=== PATIENT | male | born 1945 | race Caucasian/White ===

== ENCOUNTER 2022-04-17 05:58 | Inpatient (IN) ==
--- NOTE | 2022-03-28 10:07 | PAT Medication Instructions ---
Medication Instructions Date of Service March 28, 2022 Home Medications aspirin 81 mg tablet,delayed release 81 mg PO QAM baclofen 10 mg tablet 10 mg PO TID PRN carbidopa 50 mg-levodopa 200 mg-entacapone 200 mg tablet 1 tab PO TID carbidopa ER 50 mg-levodopa 200 mg tablet,extended release 1 tab PO HS hydrocodone 7.5 mg-acetaminophen 325 mg tablet 1 tab PO BID PRN insulin human U-100 NPH-regulr 70-30 mix 100 unit/mL subcutaneous susp (Humulin 70/30 U-100 Insulin) 10 - 15 unit subcut QPM insulin human U-100 NPH-regulr 70-30 mix 100 unit/mL subcutaneous susp (Humulin 70/30 U-100 Insulin) 56 unit subcut QAM lovastatin 40 mg tablet 40 mg PO HS melatonin 10 mg tablet 10 mg PO HS pantoprazole 40 mg tablet,delayed release 40 mg PO BID ASK your prescriber and surgeon aspirin 81 mg tablet,delayed release 81 mg PO QAM DO NOT take the morning of surgery baclofen 10 mg tablet 10 mg PO TID PRN Take morning of surgery With a small sip of water, OTHERWISE NOTHING TO EAT OR DRINK AFTER MIDNIGHT: carbidopa 50 mg-levodopa 200 mg-entacapone 200 mg tablet 1 tab PO TID hydrocodone 7.5 mg-acetaminophen 325 mg tablet 1 tab PO BID PRN(if needed) pantoprazole 40 mg tablet,delayed release 40 mg PO BID Take evening before surgery baclofen 10 mg tablet 10 mg PO TID PRN(if needed) carbidopa 50 mg-levodopa 200 mg-entacapone 200 mg tablet 1 tab PO TID carbidopa ER 50 mg-levodopa 200 mg tablet,extended release 1 tab PO HS hydrocodone 7.5 mg-acetaminophen 325 mg tablet 1 tab PO BID PRN(if needed) insulin human U-100 NPH-regulr 70-30 mix 100 unit/mL subcutaneous susp (Humulin 70/30 U-100 Insulin) 10 - 15 unit subcut QPM lovastatin 40 mg tablet 40 mg PO HS melatonin 10 mg tablet 10 mg PO HS pantoprazole 40 mg tablet,delayed release 40 mg PO BID Insulin Dependent Diabetic Patients * Test your blood sugar the morning of surgery * If Blood Sugar is GREATER THAN 150, take HALF of your regular dose of: insulin human U-100 NPH-regulr 70-30 mix 100 unit/mL subcutaneous susp (Humulin 70/30 U-100 Insulin)-28 unit subcut QAM. * If Blood Sugar is LESS THAN 150, DO NOT TAKE ANY: insulin human U-100 NPH- regulr 70-30 mix 100 unit/mL subcutaneous susp (Humulin 70/30 U-100 Insulin). Other Notes If you have any questions please call us at [phone] or [phone] or [phone] or [phone]
--- NOTE | 2022-03-30 13:35 | Anesthesiology Consultation ---
Date of Service March 30, 2022 Assessment & Plan (1) Encounter for pre-operative examination: - Lightheadedness/dizziness persistent per pt/ report and overall history discussed with Dr Lawson who advised specific pre-op cardiology clearance prior to surgery. Awaiting cardiac pre-op evaluation. - will request carotid imaging. - check BSG am DOS. - cardiology 02/14/22: "...coronary artery disease and syncope...follow-up of a syncopal episode requiring hospitalization at [facility]...Prior workup had included echocardiogram and carotid duplex. Both studies were unremarkable...Holter monitor did not indicate significant dysrhythmias...noted to near syncopal episodes while wearing monitor...did not have dysrhythmias. Longer monitoring was recommended but patient did not wish to consider this. I twas felt his episodes were most likely related to orthostatic blood pressure events. Adequate hydration was recommended...denies any further episodes of near-syncope/syncope...noted improvement in lightheadedness with use of compression hose and adequate hydration...orthostatic blood pressures were checked today. Hypotension was not noted...denies any further episodes of near- syncope/syncope...further testing will not be ordered at this time...previously noted to have PVCs on Holter monitor...not at a rate that would put him at risk for PVC mediated cardiomyopathy...will continue to monitor for now..." Chart Review Chart Review: Pending: Refer to Additional Notes / Consult section and Patient seen in Pre Admission Testing Teaching & Discussion Pre-Anesthesia Teaching/Discussion Notes: Instructed NPO after midnight before surgery, except medications with 15 cc of water. Medication instructions provided according to the PAT guidelines. History Surgery Operation Date: 04/17/22 12:25 Proposed Procedures p L2-L5 Decompression and Fusion, Spinal Cord Monitoring - Festus Su DO Height/Weight Height: 5 ft 10 in Weight: 81.5 kg Allergies Allergy/AdvReac Type Severity Reaction Status Date / Time No Known Allergies Allergy Verified 03/27/22 09:32 Medications Home Medications Medication Instructions Recorded Confirmed Last Taken aspirin 81 mg tablet,delayed 81 mg PO QAM 03/27/22 03/27/22 Unknown release baclofen 10 mg tablet 10 mg PO TID PRN Pain 03/27/22 03/27/22 Unknown carbidopa 50 mg-levodopa 200 1 tab PO TID 03/27/22 03/27/22 Unknown mg-entacapone 200 mg tablet carbidopa ER 50 mg-levodopa 200 mg 1 tab PO HS 03/27/22 03/27/22 Unknown tablet,extended release hydrocodone 7.5 mg-acetaminophen 1 tab PO BID PRN Pain 03/27/22 03/27/22 Unknown 325 mg tablet insulin human U-100 NPH-regulr 10 - 15 unit subcut QPM 03/27/22 03/27/22 Unknown 70-30 mix 100 unit/mL subcutaneous susp (Humulin 70/30 U-100 Insulin) insulin human U-100 NPH-regulr 56 unit subcut QAM 03/27/22 03/27/22 Unknown 70-30 mix 100 unit/mL subcutaneous susp (Humulin 70/30 U-100 Insulin) lovastatin 40 mg tablet 40 mg PO HS 03/27/22 03/27/22 Unknown melatonin 10 mg tablet 10 mg PO HS 03/27/22 03/27/22 Unknown pantoprazole 40 mg tablet,delayed 40 mg PO BID 03/27/22 03/27/22 Unknown release Past Medical History Medical History (Updated 03/30/22 @ 14:06 by Bailey Sherman PA-C) CAD (coronary artery disease) 1 stent, follows with [facility] DDD (degenerative disc disease) DM type 1 (diabetes mellitus, type 1) IDDM Gastroparesis GERD (gastroesophageal reflux disease) History of hypertension h/o orthostatic hypotension, follows [facility] reports infrequent episodes of lightheadedness without near syncope History of myocardial infarction 1999 HLD (hyperlipidemia) Parkinsons disease Patient denies h/o stroke, seizures, heart failure, blood clots or blood transfusions. Exercise / Class Metabolic Activity III < 4 Walking/Shop/Light housework (occ SOB with usual activities, ambulates with cane) Past Family History Family History Other No family history of adverse response to anesthesia Past Surgical History Surgical History History of ankle surgery Lt History of cardiac catheterization mult. 1 stent placed in 1999 with [place]. says most recent "few years ago" [facility] History of carpal tunnel release of both wrists History of cholecystectomy History of colonoscopy History of esophagogastroduodenoscopy (EGD) History of heart artery stent x 1 (1999) History of tonsillectomy Past Anesthesia History No Hx of Anesthesia Complications and No Family Hx of Anesthesia Complications History of PONV No Hx of PONV and No Hx of Motion Sickness Social History Smoking Status: Former smoker Do You Dip or Chew Tobacco: No Smoking End Date: 1974 Hx Alcohol Use: Yes Alcohol type: beer and wine alcohol intake frequency: a few times a month Hx Substance Use: No substance use type: does not use Review of Systems Snoring, denies witnessed apneas. Patient denies chest pain, shortness of breath, dyspnea on exertion, fever, chills, cough, wheezing, or palpitations. Physical Exam Vital Signs Vitals BP 107/68 P 75 TEMP 98 SP02 95% on RA RESP 17 Physical Full cervical extension range of motion without pain TMD 3.5 finger breadths Mallampati Score 2 Dentition: full upper and lower dentures Lungs: normal respiratory effort. Clear throughout to auscultation, no adventitious breath sounds Cardiac: regular rate and rhythm, no murmurs noted Carotid arteries: negative bruit bilat Lab Results Anesthesia Preop Results Results Anesthesia Widget: WBC 6.40 K/ul (4.8-10.8) 03/30/22 Hgb 14.6 g/dl (14.0-18.0) 03/30/22 Hct 43.0 % (40.1-51.0) 03/30/22 Plt 200 K/uL (130-400) 03/30/22 Na 143 mmol/L (136-145) 03/30/22 K 4.2 mmol/L (3.5-5.1) 03/30/22 Cl 108 mmol/L (98-107) H 03/30/22 CO2 33 mmol/L (21-32) H 03/30/22 BUN 15 mg/dl (6-23) 03/30/22 Creat 0.81 mg/dl (0.6-1.4) 03/30/22 Glucose Level 97 mg/dl (70-99(Fasting)) 03/30/22 PT 11.4 Seconds (9.0-12.0) 03/30/22 PTT 30.3 Seconds (21.0-31.0) 03/30/22 INR 1.1 (0.9-1.1) 03/30/22 HA1c 7.3 % (4.5-5.6) H 03/30/22 Urine Color Dark Yellow 03/30/22 Urine Appearance Clear (Clear) 03/30/22 Urine pH 5.5 (4.5-7.5) 03/30/22 Urine Specific [place] 1.026 (1.000-1.030) 03/30/22 Urine Protein Trace (Negative) H 03/30/22 Urine Glucose (UA) 3+ (Negative) H 03/30/22 Urine Ketones Trace (Negative) H 03/30/22 Urine Blood Negative (Negative) 03/30/22 Urine Nitrite Negative (Negative) 03/30/22 Urine Bilirubin Negative (Negative) 03/30/22 Urine Urobilinogen Negative (Negative) 03/30/22 Urine Leukocyte Esterase Negative (Negative) 03/30/22 Urine WBC (Auto) 1-5 /hpf (0-5) 03/30/22 Urine RBC (Auto) 0-4 /hpf (0-4) 03/30/22 Urine Hyaline Casts (Auto) 0 /lpf (0-5) 03/30/22 Urine Epithelial Cells (Auto) 0-5 /lpf (0-5) 03/30/22 Urine Bacteria (Auto) Negative (Negative) 03/30/22 Blood Type O Positive 03/30/22 Antibody Screen NEGATIVE 03/30/22 Testing Electrocardiogram Date: 01/03/22 NSR, rate 73 bpm Chest X-Ray Date: 03/30/22 No lines and tubes are seen. Calcified aortic knob is seen. The lungs are clear. No evidence of pleural effusion or pneumothorax. IMPRESSION: No acute chest disease. Echocardiogram Date: 08/17/20 EF 50% No obvious regional wall motion abnormalities Mildly dilated LA No significant valvular pathology Stress Test Date: 08/10/20 Pharmacologic MPHR 62% Normal, no evidence of ischemia or prior infarction EF 69% Normal LV global systolic function, no abnormality noted Other Testing Event monitor 11/25/21 Sinus rhythm, average HR 72 bpm, min 58 bpm, max 96 bpm. PVC burden 7% COVID-19 Risk Screen Screening Information COVID-19 Screen Date: 03/30/22 Exposure 21 Days Family/Household +COVID Last 21 Days: No Exposure 10 Days Any COVID Exposure Last 10 Days: No Symptoms Last 10 Days Experienced COVID Sx Last 10 Days: No + COVID 0-90 Days COVID + in Last 0-90 Days: No
[2022-04-17] MEDS ORDERED: LR 15ML/HR IV SCH (06:00)
[2022-04-17] MEDS ORDERED: ceFAZolin 2000MG 2,000 MG/15 ML SYR IV SCH (06:00)
[2022-04-17] MEDS ORDERED: CeleBREX 200 MG CAP PO SCH (06:00)
[2022-04-17] MEDS ORDERED: GABAPENTIN 300 MG CAP PO SCH (06:00)
[2022-04-17] MEDS ORDERED: ACETAMINOPHEN 500 MG TAB PO SCH (06:00)
[2022-04-17] MEDS ORDERED: ePHEDrine sulfate 50 MG/ML AMP IV PRN (06:52)
[2022-04-17] MEDS ORDERED: ATROPINE SULFATE 0.1 MG/ML 10ML SYR IV PRN (06:52)
[2022-04-17] MEDS ORDERED: fentaNYL citrate 100 MCG/2 ML VIAL IV PRN (06:52)
[2022-04-17] MEDS ORDERED: ONDANSETRON INJ 2 MG/ML 2 ML VIAL IV PRN ×2 (06:52→11:28)
[2022-04-17] MEDS ORDERED: fentaNYL citrate 100 MCG/2 ML VIAL ONE (07:16)
[2022-04-17] MEDS ORDERED: BUPIVACAINE/EPINEPHRINE 0.25% 1:200,000 30 ML VIAL ONE (07:18)
[2022-04-17] MEDS ORDERED: ceFAZolin 330 MG/ML 1 GM VIAL ONE (07:19)
--- NOTE | 2022-04-17 07:38 | History & Physical Bridge Note ---
Date of Service April 17, 2022 History & Physical Bridge Note I have examined the patient, reviewed the History & Physical and in the interval since the performance of the History & Physical I have noted the following changes of clinical significance: no changes noted
--- NOTE | 2022-04-17 07:39 | History & Physical Report ---
Date of Service April 17, 2022 Assessment & Plan (1) Neurogenic claudication due to lumbar spinal stenosis: Plan: L2-L5 decompression fusion History of Present Illness Chief Complaint: Back and bilateral leg pain Primary Care Provider: RICHA Massey This is a 76-year-old male who presents with chronic persistent back and bilateral leg pain after failing since course of nonoperative care is here for surgical invention. Allergies Allergy/AdvReac Type Severity Reaction Status Date / Time No Known Allergies Allergy Verified 04/17/22 06:23 Home Medications Medication Instructions Recorded Confirmed Type aspirin 81 mg tablet,delayed 81 mg PO QAM 03/27/22 04/17/22 History release baclofen 10 mg tablet 10 mg PO TID PRN Pain 03/27/22 04/17/22 History carbidopa 50 mg-levodopa 200 1 tab PO TID 03/27/22 04/17/22 History mg-entacapone 200 mg tablet carbidopa ER 50 mg-levodopa 200 mg 1 tab PO HS 03/27/22 04/17/22 History tablet,extended release hydrocodone 7.5 mg-acetaminophen 1 tab PO BID PRN Pain 03/27/22 04/17/22 History 325 mg tablet insulin human U-100 NPH-regulr 10 - 15 unit subcut QPM 03/27/22 04/17/22 History 70-30 mix 100 unit/mL subcutaneous susp (Humulin 70/30 U-100 Insulin) insulin human U-100 NPH-regulr 56 unit subcut QAM 03/27/22 04/17/22 History 70-30 mix 100 unit/mL subcutaneous susp (Humulin 70/30 U-100 Insulin) lovastatin 40 mg tablet 40 mg PO HS 03/27/22 04/17/22 History melatonin 10 mg tablet 10 mg PO HS 03/27/22 04/17/22 History pantoprazole 40 mg tablet,delayed 40 mg PO BID 03/27/22 04/17/22 History release (Protonix) Past Med/Surg History Medical History (Updated 04/17/22 @ 07:39 by Festus Su DO) CAD (coronary artery disease) 1 stent, follows [facility] DDD (degenerative disc disease) DM type 1 (diabetes mellitus, type 1) IDDM Gastroparesis GERD (gastroesophageal reflux disease) History of hypertension h/o orthostatic hypotension, follows [facility] reports infrequent episodes of lightheadedness without near syncope History of myocardial infarction 1999 HLD (hyperlipidemia) Parkinsons disease Surgical History History of ankle surgery Lt History of cardiac catheterization mult. 1 stent placed in 1999 with ID. says most recent "few years ago" [facility] History of carpal tunnel release of both wrists History of cholecystectomy History of colonoscopy History of esophagogastroduodenoscopy (EGD) History of heart artery stent x 1 (1999) History of tonsillectomy Family History Other No family history of adverse response to anesthesia Social History Smoking Status: Former smoker Smoking End Date: 1974; Second Hand Exposure: No; Do You Dip or Chew Tobacco: No; Tobacco Cessation Education Requested by Patient: No Hx Alcohol Use: Yes Alcohol type: beer and wine Hx Substance Use: No Preferred Language: Tristanian Communication Ability: Effective Secondary Special Education Teacher Required: No Beliefs That Will Affect Care: None Current Living Situation: Spouse Feels Safe at Home: Yes Safety Concerns: Feels Safe At This Time Assistive Devices: Cane, Denture - Upper, Denture - Lower and Glasses Physical Exam Physical Exam: Patient is alert and oriented Heart regular rhythm Lungs clear Results & Data Results & Data ([facility]) Vital Signs (Past 12 Hours) Vital Signs Temp Pulse Resp BP Pulse Ox O2 Del Method 04/17/22 06:28 36.9 C 67 20 163/73 H 99 Room Air
[2022-04-17] MEDS ORDERED: HYDROmorphone INJ 2 MG/ML SYR/VIAL ONE (08:12)
[2022-04-17] MEDS ORDERED: DEXAMETHASONE SOD INJ 4 MG/ML VIAL ONE (08:21)
[2022-04-17] MEDS ORDERED: LIDOCAINE 2% MPF LOCAL 5 ML VIAL INFIL ONE (08:21)
[2022-04-17] MEDS ORDERED: PROPOFOL IV EMULSION 10 MG/ML 20 ML VIAL IV ONE (08:21)
[2022-04-17] MEDS ORDERED: ROCURONIUM BROMIDE 10 MG/ML 5 ML VIAL IV ONE (08:21)
[2022-04-17] MEDS ORDERED: ONDANSETRON INJ 2 MG/ML 2 ML VIAL ONE (08:21)
[2022-04-17] MEDS ORDERED: ePHEDrine sulfate 50 MG/ML SYR ONE (08:29)
[2022-04-17] MEDS ORDERED: FLOSEAL HEMOSTATIC MATRIX 10ML TOP ONE (08:37)
[2022-04-17] MEDS ORDERED: GLYCOPYRROLATE 0.2 MG/ML VIAL ONE (10:18)
[2022-04-17] MEDS ORDERED: NEOSTIGMINE METHYLSULFATE 1 MG/ML 10ML VIAL ONE (10:18)
--- NOTE | 2022-04-17 10:21 | Operative Report ---
Post Operative Report Pre & Post Diagnosis Operation Date: 04/17/22 07:45 Pre-Op Diagnosis: Neurogenic Claudication due to Lumbar Spinal Stenosis Post-Op Diagnosis: Neurogenic Claudication due to Lumbar Spinal Stenosis I identified the patient and participated in the time-out.: Yes Procedure Operation Date: 04/17/22 07:45 Actual Procedures #1 lumbar decompression bilateral medial facetectomies and foraminotomies L2-L3, L3-L4 and L4-5 per #2 posterior spinal fusion L2-L5 per #3 placement of posterior segmental instrumentation L2-L5. #4 interbody fusion L3-L4 L4-5 per #5 placement of Spira 12 x 26 mm cage at L3-L4 and 15 x 26 mm cage at L4-5. #6 placement locally harvested morselized autograft in the posterior gutters. #7 placement I factor model V toss in interbody space and posterior gutters. Surgeon Festus Su, Seeing Eye Dog Trainer June Fall Estimated Blood Loss 500 Findings Consistent with Post-Op Diagnosis Specimens None Indications 76-year-old male who presents with chronic persistent back and bilateral leg pain. Failing course of care is here for surgical invention. Description of Procedure Patient was met with identified informed consent obtained. Patient was then taken to the operative suite underwent ablation placed in the prone position on the Ildefonso table on top of the Jose A frame. All bony prominences well-padded eyes inspected to ensure no external pressure baseline. This point lumbar spine was prepped and draped no sterile fashion. Sharp dissection with the assistance of Bovie cautery was then performed down to and exposing the lamina and transverse processes of L2-L3 L4-5 bilaterally. From caudal to cephalad fashion complete laminectomy of L4 L3 and L2 was performed including bilateral medial facetectomies and foraminotomies addressing severe spinal stenosis. Pedicle screws then placed L2-L3 L4-5 bilaterally with assistance of fluoroscopy and appropriately sized eder placed. By way of a transforaminal approach on the right complete discectomy L4-L5 was performed endplates curetted to subcortical bleeding bone and a 15 x 26 mm spiral cage filled with I factor tapped in position. Then proceeded to L3-L4 and again by way of a transfemoral approach and right complete discectomy performed endplates curetted to subcortical bleeding bone and a 12 x 26 mm spiral cage with I factor tapped in position. The rods and locked in final position bilaterally. Transverse processes of L2- L3 L4-5 burred to subcortical bleeding bone. I factor model detox and locally harvested morselized autograft was placed in the posterior gutters. 15 round HELDER drain inserted. The incision was then closed with 1 Vicryl the fascia 2-0 Vicryl subcutaneously and 4 Monocryl for final skin closure. Steri-Strip sterile dressings placed. Patient waken taken to PACU in stable condition. Please note spinal cord monitoring was utilized at the procedure no changes noted. Lastly June Fall was present at the entire surgeon while the patient positioning complex portions of the surgery and final skin closure. I attest to the content of the Intraoperative Record and any orders documented therein. Any exceptions are noted below.
--- NOTE | 2022-04-17 11:16 | Fluoroscopy Report ---
FL lumbar spine 2-3V CLINICAL HISTORY: L2-L5 DECOMPRESSION AND FUSION, SPINAL CORD MONITORING TECHNIQUE: 2 views were obtained with the C-arm in the OR with the above procedure. Total fluoroscopy time was 29 seconds. Comparison: None available at the time of this dictation. FINDINGS/IMPRESSION: Intraoperative images were obtained of L2-L5 discectomy and fusion. Please correlate with intraoperative fluoroscopy and operative report. ACT 112: Negative or not required by law. Electronically signed by: Yossi Palacios M.D. 04/17/2022 11:15 AM
[2022-04-17] MEDS ORDERED: LORazepam 0.5 MG in SYRINGE 0 ML IV PRN (11:28)
[2022-04-17] MEDS ORDERED: bisacodyL 10 MG SUPP PR PRN (11:28)
[2022-04-17] MEDS ORDERED: traMADol HCL 50 MG TABLET PO PRN (11:28)
[2022-04-17] MEDS ORDERED: ONDANSETRON 4 MG OD TAB PO PRN (11:28)
[2022-04-17] MEDS ORDERED: NALOXONE HCL 0.4 MG/1 ML VIAL/CARP IV PRN (11:28)
[2022-04-17] MEDS ORDERED: ALUMINUM/MAGNESIUM SUSP 30 ML UDC PO PRN (11:28)
[2022-04-17] MEDS ORDERED: HYDROmorphone INJ 1 MG/ML SYRINGE IV PRN (11:28)
[2022-04-17] MEDS ORDERED: LORazepam 0.5 MG TAB PO PRN (11:28)
[2022-04-17] MEDS ORDERED: METOCLOPRAMIDE HCL INJ 5 MG/ML 2 ML VIAL IV PRN (11:28)
[2022-04-17] MEDS ORDERED: MAGNESIUM HYDROXIDE SUSP 30 ML UDC PO PRN (11:28)
[2022-04-17] MEDS ORDERED: diphenhydrAMINE Capsule 25 MG CAP PO PRN (11:28)
[2022-04-17] MEDS ORDERED: SOD PHOSPHATE/SOD BIPHOSPHATE ENEMA 132 ML BTL PR PRN (11:28)
[2022-04-17] MEDS ORDERED: PROMETHAZINE HCL 12.5 MG in SODIUM CHLORIDE 0.9% 50 ML IV PRN (11:28)
[2022-04-17] MEDS ORDERED: hydrOXYzine HCl 25 MG TAB PO PRN (11:28)
[2022-04-17] MEDS ORDERED: ACETAMINOPHEN 1,000 MG/100 ML VIAL IV PRN (11:28)
[2022-04-17] MEDS ORDERED: PHARMACY GLYCEMIC MGMT CONSULT PRN (11:28)
[2022-04-17] MEDS ORDERED: FAMOTIDINE 20 MG TAB PO PRN (11:28)
[2022-04-17] MEDS ORDERED: ACETAMINOPHEN 500 MG TAB PO PRN (11:28)
[2022-04-17] MEDS: LEVODOPA PO SCH ×2 (11:30→16:45)
[2022-04-17] MEDS: CARBIDOPA PO SCH ×2 (11:30→16:45)
[2022-04-17] MEDS: ENTACAPONE PO SCH ×2 (11:30→16:45)
[2022-04-17] MEDS: SODIUM CHLORIDE 0.9% 1000ML 1,000 ML IV SCH ×2 (11:38→21:53)
--- NOTE | 2022-04-17 12:13 | Anesthesiology Progress Note ---
Date of Service April 17, 2022 Anesthesia Post Procedure Vital Signs Vital Signs: Temp Pulse Pulse Resp BP Pulse Ox O2 Del Method 04/17/22 11:50 97.5 F L 73 16 128/67 96 Room Air 04/17/22 11:10 97.0 F L 70 16 122/43 L 95 Room Air 04/17/22 11:00 74 16 124/45 L 96 Room Air 04/17/22 10:50 67 18 128/47 L 100 Oxymask 04/17/22 10:40 96.8 F L 88 17 130/45 L 100 Oxymask 04/17/22 06:28 98.4 F 67 20 163/73 H 99 Room Air O2 Flow Rate 04/17/22 11:50 04/17/22 11:10 04/17/22 11:00 04/17/22 10:50 6 04/17/22 10:40 6 04/17/22 06:28 Transfer of Care Handoff Completed per policy Notes Mental Status: alert / awake / arousable and participated in evaluation Patient Amnestic to Procedure: Yes Nausea / Vomiting: adequately controlled Pain: adequately controlled Airway Patency, RR, SpO2: stable & adequate BP & HR: stable & adequate Hydration State: stable & adequate Anesthetic Complications: no major complications apparent and Pt Satisfied with anesthetic care
--- NOTE | 2022-04-17 12:25 | Consultation ---
Date of Consultation April 17, 2022 Assessment & Plan (1) Neurogenic claudication due to lumbar spinal stenosis: (2) CAD (coronary artery disease): (3) Parkinsons disease: (4) DM type 1 (diabetes mellitus, type 1): (5) HLD (hyperlipidemia): (6) GERD (gastroesophageal reflux disease): Plan Mr. Cortez Daley is a 76 year old underwent L2-L5 discectomy and fusion under the care of Dr. Su today after failed conservative management as an outpatient for neurogenic claudication from lumbar spinal stenosis. Pt has a PMH of IDDM, Parkinsons Disease, and CAD/HTN. Neurogenic claudication due to lumbar spinal stenosis: POD# 0 s/p L2-L5 discectomy and fusion with Dr. Su. Per ortho for pain control, wound care, anticoagulation and activities. Monitor H&H. Hgb 03/30/22 14.6; trend in AM. Continue incentive spirometry; patient was able to demonstrate correct use PT/OT when appropriate Patient was using a walker prior to surgery due to pain Patient was taking Vicodin and Baclofen p.o. prior to surgery for pain Has stool softener ordered Has medical marijuana card and has topical oils for neuropathic pain; not using while IPT CAD: HTN: AMI 2000 s/p 1 stent to the LAD Takes baby ASA. Per patient he was on HTN medications up until 12/30 when they were discontinued due to syncope (he did recall lisinopril but was unable to state other medication names that he was on) HLD: Takes Lovastatin; continue OPT lipid panel per PCP Diabetes mellitus type 1: Follows with endocrine in [place] at [facility]; diagnosed when he was 8 years old Takes Esoprso79/30: 56 units QAM and 10-15 units QPM Last A1C 06/30/21: 7.3 Pt not on steroids post-op Glycemic pharmacy on board: FSBS AC/HS Goal BSG Range: Low 110_mg/dL, High 140_mg/dL --Correction Factor: 20_mg/dL/unit --Carbohydrate ratio = _7_ g/unit --BSGs ACHS if eating, q6h if npo Parkinson's disease: Diagnosed in 2013 Follows with [facility] neurology [place] in [place] Takes Sinemet 1 tab PQ HS Takes Stalevo 1 tab PO TID Gastroparesis: Takes Protonix; continue Follows with GI in [place]; fairly new for him. Disposition: PCP: Eros CHAUDHRY in [facility] VTE Prophylaxis: Teds and SCDs per Ortho Code Status: Full Code Point of contact: Aileen [phone] I personally was able to review all current laboratory work and diagnostic images obtained in the ED. Additionally, I was able to review the patients past medication reconciliation and history with direct visualization in the patients chart. This patient was discussed and collaborated with Dr. Lovett. [facility] Please contact us 01/01 via [place] text for any further assistance we can provide. Supervising Physician Co-Signing Physician Notes I have seen and examined the patient and have discussed the case with the provi sang above. I agree with the assessment and plan as stated. 76 yo M with medical conditions listed above. He is doing well overall with some expected incisional pain. Denies chest pain, SOB, nausea or other issues. Reports that his chronic pain is now gone and he is excited about that. Hyperglycemic on lab work but glycemic pharmacist is following and has a plan. Physical exam as above. Agree with recs as listed above. Cont his special Sinemet from home that was sent to pharmacy. at bedside and updated. All questions were answered. Thank you for this consultation. Bony HUI History of Present Illness Requesting Physician: Dr. Su Reason for Consultation: Post-operative medical management Attending Physician: Festus Su DO History of Present Illness Mr. Cortez Daley is a 76 year odl Caucsian male that presented to the [facility] for an elective L2-L5 discectomy and fusion under the care of Dr. Su today after failed conservative management as an outpatient for neurogenic claudication from lumbar spinal stenosis. Additional PMH includes: DDD, CAD (AMI 1999 s/p one stent), IDDM type 1, HLD, HTN, Parkinson's disease, and GERD. Patient receives most of his care in [place] through [facility] system. Patient had an AMI in 1999 status post 1 stent to the LAD and was on medications; patient unaware of which medications, until December when he started to have syncope and at that time they were discontinued. He reports that his Parkinson's disease is well controlled with some intermittent tremors. Up until the surgery he had been using a walker intermittently as an ambulation assistive device but indicated this was related to the lumbar spinal stenosis rather than the Parkinson's. Postoperatively patient denies headache, dizziness, numbness and tingling in lower extremities, visual changes, dyspepsia, nausea, vomiting, diarrhea. Patient does express having lower back pain 4 out of 10; he was just medicated with IV Dilaudid per orders. On examination, the patient was sitting upright in his hospital bed awake alert oriented x4 in no apparent distress and able to answer all questions appropriately and in a meaningful way. The patien keyonna's Aileen was at his bedside during our encounter. The patient has 1 HELDER drain intact with bright red blood draining. The patient was able to demonstrate correct use of ISB and was tolerating a clear liquid diet. Patient has not gotten out of bed yet with physical therapy; orders pending. [facility] service was consulted for post-operative medical management. Please see A/P for further details. Allergies Allergy/AdvReac Type Severity Reaction Status Date / Time No Known Allergies Allergy Verified 04/17/22 06:23 Home Medications Medication Instructions Recorded Confirmed Type aspirin 81 mg tablet,delayed 81 mg PO QAM 03/27/22 04/17/22 History release baclofen 10 mg tablet 10 mg PO TID PRN Pain 03/27/22 04/17/22 History carbidopa 50 mg-levodopa 200 1 tab PO TID 03/27/22 04/17/22 History mg-entacapone 200 mg tablet carbidopa ER 50 mg-levodopa 200 mg 1 tab PO HS 03/27/22 04/17/22 History tablet,extended release hydrocodone 7.5 mg-acetaminophen 1 tab PO BID PRN Pain 03/27/22 04/17/22 History 325 mg tablet insulin human U-100 NPH-regulr 10 - 15 unit subcut QPM 03/27/22 04/17/22 History 70-30 mix 100 unit/mL subcutaneous susp (Humulin 70/30 U-100 Insulin) insulin human U-100 NPH-regulr 56 unit subcut QAM 03/27/22 04/17/22 History 70-30 mix 100 unit/mL subcutaneous susp (Humulin 70/30 U-100 Insulin) lovastatin 40 mg tablet 40 mg PO HS 03/27/22 04/17/22 History melatonin 10 mg tablet 10 mg PO HS 03/27/22 04/17/22 History pantoprazole 40 mg tablet,delayed 40 mg PO BID 03/27/22 04/17/22 History release (Protonix) Patient History Medical History (Updated 04/17/22 @ 12:15 by RICHA Covington) CAD (coronary artery disease) 1 stent, follows with [facility] DDD (degenerative disc disease) DM type 1 (diabetes mellitus, type 1) IDDM Gastroparesis GERD (gastroesophageal reflux disease) History of hypertension h/o orthostatic hypotension, follows with [facility] reports infrequent episodes of lightheadedness without near syncope History of myocardial infarction 1999 HLD (hyperlipidemia) Parkinsons disease Surgical History History of ankle surgery Lt History of cardiac catheterization mult. 1 stent placed in 1999 with [place]. says most recent "few years ago" [facility]. History of carpal tunnel release of both wrists History of cholecystectomy History of colonoscopy History of esophagogastroduodenoscopy (EGD) History of heart artery stent x 1 (1999) History of tonsillectomy Family History (Updated 04/17/22 @ 17:46 by RICHA Covington) Other No significant family history Social History Smoking Status: Former smoker Smoking End Date: 1974; Second Hand Exposure: No; Do You Dip or Chew Tobacco: No; Tobacco Cessation Education Requested by Patient: No Hx Alcohol Use: Yes Alcohol type: beer and wine Hx Substance Use: No Preferred Language: Argentine Communication Ability: Effective Fruit Sorter Required: No Beliefs That Will Affect Care: None Current Living Situation: Spouse Feels Safe at Home: Yes Safety Concerns: Feels Safe At This Time Assistive Devices: Cane, Denture - Upper, Denture - Lower and Glasses Review of Systems Review of Systems: Neuro: (-) Falls, trauma, slurred speech HEENT: (-) CHEN, dizziness, dysphagia, visual or auditory changes CV: (-) CP, palpitations, swelling Resp: (-) SOB GI: (-) appetite changes, N/V/D, bowel changes : (-) urinary changes Skin: (-) rashes Psych: (-) anxiety, depression Physical Exam Physical Exam: Neuro: AAOx4, PERRLA, no aphagia, memory changes, CNII-XII grossly intact HEENT: head normocephalic, moist mucus membranes CV: S1/S2, (-) M/G/R, (-) edema, cap refill < 3 seconds. Euvolemic. HELDER drain x1 intact with bright red blood Resp: Lungs CTA in all schroeder. On RA GI: Abdomen S/NT/ND, Ax4 bowel sounds, (-) CVA tenderness Musculoskeletal: 5/5 B/L UE strength, 5/5 B/L LE strength. USes a walker for ambulation assist device Skin: (-) rashes , (-) erythema. Lower back surgical dressing C/D/I (Ortho to evaluate) Psych: euthymic mood Results & Data ([facility]) Vital Signs (Past 12 Hours) Vital Signs Temp Pulse Pulse Resp BP Pulse Ox O2 Del Method 04/17/22 11:50 36.4 C L 73 16 128/67 96 Room Air 04/17/22 11:10 36.1 C L 70 16 122/43 L 95 Room Air 04/17/22 11:00 74 16 124/45 L 96 Room Air 04/17/22 10:50 67 18 128/47 L 100 Oxymask 04/17/22 10:40 36.0 C L 88 17 130/45 L 100 Oxymask 04/17/22 06:28 36.9 C 67 20 163/73 H 99 Room Air O2 Flow Rate 04/17/22 11:50 04/17/22 11:10 04/17/22 11:00 04/17/22 10:50 6 04/17/22 10:40 6 04/17/22 06:28 Diagnostic Findings Lumbar Spine X-Ray 04/17/22 07:00 FL lumbar spine 2-3V CLINICAL HISTORY: L2-L5 DECOMPRESSION AND FUSION, SPINAL CORD MONITORING TECHNIQUE: 2 views were obtained with the C-arm in the OR with the above procedure. Total fluoroscopy time was 29 seconds. Comparison: None available at the time of this dictation. FINDINGS/IMPRESSION: Intraoperative images were obtained of L2-L5 discectomy and fusion. Please correlate with intraoperative fluoroscopy and operative report. ACT 112: Negative or not required by law. Electronically signed by: Yossi Palacios M.D. 04/17/2022 11:15 AM
[2022-04-17] MEDS: HYDROmorphone INJ 0.5 MG/0.5 ML SYR IV PRN ×2 (12:36→17:46)
[2022-04-17] MEDS ORDERED: GLUCAGON FOR INJ 1 MG VIAL IM PRN (13:00)
[2022-04-17] MEDS ORDERED: GLUCOSE 10 TAB/TUBE PO PRN (13:00)
[2022-04-17] MEDS ORDERED: GLUCOSE 40% GEL 15 GM TUBE PO PRN (13:00)
[2022-04-17] MEDS ORDERED: INSULIN HUMAN NPH SC ONE (13:00)
[2022-04-17] MEDS ORDERED: DEXTROSE 50% 50 ML SYRINGE IV PRN (13:00)
--- NOTE | 2022-04-17 13:36 | Pharmacy Report ---
Pharmacy Glycemic Short Note 2 - Date of Service April 17, 2022 - Glycemic Short BSG Results (Last 24 hours): 04/17/22 04/17/22 04/17/22 06:18 10:40 12:06 POC Glucose 153 H 164 H 188 H OUTPATIENT ANTIDIABETIC REGIMEN: * Humulin 70/30 --> 60 units in the morning and 10-15 units in the afternoon * HbA1C = 7.3% ASSESSMENT: * Mr Daley is a 76 y/o T1DM who presents for spinal surgery. * Per interview with the patient's , he has hypoglycemia in the middle of the night that wakes him up. BSGs around 40 mg/dL. No changes to insulin regimen recently to deal with this. * Patient underwent surgery today and received 4 mg of IV dexamethasone. * Will start with weight-based stress 2/3 full dose of NPH 35 units x 1. Only one dose today since patient receiving this dose at 1200 and has hypoglycemia overnight. Overnight checks to ensure 24 hour coverage. * Due to steroids, will utilize weight-based stress of 3 Novolog. PLAN FOR INPATIENT GLYCEMIC CONTROL: * Basal insulin * NPH 35 units SQ x 1 then re-evaluate 04/17/22 * Bolus insulin * NovoLog per scale ACHS or Q6hrs while NPO * Goal Range: Low 110 mg/dL - High 140 mg/dL * Correction Factor: 20 mg/dL/unit * Nutritional / Prandial insulin per carb ratio of 1 unit per 7 grams CHO consumed
[2022-04-17] MEDS: INSULIN ASPART PER UNIT SC SCH ×3 (13:49→21:55)
[2022-04-17] MEDS: ceFAZolin 2000MG 2,000 MG/15 ML SYR IV SCH (16:45)
[2022-04-17] MEDS ORDERED: Nursing to Pharmacy Communication SCH (17:00)
[2022-04-17] MEDS ORDERED: PANTOprazole 40 MG TAB PO SCH (21:00)
[2022-04-17] MEDS: LOVASTATIN 20 MG TAB PO SCH (21:56)
[2022-04-17] MEDS: CARBIDOPA/LEVODOPA 50/200MG EXT REL TAB PO SCH (21:57)
[2022-04-17] MEDS: MELATONIN 3 MG TAB PO SCH (21:57)
[2022-04-17] MEDS: DOCUSATE SODIUM/SENNA 50/8.6MG TAB PO SCH (21:57)
[2022-04-18] MEDS: INSULIN ASPART PER UNIT SC SCH ×6 (00:47→20:52)
[2022-04-18] MEDS: ceFAZolin 2000MG 2,000 MG/15 ML SYR IV SCH (01:27)
[2022-04-18] MEDS: CARBOHYDRATES FOR HYPOGLYCEMIA PO PRN ×2 (03:58→04:46)
[2022-04-18] MEDS: HYDROmorphone INJ 0.5 MG/0.5 ML SYR IV PRN ×2 (05:12→09:53)
[2022-04-18] MEDS: POLYETHYLENE (MIRALAX) 17 GM PACK PO SCH ×3 (05:14→16:23)
[2022-04-18 05:52] LABS: Basophils # (auto) 0.02 K/uL (0-0.2); Basophils % (auto) 0.2 %; Eosinophils # (auto) 0.03 K/uL (0-0.50); Eosinophils % (auto) 0.3 %; Hematocrit (blood only) 31.7 % (40.1-51.0); Hemoglobin 10.7 g/dl (14.0-18.0); Immature Granulocytes # (auto) 0.05 K/uL (0.00-0.02); Immature Granulocytes % (auto) 0.4 %; Lymphocytes # (auto) 1.27 K/uL (1.2-3.4); Lymphocytes % (auto) 11.2 %; Mean Corpuscular Hgb Conc 33.8 g/dL (32.0-36.0); Mean Corpuscular Volume 91.9 fL (80.0-100.0); Mean Platelet Volume 9.7 fL (9.4-12.4); Monocytes # (auto) 1.03 K/uL (0.24-0.82); Monocytes % (auto) 9.1 %; Neutrophils # (auto) 8.91 K/uL (1.4-6.5); Neutrophils % (auto) 78.8 %; Platelet Count 158 K/uL (130-400); RDW Coefficient of Variation 12.5 % (11.5-14.5); RDW Standard Deviation 42.4 fL (36.4-46.3); Red Blood Count 3.45 M/uL (4.63-6.08); White Blood Count 11.31 K/ul (4.8-10.8)
[2022-04-18] MEDS ORDERED: SODIUM CHLORIDE 0.9% 1000ML 1,000 ML IV ONE (06:00)
[2022-04-18 06:14] LABS: BUN Creatinine Ratio 22.9 (10-20); Calcium 7.8 mg/dl (8.5-10.1); Creatinine Clr Calc Pharmacy 65.5 ml/min; Est GFR (African American) 87.4 ml/min; Est GFR (Non-African American) 75.4 ml/min; Potassium 3.9 mmol/L (3.5-5.1)
[2022-04-18] MEDS: LEVODOPA PO SCH ×3 (06:31→16:22)
[2022-04-18] MEDS: ENTACAPONE PO SCH ×3 (06:31→16:22)
[2022-04-18] MEDS: CARBIDOPA PO SCH ×3 (06:31→16:22)
[2022-04-18] MEDS: PANTOprazole 40 MG TAB PO SCH ×2 (06:32→16:23)
[2022-04-18] MEDS: ASPIRIN 81 MG ECTAB PO SCH (08:01)
--- NOTE | 2022-04-18 08:18 | Orthopedic Progress Note ---
Date of Service April 18, 2022 Assessment & Plan (1) Neurogenic claudication due to lumbar spinal stenosis: Plan: Today we will initiate physical therapy monitor his HELDER operatively discharge home next few days. Admission and Anticipated Discharge Date Admission Date: April 17, 2022 Subjective Back pain controlled leg pain markedly improved Physical Exam Physical Exam: Patient is sitting up in bed. Is comfortable. Is good strength testing. Results & Data ([facility]) Vital Signs (Past 12 Hours) Vital Signs Temp Pulse Resp BP Pulse Ox O2 Del Method 04/18/22 07:35 36.5 C 74 16 125/74 99 Room Air 04/18/22 04:04 36.6 C 73 18 130/68 98 Room Air 04/17/22 21:43 36.9 C 78 16 115/58 L 95 Room Air
[2022-04-18] MEDS ORDERED: INSULIN HUMAN NPH SC ONE ×2 (08:45→16:30)
--- NOTE | 2022-04-18 11:34 | Student Report ---
[facility] Med Student Progress Note Date of Service Date of service: April 18, 2022 Subjective Subjective: Pt OOB in chair this morning, denies fever, chills. He says he has some aching pain in his lower back around the incision, but is otherwise comfortable. He denies numbness, tingling, weakness in BLE. Denies dizziness with standing, CP, SOB. States that he ate breakfast without difficulty, is passing gas but has not gone to the bathroom yet. Is anxious to have the rahman removed. Pt did not have any questions for me. ROS ROS: See above for pertinent positives & negatives. A total of 10 systems reviewed and were otherwise negative. Physical Exam Physical Exam: Vital signs reviewed. Vital Signs Temp 36.5 C 04/18/22 07:35 Pulse 74 04/18/22 07:35 Resp 16 04/18/22 07:35 BP 125/74 04/18/22 07:35 Pulse Ox 99 04/18/22 07:35 O2 Del Method 04/18/22 08:10 O2 Flow Rate 6 04/17/22 10:50 Intake & Output 04/17/22 04/18/22 04/18/22 18:59 06:59 18:59 Intake Total 2740 / 3740 1000 / 3740 1000 / 1000 Output Total 1425 / 2080 655 / 2080 325 / 325 Balance 1315 / 1660 345 / 1660 675 / 675 Weight 79.7 kg 79.7 kg Intake: IV 0 / 1000 1000 / 1000 1000 / 1000 Lactated Ringer's 1,000 ml @ 15 0 / 0 mls/hr IV .Q24H EVETTE Rx#: [id number] Sodium Chloride 0.9% 1000ML 1, 1000 / 1000 1000 / 1000 000 ml @ 100 mls/hr IV .Q10H EVETTE Rx#:[id number] IV Perioperative 1000 / 1000 Oral 1740 / 1740 Output: Estimated Blood Loss 500 / 500 Urine Amount (Catheter) 540 / 990 450 / 990 275 / 275 Rahman/Indwelling 540 / 990 450 / 990 275 / 275 Drain Output 385 / 590 205 / 590 50 / 50 Back HELDER 385 / 590 205 / 590 50 / 50 General: Well-appearing, converses easily and appropriately, in no significant distress. HEENT: No scleral icterus, PERRLA, normocephalic. Wearing his glasses. Cardiovascular: S1, S2, RRR. No murmur, gallop, S3, S4. Pedal pulses +2 bilaterally. PIV left FA intact. Pulmonary: Clear to auscultation bilaterally, normal work of breathing. Abdomen: Soft, nontender, nondistended, positive bowel sounds, passing gas. : Good urine output noted in rahman urimeter. D/C'd at approx 1000, DTV by 1800. Musculoskeletal: Atraumatic, no peripheral edema. Neurologic: A&O x4, +4 strength in all extremities. Pt with intermittent tremors in right hand/arm, per pt, this is baseline . Skin: Warm, dry, pink. Dressing over surgical incision CDI. Results Results: Short CBC 04/18/22 Range/Units 05:31 WBC 11.31 H (4.8-10.8) K/ul Hgb 10.7 L (14.0-18.0) g/dl Hct 31.7 L (40.1-51.0) % Plt Count 158 (130-400) K/uL BMP 04/18/22 05:31 Sodium 140 Potassium 3.9 Chloride 107 Carbon Dioxide 29 BUN 22 Creatinine 0.96 Glucose 75 Calcium 7.8 L Medication List Aspirin (Aspirin 81 Mg Ectab) 81 mg PO QAM EVETTE Carbidopa/Levodopa (Carbidopa/Levodopa 50/200mg Ext Rel Tab) 1 tab PO HS EVETTE Carbidopa/Levodopa/Entacapone (Pt's Own Med: Carbidopa/Levodopa/Entacapone) 1 each PO TID@0700,1130,1630 EVETTE Glucose (Glucose 10 Tab/Tube) 4 - 8 tab PO UD PRN; Protocol Hydromorphone HCl (Hydromorphone Inj 0.5 Mg/0.5 Ml Syr) 0.5 mg IV Q3H PRN Sodium Chloride (Nss 1000ml) 1,000 mls @ 100 mls/hr IV .Q10H ONE Insulin Aspart (Insulin Aspart Per Unit) 0 units SC ACHS EVETTE Lovastatin (Lovastatin 20 Mg Tab) 40 mg PO HS EVETTE Melatonin (Melatonin 3 Mg Tab) 9 mg PO HS EVETTE Miscellaneous (Carbohydrates For Hypoglycemia ) 15 - 30 gm PO UD PRN Pantoprazole Sodium (Pantoprazole 40 Mg Tab) 40 mg PO 0700,1630 EVETTE Polyethylene Glycol (Polyethylene (Miralax) 17 Gm Pack) 17 gm PO Q6 EVETTE Senna/Docusate Sodium (Docusate Sodium/Senna 50/8.6mg Tab) 2 tab PO HS EVETTE A&P A&P: Assessment and Plan: 1. Neurogenic claudication d/t lumbar spinal stenosis s/p lumbar decompression L2-L3, L3-L4 and L4-5 and posterior spinal fusion L2-L5. Orthospine managing antibiotics, pain medications, surgical site and drains. Has pain and bowel regimens in place. PT/OT consulted, will be working with patient today. Rahman removed at approx 1000, DTV around 1600. 2. CAD s/p stent to LAD 1999: Pt taking ASA 81mg. 3. Parkinson's: Continue on home medication regimen. Follow's with [facility] neurology [place] in [place] 4. DM 1: Last A1C 7.2 (03/2022) Novolog SSI AC and HS continues. Follows with software reverse engineer in [place]. 5. HLD: Continues on home statin. Last lipid panel not available, follow up outpatient with PCP. 6. GERD: Continues on pantoprazole. Symptoms managed well at home. Famotidine PRN. 7. VTE: Per ortho-spine. Disposition: Pt remains stable, on pathway. D/C per ortho-spine requirements.
--- NOTE | 2022-04-18 14:05 | Hospitalist Progress Note ---
Date of Service April 18, 2022 Assessment & Plan (1) Neurogenic claudication due to lumbar spinal stenosis: (2) CAD (coronary artery disease): (3) Parkinsons disease: (4) DM type 1 (diabetes mellitus, type 1): (5) HLD (hyperlipidemia): (6) GERD (gastroesophageal reflux disease): Plan Neurogenic claudication due to lumbar spinal stenosis: POD# 1 s/p L2-L5 decompression and fusion with Dr. Su. Activity and wound care orders as per ortho Pain control with bowel regimen PT/OT Continue incentive spirometry Monitor H/H for acute blood loss anemia and transfuse blood products PRN EBL 500cc Hgb 03/30/22 14.6 --> 10.7 Diabetes mellitus type 1: Follows with endocrine in [place] at [facility]; diagnosed when he was 8 years old Home regimen - takes Annqfoc55/30: 56 units QAM and 10-15 units QPM Last A1C 06/30/21: 7.3 Noted hypoglycemia overnight, patient reports this is not uncommon for him. Glycemic pharmacy following CAD: HTN: [place] 1999 s/p 1 stent to the LAD Continue ASA and statin Per patient he was on HTN medications up until 12/30 when they were discontinued due to syncope (he did recall lisinopril but was unable to state other medication names that he was on) Parkinson's disease: Diagnosed in 2013 Follows with [facility] neurology [place] in [place] Takes Sinemet 1 tab PQ HS Takes Stalevo 1 tab PO TID Gastroparesis: Takes Protonix; continue Follows with GI in [place]; fairly new for him. Disposition: PCP: Eros CHAUDHRY in [facility] VTE Prophylaxis: TEDs and SCDs per Ortho Code Status: Full Code Point of contact: Aileen [phone] Admission and Anticipated Discharge Date Admission Date: April 17, 2022 Supervising Physician Co-Signing Physician Notes Pt was seen and examined for postop follow up. Agreed with Sarai CHAUDHRY exam, assessment and plan. Denies any complaint. Pain control. No postop complication. Continue PT/OT. Fall precaution. MD Lico Subjective Follow-up for medical management, s/p L2-L5 decompression fusion. Patient seen and examined. Reports pain well controlled. No numbness, tingling, weakness to lower extremities. Denies chest pain or shortness of breath. No lightheadedness or dizziness. Denies abdominal pain or nausea, +flatus, no BM. Noe remains in place. Review of Systems Review of Systems: ROS per HPI, all other systems reviewed and negative Physical Exam Constitutional: WD/WN, vitals as above Respiratory: normal respiratory effort, lungs clear to auscultation Cardiovascular: Rate/Rhythm: regular rate and regular rhythm Vessels: normal peripheral pulses Extremities: no edema Gastrointestinal (Abdomen): Percussion/Palpation: abdomen soft; abdomen nontender Musculoskeletal: S/p back surgery, pedal pushes and pulls strong bilaterally, strength strong and equal BLE, drain in place draining bloody drainage Skin: no rashes, warm and dry Neurologic: no focal motor deficits Psychiatric: A+Ox3, euthymic affect Results & Data Results & Data ([facility]) Vital Signs (Past 12 Hours) Vital Signs Temp Pulse Resp BP Pulse Ox O2 Del Method 04/18/22 07:58 36.5 C 82 16 102/54 L 99 Room Air 04/18/22 08:10 Room Air 04/18/22 07:35 36.5 C 74 16 125/74 99 Room Air 04/18/22 04:04 36.6 C 73 18 130/68 98 Room Air Laboratory Results Short CBC 04/18/22 Range/Units 05:31 WBC 11.31 H (4.8-10.8) K/ul Hgb 10.7 L (14.0-18.0) g/dl Hct 31.7 L (40.1-51.0) % Plt Count 158 (130-400) K/uL BMP 04/18/22 05:31 Sodium 140 Potassium 3.9 Chloride 107 Carbon Dioxide 29 BUN 22 Creatinine 0.96 Glucose 75 Calcium 7.8 L
--- NOTE | 2022-04-18 14:26 | Pharmacy Report ---
Pharmacy Glycemic Short Note 2 - Date of Service April 18, 2022 - Glycemic Short BSG Results (Last 24 hours): 04/17/22 04/17/22 04/18/22 17:12 21:01 00:09 Glucose POC Glucose 262 H 232 H 141 H 04/18/22 04/18/22 04/18/22 03:54 04:19 04:40 Glucose POC Glucose 57 L* 68 L* 56 L* 04/18/22 04/18/22 04/18/22 04:42 05:00 05:31 Glucose 75 POC Glucose 55 L* 87 04/18/22 04/18/22 04/18/22 07:57 09:08 11:54 Glucose POC Glucose 103 H 144 H 156 H OUTPATIENT ANTIDIABETIC REGIMEN: * Humulin 70/30 --> 60 units in the morning and 10-15 units in the afternoon * HbA1C = 7.3% ASSESSMENT: 04/18/22 * Patient's BSGs yesterday were [phone] and overnight were 141-57/68. Fasting today was 87 mg/dL. * Patient received 57 units of insulin yesterday (35 units of basal and 22 units of bolus). * Since patient had a low blood sugar at 0400, will reduce basal to 25 units daily. (20 units at breakfast and 5 units with lunch). Overnight checks to ensure this basal insulin is not too low. * Continue Novolog but loosen CF to prevent overcorrection. BACKGROUND * Mr Daley is a 76 y/o T1DM who presents for spinal surgery. * Per interview with the patient's , he has hypoglycemia in the middle of the night that wakes him up. BSGs around 40 mg/dL. No changes to insulin regimen recently to deal with this. * Patient underwent surgery today and received 4 mg of IV dexamethasone. * Will start with weight-based stress 2/3 full dose of NPH 35 units x 1. Only one dose today since patient receiving this dose at 1200 and has hypoglycemia overnight. Overnight checks to ensure 24 hour coverage. * Due to steroids, will utilize weight-based stress of 3 Novolog. PLAN FOR INPATIENT GLYCEMIC CONTROL: * Basal insulin * NPH 20 units SQ x 1 with breakfast and 5 units with dinner * Bolus insulin * NovoLog per scale ACHS or Q6hrs while NPO * Goal Range: Low 110 mg/dL - High 140 mg/dL * Correction Factor: 25 mg/dL/unit * Nutritional / Prandial insulin per carb ratio of 1 unit per 7 grams CHO consumed
[2022-04-18] MEDS: MELATONIN 3 MG TAB PO SCH (20:47)
[2022-04-18] MEDS: oxyCODONE HCL IR 5 MG TAB (IMMEDIATE RELEASE) PO PRN (20:47)
[2022-04-18] MEDS: DOCUSATE SODIUM/SENNA 50/8.6MG TAB PO SCH (20:48)
[2022-04-18] MEDS: CARBIDOPA/LEVODOPA 50/200MG EXT REL TAB PO SCH (20:48)
[2022-04-18] MEDS: LOVASTATIN 20 MG TAB PO SCH (20:48)
[2022-04-19] MEDS: POLYETHYLENE (MIRALAX) 17 GM PACK PO SCH ×2 (00:45→06:22)
[2022-04-19] MEDS: INSULIN ASPART PER UNIT SC SCH ×4 (00:45→12:42)
[2022-04-19] MEDS: LEVODOPA PO SCH ×2 (06:13→11:55)
[2022-04-19] MEDS: CARBIDOPA PO SCH ×2 (06:13→11:55)
[2022-04-19] MEDS: PANTOprazole 40 MG TAB PO SCH (06:13)
[2022-04-19] MEDS: ENTACAPONE PO SCH ×2 (06:13→11:55)
[2022-04-19] MEDS: oxyCODONE HCL IR 5 MG TAB (IMMEDIATE RELEASE) PO PRN (06:16)
[2022-04-19 06:54] LABS: Hemoglobin 10.7 g/dl (14.0-18.0)
--- NOTE | 2022-04-19 07:34 | Hospitalist Progress Note ---
Date of Service April 19, 2022 Assessment & Plan (1) Neurogenic claudication due to lumbar spinal stenosis: (2) CAD (coronary artery disease): (3) Parkinsons disease: (4) DM type 1 (diabetes mellitus, type 1): (5) HLD (hyperlipidemia): (6) GERD (gastroesophageal reflux disease): Plan Neurogenic claudication due to lumbar spinal stenosis: POD# 2 s/p L2-L5 decompression and fusion with Dr. Su. Activity and wound care orders as per ortho Pain control with bowel regimen PT/OT Continue incentive spirometry Acute blood loss anemia post op, expected, no need for blood transfusion Hgb (03/30/22) 14.6 --> 10.7 - stable from yesterday Diabetes mellitus type 1: Follows with endocrine in [place] at [facility]; diagnosed when he was 8 years old Home regimen - takes Spbtecv87/30: 56 units QAM and 10-15 units QPM Last A1C 06/30/21: 7.3 Glycemic pharmacy following CAD: HTN: MD 1999 s/p 1 stent to the LAD Continue ASA and statin Per patient he was on HTN medications up until 12/30 when they were discontinued due to syncope (he did recall lisinopril but was unable to state other medication names that he was on) Parkinson's disease: Diagnosed in [address] [facility] neurology [place] in [place] Takes Sinemet 1 tab PQ HS Takes Stalevo 1 tab PO TID Gastroparesis: Takes Protonix; continue Follows with GI in [place]; fairly new for him. Disposition: PCP: Eros CHAUDHRY in [facility] Prophylaxis: TEDs and SCDs per Ortho Code Status: Full Code Point of contact: Aileen [phone] Admission and Anticipated Discharge Date Admission Date: April 17, 2022 Subjective Follow-up for medical management, s/p L2-L5 decompression fusion. Currently pt is sitting up in bed, in NAD. Reports using walker and ambulating to the bathroom. OT at the bedside. Feeling LR numbness resolved after surgery, feeling well, inquiring about going home. Denies fever, chills, chest pain or shortness of breath. No lightheadedness or dizziness. Denies abdominal pain or nausea, +flatus, no BM. Review of Systems Review of Systems: All systems reviewed & are unremarkable except as noted in Subjective Physical Exam Physical Exam: Constitutional:L WD/WN, vitals as a marilynn Respiratory: normal respiratory effort, lungs rashard ar to auscultation Cardiovascular:L Rate/Rhythm: regul ar rate and regula r rhythm Vessels: normal peripheral pulses Extremiti es: no edema Gastrointestinal ( Abdomen): Percussion/Palpati on: abdomen soft; abdomen nontender Musculoskeletal: S/p back surgery, pedal pushes and p ulls strong bilate rally, strength st oneil and equal BLE , drain in place d raining bloody rakesh inage Skin: no rashes, warm an d dry Neurologic: no focal motor def icits Psychiatric: A+Ox3, euthymic af fect Results & Data Results & Data ([facility]) Vital Signs (Past 12 Hours) Vital Signs Temp Pulse Resp BP BP Pulse Ox O2 Del Method 04/19/22 07:05 36.9 C 78 18 166/69 H 93 Room Air 04/18/22 20:37 36.9 C 80 18 171/71 H 95 Room Air Laboratory Results 04/19/22 04/19/22 04/19/22 Range/Units 06:15 03:59 00:28 Hgb 10.7 L (14.0-18.0) g/dl Hct 31.0 L (40.1-51.0) % POC Glucose 169 H 190 H (70-99) mg/dl 04/18/22 04/18/22 04/18/22 Range/Units 20:35 17:02 11:54 Hgb (14.0-18.0) g/dl Hct (40.1-51.0) % POC Glucose 135 H 108 H 156 H (70-99) mg/dl 04/18/22 04/18/22 Range/Units 09:08 07:57 Hgb (14.0-18.0) g/dl Hct (40.1-51.0) % POC Glucose 144 H 103 H (70-99) mg/dl Medications Administered Current Inpatient Medications Acetaminophen (Acetaminophen 500 Mg Tab) 1,000 mg PO Q8H PRN PRN Reason: MILD Pain Scale 1,2,3 & Pre PT Stop: 05/17/22 11:27 Al Hydrox/Mg Hydrox/Simethicone (Aluminum/Magnesium Susp 30 Ml Udc) 30 ml PO Q6H PRN PRN Reason: Dyspepsia Stop: 05/17/22 11:27 Aspirin (Aspirin 81 Mg Ectab) 81 mg PO QAM EVETTE Stop: 05/18/22 08:59 Last Admin: 04/18/22 08:01 Dose: 81 mg Bisacodyl (Bisacodyl 10 Mg Supp) 10 mg IA DAILY PRN PRN Reason: Constipation Stop: 05/17/22 11:27 Carbidopa/Levodopa (Carbidopa/Levodopa 50/200mg Ext Rel Tab) 1 tab PO HS EVETTE Stop: 05/17/22 20:59 Last Admin: 04/18/22 20:48 Dose: 1 tab Carbidopa/Levodopa/Entacapone (Pt's Own Med: Carbidopa/Levodopa/Entacapone) 1 each PO TID@0700,1130,1630 [facility] Stop: 05/17/22 12:14 Last Admin: 04/19/22 06:13 Dose: 1 each Dextrose (Dextrose 50% 50 Ml Syringe) 25 - 50 ml IV UD PRN; Protocol PRN Reason: Hypoglycemia Protocol Stop: 05/17/22 12:59 Diphenhydramine HCl (Diphenhydramine Capsule 25 Mg Cap) 25 mg PO Q6H PRN PRN Reason: Allergic Rhinitis/Insomnia Stop: 05/17/22 11:27 Famotidine (Famotidine 20 Mg Tab) 20 mg PO Q12H PRN PRN Reason: Dyspepsia Stop: 05/17/22 11:27 Glucagon (Glucagon For Inj 1 Mg Vial) 1 mg IM UD PRN; Protocol PRN Reason: Hypoglycemia Protocol Stop: 05/17/22 12:59 Glucose (Glucose 40% Gel 15 Gm Tube) 15 - 30 gm PO UD PRN; Protocol PRN Reason: Hypoglycemia Protocol Stop: 05/17/22 12:59 Glucose (Glucose 10 Tab/Tube) 4 - 8 tab PO UD PRN; Protocol PRN Reason: Hypoglycemia Protocol Stop: 05/17/22 12:59 Last Admin: 04/18/22 04:24 Dose: 4 tab Hydromorphone HCl (Hydromorphone Inj 0.5 Mg/0.5 Ml Syr) 0.5 mg IV Q3H PRN PRN Reason: MODERATE Pain (Scale 4,5,6) & Pre PT Stop: 05/01/22 11:27 Last Admin: 04/18/22 09:53 Dose: 0.5 mg Hydromorphone HCl (Hydromorphone Inj 1 Mg/Ml Syringe) 1 mg IV Q3H PRN PRN Reason: SEVERE Pain (Scale 7,8,9,10) Stop: 05/01/22 11:27 Hydroxyzine HCl (Hydroxyzine Hcl 25 Mg Tab) 25 mg PO Q8H PRN PRN Reason: Anxiety Stop: 05/17/22 11:27 Promethazine HCl 12.5 mg/ (Sodium Chloride) 50.5 mls @ 202 mls/hr IV Q6H PRN PRN Reason: Nausea &/or Vomiting Stop: 05/17/22 11:27 Lorazepam 0.5 mg/ Syringe 0.5 mls @ 2 mls/min IV Q8H PRN PRN Reason: Sedation/Anxiety Stop: 05/17/22 11:27 Insulin Aspart (Insulin Aspart Per Unit) [address] [facility] Stop: 05/17/22 12:59 Last Admin: 04/18/22 20:52 Dose: Not Given Lorazepam (Lorazepam 0.5 Mg Tab) 0.5 mg PO Q8H PRN PRN Reason: Sedation/Anxiety Stop: 05/17/22 11:27 Lovastatin (Lovastatin 20 Mg Tab) 40 mg PO HS EVETTE Stop: 05/17/22 20:59 Last Admin: 04/18/22 20:48 Dose: 40 mg Magnesium Hydroxide (Magnesium Hydroxide Susp 30 Ml Udc) 30 ml PO Q24H PRN PRN Reason: Constipation Stop: 05/17/22 11:27 Melatonin (Melatonin 3 Mg Tab) 9 mg PO HS [facility] Stop: 05/17/22 20:59 Last Admin: 04/18/22 20:47 Dose: 9 mg Metoclopramide HCl (Metoclopramide Hcl Inj 5 Mg/Ml 2 Ml Vial) 10 mg IV Q6H PRN PRN Reason: Nausea &/or Vomiting Stop: 05/17/22 11:27 Miscellaneous (Carbohydrates For Hypoglycemia ) 15 - 30 gm PO UD PRN PRN Reason: Hypoglycemia Treatment Stop: 05/17/22 12:59 Last Admin: 04/18/22 04:46 Dose: 15 gm Miscellaneous Information (Pharmacy Glycemic Mgmt Consult) 1 each N/A UD PRN PRN Reason: Consult Stop: 05/17/22 11:27 Naloxone HCl (Naloxone Hcl 0.4 Mg/1 Ml Vial/Carp) 0.1 mg IV Q5M PRN PRN Reason: Oversedation/Resp depression Stop: 05/17/22 11:27 Ondansetron HCl (Ondansetron Inj 2 Mg/Ml 2 Ml Vial) 4 mg IV Q6H PRN PRN Reason: Nausea &/or Vomiting Stop: 05/17/22 11:27 Ondansetron HCl (Ondansetron 4 Mg Od Tab) 4 mg PO Q6H PRN PRN Reason: Nausea Stop: 05/17/22 11:27 Oxycodone HCl (Oxycodone Hcl Ir 5 Mg Tab (Immediate Release)) 5 - 10 mg PO Q4H PRN PRN Reason: Pain & Pre PT Stop: 05/01/22 11:27 Last Admin: 04/19/22 06:16 Dose: 5 mg Pantoprazole Sodium (Pantoprazole 40 Mg Tab) 40 mg PO 0700,1630 EVETTE Stop: 05/17/22 20:59 Last Admin: 04/19/22 06:13 Dose: 40 mg Polyethylene Glycol (Polyethylene (Miralax) 17 Gm Pack) 17 gm PO Q6 EVETTE Stop: 05/18/22 05:59 Last Admin: 04/19/22 06:22 Dose: Not Given Senna/Docusate Sodium (Docusate Sodium/Senna 50/8.6mg Tab) 2 tab PO HS EVETTE Stop: 05/17/22 20:59 Last Admin: 04/18/22 20:48 Dose: 2 tab Sodium Biphosphate/Sodium Phosphate (Sod Phosphate/Sod Biphosphate Enema 132 Ml Btl) 132 ml IA ONE PRN PRN Reason: Constipation Stop: 05/17/22 11:27 Tramadol HCl (Tramadol Hcl 50 Mg Tablet) 50 - 100 mg PO Q4H PRN PRN Reason: Moderate-Severe pain & Pre PT Stop: 05/17/22 11:27 Last Admin: 04/18/22 13:10 Dose: 50 mg
[2022-04-19] MEDS: ASPIRIN 81 MG ECTAB PO SCH (08:21)
[2022-04-19] MEDS ORDERED: INSULIN HUMAN NPH SC SCH (09:00)
--- NOTE | 2022-04-19 10:18 | Discharge Summary ---
Date of Service April 19, 2022 Admission HPI Per Admitting Provider This is a 76-year-old male who presents with chronic persistent back and bilateral leg pain after failing since course of nonoperative care is here for surgical invention. Admission Exam (Per Admitting) Constitutional WD/WN, vitals as above Eyes normal visual schroeder by confrontation ENMT external ear and nose normal, oropharynx normal Neck normal visual inspection Respiratory normal respiratory effort Cardiovascular Extremities: normal capillary refill Gastrointestinal (Abdomen) Inspection/Auscultation: abdomen normal to inspection Musculoskeletal Spine: + pain with thoraco-lumbar ROM Extremities: extremities normal to inspection and strength 5/5 throughout Skin no rashes, warm and dry Neurologic normal touch/pain/proprioception and moves all extremities Psychiatric A+Ox3, euthymic affect Eye Contact: good eye contact Speech: normal rate/rhythm/volume of speech Discharge Data Consultations 04/17/22 11:28 Consult Hospitalist Routine Procedures Performed Operation Date: 04/17/22 07:45 Actual Procedures p L2-L5 Decompression and Fusion with spinal Cord Monitoring(Not Applicable) - Festus Su DO Hospital Course (1) Neurogenic claudication due to lumbar spinal stenosis: Discharge Instructions Cortez is being discharged home on postoperative day 2 status post L2-5 decompression fusion. He had an uneventful hospital course. Pain is greatly improved. He is making great progress daily and physical therapy. Passing flatus. Lab values have been stable.
== END 2022-04-19 13:25 | disposition home or self-care (01) | DRG 454 ==
LOC: ASU 05:58 → 3E 10:26

== ENCOUNTER 2022-05-19 18:33 | Inpatient (IN) ==
[2022-05-19] MEDS ORDERED: ALUMINUM/MAGNESIUM SUSP 30 ML UDC PO PRN (18:52)
[2022-05-19] MEDS ORDERED: MAGNESIUM HYDROXIDE SUSP 30 ML UDC PO PRN (18:52)
[2022-05-19] MEDS ORDERED: ACETAMINOPHEN 500 MG TAB PO PRN (18:52)
[2022-05-19] MEDS ORDERED: PHARMACY GLYCEMIC MGMT CONSULT PRN (18:52)
[2022-05-19] MEDS ORDERED: SOD PHOSPHATE/SOD BIPHOSPHATE ENEMA 132 ML BTL PR PRN (18:52)
[2022-05-19] MEDS ORDERED: ONDANSETRON INJ 2 MG/ML 2 ML VIAL IV PRN (18:52)
[2022-05-19] MEDS ORDERED: NALOXONE HCL 0.4 MG/1 ML VIAL/CARP IV PRN (18:52)
[2022-05-19] MEDS ORDERED: diphenhydrAMINE Capsule 25 MG CAP PO PRN (18:52)
[2022-05-19] MEDS ORDERED: ONDANSETRON 4 MG OD TAB PO PRN (18:52)
[2022-05-19] MEDS ORDERED: PROMETHAZINE HCL 12.5 MG in SODIUM CHLORIDE 0.9% 50 ML IV PRN (18:52)
[2022-05-19] MEDS ORDERED: ACETAMINOPHEN 1,000 MG/100 ML VIAL IV PRN (18:52)
[2022-05-19] MEDS ORDERED: METOCLOPRAMIDE HCL INJ 5 MG/ML 2 ML VIAL IV PRN (18:52)
[2022-05-19] MEDS ORDERED: HYDROmorphone INJ 0.5 MG/0.5 ML SYR IV PRN (18:52)
[2022-05-19] MEDS ORDERED: Patient's ALLERGY Info needs ENTERED SCH (19:30)
[2022-05-19] MEDS ORDERED: Patient's HEIGHT &/or WEIGHT Needed SCH (19:30)
[2022-05-19] MEDS: SODIUM CHLORIDE 0.9% 1000ML 1,000 ML IV SCH (19:56)
[2022-05-19] MEDS: Patient's HEIGHT &/or WEIGHT Needed SCH (20:21)
[2022-05-19] MEDS ORDERED: GLUCOSE 10 TAB/TUBE PO PRN (20:45)
[2022-05-19] MEDS ORDERED: GLUCAGON FOR INJ 1 MG VIAL IM PRN (20:45)
[2022-05-19] MEDS ORDERED: CARBOHYDRATES FOR HYPOGLYCEMIA PO PRN (20:45)
[2022-05-19] MEDS ORDERED: GLUCOSE 40% GEL 15 GM TUBE PO PRN (20:45)
[2022-05-19] MEDS ORDERED: DEXTROSE 50% 50 ML SYRINGE IV PRN (20:45)
[2022-05-19] MEDS: INSULIN ASPART PER UNIT SC SCH ×2 (20:51→21:03)
[2022-05-19] MEDS: PANTOprazole 40 MG TAB PO SCH (20:54)
[2022-05-19] MEDS: CARBIDOPA/LEVODOPA 50/200MG EXT REL TAB PO SCH (20:54)
[2022-05-19] MEDS: CARBIDOPA/LEVODOPA/ENTACAPONE PO SCH (20:56)
[2022-05-19] MEDS: LOVASTATIN 20 MG TAB PO SCH (20:56)
[2022-05-19] MEDS ORDERED: LANTUS PER UNIT CHARGE SQ ONE (21:00)
[2022-05-19] MEDS: HYDROmorphone INJ 1 MG/ML SYRINGE IV PRN (21:07)
[2022-05-19] MEDS: BACLOFEN 10 MG TAB PO PRN (21:25)
[2022-05-20] MEDS: INSULIN ASPART PER UNIT SC SCH ×6 (00:02→21:28)
[2022-05-20] MEDS: MELATONIN 3 MG TAB PO SCH ×2 (00:04→21:03)
[2022-05-20] MEDS: HYDROmorphone INJ 1 MG/ML SYRINGE IV PRN ×5 (01:36→19:49)
--- NOTE | 2022-05-20 03:03 | Consultation Report ---
DATE OF CONSULTATION: 05/19/2022 CHIEF COMPLAINT: Severe back pain. HISTORY OF PRESENT ILLNESS: This is a 76-year-old male with past medical history significant for CAD, status post stent in 1999, history of type 1 diabetes, hyperlipidemia, hypertension, Parkinson disease, GERD, history of gastroparesis, comes with severe back pain and the patient is status post lumbar discectomy and fusion in first week of April. The patient says since last 1 week, he is having difficulty ambulation because of pain in the lower extremities, mostly in the left leg than the right leg, admitted via ortho. Currently, resting comfortably. Having painful lower extremity movements. Denies any headache, no dizziness, no blurred visions. No cough, no difficulty swallowing. No chest pain or shortness of breath. No nausea, no abdominal pain. Normal bowel and bladder movements. Afebrile. ALLERGIES: No known drug allergies. PAST MEDICAL HISTORY: As mentioned above. PAST SURGICAL HISTORY: Cardiac catheterization, back surgery, left ankle surgery, bilateral carpal tunnel surgery, cholecystectomy, colonoscopy, EGDs, tonsillectomy. MEDICATIONS: The patient is on aspirin 81 mg p.o. daily, baclofen 10 mg p.o. t.i.d. p.r.n., carbidopa/levodopa/ entacapone 1 capsule p.o. t.i.d., carbidopa/levodopa ER 1 tablet at bedtime, hydrocodone/acetaminophen 7.5/325 mg 1 tablet p.o. b.i.d. p.r.n., insulin 70/30 mix 10-15 units subcutaneously p.m., insulin Humulin 70/30 mix 56 units q.a.m., lovastatin 40 mg p.o. at bedtime, melatonin 10 mg p.o. at bedtime, Protonix 40 mg p.o. b.i.d. FAMILY HISTORY: No significant family history. SOCIAL HISTORY: Former smoker, quit in 1974. No substance abuse. Lives with his son and . REVIEW OF SYSTEMS: As per HPI. Rest of review of systems is negative. PHYSICAL EXAMINATION: GENERAL: The patient is of moderate build, not in acute distress. VITAL SIGNS: Temperature 36.9, pulse 74, respiratory rate 16, blood pressure 143/76, and oxygen 96% on room air. HEENT: Head is atraumatic. No facial droop. Speech is clear. NECK: No JVD. No neck masses. CARDIOVASCULAR: S1 and S2 heard. Regular rate and rhythm. No murmur, no gallop. RESPIRATORY SYSTEM: Normal AP diameter. No accessory muscle use. No wheezing or crackles. ABDOMEN: Soft, bowel sounds present, nontender, no distention. CENTRAL NERVOUS SYSTEM: Alert and oriented. Speech is clear. No facial droop. Obeys simple commands. Moves extremities. EXTREMITIES: Painful lower extremity movements. No edema, no erythema seen. LABORATORY DATA: Unavailable at this time. ASSESSMENT AND PLAN: This is a 76-year-old male who recently had back surgery for severe back pain. 1. Severe back pain with ambulatory dysfunction. Recent back surgery. Management as per orthopedics. 2. History of diabetes. Currently on insulin sliding scale, pharmacy consulted. We will monitor the blood sugars. 3. Parkinson disease. Continue his home medications of carbidopa/levodopa. 4. Coronary artery disease. History of hypertension, status post stent in LAD in 1999: On aspirin and statin, which we will continue. 5. Gastroesophageal reflux disease. On Protonix. DEEP VENOUS THROMBOSIS AND DISPOSITION: As per orthopedics. Job ID: [id number] [facility]
[2022-05-20] MEDS ORDERED: INSULIN ASPART PER UNIT SC SCH ×2 (06:00→18:00)
[2022-05-20] MEDS: CARBIDOPA/LEVODOPA/ENTACAPONE PO SCH ×3 (07:32→21:02)
[2022-05-20] MEDS: PANTOprazole 40 MG TAB PO SCH ×2 (07:33→21:03)
[2022-05-20] MEDS: SODIUM CHLORIDE 0.9% 1000ML 1,000 ML IV SCH ×2 (07:34→21:10)
[2022-05-20] MEDS: LORazepam 0.5 MG TAB PO PRN (07:50)
[2022-05-20] MEDS ORDERED: LANTUS PER UNIT CHARGE SQ ONE ×2 (09:00→21:00)
--- NOTE | 2022-05-20 10:04 | History & Physical Report ---
Date of Service May 20, 2022 Assessment & Plan (1) Neurogenic claudication due to lumbar spinal stenosis: Plan: At this time I have not had the ability to review his imaging yet. I the report is available to me. He may have a component of epidural hematoma contributing to his radiculopathy. He also apparently has an acute L5 compression fracture. This point his is to bring this the most recent MRI to the hospital. We will have it loaded in our system so I may personally review. I will also obtain a CAT scan lumbar spine to thoroughly assess the instrumentation and alignment. At this point bedrest is reasonable. Make further recommendations u sandra review of imaging. Admission and Anticipated Discharge Date Admission Date: May 19, 2022 History of Present Illness Chief Complaint: Back and by leg pain Primary Care Provider: RICHA Massey This is a 68-year-old male known to me that status post multilevel lumbar decompression fusion. He has had some decline in status with the past few days with significant worsening back and bilateral leg pain. He was seen in the emergency room [facility] and transferred to our institution. This morning he is comfortable lying in bed. He denies any pain in his legs however when he is moving he has radicular symptoms possibly down the right leg. He has back pain as well. Allergies Allergy/AdvReac Type Severity Reaction Status Date / Time No Known Allergies Allergy Verified 04/17/22 06:23 Home Medications Medication Instructions Recorded Confirmed Type aspirin 81 mg tablet,delayed 81 mg PO QAM 03/27/22 04/17/22 History release baclofen 10 mg tablet 10 mg PO TID PRN Pain 03/27/22 04/17/22 History carbidopa 50 mg-levodopa 200 1 tab PO TID 03/27/22 04/17/22 History mg-entacapone 200 mg tablet carbidopa ER 50 mg-levodopa 200 mg 1 tab PO HS 03/27/22 04/17/22 History tablet,extended release hydrocodone 7.5 mg-acetaminophen 1 tab PO BID PRN Pain 03/27/22 04/17/22 History 325 mg tablet insulin human U-100 NPH-regulr 10 - 15 unit subcut QPM 03/27/22 04/17/22 History 70-30 mix 100 unit/mL subcutaneous susp (Humulin 70/30 U-100 Insulin) insulin human U-100 NPH-regulr 56 unit subcut QAM 03/27/22 04/17/22 History 70-30 mix 100 unit/mL subcutaneous susp (Humulin 70/30 U-100 Insulin) lovastatin 40 mg tablet 40 mg PO HS 03/27/22 04/17/22 History melatonin 10 mg tablet 10 mg PO HS 03/27/22 04/17/22 History pantoprazole 40 mg tablet,delayed 40 mg PO BID 03/27/22 04/17/22 History release (Protonix) oxycodone 5 mg tablet 5 mg PO Q6H PRN pain, severe #30 04/18/22 Rx tabs tramadol 50 mg tablet 50 mg PO Q6H PRN pain, moderate 04/18/22 Rx #30 tabs Past Med/Surg History Medical History (Updated 04/17/22 @ 12:15 by RICHA Covington) CAD (coronary artery disease) 1 stent, follows with [facility] DDD (degenerative disc disease) DM type 1 (diabetes mellitus, type 1) IDDM Gastroparesis GERD (gastroesophageal reflux disease) History of hypertension h/o orthostatic hypotension, follows with [facility] reports infrequent episodes of lightheadedness without near syncope History of myocardial infarction 1999 HLD (hyperlipidemia) Parkinsons disease Surgical History History of ankle surgery Lt History of cardiac catheterization mult. 1 stent placed in 1999 with [place]. says most recent "few years ago" [facility]. History of carpal tunnel release of both wrists History of cholecystectomy History of colonoscopy History of esophagogastroduodenoscopy (EGD) History of heart artery stent x 1 (1999) History of tonsillectomy Family History (Updated 04/17/22 @ 17:46 by RICHA Covington) Other No significant family history Social History Smoking Status: Former smoker Smoking End Date: 1974; Second Hand Exposure: No; Tobacco Cessation Education Requested by Patient: No Hx Alcohol Use: Yes Alcohol type: beer and wine Hx Substance Use: No Preferred Language: Polish Communication Ability: Effective Supervisor Net Making Required: No Beliefs That Will Affect Care: None Current Living Situation: Spouse Other Information That Helps Us Care for You: No Feels Safe at Home: Yes Safety Concerns: Feels Safe At This Time Assistive Devices: Denture - Upper, Denture - Lower and Glasses Physical Exam Physical Exam: On exam incision is healing appropriately. There is no e rythema no drainage. There is no gross swelling. He does have reasonable strength detailed testing lower extremities. He does have reproduction of pain as I have him roll about the bed in the back and lower extremities. Results & Data Results & Data ([facility]) Vital Signs (Past 12 Hours) Vital Signs Temp Pulse Resp BP BP Pulse Ox O2 Del Method 05/20/22 07:43 36.5 C 76 18 189/77 H 168/79 H 97 Room Air 05/19/22 23:16 36.9 C 74 16 143/76 H 96 Room Air
[2022-05-20] MEDS: oxyCODONE HCL IR 5 MG TAB (IMMEDIATE RELEASE) PO PRN ×2 (10:12→18:07)
--- NOTE | 2022-05-20 11:19 | CT Scan Report ---
LUMBAR SPINE CT WITHOUT CONTRAST CLINICAL HISTORY: Postoperative evaluation. Back pain. COMPARISON STUDY: Lumbar spine fluoroscopic images April 17, 2022. TECHNIQUE: Axial images of the lumbar spine were obtained without IV contrast. Sagittal and coronal r econstructions were viewed. Automated exposure control was utilized for the study. A dose lowering t echnique was utilized adhering to the principles of ALARA. FINDINGS: For purposes of numbering on this exam, the L5-S1 disc space is assigned to axial image 288 of 332. L3-L4 and L4-L5 discectomies are noted. There is a posterior decompression with bilateral pe dicle screw fusion from L2 through L5. Central canal and neural foramen are suboptimally assessed giv en CT technique. Note is made of a laminectomy bed fluid collection that extends from the L2 through upper L5 levels that measures approximately 6.7 x 5.7 x 2.8 cm. This has peripheral calcification. So ft tissue gas within this collection is likely postsurgical. Sterility cannot be assessed by CT. Note is made of a 7 mm of anterolisthesis of L4 and L5 which has developed since intraoperative fluorosco pic images. Hardware is intact. However, there is lucency adjacent to the bilateral L5 pedicle screws with suspected posterior slippage of L5. The screws extend through the anterior aspects of the verte bral body. There is a fracture of the superior endplate of L5 with 25% loss of vertebral body height. A nondisplaced fracture of the right transverse process of L5 is noted. There is a nondisplaced frac ture of the left transverse process of L2. Otherwise, vertebral body heights are maintained. There ar e no unexpected radiopaque foreign bodies. Disc space narrowing and osteophytosis at L2-L3 is present . The bladder is distended, partially imaged on this exam. There is no hydronephrosis. Visualized por tions of the sacroiliac joints are intact. IMPRESSION: 1. Status post L3-L4 and L4-L5 discectomies with posterior decompression and bilateral pedicle screw fusion from L2 through L5. 2. Lucency adjacent to the bilateral L5 pedicle screws with grade one anterolisthesis of L4 and L5. L 5 pedicle screws extend through the anterior vertebral body with a fracture of the superior endplate of L5. The findings suggest loosening of the L5 pedicle screws with posterior slippage. An infectious process could appear similar although is considered less likely. 3. Laminectomy bed fluid collection, measuring approximately 6.7 x 5.7 x 2.8 cm which has peripheral calcification. This is likely postsurgical. However, sterility cannot be assessed by CT. 4. Suboptimal evaluation of central canal and neural foramen given CT technique. 5. Distended bladder, partially imaged on this study. ACT 112: Negative or not required by law. Electronically signed by: Diaz Swann M.D. 05/20/2022 11:17 AM
--- NOTE | 2022-05-20 12:08 | Communication Note ---
Date of Service: May 20, 2022 Patient seen and examined at bedside. Patient was lying in the bed . He reports severe pain on left left thigh. Patient is hypertensive; likely secondary to severe pain. We will continue to monitor. If continues to be hypertensive despite pain control; can consider lisinopril which patient was previously on. Continue other medication. Rest per orthopedics.
--- NOTE | 2022-05-20 13:10 | Pharmacy Report ---
Pharmacy Glycemic Short Note 2 - Date of Service May 20, 2022 - Glycemic Short BSG Results (Last 24 hours): 05/19/22 05/19/22 05/19/22 20:03 20:05 23:50 POC Glucose 332 H* 335 H* 278 H 05/20/22 05/20/22 05/20/22 04:12 08:24 12:13 POC Glucose 141 H 117 H 128 H OUTPATIENT ANTIDIABETIC REGIMEN: * Humulin 70/30 * 56 units SC qAM + 10-15 units SC qPM HbA1c: 7.3% (03/30/22) ASSESSMENT: * KT is a 76 year old male with neurogenic claudication due to lumbar spinal stenosis * s/p lumbar decompression/fusion (04/17/22) * Pharmacy consulted for glycemic management in this patient with T1DM * NPO for now pending further evaluation of imaging * Received 18 units of Lantus last evening in addition to 15 units of Novolog * Presenting BSG > 300 mg/dL, now well-controlled in 100s * Patient requires approximately 55-71 units of insulin/day as an outpatient * Will aim for 50/50 basal/bolus split with empiric reduction for now in light of NPO status PLAN FOR INPATIENT GLYCEMIC CONTROL: * Basal insulin * Lantus 10 units SC BID today * Reassess in AM * Bolus insulin * NovoLog per scale ACHS or Q6hrs while NPO * Goal Range: Low 110 mg/dL - High 140 mg/dL * Correction Factor: 25 mg/dL/unit * Nutritional / Prandial insulin per carb ratio of 1 unit per 8 grams CHO consumed
[2022-05-20] MEDS: traMADol HCL 50 MG TABLET PO PRN (13:41)
--- NOTE | 2022-05-20 17:28 | Hospitalist Progress Note ---
Date of Service May 20, 2022 Assessment & Plan (1) Severe back pain: Plan: Mr. Cortez Daley is a 76 year old underwent L2-L5 discectomy and fusion on April 17, 2022 after failing conservative management for neurogenic claudication from lumbar spinal stenosis. He presents to the hospital with severe back pain. 1. Severe back pain with ambulatory dysfunction. Recent surgery; imaging as per orthopedic. Pain controlled. 2. History of diabetes. Pharmacy on board; continue on glargine and sliding scale. 3. Parkinson disease. Continue his home medications of carbidopa/levodopa. 4. Coronary artery disease. History of hypertension, status post stent in LAD in 1999:Hypertensive likely secondary to pain. If blood pressure does not improve with improvement of pain; will add lisinopril. Improved 5. Gastroesophageal reflux disease. On Protonix. Admission and Anticipated Discharge Date Admission Date: May 19, 2022 Subjective Patient lying on the bed; complains of severe pain. Afebrile, hypertensive; likely due to pain. Review of Systems Review of Systems: All systems reviewed & are unremarkable except as noted in Subjective Physical Exam Physical Exam: GENERAL: The patient is of moderate build, not in acute distress. HEENT: Head is atraumatic. No facial droop. Speech is clear. NECK: No JVD. No neck masses. CARDIOVASCULAR: S1 and S2 heard. Regular rate and rhythm. No murmur, no gallop. RESPIRATORY SYSTEM: Normal AP diameter. No accessory muscle use. No wheezing or crackles. ABDOMEN: Soft, bowel sounds present, nontender, no distention. CENTRAL NERVOUS SYSTEM: Alert and oriented. Speech is clear. No facial droop. Obeys simple commands. Moves extremities. EXTREMITIES: Painful lower extremity movements. No edema, no erythema seen. Results & Data Results & Data ([facility]) Vital Signs (Past 12 Hours) Vital Signs Temp Pulse Resp BP BP Pulse Ox O2 Del Method 05/20/22 14:56 36.6 C 81 16 167/62 H 96 Room Air 05/20/22 07:43 36.5 C 76 18 189/77 H 168/79 H 97 Room Air Laboratory Results Laboratory Results POC Glucose 101 mg/dl (70-99) H 05/20/22 17:[address] 05/20/22 10:[address] WITHOUT CONTRAST CLINICAL HISTORY: Postoperative evaluation. Back pain. COMPARISON STUDY: Lumbar spine fluoroscopic images April 17, 2022. TECHNIQUE: Axial images of the lumbar spine were obtained without IV contrast. Sagittal and coronal reconstructions were viewed. Automated exposure control was utilized for the study. A dose lowering technique was utilized adhering to the principles of ALARA. FINDINGS: For purposes of numbering on this exam, the L5-S1 disc space is assigned to axial image 288 of 332. L3-L4 and L4-L5 discectomies are noted. There is a posterior decompression with bilateral pedicle screw fusion from L2 through L5. Central canal and neural foramen are suboptimally assessed given CT technique. Note is made of a laminectomy bed fluid collection that extends from the L2 through upper L5 levels that measures approximately 6.7 x 5.7 x 2.8 cm. This has peripheral calcification. Soft tissue gas within this collection is likely postsurgical. Sterility cannot be assessed by CT. Note is made of a 7 mm of anterolisthesis of L4 and L5 which has developed since intraoperative fluoroscopic images. Hardware is intact. However, there is lucency adjacent to the bilateral L5 pedicle screws with suspected posterior slippage of L5. The screws extend through the anterior aspects of the vertebral body. There is a fracture of the superior endplate of L5 with 25% loss of vertebral body height. A nondisplaced fracture of the right transverse process of L5 is noted. There is a nondisplaced fracture of the left transverse process of L2. Otherwise, vertebral body heights are maintained. There are no unexpected radiopaque foreign bodies. Disc space narrowing and osteophytosis at L2-L3 is present. The bladder is distended, partially imaged on this exam. There is no hydronephrosis. Visualized portions of the sacroiliac joints are intact. IMPRESSION: 1. Status post L3-L4 and L4-L5 discectomies with posterior decompression and bilateral pedicle screw fusion from L2 through L5. 2. Lucency adjacent to the bilateral L5 pedicle screws with grade one anterolisthesis of L4 and L5. L5 pedicle screws extend through the anterior vertebral body with a fracture of the superior endplate of L5. The findings suggest loosening of the L5 pedicle screws with posterior slippage. An infectious process could appear similar although is considered less likely. 3. Laminectomy bed fluid collection, measuring approximately 6.7 x 5.7 x 2.8 cm which has peripheral calcification. This is likely postsurgical. However, sterility cannot be assessed by CT. 4. Suboptimal evaluation of central canal and neural foramen given CT technique. 5. Distended bladder, partially imaged on this study. ACT 112: Negative or not required by law. Electronically signed by: Diaz Swann M.D. 05/20/2022 11:17 AM
[2022-05-20] MEDS: CARBIDOPA/LEVODOPA 50/200MG EXT REL TAB PO SCH (21:03)
[2022-05-20] MEDS: LOVASTATIN 20 MG TAB PO SCH (21:03)
[2022-05-21] MEDS: HYDROmorphone INJ 1 MG/ML SYRINGE IV PRN ×3 (03:34→20:06)
[2022-05-21] MEDS: oxyCODONE HCL IR 5 MG TAB (IMMEDIATE RELEASE) PO PRN ×3 (03:53→17:34)
[2022-05-21] MEDS: LORazepam 0.5 MG TAB PO PRN ×2 (07:47→22:08)
[2022-05-21] MEDS: BACLOFEN 10 MG TAB PO PRN ×2 (07:47→19:47)
--- NOTE | 2022-05-21 08:34 | Orthopedic Progress Note ---
Date of Service May 21, 2022 Assessment & Plan (1) Severe back pain: Plan: Continue with pain control today. DVT prophylaxis is in the form of teds and SCDs. We will make him n.p.o. after midnight. Will consider taking him to the OR tomorrow for possible I&D of lumbar spine as well as possible hardware revision. This has been a discussed with the patient. He understands. Admission and Anticipated Discharge Date Admission Date: May 19, 2022 Subjective Patient was transferred to Dr. Su's care from [facility]. He had surgery roughly [address] Su. Unfortunately he has been struggling with severe left groin and anterior thigh pain. He is difficulty ambulating. Home pain medication was not providing significant relief. MRI was performed at [facility]. Lumbar CT was performed at [facility]. Review of Systems Review of Systems: All systems reviewed & are unremarkable except as noted in HPI & below Physical Exam Physical Exam: He is in bed lying supine Alert and oriented times Moderately uncomfortable Strength intact bilateral lower extremities Results & Data ([facility]) Vital Signs (Past 12 Hours) Vital Signs Temp Pulse Resp BP Pulse Ox O2 Del Method 05/21/22 07:29 36.5 C 74 18 118/49 L 94 Room Air 05/20/22 22:12 36.6 C 80 16 129/67 95 Room Air Diagnostic Findings [place], [place] [phone] CT Scan Report Patient:DEE FUENTES Admit Date:05/19/22 MR#:[id number] Address1:[address] [place] [address] Acct ID:[id number] Address2: Date:[address] [facility] Zip:[place] [address] Age:76 Location:3E Sex:M Room/Bed:[facility] Att Phy:Festus Su D.O. Diagnosis:SPINAL STENOSIS, COLLAPSED VERTEBRAE, DORSALGIA [place] Phy:Eros Shannon CRNP Service Date:05/20/22 Fam Phy: Interpreting Phy:Diaz Swann [facility] Phy:Festus Su D.O. Ordering Phy:Festus Su D.O. cc: ~ LUMBAR SPINE CT WITHOUT CONTRAST CLINICAL HISTORY: Postoperative evaluation. Back pain. COMPARISON STUDY: Lumbar spine fluoroscopic images April 17, 2022. TECHNIQUE: Axial images of the lumbar spine were obtained without IV contrast. Sagittal and coronal reconstructions were viewed. Automated exposure control was utilized for the study. A dose lowering technique was utilized adhering to the principles of ALARA. FINDINGS: For purposes of numbering on this exam, the L5-S1 disc space is assigned to axial image 288 of 332. L3-L4 and L4-L5 discectomies are noted. There is a posterior decompression with bilateral pedicle screw fusion from L2 through L5. Central canal and neural foramen are suboptimally assessed given CT technique. Note is made of a laminectomy bed fluid collection that extends from the L2 through upper L5 levels that measures approximately 6.7 x 5.7 x 2.8 cm. This has peripheral calcification. Soft tissue gas within this collection is likely postsurgical. Sterility cannot be assessed by CT. Note is made of a 7 mm of anterolisthesis of L4 and L5 which has developed since intraoperative fluor oscopic images. Hardware is intact. However, there is lucency adjacent to the bilateral L5 pedicle screws with suspected posterior slippage of L5. The screws extend through the anterior aspects of the vertebral body. There is a fracture of the superior endplate of L5 with 25% loss of vertebral body height. A nondisplaced fracture of the right transverse process of L5 is noted. There is a nondisplaced fracture of the left transverse process of L2. Otherwise, vertebral body heights are maintained. There are no unexpected radiopaque foreign bodies. Disc space narrowing and osteophytosis at L2-L3 is present. The bladder is distended, partially imaged on this exam. There is no hydronephrosis. Visualized portions of the sacroiliac joints are intact. IMPRESSION: 1. Status post L3-L4 and L4-L5 discectomies with posterior decompression and bilateral pedicle screw fusion from L2 through L5. 2. Lucency adjacent to the bilateral L5 pedicle screws with grade one anterolisthesis of L4 and L5. L5 pedicle screws extend through the anterior vertebral body with a fracture of the superior endplate of L5. The findings suggest loosening of the L5 pedicle screws with posterior slippage. An infectiou s process could appear similar although is considered less likely. 3. Laminectomy bed fluid collection, measuring approximately 6.7 x 5.7 x 2.8 cm which has peripheral calcification. This is likely postsurgical. However, sterility cannot be assessed by CT. 4. Suboptimal evaluation of central canal and neural foramen given CT technique. 5. Distended bladder, partially imaged on this study. ACT 112: Negative or not required by law. Electronically signed by: Diaz Swann M.D. 05/20/2022 11:17 AM Dictated:05/20/22 110 Transcribed: 05/20/22 110
[2022-05-21] MEDS: PANTOprazole 40 MG TAB PO SCH ×2 (08:35→20:57)
[2022-05-21] MEDS: CARBIDOPA/LEVODOPA/ENTACAPONE PO SCH ×3 (08:35→20:57)
[2022-05-21] MEDS: INSULIN ASPART PER UNIT SC SCH ×4 (08:41→21:04)
[2022-05-21] MEDS ORDERED: LANTUS PER UNIT CHARGE SQ ONE ×2 (09:00→21:00)
[2022-05-21] MEDS: SODIUM CHLORIDE 0.9% 1000ML 1,000 ML IV SCH ×2 (09:54→22:08)
--- NOTE | 2022-05-21 11:13 | Hospitalist Progress Note ---
Date of Service May 21, 2022 Assessment & Plan (1) Severe back pain: Plan: Mr. Cortez Daley is a 76 year old underwent L2-L5 discectomy and fusion on April 17, 2022 after failing conservative management for neurogenic claudication from lumbar spinal stenosis. He presents to the hospital with severe back pain. 1. Severe back pain with ambulatory dysfunction. Recent surgery; CT lumbar spine done during the hospitalization. Possible OR tomorrow for evaluation for hematoma/hardware revision. 2. Type 1 diabetes mellitus . Pharmacy on board; continue on glargine and sliding scale. 3. Parkinson disease. Continue his home medications of carbidopa/levodopa. 4. Coronary artery disease. History of hypertension, status post stent in LAD in 1999:Hypertensive likely secondary to pain. Aspirin is presently on hold for possible surgical intervention. Resume when okay with orthopedic. 5. Gastroesophageal reflux disease. On Protonix. Admission and Anticipated Discharge Date Admission Date: May 19, 2022 Subjective Patient seen and examined at bedside. Reports significant pain on his left hip radiating down the his thigh. Blood pressure improved. Review of Systems Review of Systems: All systems reviewed & are unremarkable except as noted in Subjective Physical Exam Physical Exam: GENERAL: The patient is of moderate build, not in acute dis tress. HEENT: Head is atraumatic. No facial droop. Speech is clear. NECK: No JVD. No neck masses. CARDIOVASCULAR: S1 and S2 heard. Regular rate and rhythm. No murmur, no gallop. RESPIRATORY SYSTEM: Normal AP diameter. No accessory muscle use. No wheezing or crackles. ABDOMEN: Soft, bowel sounds present, nontender, no distention. CENTRAL NERVOUS SYSTEM: Alert and oriented. Speech is clear. No facial droop. Obeys simple commands. Moves extremities. EXTREMITIES: Painful lower extremity movements. No edema, no erythema seen. Results & Data Results & Data ([facility]) Vital Signs (Past 12 Hours) Vital Signs Temp Pulse Resp BP Pulse Ox O2 Del Method 05/21/22 07:29 36.5 C 74 18 118/49 L 94 Room Air Laboratory Results Laboratory Results POC Glucose 159 mg/dl (70-99) H 05/21/22 08:10 SARS-CoV-2, RNA, NAAT NEGATIVE (NEGATIVE) 05/21/22 09:[address] 05/20/22 10:[address] WITHOUT CONTRAST CLINICAL HISTORY: Postoperative evaluation. Back pain. COMPARISON STUDY: Lumbar spine fluoroscopic images April 17, 2022. TECHNIQUE: Axial images of the lumbar spine were obtained without IV contrast. Sagittal and coronal reconstructions were viewed. Automated exposure control was utilized for the study. A dose lowering technique was utilized adhering to the principles of ALARA. FINDINGS: For purposes of numbering on this exam, the L5-S1 disc space is assigned to axial image 288 of 332. L3-L4 and L4-L5 discectomies are noted. There is a posterior decompression with bilateral pedicle screw fusion from L2 through L5. Central canal and neural foramen are suboptimally assessed given CT technique. Note is made of a laminectomy bed fluid collection that extends from the L2 through upper L5 levels that measures approximately 6.7 x 5.7 x 2.8 cm. This has peripheral calcification. Soft tissue gas within this collection is likely postsurgical. Sterility cannot be assessed by CT. Note is made of a 7 mm of anterolisthesis of L4 and L5 which has developed since intraoperative fluoroscopic images. Hardware is intact. However, there is lucency adjacent to the bilateral L5 pedicle screws with suspected posterior slippage of L5. The screws extend through the anterior aspects of the vertebral body. There is a fracture of the superior endplate of L5 with 25% loss of vertebral body height. A nondisplaced fracture of the right transverse process of L5 is noted. There is a nondisplaced fracture of the left transverse process of L2. Otherwise, vertebral body heights are maintained. There are no unexpected radiopaque fo reign bodies. Disc space narrowing and osteophytosis at L2-L3 is present. The bladder is distended, partially imaged on this exam. There is no hydronephrosis. Visualized portions of the sacroiliac joints are intact. IMPRESSION: 1. Status post L3-L4 and L4-L5 discectomies with posterior decompression and bilateral pedicle screw fusion from L2 through L5. 2. Lucency adjacent to the bilateral L5 pedicle screws with grade one anterolisthesis of L4 and L5. L5 pedicle screws extend through the anterior vertebral body with a fracture of the superior endplate of L5. The findings suggest loosening of the L5 pedicle screws with posterior slippage. An infectious process could appear similar although is considered less likely. 3. Laminectomy bed fluid collection, measuring approximately 6.7 x 5.7 x 2.8 cm which has peripheral calcification. This is likely postsurgical. However, sterility cannot be assessed by CT. 4. Suboptimal evaluation of central canal and neural foramen given CT technique. 5. Distended bladder, partially imaged on this study. ACT 112: Negative or not required by law. Electronically signed by: Diaz Swann M.D. 05/20/2022 11:17 AM
--- NOTE | 2022-05-21 14:03 | Pharmacy Report ---
Pharmacy Glycemic Short Note 2 - Date of Service May 21, 2022 - Glycemic Short BSG Results (Last 24 hours): 05/20/22 05/20/22 05/20/22 17:10 20:55 21:25 POC Glucose 101 H 61 L* 76 05/21/22 05/21/22 08:10 12:21 POC Glucose 159 H 132 H OUTPATIENT ANTIDIABETIC REGIMEN: * Humulin 70/30 * 56 units SC qAM + 10-15 units SC qPM HbA1c: 7.3% (03/30/22) ASSESSMENT: 05/21/22 * BSGs tightly controlled yesterday with an episode of hypoglycemia at HS (61 mg/dL) * Diet restarted, but will be NPO again at midnight for possible OR tomorrow for I&D of lumbar spine * Will continue loosened parameters today in light of low BSG yesterday 05/20/22 * KT is a 76 year old male with neurogenic claudication due to lumbar spinal stenosis * s/p lumbar decompression/fusion (04/17/22) * Pharmacy consulted for glycemic management in this patient with T1DM * NPO for now pending further evaluation of imaging * Received 18 units of Lantus last evening in addition to 15 units of Novolog * Presenting BSG > 300 mg/dL, now well-controlled in 100s * Patient requires approximately 55-71 units of insulin/day as an outpatient * Will aim for 50/50 basal/bolus split with empiric reduction for now in light of NPO status PLAN FOR INPATIENT GLYCEMIC CONTROL: * Basal insulin * Lantus 10 units SC x 1 this morning * Lantus 0-10 units SC HS * Reassess in AM * Bolus insulin * NovoLog per scale ACHS or Q6hrs while NPO * Goal Range: Low 110 mg/dL - High 140 mg/dL * Correction Factor: 35 mg/dL/unit * Nutritional / Prandial insulin per carb ratio of 1 unit per 12 grams CHO consumed
[2022-05-21] MEDS ORDERED: bisacodyL 10 MG SUPP PR PRN (18:52)
[2022-05-21] MEDS: traMADol HCL 50 MG TABLET PO PRN (19:33)
[2022-05-21] MEDS: CARBIDOPA/LEVODOPA 50/200MG EXT REL TAB PO SCH (20:57)
[2022-05-21] MEDS: MELATONIN 3 MG TAB PO SCH (20:57)
[2022-05-21] MEDS: LOVASTATIN 20 MG TAB PO SCH (20:57)
[2022-05-21] MEDS ORDERED: Nursing to Pharmacy Communication SCH (22:15)
[2022-05-22] MEDS: INSULIN ASPART PER UNIT SC SCH ×4 (00:06→20:45)
[2022-05-22] MEDS: oxyCODONE HCL IR 5 MG TAB (IMMEDIATE RELEASE) PO PRN ×2 (01:31→08:38)
[2022-05-22] MEDS: PANTOprazole 40 MG TAB PO SCH ×2 (08:38→20:41)
[2022-05-22] MEDS: CARBIDOPA/LEVODOPA/ENTACAPONE PO SCH ×3 (08:40→21:05)
[2022-05-22] MEDS ORDERED: LANTUS PER UNIT CHARGE SQ SCH (09:00)
--- NOTE | 2022-05-22 10:31 | Hospitalist Progress Note ---
Date of Service May 22, 2022 Assessment & Plan (1) Severe back pain: Plan: Mr. Cortez Daley is a 76 year old underwent L2-L5 discectomy and fusion on April 17, 2022 after failing conservative management for neurogenic claudication from lumbar spinal stenosis. He presents to the hospital with severe back pain. 1. Severe back pain with ambulatory dysfunction. Recent surgery; CT lumbar spine done during the hospitalization. OR today. 2. Type 1 diabetes mellitus . Pharmacy on board; continue on glargine and sliding scale. 3. Parkinson disease. Continue his home medications of carbidopa/levodopa. 4. Coronary artery disease. History of hypertension, status post stent in LAD in 1999:Hypertensive likely secondary to pain. Aspirin is presently on hold for possible surgical intervention. Resume when okay with orthopedic. Will consider adding lisinopril if he continues to be hypertensive despite pain control. 5. Gastroesophageal reflux disease. On Protonix. Admission and Anticipated Discharge Date Admission Date: May 21, 2022 Subjective Patient seen and examined at bedside. He is lying down on the bed comfortably. Pain is well controlled on current regimen. Review of Systems Review of Systems: All systems reviewed & are unremarkable except as noted in Subjective Physical Exam Physical Exam: GENERAL: The patient is of moderate build, not in acute distress. HEENT: Head is atraumatic. No facial droop. Speech is clear. NECK: No JVD. No neck masses. CARDIOVASCULAR: S1 and S2 heard. Regular rate and rhythm. No murmur, no gallop. RESPIRATORY SYSTEM: Normal AP diameter. No accessory muscle use. No wheezing or crackles. ABDOMEN: Soft, bowel sounds present, nontender, no distention. CENTRAL NERVOUS SYSTEM: Alert and oriented. Speech is clear. No facial droop. Obeys simple commands. Moves extremities. EXTREMITIES: Painful lower extremity movements. No edema, no erythema seen. Results & Data Results & Data ([facility]) Vital Signs (Past 12 Hours) Vital Signs Temp Pulse Resp BP Pulse Ox O2 Del Method 05/22/22 07:16 36.3 C L 85 16 162/72 H 96 Room Air Laboratory Results Laboratory Results POC Glucose 203 mg/dl (70-99) H 05/22/22 06:09 SARS-CoV-2, RNA, NAAT NEGATIVE (NEGATIVE) 05/21/22 09:[address] 05/20/22 10:[address] WITHOUT CONTRAST CLINICAL HISTORY: Postoperative evaluation. Back pain. COMPARISON STUDY: Lumbar spine fluoroscopic images April 17, 2022. TECHNIQUE: Axial images of the lumbar spine were obtained without IV contrast. Sagittal and coronal reconstructions were viewed. Automated exposure control was utilized for the study. A dose lowering technique was utilized adhering to the principles of ALARA. FINDINGS: For purposes of numbering on this exam, the L5-S1 disc space is assigned to axial image 288 of 332. L3-L4 and L4-L5 discectomies are noted. There is a posterior decompression with bilateral pedicle screw fusion from L2 through L5. Central canal and neural foramen are suboptimally assessed given CT technique. Note is made of a laminectomy bed fluid collection that extends from the L2 through upper L5 levels that measures approximately 6.7 x 5.7 x 2.8 cm. This has peripheral calcification. Soft tissue gas within this collection is likely postsurgical. Sterility cannot be assessed by CT. Note is made of a 7 mm of anterolisthesis of L4 and L5 which has developed since intraoperative fluoroscopic images. Hardware is intact. However, there is lucency adjacent to the bilateral L5 pedicle screws with suspected posterior slippage of L5. The screws extend through the anterior aspects of the vertebral body. There is a fracture of the superior endplate of L5 with 25% loss of vertebral body height. A nondisplaced fracture of the right transverse process of L5 is noted. There is a nondisplaced fracture of the left transverse process of L2. Otherwise, vertebral body heights are maintained. There are no unexpected radiopaque foreign bodies. Disc space narrowing and osteophytosis at L2-L3 is present. The bladder is distended, partially imaged on this exam. There is no hydronephrosis. Visualized portions of the sacroiliac joints are intact. IMPRESSION: 1. Status post L3-L4 and L4-L5 discectomies with posterior decompression and bilateral pedicle screw fusion from L2 through L5. 2. Lucency adjacent to the bilateral L5 pedicle screws with grade one anterolisthesis of L4 and L5. L5 pedicle screws extend through the anterior vertebral body with a fracture of the superior endplate of L5. The findings suggest loosening of the L5 pedicle screws with posterior slippage. An infectious process could appear similar although is considered less likely. 3. Laminectomy bed fluid collection, measuring approximately 6.7 x 5.7 x 2.8 cm which has peripheral calcification. This is likely postsurgical. However, sterility cannot be assessed by CT. 4. Suboptimal evaluation of central canal and neural foramen given CT technique. 5. Distended bladder, partially imaged on this study. ACT 112: Negative or not required by law. Electronically signed by: Diaz Swann M.D. 05/20/2022 11:17 AM
[2022-05-22] MEDS: SODIUM CHLORIDE 0.9% 1000ML 1,000 ML IV SCH ×2 (11:12→20:29)
[2022-05-22] MEDS ORDERED: fentaNYL citrate 100 MCG/2 ML VIAL ONE ×2 (14:43→16:29)
--- NOTE | 2022-05-22 15:40 | History & Physical Bridge Note ---
Date of Service May 22, 2022 History & Physical Bridge Note I have examined the patient, reviewed the History & Physical and in the interval since the performance of the History & Physical I have noted the following changes of clinical significance: no changes noted Irrigation debridement lumbar spine with kyphoplasty L5
[2022-05-22] MEDS ORDERED: ceFAZolin 330 MG/ML 1 GM VIAL ONE ×2 (15:55→17:13)
[2022-05-22] MEDS ORDERED: BUPIVACAINE/EPINEPHRINE 0.25% 1:200,000 30 ML VIAL ONE (15:55)
[2022-05-22] MEDS ORDERED: INSULIN ASPART PER UNIT SC SCH (16:00)
--- NOTE | 2022-05-22 16:01 | Anesthesiology Consultation ---
Date of Service May 22, 2022 Assessment & Plan (1) Encounter for pre-operative examination: Chart Review Chart Review: Acceptable Risk for Surgery and Patient NOT seen in Pre Admission Testing Consults Requested none History Surgery Operation Date: 05/22/22 07:00 Proposed Procedures p Incision and Drainage Lumbar Spine, L5 Hardware Revision - Festus Su DO s L4 Kyphoplasty - Festus Su DO Height/Weight Height: 5 ft 10 in Weight: 75.8 kg Allergies Allergy/AdvReac Type Severity Reaction Status Date / Time No Known Allergies Allergy Verified 04/17/22 06:23 Medications Home Medications Medication Instructions Recorded Confirmed Last Taken aspirin 81 mg tablet,delayed 81 mg PO QAM 03/27/22 04/17/22 04/10/22 release baclofen 10 mg tablet 10 mg PO TID PRN Pain 03/27/22 04/17/22 04/14/22 carbidopa 50 mg-levodopa 200 1 tab PO TID 03/27/22 04/17/22 04/17/22 05:00 mg-entacapone 200 mg tablet carbidopa ER 50 mg-levodopa 200 mg 1 tab PO HS 03/27/22 04/17/22 04/16/22 22:00 tablet,extended release hydrocodone 7.5 mg-acetaminophen 1 tab PO BID PRN Pain 03/27/22 04/17/22 04/16/22 22:00 325 mg tablet insulin human U-100 NPH-regulr 10 - 15 unit subcut QPM 03/27/22 04/17/22 04/16/22 21:30 70-30 mix 100 unit/mL subcutaneous 6 units susp (Humulin 70/30 U-100 Insulin) insulin human U-100 NPH-regulr 56 unit subcut QAM 03/27/22 04/17/22 04/16/22 06:30 70-30 mix 100 unit/mL subcutaneous 56 units susp (Humulin 70/30 U-100 Insulin) lovastatin 40 mg tablet 40 mg PO HS 03/27/22 04/17/22 04/16/22 22:00 melatonin 10 mg tablet 10 mg PO HS 03/27/22 04/17/22 04/16/22 22:00 pantoprazole 40 mg tablet,delayed 40 mg PO BID 03/27/22 04/17/22 04/16/22 05:00 release (Protonix) oxycodone 5 mg tablet 5 mg PO Q6H PRN pain, severe #30 04/18/22 Unknown tabs tramadol 50 mg tablet 50 mg PO Q6H PRN pain, moderate 04/18/22 Unknown #30 tabs Active Medications Generic Name Dose Route Start Last Admin Trade Name Freq PRN Reason Stop Dose Admin Acetaminophen 1,000 mg 05/19/22 18:52 05/21/22 03:52 Acetaminophen 500 Mg Tab PO 06/18/22 18:51 1,000 mg Q8H PRN Administration MILD Pain Scale 1,2,3 & Pre PT Baclofen 10 mg 05/19/22 19:07 05/21/22 19:47 Baclofen 10 Mg Tab PO 06/18/22 19:06 10 mg TID PRN Administration Pain Carbidopa/Levodopa 1 tab 05/19/22 21:00 05/21/22 20:57 Carbidopa/Levodopa 50/200mg Ext Rel Tab PO 06/18/22 20:59 1 tab HS EVETTE Administration Carbidopa/Levodopa/Entacapone 1 each 05/19/22 21:00 05/22/22 13:58 Carbidopa/Levodopa/Entacapone PO 06/18/22 20:59 Not Given TID EVETTE Hydromorphone HCl 1 mg 05/19/22 18:52 05/21/22 20:06 Hydromorphone Inj 1 Mg/Ml Syringe IV 06/02/22 18:51 1 mg Q3H PRN Administration severe pain (scale 7-10) Sodium Chloride 1,000 mls @ 75 mls/hr 05/19/22 19:00 05/22/22 13:51 Nss 1000ml IV 06/18/22 18:59 0 mls/hr .[id number] EVETTE Infusion Insulin Glargine 10 units 05/22/22 09:00 05/22/22 08:45 Lantus Per Unit Charge SQ 06/21/22 08:59 10 units DAILY EVETTE Administration Lorazepam 0.5 mg 05/19/22 18:52 05/21/22 22:08 Lorazepam 0.5 Mg Tab PO 06/18/22 18:51 0.5 mg Q8H PRN Administration sedation/anxiety Lovastatin 40 mg 05/19/22 21:00 05/21/22 20:57 Lovastatin 20 Mg Tab PO 06/18/22 20:59 40 mg HS EVETTE Administration Melatonin 9 mg 05/19/22 21:00 05/21/22 20:57 Melatonin 3 Mg Tab PO 06/18/22 20:59 9 mg HS EVETTE Administration Oxycodone HCl 5 - 10 mg 05/19/22 18:52 05/22/22 08:38 Oxycodone Hcl Ir 5 Mg Tab (Immediate Release) PO 06/02/22 18:51 10 mg Q4H PRN Administration mod to severe pain Pantoprazole Sodium 40 mg 05/19/22 21:00 05/22/22 08:38 Pantoprazole 40 Mg Tab PO 06/18/22 20:59 40 mg BID EVETTE Administration Tramadol HCl 50 - 100 mg 05/19/22 18:52 05/21/22 19:33 Tramadol Hcl 50 Mg Tablet PO 06/18/22 18:51 100 mg Q4H PRN Administration Moderate-Severe pain & Pre PT NPO Date Last Intake of Fluids: 05/21/22 Time Last Intake of Fluids: 20:00 Date Last Intake of Solids: 05/21/22 Time Last Intake of Solids: 20:00 Past Medical History Medical History Anemia CAD (coronary artery disease) 1 stent, follows with [facility] DDD (degenerative disc disease) DM type 1 (diabetes mellitus, type 1) IDDM Gastroparesis GERD (gastroesophageal reflux disease) History of hypertension h/o orthostatic hypotension, follows with [facility] reports infrequent episodes of lightheadedness without near syncope History of myocardial infarction 1999 HLD (hyperlipidemia) Parkinsons disease Past Family History Family History Other No significant family history Past Surgical History Surgical History History of ankle surgery Lt History of cardiac catheterization mult. 1 stent placed in 1999 with [place]. says most recent "few years ago" [facility]. History of carpal tunnel release of both wrists History of cholecystectomy History of colonoscopy History of esophagogastroduodenoscopy (EGD) History of heart artery stent x 1 (1999) History of tonsillectomy Social History Smoking Status: Former smoker tobacco type: cigarettes Smoking End Date: 1974 Hx Alcohol Use: Yes Alcohol type: beer and wine alcohol intake frequency: a few times a month Hx Substance Use: No substance use type: does not use Physical Exam Vital Signs Last Vital Signs Temp 36.9 C 05/22/22 14:05 Pulse 76 05/22/22 14:05 Resp 22 05/22/22 14:05 BP 163/64 H 05/22/22 14:05 Pulse Ox 97 05/22/22 14:05 O2 Del Method 05/22/22 14:05 Testing Laboratory Results 05/22/22 05/22/22 12:19 06:09 POC Glucose 190 H 203 H Electrocardiogram Date: 01/03/22 Findings: + NSR @ (14)
[2022-05-22] MEDS ORDERED: LABETALOL HCL IV 5 MG/ML 20ML IV PRN (16:05)
[2022-05-22] MEDS ORDERED: PHENYLEPHRINE 100MCG/ML 5ML SYR IV PRN (16:05)
[2022-05-22] MEDS ORDERED: ONDANSETRON INJ 2 MG/ML 2 ML VIAL IV PRN ×2 (16:05→18:44)
[2022-05-22] MEDS ORDERED: fentaNYL citrate 100 MCG/2 ML VIAL IV PRN (16:05)
[2022-05-22] MEDS ORDERED: ePHEDrine sulfate 50 MG/ML AMP IV PRN (16:05)
[2022-05-22] MEDS ORDERED: ATROPINE SULFATE 0.1 MG/ML 10ML SYR IV PRN (16:05)
[2022-05-22] MEDS ORDERED: HYDROmorphone INJ 1 MG/ML SYRINGE IV PRN ×2 (16:05→18:44)
[2022-05-22] MEDS ORDERED: ceFAZolin 2000MG 2,000 MG/15 ML SYR IV ONE (16:23)
[2022-05-22] MEDS ORDERED: PROPOFOL IV EMULSION 10 MG/ML 20 ML VIAL IV ONE (16:50)
[2022-05-22] MEDS ORDERED: LIDOCAINE 2% MPF LOCAL 5 ML VIAL INFIL ONE (16:50)
[2022-05-22] MEDS ORDERED: ONDANSETRON INJ 2 MG/ML 2 ML VIAL ONE (16:50)
[2022-05-22] MEDS ORDERED: ROCURONIUM BROMIDE 10 MG/ML 5 ML VIAL IV ONE (16:50)
[2022-05-22] MEDS ORDERED: GLYCOPYRROLATE 0.2 MG/ML VIAL ONE (16:51)
[2022-05-22] MEDS ORDERED: ePHEDrine sulfate 50 MG/ML AMP ONE (16:51)
[2022-05-22] MEDS ORDERED: PHENYLEPHRINE 100MCG/ML 5ML SYR ONE (16:51)
[2022-05-22] MEDS ORDERED: NEOSTIGMINE METHYLSULFATE 1 MG/ML 10ML VIAL ONE (16:51)
[2022-05-22] MEDS ORDERED: FLOSEAL HEMOSTATIC MATRIX 10ML TOP ONE (16:54)
[2022-05-22] MEDS ORDERED: IOPAMIDOL INJ 61% 15 ML VIAL INSTIL ONE (16:55)
--- NOTE | 2022-05-22 17:41 | Operative Report ---
Post Operative Report Pre & Post Diagnosis Operation Date: 05/22/22 07:00 Pre-Op Diagnosis: L5 compression fracture with loosening of hardware Post-Op Diagnosis: Same I identified the patient and participated in the time-out.: Yes Procedure Operation Date: 05/22/22 07:00 Actual Procedures #1 removal of posterior instrumentation including the pedicle screws at L5. #2 kyphoplasty L5. #3 posterior spinal fusion L5-S1. #4 placement of posterior instrumentation L5 and S1. #5 placement locally harvested morselized autograft in the posterior gutters. #6 placement of I factor in the posterior gutters L5- S1. Surgeon Festus Su, Kennel Manager June Fall Estimated Blood Loss 200 Findings Consistent with Post-Op Diagnosis Specimens None Indications This is a 68-year-old male who presents with worsening back pain and leg pain approximately 4-week status post lumbar decompression fusion. Imaging did demonstrate evidence of a L5 compression fracture with suspicion for loosening of hardware at the L5 pedicles. Subsequently is here for surgical intervention. Description of Procedure Patient was met with identified informed consent obtained. Patient was then taken to the operative suite underwent a patient placed in a prone position on Ildefonso table top Jose A frame. All bony prominences well-padded eyes inspected to ensure no external pressure placed upon them. This point the lumbar spine was prepped and draped in a sterile fashion. Sharp dissection with assistance of Bovrenata Knutsonzem from down to and exposing the previous instrumentation at L2- L5. A large hematoma was identified and evacuated. Then proceeded move the end caps and eder. I tested the pedicle screws to determine their fixation. Obvious loosening of L5 was noted. All other screws were quite stable. I then placed 2 Kyphon balloons into the L5 vertebral body and sequentially inflated them with fluoroscopic visualization. They were subsequently removed and-6 cc of Kyphon cement was injected into the L5 vertebral body. This was followed by placement of two 8.5 mm pedicle screws into the previously drilled pedicle holes. While the right pedicle screw demonstrated excellent fixation the left with still's subjective motion. Subsequently to adequately stabilize the spine I did elect to proceed distally and placed 2 pedicle screws in the S1 levels bilaterally. Proper sized rods were then contoured and locked in position from L2-L5 bilaterally. This included a cross-link. The facets of L5-S1 in the ala were then burred to subcortical bleeding bone. I factor bone with locally harvested morselized autograft was placed in the posterior gutters. 15 round HELDER drain inserted. The incision was closed with 1 Vicryl the fascia 2-0 Vicryl subcutaneously and 4 Monocryl for final skin closure. Steri-Strips dressings placed. Patient waken taken to recovery in stable condition. Please note June Fall was present at the entire surgery involved the patient positioning complex portion of the surgery and final skin closure. I attest to the content of the Intraoperative Record and any orders documented therein. Any exceptions are noted below.
--- NOTE | 2022-05-22 17:50 | Fluoroscopy Report ---
INTRAOPERATIVE RADIOGRAPHS CLINICAL HISTORY: Lumbar spine surgery. Fluoroscopy time: 40 seconds. FINDINGS: 2 spot fluoroscopic views of the lumbar spine are presented. There has been discectomy at L 3-L4 and L4-L5 with laminectomy and posterior fusion at L2-S1. Interpedicular screws are present at a ll levels. The orthopedic hardware appears intact. IMPRESSION: Intraoperative images from lumbar spinal fusion surgery as above. Electronically signed by: Sage Hernández M.D. 05/22/2022 5:47 PM
--- NOTE | 2022-05-22 18:40 | Anesthesiology Progress Note ---
Date of Service May 22, 2022 Anesthesia Post Procedure Vital Signs Vital Signs: Temp Pulse Pulse Resp BP Pulse Ox O2 Del Method 05/22/22 18:30 36.4 C L 74 12 149/43 H 97 Room Air 05/22/22 18:20 73 16 133/42 L 100 Room Air 05/22/22 18:10 72 12 139/40 L 100 Oxymask 05/22/22 18:00 36.2 C L 77 14 145/41 H 100 Oxymask 05/22/22 14:05 36.9 C 76 22 163/64 H 97 Room Air 05/22/22 07:16 36.3 C L 85 16 162/72 H 96 Room Air 05/21/22 20:56 36.4 C L 81 16 128/66 94 Room Air O2 Flow Rate 05/22/22 18:30 05/22/22 18:20 05/22/22 18:10 4 05/22/22 18:00 6 05/22/22 14:05 05/22/22 07:16 05/21/22 20:56 Pain Intensity Back: Pain Intensity: 2 Left Leg: Pain Intensity: 2 Transfer of Care Handoff Completed per policy Notes Mental Status: alert / awake / arousable Patient Amnestic to Procedure: Yes Nausea / Vomiting: adequately controlled Pain: adequately controlled Airway Patency, RR, SpO2: stable & adequate BP & HR: stable & adequate Hydration State: stable & adequate Anesthetic Complications: no major complications apparent and Pt Satisfied with anesthetic care
[2022-05-22] MEDS ORDERED: SOD PHOSPHATE/SOD BIPHOSPHATE ENEMA 132 ML BTL PR PRN (18:44)
[2022-05-22] MEDS ORDERED: bisacodyL 10 MG SUPP PR PRN (18:44)
[2022-05-22] MEDS ORDERED: hydrOXYzine HCl 25 MG TAB PO PRN (18:44)
[2022-05-22] MEDS ORDERED: PROMETHAZINE HCL 12.5 MG in SODIUM CHLORIDE 0.9% 50 ML IV PRN (18:44)
[2022-05-22] MEDS ORDERED: NALOXONE HCL 0.4 MG/1 ML VIAL/CARP IV PRN (18:44)
[2022-05-22] MEDS ORDERED: LORazepam 0.5 MG in SYRINGE 0 ML IV PRN (18:44)
[2022-05-22] MEDS ORDERED: DO NOT ADMINISTER FLU VACCINE PRN (18:44)
[2022-05-22] MEDS ORDERED: DO NOT ADMINISTER PNEUMOCOCCAL VACCINE PRN (18:44)
[2022-05-22] MEDS ORDERED: LORazepam 0.5 MG TAB PO PRN (18:44)
[2022-05-22] MEDS ORDERED: ACETAMINOPHEN 1,000 MG/100 ML VIAL IV PRN (18:44)
[2022-05-22] MEDS ORDERED: METOCLOPRAMIDE HCL INJ 5 MG/ML 2 ML VIAL IV PRN (18:44)
[2022-05-22] MEDS ORDERED: HYDROmorphone INJ 0.5 MG/0.5 ML SYR IV PRN (18:44)
[2022-05-22] MEDS ORDERED: traMADol HCL 50 MG TABLET PO PRN (18:44)
[2022-05-22] MEDS ORDERED: diphenhydrAMINE Capsule 25 MG CAP PO PRN (18:44)
[2022-05-22] MEDS ORDERED: ONDANSETRON 4 MG OD TAB PO PRN (18:44)
[2022-05-22] MEDS ORDERED: FAMOTIDINE 20 MG TAB PO PRN (18:44)
[2022-05-22] MEDS ORDERED: PHARMACY GLYCEMIC MGMT CONSULT PRN (18:44)
[2022-05-22] MEDS ORDERED: ALUMINUM/MAGNESIUM SUSP 30 ML UDC PO PRN (18:44)
[2022-05-22] MEDS ORDERED: MAGNESIUM HYDROXIDE SUSP 30 ML UDC PO PRN (18:44)
[2022-05-22] MEDS: LOVASTATIN 20 MG TAB PO SCH (20:39)
[2022-05-22] MEDS: CARBIDOPA/LEVODOPA 50/200MG EXT REL TAB PO SCH (20:40)
[2022-05-22] MEDS: MELATONIN 3 MG TAB PO SCH (20:41)
[2022-05-22] MEDS: DOCUSATE SODIUM/SENNA 50/8.6MG TAB PO SCH (20:45)
[2022-05-22] MEDS: ACETAMINOPHEN 500 MG TAB PO PRN (22:32)
[2022-05-23] MEDS: ceFAZolin 2000MG 2,000 MG/15 ML SYR IV SCH ×2 (00:31→07:22)
[2022-05-23] MEDS: SODIUM CHLORIDE 0.9% 1000ML 1,000 ML IV SCH (04:09)
[2022-05-23] MEDS: POLYETHYLENE (MIRALAX) 17 GM PACK PO SCH ×4 (05:19→23:55)
[2022-05-23] MEDS: oxyCODONE HCL IR 5 MG TAB (IMMEDIATE RELEASE) PO PRN ×2 (07:14→21:43)
[2022-05-23] MEDS ORDERED: Nursing to Pharmacy Communication SCH (08:00)
[2022-05-23] MEDS: dexAMETHasone 6 MG in SYRINGE 0 ML IV SCH (08:05)
[2022-05-23] MEDS: CARBIDOPA/LEVODOPA/ENTACAPONE PO SCH ×3 (08:06→16:53)
[2022-05-23] MEDS: PANTOprazole 40 MG TAB PO SCH ×2 (08:06→20:44)
--- NOTE | 2022-05-23 08:14 | Orthopedic Progress Note ---
Date of Service May 23, 2022 Assessment & Plan (1) Fracture of pedicle of lumbar vertebra: Plan: At this time we will initiate transfers bed to chair with ambulation in the room only. He is to lift no more than 2 to 3 pounds. Admission and Anticipated Discharge Date Admission Date: May 21, 2022 Subjective Patient's back pain is markedly improved. He was able to sit up without difficulty this morning. Physical Exam Physical Exam: On exam the patient is comfortable. Is good strength testing. Results & Data ([facility]) Vital Signs (Past 12 Hours) Vital Signs Temp Pulse Resp BP Pulse Ox O2 Del Method 05/23/22 07:31 36.4 C L 94 H 18 160/65 H 97 Room Air 05/23/22 03:30 36.5 C 79 16 128/68 96 Room Air 05/22/22 21:40 36.5 C 81 16 121/67 95 Room Air 05/22/22 20:54 36.7 C 86 16 159/72 H 95 Room Air
[2022-05-23 08:30] LABS: Basophils # (auto) 0.02 K/uL (0-0.2); Basophils % (auto) 0.2 %; Hemoglobin 10.2 g/dl (14.0-18.0); Immature Granulocytes # (auto) 0.06 K/uL (0.00-0.02); Immature Granulocytes % (auto) 0.5 %; Lymphocytes # (auto) 0.51 K/uL (1.2-3.4); Lymphocytes % (auto) 4.4 %; Mean Corpuscular Hemoglobin 29.9 pg (25.0-34.0); Mean Corpuscular Hgb Conc 32.9 g/dL (32.0-36.0); Mean Corpuscular Volume 90.9 fL (80.0-100.0); Monocytes # (auto) 0.78 K/uL (0.24-0.82); Monocytes % (auto) 6.7 %; Neutrophils # (auto) 10.22 K/uL (1.4-6.5); Neutrophils % (auto) 88.2 %; Platelet Count 232 K/uL (130-400); RDW Coefficient of Variation 12.4 % (11.5-14.5); RDW Standard Deviation 40.7 fL (36.4-46.3); Red Blood Count 3.41 M/uL (4.63-6.08); White Blood Count 11.59 K/ul (4.8-10.8)
[2022-05-23] MEDS ORDERED: NovoLIN-N (NPH) PER UNIT CHARGE SQ SCH (08:45)
[2022-05-23] MEDS: INSULIN ASPART PER UNIT SC SCH ×4 (08:55→21:26)
[2022-05-23] MEDS: LANTUS PER UNIT CHARGE SQ SCH (09:06)
[2022-05-23 09:51] LABS: BUN Creatinine Ratio 22.1 (10-20); Creatinine Clr Calc Pharmacy 66.2 ml/min; Est GFR (African American) 88.5 ml/min; Est GFR (Non-African American) 76.4 ml/min; Potassium 4.7 mmol/L (3.5-5.1)
--- NOTE | 2022-05-23 11:07 | Pharmacy Report ---
Pharmacy Glycemic Short Note 2 - Date of Service May 23, 2022 - Glycemic Short BSG Results (Last 24 hours): 05/22/22 05/22/22 05/23/22 12:19 20:18 08:06 Glucose 350 H* POC Glucose 190 H 144 H 05/23/22 05/23/22 08:07 08:09 Glucose POC Glucose 380 H* 395 H* OUTPATIENT ANTIDIABETIC REGIMEN: * Humulin 70/30 * 56 units SC qAM + 10-15 units SC qPM HbA1c: 7.3% (03/30/22) ASSESSMENT: 05/23/22 * TDD of insulin yesterday was 19 (of which basal was 10). FBSG today is 395 mg/dl - I believe this spike was due to stress from surgery (05/22) and transition to diet from NPO. However to prevent DKA, administered NPH 20 units x1 and increased Lantus to 15 units SQ QAM. Will consider Regular insulin IV x1 if lunch time BSG is still greater than 300 mg/dl. NovoLog parameters CF 20, CR 7 and goal 110-140. 05/21/22 * BSGs tightly controlled yesterday with an episode of hypoglycemia at HS (61 mg/dL) * Diet restarted, but will be NPO again at midnight for possible OR tomorrow for I&D of lumbar spine * Will continue loosened parameters today in light of low BSG yesterday 05/20/22 * KT is a 76 year old male with neurogenic claudication due to lumbar spinal stenosis * s/p lumbar decompression/fusion (04/17/22) * Pharmacy consulted for glycemic management in this patient with T1DM * NPO for now pending further evaluation of imaging * Received 18 units of Lantus last evening in addition to 15 units of Novolog * Presenting BSG > 300 mg/dL, now well-controlled in 100s * Patient requires approximately 55-71 units of insulin/day as an outpatient * Will aim for 50/50 basal/bolus split with empiric reduction for now in light of NPO status PLAN FOR INPATIENT GLYCEMIC CONTROL: * Basal insulin * Lantus 10 units SC x 1 this morning * Lantus 0-10 units SC HS * Reassess in AM * Bolus insulin * NovoLog per scale ACHS or Q6hrs while NPO * Goal Range: Low 110 mg/dL - High 140 mg/dL * Correction Factor: 35 mg/dL/unit * Nutritional / Prandial insulin per carb ratio of 1 unit per 12 grams CHO consumed
[2022-05-23] MEDS ORDERED: INSULIN HUMAN REGULAR PER UNIT 7 UNITS in SYRINGE 6.93 ML IV ONE (11:45)
--- NOTE | 2022-05-23 12:52 | Hospitalist Progress Note ---
Date of Service May 23, 2022 Assessment & Plan (1) Severe back pain: Plan: Mr. Cortez Daley is a 76 year old underwent L2-L5 discectomy and fusion on April 17, 2022 after failing conservative management for neurogenic claudication from lumbar spinal stenosis. He presents to the hospital with severe back pain. 1. Severe back pain with ambulatory dysfunction. had undergone L2-L5 discectomy and fusion on April 17, 2022 after failing conservative management for neurogenic claudication from lumbar spinal stenosis. Scented with severe back pain. CT lumbar spine as above. On 05/22/2022; patient underwent surgery for loosening of hardware. He had removal of posterior instrumentation including pedicle screw at L5, kyphoplasty L5, posterior spinal fusion L5-S1, placement of posterior instrumentation L5-S1, placement locally harvested morselized autograft in the posterior gutters. PT OT Pain control DVT prophylaxis per orthopedics 2. Type 1 diabetes mellitus . A1c of 7.3 on March 2022 Pharmacy on board; continue on glargine and sliding scale. 3. Parkinson disease. Continue his home medications of carbidopa/levodopa. 4. Coronary artery disease. History of hypertension, status post stent in LAD in 1999:Hypertensive likely secondary to pain. Resume aspirin when ok with surgery. Will consider adding lisinopril if he continues to be hypertensive despite pain control. 5. Gastroesophageal reflux disease. On Protonix. Admission and Anticipated Discharge Date Admission Date: May 21, 2022 Subjective Patient reports significant improvement in the back pain. He denies any fever, chills, chest pain, shortness of breath, abdominal pain. Review of Systems Review of Systems: All systems reviewed & are unremarkable except as noted in Subjective Physical Exam Physical Exam: GENERAL: The patient is of moderate build, not in acute distress. HEENT: Head is atraumatic. No facial droop. Speech is clear. NECK: No JVD. No neck masses. CARDIOVASCULAR: S1 and S2 heard. Regular rate and rhythm. No murmur, no gallop. RESPIRATORY SYSTEM: Normal AP diameter. No accessory muscle use. No wheezing or crackles. ABDOMEN: Soft, bowel sounds present, nontender, no distention. CENTRAL NERVOUS SYSTEM: Alert and oriented. Speech is clear. No facial droop. Obeys simple commands. Moves extremities. EXTREMITIES:No edema. Results & Data Results & Data ([facility]) Vital Signs (Past 12 Hours) Vital Signs Temp Pulse Resp BP Pulse Ox O2 Del Method 05/23/22 12:09 36.6 C 84 16 130/68 96 Room Air 05/23/22 07:31 36.4 C L 94 H 18 160/65 H 97 Room Air 05/23/22 03:30 36.5 C 79 16 128/68 96 Room Air Laboratory Results Laboratory Results WBC 11.59 K/ul (4.8-10.8) H 05/23/22 08:06 RBC 3.41 M/uL (4.63-6.08) L 05/23/22 08:06 Hgb 10.2 g/dl (14.0-18.0) L 05/23/22 08:06 Hct 31.0 % (40.1-51.0) L 05/23/22 08:06 MCV 90.9 fL (80.0-100.0) 05/23/22 08:06 MCH 29.9 pg (25.0-34.0) 05/23/22 08:06 MCHC 32.9 g/dL (32.0-36.0) 05/23/22 08:06 RDW Std Deviation 40.7 fL (36.4-46.3) 05/23/22 08:06 RDW Coeff of Gio 12.4 % (11.5-14.5) 05/23/22 08:06 Plt Count 232 K/uL (130-400) 05/23/22 08:06 MPV 10.0 fL (9.4-12.4) 05/23/22 08:06 Immature Gran % (Auto) 0.5 % 05/23/22 08:06 Neut % (Auto) 88.2 % 05/23/22 08:06 Lymph % (Auto) 4.4 % 05/23/22 08:06 [place] % (Auto) 6.7 % 05/23/22 08:06 Eos % (Auto) 0.0 % 05/23/22 08:06 Baso % (Auto) 0.2 % 05/23/22 08:06 Neut # (Auto) 10.22 K/uL (1.4-6.5) H 05/23/22 08:06 Lymph # (Auto) 0.51 K/uL (1.2-3.4) L 05/23/22 08:06 [place] # (Auto) 0.78 K/uL (0.24-0.82) 05/23/22 08:06 Eos # (Auto) 0.00 K/uL (0-0.50) 05/23/22 08:06 Baso # (Auto) 0.02 K/uL (0-0.2) 05/23/22 08:06 Immature Gran # (Auto) 0.06 K/uL (0.00-0.02) H 05/23/22 08:06 Sodium 135 mmol/L (136-145) L 05/23/22 08:06 Potassium 4.7 mmol/L (3.5-5.1) 05/23/22 08:06 Chloride 103 mmol/L (98-107) 05/23/22 08:06 Carbon Dioxide 25 mmol/L (21-32) 05/23/22 08:06 Anion Gap 7 (3-11) 05/23/22 08:06 BUN 21 mg/dl (6-23) 05/23/22 08:06 Creatinine 0.95 mg/dl (0.6-1.4) 05/23/22 08:06 Est Cr Clr Drug Dosing 66.2 ml/min 05/23/22 08:06 Est GFR ( Amer) 88.5 ml/min 05/23/22 08:06 Est GFR (Non-Af Amer) 76.4 ml/min 05/23/22 08:06 BUN/Creatinine Ratio 22.1 (10-20) H 05/23/22 08:06 Glucose 350 mg/dl (70-99(Fasting)) H* 05/23/22 08:06 POC Glucose 329 mg/dl (70-99) H* 05/23/22 12:08 Calcium 8.0 mg/dl (8.5-10.1) L 05/23/22 08:06 SARS-CoV-2, RNA, NAAT NEGATIVE (NEGATIVE) 05/21/22 09:[address] 05/20/22 10:[address] WITHOUT CONTRAST CLINICAL HISTORY: Postoperative evaluation. Back pain. COMPARISON STUDY: Lumbar spine fluoroscopic images April 17, 2022. TECHNIQUE: Axial images of the lumbar spine were obtained without IV contrast. Sagittal and coronal reconstructions were viewed. Automated exposure control was utilized for the study. A dose lowering technique was utilized adhering to the principles of ALARA. FINDINGS: For purposes of numbering on this exam, the L5-S1 disc space is assigned to axial image 288 of 332. L3-L4 and L4-L5 discectomies are noted. There is a posterior decompression with bilateral pedicle screw fusion from L2 through L5. Central canal and neural foramen are suboptimally assessed given CT technique. Note is made of a laminectomy bed fluid collection that extends from the L2 through upper L5 levels that measures approximately 6.7 x 5.7 x 2.8 cm. This has peripheral calcification. Soft tissue gas within this collection is likely postsurgical. Sterility cannot be assessed by CT. Note is made of a 7 mm of anterolisthesis of L4 and L5 which has developed since intraoperative fluoroscopic images. Hardware is intact. However, there is lucency adjacent to the bilateral L5 pedicle screws with suspected posterior slippage of L5. The screws extend through the anterior aspects of the vertebral body. There is a fracture of the superior endplate of L5 with 25% loss of vertebral body height. A nondisplaced fracture of the right transverse process of L5 is noted. There is a nondisplaced fracture of the left transverse process of L2. Otherwise, vertebral body heights are maintained. There are no unexpected radiopaque foreign bodies. Disc space narrowing and osteophytosis at L2-L3 is present. The bladder is distended, partially imaged on this exam. There is no hydronephrosis. Visualized portions of the sacroiliac joints are intact. IMPRESSION: 1. Status post L3-L4 and L4-L5 discectomies with posterior decompression and bilateral pedicle screw fusion from L2 through L5. 2. Lucency adjacent to the bilateral L5 pedicle screws with grade one anterolisthesis of L4 and L5. L5 pedicle screws extend through the anterior vertebral body with a fracture of the superior endplate of L5. The findings suggest loosening of the L5 pedicle screws with posterior slippage. An infectious process could appear similar although is considered less likely. 3. Laminectomy bed fluid collection, measuring approximately 6.7 x 5.7 x 2.8 cm which has peripheral calcification. This is likely postsurgical. However, sterility cannot be assessed by CT. 4. Suboptimal evaluation of central canal and neural foramen given CT technique. 5. Distended bladder, partially imaged on this study. ACT 112: Negative or not required by law. Electronically signed by: Diaz Swann M.D. 05/20/2022 11:17 AM Lumbar Spine X-Ray 05/22/22 00:00 INTRAOPERATIVE RADIOGRAPHS CLINICAL HISTORY: Lumbar spine surgery. Fluoroscopy time: 40 seconds. FINDINGS: 2 spot fluoroscopic views of the lumbar spine are presented. There has been discectomy at L3-L4 and L4-L5 with laminectomy and posterior fusion at L2- S1. Interpedicular screws are present at all levels. The orthopedic hardware appears intact. IMPRESSION: Intraoperative images from lumbar spinal fusion surgery as above. Electronically signed by: Sage Hernández M.D. 05/22/2022 5:47 PM
[2022-05-23] MEDS ORDERED: INSULIN ASPART PER UNIT SC SCH (16:30)
[2022-05-23] MEDS: LOVASTATIN 20 MG TAB PO SCH (20:42)
[2022-05-23] MEDS: DOCUSATE SODIUM/SENNA 50/8.6MG TAB PO SCH (20:43)
[2022-05-23] MEDS: CARBIDOPA/LEVODOPA 50/200MG EXT REL TAB PO SCH (20:43)
[2022-05-23] MEDS: MELATONIN 3 MG TAB PO SCH (20:44)
[2022-05-23] MEDS ORDERED: LANTUS PER UNIT CHARGE SQ ONE (21:00)
[2022-05-24] MEDS: INSULIN ASPART PER UNIT SC SCH ×4 (00:06→12:45)
[2022-05-24] MEDS: ACETAMINOPHEN 500 MG TAB PO PRN (02:58)
[2022-05-24] MEDS: POLYETHYLENE (MIRALAX) 17 GM PACK PO SCH ×2 (05:03→11:19)
[2022-05-24] MEDS: dexAMETHasone 6 MG in SYRINGE 0 ML IV SCH ×2 (07:52→07:54)
[2022-05-24] MEDS: PANTOprazole 40 MG TAB PO SCH (07:52)
[2022-05-24] MEDS: CARBIDOPA/LEVODOPA/ENTACAPONE PO SCH ×2 (07:52→11:19)
[2022-05-24] MEDS ORDERED: NovoLIN-N (NPH) PER UNIT CHARGE SQ ONE (08:45)
[2022-05-24] MEDS: LANTUS PER UNIT CHARGE SQ SCH (09:29)
--- NOTE | 2022-05-24 09:58 | Discharge Summary ---
Date of Service May 24, 2022 Admission HPI Per Admitting Provider This is a 68-year-old male known to me that status post multilevel lumbar decompression fusion. He has had some decline in status with the past few days with significant worsening back and bilateral leg pain. He was seen in the emergency room [facility] and transferred to our institution. This morning he is comfortable lying in bed. He denies any pain in his legs however when he is moving he has radicular symptoms possibly down the right leg. He has back pain as well. Principal Diagnosis L5 fracture with radiculopathy Discharge Data Allergies Allergy/AdvReac Type Severity Reaction Status Date / Time No Known Allergies Allergy Verified 04/17/22 06:23 Consultations 05/19/22 19:51 Consult Hospitalist Routine Procedures Performed Operation Date: 05/22/22 07:00 Actual Procedures p kyphoplasty L5, posterior spinal fusion L5-S1, placement of posterior instrumentation L5 and S1, placement locally harvested morselized autograft in the posterior gutters, placement of I factor in the posterior gutters L5-S1 - Festus Su DO s Removal of posterior instrumentation including the pedicle screws at L5(Not Applicable) - Festus Su DO Ordered Studies 05/20/22 10:04 CT lumbar spine wo con Routine 05/22/22 [place] lumbar spine 2-3V Routine Hospital Course (1) Fracture of pedicle of lumbar vertebra: Patient was admitted with worsening back and bilateral leg pain. Imaging demonstrates evidence of L5 fracture and extending the pedicles with loosening and instrumentation of L5. Subsequently he underwent surgery. He Targis well was taken to orthopedic for postoperative. Postop day 1 he was up and moving about the room with his brace during swelling progressed to postop day #2. Pain well controlled. HELDER drain decreased appropriately. Subsequent discharge home. Discharge orders instructions from the chart for further review. Total Time Total Time Spent Total Time Spent (In Minutes): 20 minutes Discharge Plan Discharge Items Patient Disposition: Home - Self-Care Reason For Visit: SPINAL STENOSIS, COLLAPSED VERTEBRAE, DORSALGIA Discharge Diagnosis: L5 fracture with hardware loosening Activity: As commented below Non-emergency contact: Primary Care Provider Call non-emergency contact if: you have any medication questions Follow-up/Referrals: Eros Shannon CRNP [Primary Care Provider] - Diet: Regular Addtl Attending Provider Instructions: ACTIVITY RECOMMENDATIONS: SELF CARE INSTRUCTIONS AFTER THORACIC/LUMBAR FUSIONS 1. You may walk to your tolerance. It is good exercise for your legs and back. Expect some back and intermittent leg aches and pains. 2. You may perform "counter-top" level activities (make a sandwich, vicky with a project, etc.). 3. No bending or lifting of more than 10 pounds or back twisting of any nature (roll like a log when turning in bed). 4. You may ride in a car for 20-30 minutes at a time. No driving until after your first visit with your doctor. 5. Frequent changes of position and restricting sitting to 30 minutes at a time will help limit the amount of back spasms and stiffness you may experience. 6. You may discontinue the use of ambulatory aids (cane, crutches, etc.) once your strength and confidence allow. 7. You may money laundering investigator the shower and let water strike your incision when you arrive home at least once daily. Do not take a tub bath, sit in a hot tub or go into a swimming pool until after your first recheck in the office. SPECIAL CARE INSTRUCTIONS: VERY IMPORTANT TO READ AND REVIEW A. Your surgical incision has been closed with a cosmetic suture under the skin that will dissolve in about 6 weeks. In 14 days, you can use a pair of clean scissors and cut the suture that is left outside of the skin at the ends of your incision. 1. The small skin tapes can be removed 7 days after surgery if they have not fallen off by that point. 2. You may keep the wound open to air as much as possible to promote healing after post-op day number 5 unless told otherwise by your doctor. 3. If you think the wound looks like it is becoming infected (redness or worsening drainage) and/or you are experiencing fever, chill or worsening back pain and muscle spasms, contact the office so that we may evaluate you as soon as possible. B. Complications are uncommon, but please contact us if you have any signs or symptoms of: 1. wound infection (fever higher than 102.5 degrees F, redness, separation of wound, drainage, or increasing pain from the incision) 2. blood clots in legs (pain, swelling, redness and warmth in legs) 3. urinary tract infection (fever higher than 102.5 degrees F, burning upon urination or increased frequency of urination) 4. nerve problems (inability to walk on your toes or heels, numbness, loss of bowel or bladder control) 5. any other symptoms that concern you C. Please call the office at if you have any concerns or questions about your operation or recovery. D. No smoking! Smoking drastically decreases the chance of a solid fusion. E. Do not take any anti-inflammatory medications (Indocin, Advil, Motrin, Aspirin, Naprosyn, etc.) as these may inhibit the chance of a solid fusion. Tylenol is okay to take for pain. MANAGING PAIN AFTER SPINAL SURGERY 1. Narcotic medication is intended for short-term use and will be provided for surgical pain. Surgical pain usually lasts for a period of 4-6 weeks. Narcotic medication includes Percocet, Vicodin, Darvocet, Tylenol #3 or Lortab. 2. Longer-term pain is more appropriately treated with non-narcotic medication such as Tylenol ES. 3. Muscle spasm is not appropriately treated with narcotics. Muscle relaxers such as Soma, Flexeril or Skelaxin can be used along with Tylenol ES. 4. Remember that we all live with some "aches and pains". This is not unusual or uncommon after an injury or as we get older. a. Back pain is expected and may include muscle spasms for 4 to 6 weeks after surgery. The pain should gradually improve. If the pain worsens for no apparent reason, please contact the office. b. Intermittent leg pain may also be experienced and should not be concerned about unless it worsens for no apparent reason. If so, please contact the office. 5. We will provide appropriate medication within the normal guidelines of their prescribed use. We will also be very cautious and aware of potential abuse and extended duration of patients' medication needs. a. Pain medications are for your comfort and to assist with sleep and rest so that the tissue can heal. They are not provided in order to return to normal activity and should not be used through the day. To do so or worsening pain at night can result from ongoing tissue damage and development of tolerance to the prescribed medicine. 6. Please allow 2-3 days to process refills. Prescriptions will not be mailed but must be picked up at the office. FOLLOW UP VISIT: Keep your scheduled follow-up appointment. Any questions, please call the office at . Pending Studies at Discharge: No Stand-Alone Forms: [facility], Smoking Cessation Medications and DC Order Prescriptions: New tramadol 50 mg tablet 50 mg PO Q6H PRN (Reason: pain, moderate) Qty: 30 0RF oxycodone 5 mg tablet 5 mg PO Q6H PRN (Reason: pain, severe) Qty: 30 0RF Continued lovastatin 40 mg Tablet 40 mg PO HS carbidopa-levodopa 50-200 mg Tablet Extended Release 1 tab PO HS Humulin 70/30 U-100 Insulin 100 unit/mL (70-30) Suspension 56 unit SUBCUT QAM Humulin 70/30 U-100 Insulin 100 unit/mL (70-30) Suspension 10 - 15 unit SUBCUT QPM aspirin 81 mg Tablet,Delayed Release (Dr/Ec) 81 mg PO QAM baclofen 10 mg Tablet 10 mg PO TID PRN (Reason: Pain) hydrocodone-acetaminophen 7.5-325 mg Tablet 1 tab PO BID PRN (Reason: Pain) pantoprazole [Protonix] 40 mg Tablet,Delayed Release (Dr/Ec) 40 mg PO BID dxueazzud-jxeowxej-mhetrfkwnd 50-200-200 mg Tablet 1 tab PO TID melatonin 10 mg Tablet 10 mg PO HS tramadol 50 mg tablet 50 mg PO Q6H PRN (Reason: pain, moderate) Qty: 30 0RF oxycodone 5 mg tablet 5 mg PO Q6H PRN (Reason: pain, severe) Qty: 30 0RF Discharge Orders: Discharge Order (Routine); Ordered 05/24/22 Ordered By: Festus Su Admission Data Admit Date/Time: 05/21/22 20:11 Attending Provider: Festus Su Admit Provider: Festus Su Primary Care Provider: Eros Shannon Other Providers: Tabitha Bourne ; Christiane Chairez I. ; Bari Barfield ; Dread Hardy ; Christen Anderson ; Sarai Delatorre ; Lala Ruiz ; Flaquito Blount ; Marshall Germain ; Ok Clarke ; Therese Lovett ; Kush Lopez ; Laura Neely ; Izzy Pichardo ; Doroteo Molina ; Carisa Borrego ; Dipti Yancey ; Delia Gibbons ; Dionne Boone I. ; Aaron Leone ; Niki Seymour ; Tarik Helms ; Lizzette Caal ; Pasquale Pham ; Edmond Banuelos ; Charles Nascimento ; Dax Demarco ; Sarina Clark
--- NOTE | 2022-05-24 12:03 | Hospitalist Progress Note ---
Date of Service May 24, 2022 Assessment & Plan (1) Severe back pain: Plan: Mr. Cortez Daley is a 76 year old underwent L2-L5 discectomy and fusion on April 17, 2022 after failing conservative management for neurogenic claudication from lumbar spinal stenosis. He presents to the hospital with severe back pain. 1. Severe back pain with ambulatory dysfunction. had undergone L2-L5 discectomy and fusion on April 17, 2022 after failing conservative management for neurogenic claudication from lumbar spinal stenosis. Scented with severe back pain. CT lumbar spine as above. On 05/22/2022; patient underwent surgery for loosening of hardware. He had removal of posterior instrumentation including pedicle screw at L5, kyphoplasty L5, posterior spinal fusion L5-S1, placement of posterior instrumentation L5-S1, placement locally harvested morselized autograft in the posterior gutters. PT OT Pain control DVT prophylaxis per orthopedics 2. Type 1 diabetes mellitus . A1c of 7.3 on March 2022 Pharmacy on board; continue on glargine and sliding scale. 3. Parkinson disease. Continue his home medications of carbidopa/levodopa. 4. Coronary artery disease. History of hypertension, status post stent in LAD in 1999:Hypertensive likely secondary to pain. Resume aspirin when ok with surgery. Will consider adding lisinopril if he continues to be hypertensive despite pain control. 5. Gastroesophageal reflux disease. On Protonix. Admission and Anticipated Discharge Date Admission Date: May 21, 2022 Subjective Patient seen and examined at bedside. Patient reports that he feels much better. Pain is well controlled. Review of Systems Review of Systems: All systems reviewed & are unremarkable except as noted in Subjective Physical Exam Physical Exam: GENERAL: The patient is of moderate build, not in acute distress. HEENT: Head is atraumatic. No facial droop. Speech is clear. NECK: No JVD. No neck masses. CARDIOVASCULAR: S1 and S2 heard. Regular rate and rhythm. No murmur, no gallop. RESPIRATORY SYSTEM: Normal AP diameter. No accessory muscle use. No wheezing or crackles. ABDOMEN: Soft, bowel sounds present, nontender, no distention. CENTRAL NERVOUS SYSTEM: Alert and oriented. Speech is clear. No facial droop. Obeys simple commands. Moves extremities. EXTREMITIES:No edema. Results & Data Results & Data ([facility]) Vital Signs (Past 12 Hours) Vital Signs Temp Pulse Resp BP Pulse Ox O2 Del Method 05/24/22 07:50 36.6 C 71 20 162/66 H 96 Room Air Laboratory Results Laboratory Results WBC 11.59 K/ul (4.8-10.8) H 05/23/22 08:06 RBC 3.41 M/uL (4.63-6.08) L 05/23/22 08:06 Hgb 10.2 g/dl (14.0-18.0) L 05/23/22 08:06 Hct 31.0 % (40.1-51.0) L 05/23/22 08:06 MCV 90.9 fL (80.0-100.0) 05/23/22 08:06 MCH 29.9 pg (25.0-34.0) 05/23/22 08:06 MCHC 32.9 g/dL (32.0-36.0) 05/23/22 08:06 RDW Std Deviation 40.7 fL (36.4-46.3) 05/23/22 08:06 RDW Coeff of Gio 12.4 % (11.5-14.5) 05/23/22 08:06 Plt Count 232 K/uL (130-400) 05/23/22 08:06 MPV 10.0 fL (9.4-12.4) 05/23/22 08:06 Immature Gran % (Auto) 0.5 % 05/23/22 08:06 Neut % (Auto) 88.2 % 05/23/22 08:06 Lymph % (Auto) 4.4 % 05/23/22 08:06 Calloway % (Auto) 6.7 % 05/23/22 08:06 Eos % (Auto) 0.0 % 05/23/22 08:06 Baso % (Auto) 0.2 % 05/23/22 08:06 Neut # (Auto) 10.22 K/uL (1.4-6.5) H 05/23/22 08:06 Lymph # (Auto) 0.51 K/uL (1.2-3.4) L 05/23/22 08:06 Calloway # (Auto) 0.78 K/uL (0.24-0.82) 05/23/22 08:06 Eos # (Auto) 0.00 K/uL (0-0.50) 05/23/22 08:06 Baso # (Auto) 0.02 K/uL (0-0.2) 05/23/22 08:06 Immature Gran # (Auto) 0.06 K/uL (0.00-0.02) H 05/23/22 08:06 Sodium 135 mmol/L (136-145) L 05/23/22 08:06 Potassium 4.7 mmol/L (3.5-5.1) 05/23/22 08:06 Chloride 103 mmol/L (98-107) 05/23/22 08:06 Carbon Dioxide 25 mmol/L (21-32) 05/23/22 08:06 Anion Gap 7 (3-11) 05/23/22 08:06 BUN 21 mg/dl (6-23) 05/23/22 08:06 Creatinine 0.95 mg/dl (0.6-1.4) 05/23/22 08:06 Est Cr Clr Drug Dosing 66.2 ml/min 05/23/22 08:06 Est GFR ( Amer) 88.5 ml/min 05/23/22 08:06 Est GFR (Non-Af Amer) 76.4 ml/min 05/23/22 08:06 BUN/Creatinine Ratio 22.1 (10-20) H 05/23/22 08:06 Glucose 350 mg/dl (70-99(Fasting)) H* 05/23/22 08:06 POC Glucose 120 mg/dl (70-99) H 05/24/22 08:09 Calcium 8.0 mg/dl (8.5-10.1) L 05/23/22 08:06 SARS-CoV-2, RNA, NAAT NEGATIVE (NEGATIVE) 05/21/22 09:[address] 05/20/22 10:[address] WITHOUT CONTRAST CLINICAL HISTORY: Postoperative evaluation. Back pain. COMPARISON STUDY: Lumbar spine fluoroscopic images April 17, 2022. TECHNIQUE: Axial images of the lumbar spine were obtained without IV contrast. Sagittal and coronal reconstructions were viewed. Automated exposure control was utilized for the study. A dose lowering technique was utilized adhering to the principles of ALARA. FINDINGS: For purposes of numbering on this exam, the L5-S1 disc space is assigned to axial image 288 of 332. L3-L4 and L4-L5 discectomies are noted. There is a posterior decompression with bilateral pedicle screw fusion from L2 through L5. Central canal and neural foramen are suboptimally assessed given CT technique. Note is made of a laminectomy bed fluid collection that extends from the L2 through upper L5 levels that measures approximately 6.7 x 5.7 x 2.8 cm. This has peripheral calcification. Soft tissue gas within this collection is likely postsurgical. Sterility cannot be assessed by CT. Note is made of a 7 mm of anterolisthesis of L4 and L5 which has developed since intraoperative fluoroscopic images. Hardware is intact. However, there is lucency adjacent to the bilateral L5 pedicle screws with suspected posterior slippage of L5. The screws extend through the anterior aspects of the vertebral body. There is a fracture of the superior endplate of L5 with 25% loss of vertebral body height. A nondisplaced fracture of the right transverse process of L5 is noted. There is a nondisplaced fracture of the left transverse process of L2. Otherwise, vertebral body heights are maintained. There are no unexpected radiopaque foreign bodies. Disc space narrowing and osteophytosis at L2-L3 is present. The bladder is distended, partially imaged on this exam. There is no hydronephrosis. Visualized portions of the sacroiliac joints are intact. IMPRESSION: 1. Status post L3-L4 and L4-L5 discectomies with posterior decompression and bilateral pedicle screw fusion from L2 through L5. 2. Lucency adjacent to the bilateral L5 pedicle screws with grade one anterolisthesis of L4 and L5. L5 pedicle screws extend through the anterior vertebral body with a fracture of the superior endplate of L5. The findings suggest loosening of the L5 pedicle screws with posterior slippage. An infectious process could appear similar although is considered less likely. 3. Laminectomy bed fluid collection, measuring approximately 6.7 x 5.7 x 2.8 cm which has peripheral calcification. This is likely postsurgical. However, sterility cannot be assessed by CT. 4. Suboptimal evaluation of central canal and neural foramen given CT technique. 5. Distended bladder, partially imaged on this study. ACT 112: Negative or not required by law. Electronically signed by: Diaz Swann M.D. 05/20/2022 11:17 AM Lumbar Spine X-Ray 05/22/22 00:00 INTRAOPERATIVE RADIOGRAPHS CLINICAL HISTORY: Lumbar spine surgery. Fluoroscopy time: 40 seconds. FINDINGS: 2 spot fluoroscopic views of the lumbar spine are presented. There has been discectomy at L3-L4 and L4-L5 with laminectomy and posterior fusion at L2- S1. Interpedicular screws are present at all levels. The orthopedic hardware ap pears intact. IMPRESSION: Intraoperative images from lumbar spinal fusion surgery as above. Electronically signed by: Sage Hernández M.D. 05/22/2022 5:47 PM
== END 2022-05-24 13:25 | disposition home or self-care (01) | DRG 460 ==
LOC: 3E

== ENCOUNTER 2022-06-16 12:26 | Inpatient (IN) ==
--- NOTE | 2022-06-16 14:19 | History & Physical Report ---
Date of Service June 16, 2022 Assessment & Plan (1) Severe back pain: Plan: At this time I am concerned he is had further migration of his hardware secondary to a bone fracture in his spine. I am going to obtain a CAT scan review these films and make further recommendations. We will maintain bedrest at this time. History of Present Illness Chief Complaint: Severe left leg pain Primary Care Provider: RICHA Massey This is a 76-year-old male well-known to me status post multilevel lumbar decompression fusion. He been doing well postoperatively until yesterday where upon initiating physical therapy at the significant onset of severe left leg pain. Radiates down from his buttock posterior thigh into his foot. Somewhat unable to weight-bear. He is comfortable lying supine in bed. He cannot sit up. The right lower extremity is painful in the buttock but not down the leg. Allergies Allergy/AdvReac Type Severity Reaction Status Date / Time No Known Allergies Allergy Verified 04/17/22 06:23 Home Medications Medication Instructions Recorded Confirmed Type aspirin 81 mg tablet,delayed 81 mg PO QAM 03/27/22 04/17/22 History release baclofen 10 mg tablet 10 mg PO TID PRN Pain 03/27/22 04/17/22 History carbidopa 50 mg-levodopa 200 1 tab PO TID 03/27/22 04/17/22 History mg-entacapone 200 mg tablet carbidopa ER 50 mg-levodopa 200 mg 1 tab PO HS 03/27/22 04/17/22 History tablet,extended release hydrocodone 7.5 mg-acetaminophen 1 tab PO BID PRN Pain 03/27/22 04/17/22 History 325 mg tablet insulin human U-100 NPH-regulr 10 - 15 unit subcut QPM 03/27/22 04/17/22 History 70-30 mix 100 unit/mL subcutaneous susp (Humulin 70/30 U-100 Insulin) insulin human U-100 NPH-regulr 56 unit subcut QAM 03/27/22 04/17/22 History 70-30 mix 100 unit/mL subcutaneous susp (Humulin 70/30 U-100 Insulin) lovastatin 40 mg tablet 40 mg PO HS 03/27/22 04/17/22 History melatonin 10 mg tablet 10 mg PO HS 03/27/22 04/17/22 History pantoprazole 40 mg tablet,delayed 40 mg PO BID 03/27/22 04/17/22 History release (Protonix) oxycodone 5 mg tablet 5 mg PO Q6H PRN pain, severe #30 04/18/22 Rx tabs tramadol 50 mg tablet 50 mg PO Q6H PRN pain, moderate 04/18/22 Rx #30 tabs oxycodone 5 mg tablet 5 mg PO Q6H PRN pain, severe #30 05/24/22 Rx tabs tramadol 50 mg tablet 50 mg PO Q6H PRN pain, moderate 05/24/22 Rx #30 tabs Past Med/Surg History Medical History Anemia CAD (coronary artery disease) 1 stent, follows with [facility] DDD (degenerative disc disease) DM type 1 (diabetes mellitus, type 1) IDDM Gastroparesis GERD (gastroesophageal reflux disease) History of hypertension h/o orthostatic hypotension, follows with [facility] reports infrequent episodes of lightheadedness without near syncope History of myocardial infarction 1999 HLD (hyperlipidemia) Parkinsons disease Surgical History History of ankle surgery Lt History of cardiac catheterization mult. 1 stent placed in 1999 with DC. says most recent "few years ago" [facility]. History of carpal tunnel release of both wrists History of cholecystectomy History of colonoscopy History of esophagogastroduodenoscopy (EGD) History of heart artery stent x 1 (1999) History of tonsillectomy Family History Other No significant family history Social History Smoking Status: Former smoker Second Hand Exposure: No; Hx Alcohol Use: Yes Alcohol type: beer and wine Hx Substance Use: No Preferred Language: Indonesian Communication Ability: Effective Assistant To The Dean Required: No Beliefs That Will Affect Care: None Current Living Situation: Spouse Feels Safe at Home: Yes Assistive Devices: Cane and Walker Physical Exam Physical Exam: On exam he is lying supine is comfortable in this position. He exhibits +5-5 bilateral plantar flexion dorsiflexion quadriceps. Negative logroll. Sensory symmetric and intact. Results & Data Results & Data ([facility]) Vital Signs (Past 12 Hours) Vital Signs Temp Pulse Resp BP Pulse Ox O2 Del Method 06/16/22 12:31 36.5 C 80 20 164/54 H 99 Room Air Code Status & VTE Plan VTE Prophylaxis Plan VTE Prophylaxis will be ordered: Yes
--- NOTE | 2022-06-16 14:30 | Emergency Department Note ---
History of Present Illness General Chief complaint: Back Injury/Pain Stated complaint: BACK PAIN, DR WHITE OVER Time Seen by Provider: 06/16/22 12:51 History of Present Illness Maximum Pain Intensity: 10 This is a 76-year-old male presenting to the emergency department for evaluation of back pain. The patient has a history of back pain with multiple surgeries. His last procedure was about 3 weeks ago at this facility by Dr. Su. The patient was following with a provider at Dr. Su's office this morning, and outpatient x-rays were performed and seem to show migration of hardware. Because of this the patient was sent to the ER for further evaluation. The patient rates his discomfort a 10/10 that worsens with certain movements. He has had only minimal relief with oxycodone at home. He has been able to use the bathroom as normal and has not had fevers or chills. Home Medications Medication Instructions Recorded Confirmed Type baclofen 10 mg tablet 10 mg PO TID PRN Pain 03/27/22 06/16/22 History carbidopa 50 mg-levodopa 200 1 tab PO TID 03/27/22 06/16/22 History mg-entacapone 200 mg tablet carbidopa ER 50 mg-levodopa 200 mg 1 tab PO HS 03/27/22 06/16/22 History tablet,extended release insulin human U-100 NPH-regulr 10 - 15 unit subcut QPM 03/27/22 06/16/22 History 70-30 mix 100 unit/mL subcutaneous susp (Humulin 70/30 U-100 Insulin) insulin human U-100 NPH-regulr 55 unit subcut QAM 03/27/22 06/16/22 History 70-30 mix 100 unit/mL subcutaneous susp (Humulin 70/30 U-100 Insulin) lovastatin 40 mg tablet 40 mg PO HS 03/27/22 06/16/22 History melatonin 10 mg tablet 10 mg PO HS 03/27/22 06/16/22 History pantoprazole 40 mg tablet,delayed 40 mg PO BID 03/27/22 06/16/22 History release (Protonix) oxycodone 5 mg tablet 5 mg PO Q6H PRN pain, severe #30 05/24/22 06/16/22 Rx tabs tramadol 50 mg tablet 50 mg PO Q6H PRN pain, moderate 05/24/22 06/16/22 Rx #30 tabs Allergies Allergy/AdvReac Type Severity Reaction Status Date / Time No Known Allergies Allergy Verified 06/16/22 15:00 Past Med/Surg History Medical History Anemia CAD (coronary artery disease) 1 stent, follows with [facility] DDD (degenerative disc disease) DM type 1 (diabetes mellitus, type 1) IDDM Gastroparesis GERD (gastroesophageal reflux disease) History of hypertension h/o orthostatic hypotension, follows with [facility] reports infrequent episodes of lightheadedness without near syncope History of myocardial infarction 1999 HLD (hyperlipidemia) Parkinsons disease Surgical History History of ankle surgery Lt History of cardiac catheterization mult. 1 stent placed in 1999 with [place]. says most recent "few years ago" [facility]. History of carpal tunnel release of both wrists History of cholecystectomy History of colonoscopy History of esophagogastroduodenoscopy (EGD) History of heart artery stent x 1 (1999) History of tonsillectomy Family History Other No significant family history Social History Smoking Status: Never smoker Second Hand Exposure: No; Hx Alcohol Use: No Hx Substance Use: No Preferred Language: Lao Communication Ability: Effective Timber Poisoner Required: No Beliefs That Will Affect Care: None Current Living Situation: Spouse and Family Current Living Situation Comment: lives with - Aileen, sons live in basement Other Information That Helps Us Care for You: No Feels Safe at Home: Yes Safety Concerns: Feels Safe At This Time Assistive Devices: Denture - Upper, Denture - Lower, Glasses and Walker Review of Systems A total of 10 systems reviewed and were otherwise negative Physical Exam Vital Signs Vital Signs - 24 hr 06/16/22 12:31 Temperature 36.5 C Temperature Source Temporal Artery Scan Pulse Rate 80 Pulse Rhythm Regular Pulse Strength Normal Respiratory Rate 20 Respiratory Effort / Characteristics Non-Labored Spontaneous Respiratory Depth Normal Respiratory Pattern Regular Blood Pressure 164/54 H Blood Pressure Mean 90 Blood Pressure Position Sitting Pulse Oximetry 99 Oxygen Delivery Method Room Air Sepsis Recent Fever Within 48 Hours No Sepsis New/Unexplained Change in Mental Status N/A Sepsis Action Taken by Nursing No Action Required VITALS: Vitals are noted on the nurse's note and reviewed by myself. Vital signs stable. GENERAL: Pleasant elderly male who is resting comfortably in the ER bed. HEAD: Normocephalic atraumatic. HEART: Regular rate and rhythm LUNGS: Clear to auscultation bilaterally without wheezes, rales or rhonchi. No retractions or accessory muscle use. ABDOMEN: Positive normal bowel sounds x 4. BACK: Moderate tenderness in the lower lumbar spine. No saddle paresthesias. MUSCULOSKELETAL: No muscle atrophy, erythema, or edema noted. NEURO: Patient was alert and oriented to person place and time. CN II through XII grossly intact. Course Administered Medications Sodium Chloride (Nss 1000ml) 1,000 mls @ 75 mls/hr IV .[id number] [facility] Stop: 07/16/22 17:25 Last Admin: 06/16/22 18:07 Dose: 75 mls/hr Documented By: CANDIDO Non-Formulary Medication (Irrdtwpay-Gxzjztoh-Zqbvjyhgyr) 1 tab PO TID [facility] Stop: 07/16/22 17:25 Last Admin: 06/16/22 18:08 Dose: Not Given Documented By: CANDIDO Oxycodone HCl (Oxycodone Hcl Ir 5 Mg Tab (Immediate Release)) 5 - 10 mg PO Q4H PRN PRN Reason: mod to severe pain Stop: 06/30/22 17:25 Last Admin: 06/16/22 18:08 Dose: 10 mg Documented By: CANDIDO Discontinued Medications Hydromorphone HCl (Hydromorphone Inj 0.5 Mg/0.5 Ml Syr) Confirm Administered Dose 0.5 mg .ROUTE .STK-MED ONE Stop: 06/16/22 16:27 Last Admin: 06/16/22 16:33 Dose: 0.5 mg Documented By: LAMONTE Medical Decision Making Differential Diagnosis Differential diagnosis: Etiologies such as muscular strain, fracture, metastatic disease, disc herniation, sciatica, epidural abscess, vertebral osteomyelitis, discitis, spinal epidural hematoma, cord compression, cauda equina/conus medullaris syndrome, aortic disease, infection, shingles, renal colic UTI/pyelonephritis, gastrointestinal, acute exacerbation of chronic back pain, as well as others were entertained. Laboratory Data Lab Results 06/16/22 Range/Units 14:24 SARS-CoV-2, RNA, NAAT NEGATIVE (NEGATIVE) MDM Narrative Physical exam and history were performed. Nursing notes, EMR, and Medication List were personally reviewed. No social concerns were identified as barriers to patients care. Patient appears to have back pain bringing him to the ER. The patient does have outpatient copies of x-rays with him, which on bedside review do seem to show migration of some of his lumbar hardware. This may be contributing to his symptoms. Case was discussed with Dr. Su, who is in the hospital for surgery today. Dr. Su will evaluate the patient here in the ER. Please see Dr. Su's dictation for further patient course, plan, and disposition. The chart was completed utilizing [employer] Speech Voice Recognition Software. Grammatical errors, random word insertions, pronoun errors, and incomplete sentences are an occasional consequence of this system due to software limitations, ambient noise, and hardware issues. Any formal questions or concerns about the content, text, or information contained within the body of this dictation should be directly addressed to the provider for clarification. . Impression & Plan Severe back pain Discharge Plan Visit Data Chief Complaint: Back Injury/Pain Stated Complaint: BACK PAIN, DR REF OVER ED Provider: Blaine Marti ED Midlevel Provider: Eros Guardado Discharge Problem: Severe back pain Patient Disposition: Admitted As Inpatient Discharge Instructions Interventions: ED Discharge Assessment Last Done: 06/16/22 16:21
[2022-06-16] MEDS ORDERED: HYDROmorphone INJ 0.5 MG/0.5 ML SYR ONE (16:26)
[2022-06-16] MEDS ORDERED: PHARMACY GLYCEMIC MGMT CONSULT PRN (17:26)
[2022-06-16] MEDS ORDERED: HYDROmorphone INJ 0.5 MG/0.5 ML SYR IV PRN (17:26)
[2022-06-16] MEDS ORDERED: ACETAMINOPHEN 1,000 MG/100 ML VIAL IV PRN (17:26)
[2022-06-16] MEDS ORDERED: PROMETHAZINE HCL 12.5 MG in SODIUM CHLORIDE 0.9% 50 ML IV PRN (17:26)
[2022-06-16] MEDS ORDERED: NALOXONE HCL 0.4 MG/1 ML VIAL/CARP IV PRN (17:26)
[2022-06-16] MEDS ORDERED: HYDROmorphone INJ 1 MG/ML SYRINGE IV PRN (17:26)
[2022-06-16] MEDS ORDERED: METOCLOPRAMIDE HCL INJ 5 MG/ML 2 ML VIAL IV PRN (17:26)
[2022-06-16] MEDS ORDERED: ONDANSETRON 4 MG OD TAB PO PRN (17:26)
[2022-06-16] MEDS ORDERED: ONDANSETRON INJ 2 MG/ML 2 ML VIAL IV PRN (17:26)
[2022-06-16] MEDS ORDERED: MAGNESIUM HYDROXIDE SUSP 30 ML UDC PO PRN (17:26)
[2022-06-16] MEDS ORDERED: ACETAMINOPHEN 500 MG TAB PO PRN (17:26)
[2022-06-16] MEDS: SODIUM CHLORIDE 0.9% 1000ML 1,000 ML IV SCH (18:07)
[2022-06-16] MEDS: oxyCODONE HCL IR 5 MG TAB (IMMEDIATE RELEASE) PO PRN (18:08)
[2022-06-16] MEDS: CARBIDOPA LEVODOPA ENTACAPONE PO SCH ×2 (18:08→21:39)
[2022-06-16] MEDS ORDERED: GLUCAGON FOR INJ 1 MG VIAL IM PRN (19:00)
[2022-06-16] MEDS ORDERED: GLUCOSE 10 TAB/TUBE PO PRN (19:00)
[2022-06-16] MEDS ORDERED: CARBOHYDRATES FOR HYPOGLYCEMIA PO PRN (19:00)
[2022-06-16] MEDS ORDERED: GLUCOSE 40% GEL 15 GM TUBE PO PRN (19:00)
[2022-06-16] MEDS ORDERED: DEXTROSE 50% 50 ML SYRINGE IV PRN (19:00)
[2022-06-16] MEDS: INSULIN ASPART PER UNIT SC SCH ×2 (19:03→21:53)
--- NOTE | 2022-06-16 19:09 | Consultation ---
Date of Consultation June 16, 2022 Assessment & Plan (1) Severe back pain: Radiculopathy History Neurogenic claudication due to lumbar spinal stenosis History lumbar surgery Pain control per ortho spine CT spine pending PT/OT when appropriate Further treatment per ortho spine (2) DM type 1 (diabetes mellitus, type 1): Follows with endocrine in [place] at [facility] On Humulin 70/30 at home A1c: 7.3 in 03/2022 Hold home Humulin 70/30 Glycemic pharmacist was consulted. Appreciate glycemic management assistance (3) CAD (coronary artery disease): S/P stent LAD in 1999 On aspirin (4) Parkinsons disease: Follows with [facility] neurology in [place] Continue carbidopa-levodopa; botwynrkj-lmekysni-rgyygitdku (5) Gastroparesis: (6) GERD (gastroesophageal reflux disease): Continue Protonix (7) HLD (hyperlipidemia): Continue lovastatin DVT Prophylaxis SCDs per ortho Disposition Follows with [facility] in [place], [place] for routine care Pt was seen and care coordinated with Dr Leone. See addendum Thank you for this consultation. We will follow the patient with you during their hospital stay. You can reach a member of the [facility] Hospitalist Team 01/01 via [facility] Supervising Physician Co-Signing Physician Notes Patient seen and examined by me, care coordinated with Swati Neely PA-C, please refer to her note above for further detail. 76 y/o M with CAD s/p stent LAD in 1999, DM I, HTN, HLD, Parkinson disease, GERD, gastroparesis, back pain seen in medical consultation for back and leg pain. Patient with history of L2-L5 discectomy and fusion on 04/17/22 after failing conservative management for neurogenic claudication from lumbar spinal stenosis. He had recurrent severe back pain and on 05/22/2022 had underwent surgery for loosening of hardware with removal of posterior instrumentation including pedicle screw at L5, kyphoplasty L5, posterior spinal fusion L5-S1. Patient states he was doing well after discharge home for several days. He then started to have pain to hip and then radiated down left leg for past couple of weeks. CT spine ordered but has not been completed yet Currently he is lying in bed, in no acute distress, received pain medications and is fairly comfortable right now. Lungs are clear to auscultation, heart sounds regular, abdomen soft, nontender, nondistended. He is moving extremities. Skin is warm dry well-perfused. We will adjust his insulin regiment, and will continue to closely monitor, as above. MD Sulema History of Present Illness Requesting Physician: Dr Su Reason for Consultation: Medical management Attending Physician: Festus Su, DO History of Present Illness Patient is 76 y/o M with PMH CAD s/p stent LAD in 1999, DM I, HTN, HLD, Parkinson disease, GERD, gastroparesis, back pain seen in medical consultation for back and leg pain. Patient with history of L2-L5 discectomy and fusion on 04/17/22 after failing conservative management for neurogenic claudication from lumbar spinal stenosis. He had recurrent severe back pain and on 05/22/2022 had underwent surgery for loosening of hardware with removal of posterior instrumentation including pedicle screw at L5, kyphoplasty L5, posterior spinal fusion L5-S1. Patient states he was doing well after discharge home for several days. He then started to have pain to hip and then radiated down leg for past couple of weeks. States last week had episode of incontinence, but none since. Was seen by ortho spine today and was referred to [facility] ER today for further evaluation for possible migration of hardware.Dr Su admitted patient and CT spine ordered but has not been completed yet. Patient denies fever/chills, diaphoresis, N/V/D/C, CHEN, dizziness, syncope, vision changes, neck pain, CP, SOB, orthopnea, palpitations, cough, sore throat, choking, otalgia, rhinorrhea, abdominal pain, extremity weakness, extremity edema, rashes, urinary symptoms. Allergies Allergy/AdvReac Type Severity Reaction Status Date / Time No Known Allergies Allergy Verified 06/16/22 15:00 Home Medications Medication Instructions Recorded Confirmed Type baclofen 10 mg tablet 10 mg PO TID PRN Pain 03/27/22 06/16/22 History carbidopa 50 mg-levodopa 200 1 tab PO TID 03/27/22 06/16/22 History mg-entacapone 200 mg tablet carbidopa ER 50 mg-levodopa 200 mg 1 tab PO HS 03/27/22 06/16/22 History tablet,extended release insulin human U-100 NPH-regulr 10 - 30 unit subcut QPM 03/27/22 06/16/22 History 70-30 mix 100 unit/mL subcutaneous susp (Humulin 70/30 U-100 Insulin) insulin human U-100 NPH-regulr 55 unit subcut QAM 03/27/22 06/16/22 History 70-30 mix 100 unit/mL subcutaneous susp (Humulin 70/30 U-100 Insulin) lovastatin 40 mg tablet 40 mg PO HS 03/27/22 06/16/22 History pantoprazole 40 mg tablet,delayed 40 mg PO BID 03/27/22 06/16/22 History release (Protonix) oxycodone 5 mg tablet 5 mg PO Q6H PRN pain, severe #30 05/24/22 06/16/22 Rx tabs tramadol 50 mg tablet 50 mg PO Q6H PRN pain, moderate 05/24/22 06/16/22 Rx #30 tabs Patient History Medical History Anemia CAD (coronary artery disease) 1 stent, follows [facility] DDD (degenerative disc disease) DM type 1 (diabetes mellitus, type 1) IDDM Gastroparesis GERD (gastroesophageal reflux disease) History of hypertension h/o orthostatic hypotension, follows [facility] reports infrequent episodes of lightheadedness without near syncope History of myocardial infarction 1999 HLD (hyperlipidemia) Parkinsons disease Surgical History History of ankle surgery Lt History of cardiac catheterization mult. 1 stent placed in 1999 with [place]. says most recent "few years ago" [facility]. History of carpal tunnel release of both wrists History of cholecystectomy History of colonoscopy History of esophagogastroduodenoscopy (EGD) History of heart artery stent x 1 (1999) History of tonsillectomy Family History Other No significant family history Social History (Updated 06/16/22 @ 20:48 by Laura Neely PA-C) Smoking Status: Former smoker Second Hand Exposure: No; Hx Alcohol Use: No Hx Substance Use: No Preferred Language: Romansh Communication Ability: Effective Bed Placement Coordinator Required: No Beliefs That Will Affect Care: None Current Living Situation: Spouse and Family Current Living Situation Comment: lives with - Aileen, sons live in basement Other Information That Helps Us Care for You: No Feels Safe at Home: Yes Safety Concerns: Feels Safe At This Time Assistive Devices: Denture - Upper, Denture - Lower, Glasses and Walker Review of Systems Review of Systems: All systems reviewed & are unremarkable except as noted in HPI & below Physical Exam Physical Exam: General: no distress, WDWN Head: normocephalic, atraumatic Eyes: conjunctiva non-injected, anicteric ENT: normal inspection external ears, nose, mucous membranes moist Neck: supple, trachea midline Lungs: clear, no respiratory distress, no wheezing/rhonchi/rales CV: RRR, no murmur, no pretibial edema Abd: normal BS, soft, non-tender Ext: no cyanosis, no calf tenderness; bilateral pedal pushes and pulls intact, distal pulses intact, sensation to light touch intact Neuro: A&O x 3, normal affect, + bilateral hand tremor Skin: warm, dry Results & Data ([facility]) Vital Signs (Past 12 Hours) Vital Signs Temp Pulse Pulse Resp BP BP Pulse Ox 06/16/22 17:26 36.5 C 71 18 156/60 H 97 06/16/22 12:31 36.5 C 80 20 164/54 H 99 O2 Del Method 06/16/22 17:26 Room Air 06/16/22 12:31 Room Air Laboratory Results Short CBC 06/16/22 Range/Units 16:26 WBC 6.06 (4.8-10.8) K/ul Hgb 11.5 L (14.0-18.0) g/dl Hct 35.0 L (40.1-51.0) % Plt Count 269 (130-400) K/uL BMP 06/16/22 16:26 Sodium 143 Potassium 4.0 Chloride 109 H Carbon Dioxide 29 BUN 17 Creatinine 0.76 Glucose 78 Calcium 9.0 Liver Function 06/16/22 Range/Units 16:26 Total Bilirubin 0.5 (0.2-1.0) mg/dl AST 12 L (13-39) U/L ALT 3 L (7-52) U/L Alkaline Phosphatase 115 H (34-104) U/L Albumin 3.7 (3.4-5.0) gm/dl
[2022-06-16 19:52] LABS: Basophils # (auto) 0.03 K/uL (0-0.2); Basophils % (auto) 0.5 %; Eosinophils # (auto) 0.12 K/uL (0-0.50); Hemoglobin 11.5 g/dl (14.0-18.0); Immature Granulocytes # (auto) 0.02 K/uL (0.00-0.02); Immature Granulocytes % (auto) 0.3 %; Lymphocytes # (auto) 1.37 K/uL (1.2-3.4); Lymphocytes % (auto) 22.6 %; Mean Corpuscular Hemoglobin 29.3 pg (25.0-34.0); Mean Corpuscular Hgb Conc 32.9 g/dL (32.0-36.0); Mean Corpuscular Volume 89.3 fL (80.0-100.0); Mean Platelet Volume 9.9 fL (9.4-12.4); Monocytes # (auto) 0.45 K/uL (0.24-0.82); Monocytes % (auto) 7.4 %; Neutrophils # (auto) 4.07 K/uL (1.4-6.5); Neutrophils % (auto) 67.2 %; Platelet Count 269 K/uL (130-400); RDW Coefficient of Variation 13.3 % (11.5-14.5); RDW Standard Deviation 43.5 fL (36.4-46.3); Red Blood Count 3.92 M/uL (4.63-6.08); White Blood Count 6.06 K/ul (4.8-10.8)
[2022-06-16 20:12] LABS: Albumin Globulin Ratio 1.4 (0.9-2); Albumin Level 3.7 gm/dl (3.4-5.0); BUN Creatinine Ratio 22.4 (10-20); Bilirubin,Total 0.5 mg/dl (0.2-1.0); Creatinine Clr Calc Pharmacy 82.7 ml/min; Est GFR (African American) 101.3 ml/min; Est GFR (Non-African American) 87.4 ml/min; Globulin 2.7 gm/dl (2.5-4.0); Total Protein 6.4 gm/dl (6.0-8.3)
[2022-06-16] MEDS: PANTOprazole 40 MG TAB PO SCH (21:38)
[2022-06-16] MEDS: CARBIDOPA/LEVODOPA 50/200MG EXT REL TAB PO SCH (21:38)
[2022-06-16] MEDS: LOVASTATIN 20 MG TAB PO SCH (21:38)
[2022-06-17] MEDS ORDERED: hydrALAZINE HCL 20 MG/ML VIAL IV ONE (01:01)
[2022-06-17] MEDS: oxyCODONE HCL IR 5 MG TAB (IMMEDIATE RELEASE) PO PRN ×2 (01:51→07:35)
[2022-06-17] MEDS: SODIUM CHLORIDE 0.9% 1000ML 1,000 ML IV SCH ×2 (07:20→20:54)
[2022-06-17] MEDS: CARBIDOPA/LEVODOPA/ENTACAPONE PO SCH ×3 (07:42→16:11)
--- NOTE | 2022-06-17 08:25 | Orthopedic Progress Note ---
Date of Service June 17, 2022 Assessment & Plan (1) Severe back pain: Plan: At this time the CAT scan is pending. Once we would review these films we can make further recommendations. Admission and Anticipated Discharge Date Admission Date: June 16, 2022 Subjective Patient comfortable lying supine in bed. Physical Exam Physical Exam: On exam he continues to have reasonable strength testing lower extremities. He is comfortable at this time. Results & Data ([facility]) Vital Signs (Past 12 Hours) Vital Signs Temp Pulse Pulse Resp BP BP Pulse Ox 06/17/22 07:38 36.4 C L 75 16 159/54 H 96 06/17/22 01:44 36.6 C 79 18 185/68 H 158/71 H 97 06/17/22 00:56 72 192/64 H 162/67 H 06/16/22 21:15 76 167/70 H 06/16/22 21:13 36.4 C L 71 18 198/79 H 96 O2 Del Method 06/17/22 07:38 Room Air 06/17/22 01:44 Room Air 06/17/22 00:56 06/16/22 21:15 06/16/22 21:13 Room Air
[2022-06-17] MEDS: ASPIRIN 81 MG ECTAB PO SCH ×2 (08:29→08:33)
[2022-06-17] MEDS: PANTOprazole 40 MG TAB PO SCH ×3 (08:29→16:46)
[2022-06-17] MEDS ORDERED: LANTUS PER UNIT CHARGE SQ SCH (09:00)
[2022-06-17 09:31] LABS: Hemoglobin 11.7 g/dl (14.0-18.0); Mean Corpuscular Hemoglobin 29.2 pg (25.0-34.0); Mean Corpuscular Hgb Conc 33.4 g/dL (32.0-36.0); Mean Corpuscular Volume 87.3 fL (80.0-100.0); Mean Platelet Volume 9.1 fL (9.4-12.4); Platelet Count 253 K/uL (130-400); RDW Standard Deviation 41.4 fL (36.4-46.3); Red Blood Count 4.01 M/uL (4.63-6.08); White Blood Count 7.64 K/ul (4.8-10.8)
[2022-06-17] MEDS: INSULIN ASPART PER UNIT SC SCH ×4 (09:56→21:08)
[2022-06-17 10:02] LABS: BUN Creatinine Ratio 19.4 (10-20); Calcium 8.6 mg/dl (8.5-10.1); Creatinine Clr Calc Pharmacy 93.8 ml/min; Est GFR (African American) 106.7 ml/min; Potassium 4.4 mmol/L (3.5-5.1)
--- NOTE | 2022-06-17 10:35 | Hospitalist Progress Note ---
Date of Service June 17, 2022 Assessment & Plan (1) Severe back pain: Plan: Radiculopathy History Neurogenic claudication due to lumbar spinal stenosis History lumbar surgery Pain control per ortho spine CT lumbar spine obtained IMPRESSION: 1. Postoperative changes of L3-L4 and L4-L5 discectomy with posterior interbody eder and screw fusion hardware at L2-S1. 2. Status post placement of cement material surrounding the bilateral L5 screws. 3. Acute superior endplate compression deformity at L5 demonstrates progressively worsened vertebral body height loss compared to the 05/20/2022 exam. No significant retropulsion. 4. Unchanged anterolisthesis L4 on L5. 5. Chronic peripherally calcified laminectomy bed fluid collection. Sterility cannot be determined by imaging alone. 6. Suboptimal evaluation of the central canal and neural foramina secondary to the artifact associated with the hardware. PT/OT when appropriate Further treatment per ortho spine (2) DM type 1 (diabetes mellitus, type 1): Plan: Follows with endocrine in [place] at [facility] On Humulin 70/30 at home A1c: 7.3 in 03/2022 Hold home Humulin 70/30 Glycemic pharmacist was consulted. Appreciate glycemic management assistance (3) CAD (coronary artery disease): Plan: S/P stent LAD in 1999 On aspirin (4) Parkinsons disease: Plan: Follows with [facility] neurology in [place] Continue carbidopa-levodopa; [id number]-[id number] (5) Gastroparesis: (6) GERD (gastroesophageal reflux disease): Plan: Continue Protonix (7) HLD (hyperlipidemia): Plan: Continue lovastatin DVT Prophylaxis SCDs per ortho Disposition Follows with [facility] in [place], [place] for routine care Thank you for this consultation. We will follow the patient with you during their hospital stay. You can reach a member of the [facility] Hospitalist Team 01/01 via GOkey Admission and Anticipated Discharge Date Admission Date: June 16, 2022 Subjective Patient seen in follow-up of leg pain, recent lumbar spine surgery Underwent lumbar spine CT this morning Currently laying in bed, in no acute distress No fevers chills chest pain shortness of breath, no abdominal pain nausea vomiting Leg pain is well controlled Review of Systems Review of Systems: All systems reviewed & are unremarkable except as noted in Subjective Physical Exam Physical Exam: General: no distre ss, WDWN Head: nor mocephalic, atraum atic Eyes: conjunc tiva non-injected, anicteric ENT: no rmal inspection ex ternal ears, nose, mucous membranes moist Neck: supple , trachea midline Lungs: clear, no r espiratory distres s, no wheezing/rho nchi/rales CV: RRR , no murmur, no pr etibial edema Abd: normal BS, soft, non-tender Ext: no cyanosis, no calf tenderness; bilat eral pedal pushes and pulls intact, distal pulses inta ct, sensation to l ight touch intact Neuro: A&O x 3, n ormal affect, + bi lateral hand tremo r Skin: warm, dry Results & Data Results & Data ([facility]) Vital Signs (Past 12 Hours) Vital Signs Temp Pulse Pulse Resp BP BP Pulse Ox 06/17/22 07:38 36.4 C L 75 16 159/54 H 96 06/17/22 01:44 36.6 C 79 18 185/68 H 158/71 H 97 06/17/22 00:56 72 192/64 H 162/67 H O2 Del Method 06/17/22 07:38 Room Air 06/17/22 01:44 Room Air 06/17/22 00:56 Laboratory Results 06/17/22 06/17/22 06/17/22 Range/Units 12:13 09:20 09:20 WBC 7.64 (4.8-10.8) K/ul RBC 4.01 L (4.63-6.08) M/uL Hgb 11.7 L (14.0-18.0) g/dl Hct 35.0 L (40.1-51.0) % MCV 87.3 (80.0-100.0) fL MCH 29.2 (25.0-34.0) pg MCHC 33.4 (32.0-36.0) g/dL RDW Std Deviation 41.4 (36.4-46.3) fL RDW Coeff of Gio 13.0 (11.5-14.5) % Plt Count 253 (130-400) K/uL MPV 9.1 L (9.4-12.4) fL Immature Gran % (Auto) % Neut % (Auto) % Lymph % (Auto) % Bland % (Auto) % Eos % (Auto) % Baso % (Auto) % Neut # (Auto) (1.4-6.5) K/uL Lymph # (Auto) (1.2-3.4) K/uL Bland # (Auto) (0.24-0.82) K/uL Eos # (Auto) (0-0.50) K/uL Baso # (Auto) (0-0.2) K/uL Immature Gran # (Auto) (0.00-0.02) K/uL Sodium 139 (136-145) mmol/L Potassium 4.4 (3.5-5.1) mmol/L Chloride 107 (98-107) mmol/L Carbon Dioxide 28 (21-32) mmol/L Anion Gap 4 (3-11) BUN 13 (6-23) mg/dl Creatinine 0.67 (0.6-1.4) mg/dl Est Cr Clr Drug Dosing 93.8 ml/min Est GFR ( Amer) 106.7 ml/min Est GFR (Non-Af Amer) 92.0 ml/min BUN/Creatinine Ratio 19.4 (10-20) Glucose 149 H (70-99(Fasting)) mg/dl POC Glucose 186 H (70-99) mg/dl Calcium 8.6 (8.5-10.1) mg/dl Total Bilirubin (0.2-1.0) mg/dl AST (13-39) U/L ALT (7-52) U/L Alkaline Phosphatase (34-104) U/L Total Protein (6.0-8.3) gm/dl Albumin (3.4-5.0) gm/dl Globulin (2.5-4.0) gm/dl Albumin/Globulin Ratio (0.9-2) 06/17/22 06/17/22 06/16/22 Range/Units 08:01 00:49 21:03 WBC (4.8-10.8) K/ul RBC (4.63-6.08) M/uL Hgb (14.0-18.0) g/dl Hct (40.1-51.0) % MCV (80.0-100.0) fL MCH (25.0-34.0) pg MCHC (32.0-36.0) g/dL RDW Std Deviation (36.4-46.3) fL RDW Coeff of Gio (11.5-14.5) % Plt Count (130-400) K/uL MPV (9.4-12.4) fL Immature Gran % (Auto) % Neut % (Auto) % Lymph % (Auto) % Bland % (Auto) % Eos % (Auto) % Baso % (Auto) % Neut # (Auto) (1.4-6.5) K/uL Lymph # (Auto) (1.2-3.4) K/uL Bland # (Auto) (0.24-0.82) K/uL Eos # (Auto) (0-0.50) K/uL Baso # (Auto) (0-0.2) K/uL Immature Gran # (Auto) (0.00-0.02) K/uL Sodium (136-145) mmol/L Potassium (3.5-5.1) mmol/L Chloride (98-107) mmol/L Carbon Dioxide (21-32) mmol/L Anion Gap (3-11) BUN (6-23) mg/dl Creatinine (0.6-1.4) mg/dl Est Cr Clr Drug Dosing ml/min Est GFR ( Amer) ml/min Est GFR (Non-Af Amer) ml/min BUN/Creatinine Ratio (10-20) Glucose (70-99(Fasting)) mg/dl POC Glucose 132 H 88 95 (70-99) mg/dl Calcium (8.5-10.1) mg/dl Total Bilirubin (0.2-1.0) mg/dl AST (13-39) U/L ALT (7-52) U/L Alkaline Phosphatase (34-104) U/L Total Protein (6.0-8.3) gm/dl Albumin (3.4-5.0) gm/dl Globulin (2.5-4.0) gm/dl Albumin/Globulin Ratio (0.9-2) 06/16/22 06/16/22 06/16/22 Range/Units 18:22 16:36 16:26 WBC (4.8-10.8) K/ul RBC (4.63-6.08) M/uL Hgb (14.0-18.0) g/dl Hct (40.1-51.0) % MCV (80.0-100.0) fL MCH (25.0-34.0) pg MCHC (32.0-36.0) g/dL RDW Std Deviation (36.4-46.3) fL RDW Coeff of Gio (11.5-14.5) % Plt Count (130-400) K/uL MPV (9.4-12.4) fL Immature Gran % (Auto) % Neut % (Auto) % Lymph % (Auto) % Bland % (Auto) % Eos % (Auto) % Baso % (Auto) % Neut # (Auto) (1.4-6.5) K/uL Lymph # (Auto) (1.2-3.4) K/uL Bland # (Auto) (0.24-0.82) K/uL Eos # (Auto) (0-0.50) K/uL Baso # (Auto) (0-0.2) K/uL Immature Gran # (Auto) (0.00-0.02) K/uL Sodium 143 (136-145) mmol/L Potassium 4.0 (3.5-5.1) mmol/L Chloride 109 H (98-107) mmol/L Carbon Dioxide 29 (21-32) mmol/L Anion Gap 5 (3-11) BUN 17 (6-23) mg/dl Creatinine 0.76 (0.6-1.4) mg/dl Est Cr Clr Drug Dosing 82.7 ml/min Est GFR ( Amer) 101.3 ml/min Est GFR (Non-Af Amer) 87.4 ml/min BUN/Creatinine Ratio 22.4 H (10-20) Glucose 78 (70-99(Fasting)) mg/dl POC Glucose 106 H 79 (70-99) mg/dl Calcium 9.0 (8.5-10.1) mg/dl Total Bilirubin 0.5 (0.2-1.0) mg/dl AST 12 L (13-39) U/L ALT 3 L (7-52) U/L Alkaline Phosphatase 115 H (34-104) U/L Total Protein 6.4 (6.0-8.3) gm/dl Albumin 3.7 (3.4-5.0) gm/dl Globulin 2.7 (2.5-4.0) gm/dl Albumin/Globulin Ratio 1.4 (0.9-2) 06/16/22 Range/Units 16:26 WBC 6.06 (4.8-10.8) K/ul RBC 3.92 L (4.63-6.08) M/uL Hgb 11.5 L (14.0-18.0) g/dl Hct 35.0 L (40.1-51.0) % MCV 89.3 (80.0-100.0) fL MCH 29.3 (25.0-34.0) pg MCHC 32.9 (32.0-36.0) g/dL RDW Std Deviation 43.5 (36.4-46.3) fL RDW Coeff of Gio 13.3 (11.5-14.5) % Plt Count 269 (130-400) K/uL MPV 9.9 (9.4-12.4) fL Immature Gran % (Auto) 0.3 % Neut % (Auto) 67.2 % Lymph % (Auto) 22.6 % Bland % (Auto) 7.4 % Eos % (Auto) 2.0 % Baso % (Auto) 0.5 % Neut # (Auto) 4.07 (1.4-6.5) K/uL Lymph # (Auto) 1.37 (1.2-3.4) K/uL Bland # (Auto) 0.45 (0.24-0.82) K/uL Eos # (Auto) 0.12 (0-0.50) K/uL Baso # (Auto) 0.03 (0-0.2) K/uL Immature Gran # (Auto) 0.02 (0.00-0.02) K/uL Sodium (136-145) mmol/L Potassium (3.5-5.1) mmol/L Chloride (98-107) mmol/L Carbon Dioxide (21-32) mmol/L Anion Gap (3-11) BUN (6-23) mg/dl Creatinine (0.6-1.4) mg/dl Est Cr Clr Drug Dosing ml/min Est GFR ( Amer) ml/min Est GFR (Non-Af Amer) ml/min BUN/Creatinine Ratio (10-20) Glucose (70-99(Fasting)) mg/dl POC Glucose (70-99) mg/dl Calcium (8.5-10.1) mg/dl Total Bilirubin (0.2-1.0) mg/dl AST (13-39) U/L ALT (7-52) U/L Alkaline Phosphatase (34-104) U/L Total Protein (6.0-8.3) gm/dl Albumin (3.4-5.0) gm/dl Globulin (2.5-4.0) gm/dl Albumin/Globulin Ratio (0.9-2) Medications Administered Current Inpatient Medications Acetaminophen (Acetaminophen 500 Mg Tab) 1,000 mg PO Q8H PRN PRN Reason: MILD Pain Scale 1,2,3 & Pre PT Stop: 07/16/22 17:25 Aspirin (Aspirin 81 Mg Ectab) 81 mg PO QAM [facility] Stop: 07/17/22 08:59 Last Admin: 06/17/22 08:33 Dose: Not Given Bisacodyl (Bisacodyl 10 Mg Supp) 10 mg MT DAILY PRN PRN Reason: Constipation Stop: 07/18/22 14:12 Carbidopa/Levodopa (Carbidopa/Levodopa 50/200mg Ext Rel Tab) 1 tab PO HS [facility] Stop: 07/16/22 20:59 Last Admin: 06/16/22 21:38 Dose: 1 tab Carbidopa/Levodopa/Entacapone (Carbidopa/Levodopa/Entacapone) 1 each PO 0730,1130,1630 [facility] Stop: 07/17/22 07:29 Last Admin: 06/17/22 11:54 Dose: 1 each Dextrose (Dextrose 50% 50 Ml Syringe) 25 - 50 ml IV UD PRN; Protocol PRN Reason: Hypoglycemia Protocol Stop: 07/16/22 18:59 Glucagon (Glucagon For Inj 1 Mg Vial) 1 mg IM UD PRN; Protocol PRN Reason: Hypoglycemia Protocol Stop: 07/16/22 18:59 Glucose (Glucose 40% Gel 15 Gm Tube) 15 - 30 gm PO UD PRN; Protocol PRN Reason: Hypoglycemia Protocol Stop: 07/16/22 18:59 Glucose (Glucose 10 Tab/Tube) 4 - 8 tab PO UD PRN; Protocol PRN Reason: Hypoglycemia Protocol Stop: 07/16/22 18:59 Hydromorphone HCl (Hydromorphone Inj 0.5 Mg/0.5 Ml Syr) 0.5 mg IV Q3H PRN PRN Reason: MOD pain (scale 4-6) & Pre PT Stop: 06/30/22 17:25 Last Admin: 06/16/22 18:48 Dose: 0.5 mg Hydromorphone HCl (Hydromorphone Inj 1 Mg/Ml Syringe) 1 mg IV Q3H PRN PRN Reason: severe pain (scale 7-10) Stop: 06/30/22 17:25 Sodium Chloride (Nss 1000ml) 1,000 mls @ 75 mls/hr IV .[id number] [facility] Stop: 07/16/22 17:25 Last Admin: 06/17/22 07:20 Dose: 75 mls/hr Promethazine HCl 12.5 mg/ (Sodium Chloride) 50.5 mls @ 202 mls/hr IV Q6H PRN PRN Reason: Nausea &/or Vomiting Stop: 07/16/22 17:25 Acetaminophen (Ofirmev) 1,000 mg in 100 mls @ 400 mls/hr IV Q8H PRN PRN Reason: Pain Rating 1-3 & Pre PT Stop: 06/17/22 17:26 Insulin Aspart (Insulin Aspart Per Unit) 0 units SC ACHS [facility] Stop: 07/16/22 18:44 Last Admin: 06/17/22 13:53 Dose: 8 units Insulin Glargine (Lantus Per Unit Charge) 15 units SQ DAILY [facility] Stop: 07/17/22 08:59 Last Admin: 06/17/22 09:56 Dose: 15 units Lovastatin (Lovastatin 20 Mg Tab) 40 mg PO HS [facility] Stop: 07/16/22 20:59 Last Admin: 06/16/22 21:38 Dose: 40 mg Magnesium Hydroxide (Magnesium Hydroxide Susp 30 Ml Udc) 30 ml PO Q24H PRN PRN Reason: Constipation Stop: 07/16/22 17:25 Metoclopramide HCl (Metoclopramide Hcl Inj 5 Mg/Ml 2 Ml Vial) 10 mg IV Q6H PRN PRN Reason: Nausea &/or Vomiting Stop: 07/16/22 17:25 Miscellaneous (Carbohydrates For Hypoglycemia ) 15 - 30 gm PO UD PRN PRN Reason: Hypoglycemia Treatment Stop: 07/16/22 18:59 Miscellaneous Information (Pharmacy Glycemic Mgmt Consult) 1 each N/A UD PRN PRN Reason: Consult Stop: 07/16/22 17:25 Naloxone HCl (Naloxone Hcl 0.4 Mg/1 Ml Vial/Carp) 0.1 mg IV Q5M PRN PRN Reason: Oversedation/respiratory dep Stop: 07/16/22 17:25 Ondansetron HCl (Ondansetron Inj 2 Mg/Ml 2 Ml Vial) 4 mg IV Q6H PRN PRN Reason: Nausea &/or Vomiting Stop: 07/16/22 17:25 Ondansetron HCl (Ondansetron 4 Mg Od Tab) 4 mg PO Q6H PRN PRN Reason: Nausea Stop: 07/16/22 17:25 Oxycodone HCl (Oxycodone Hcl Ir 5 Mg Tab (Immediate Release)) 5 - 10 mg PO Q4H PRN PRN Reason: mod to severe pain Stop: 06/30/22 17:25 Last Admin: 06/17/22 07:35 Dose: 10 mg Pantoprazole Sodium (Pantoprazole 40 Mg Tab) 40 mg PO BID [facility] Stop: 07/16/22 20:59 Last Admin: 06/17/22 08:29 Dose: 40 mg
--- NOTE | 2022-06-17 11:23 | CT Scan Report ---
CT lumbar spine wo con HISTORY: 76 years-old Male back pain acute low back pain without reported trauma. Status post L5 bailey dware revision with incision and drainage. COMPARISON: CT lumbar spine 05/20/2022, MRI lumbar spine 05/19/2022, fluoroscopic images of the lumbar spine 05/22/2022. TECHNIQUE: Multiple axial CT images of the lumbar spine were obtained without the use of IV contrast. A dose lowering technique was used consistent with the principals of SUNSHINE. FINDINGS: Peripherally calcified laminectomy bed fluid collection to prior measuring 6.5 x 5.5 x 2.8 cm. L3-L4 and L4-L5 discectomy with posterior decompression and interbody eder and screw fusion redemonstrated a t L2-L5. Status post placement of bilateral S1 pedicle screws. The L5 pedicle screws are again noted extending through the anterior endplate of L5. Acute superimposed compression deformity of L5 redemon strated with approximately 25% superior endplate vertebral body height loss. The degree of vertebral body height loss is mildly progressed from the prior study. Status post placement of cement material surrounding the bilateral L5 pedicle screws. The hardware appears intact. There is unchanged 7 mm ant erolisthesis L4 on L5. Transverse orthopedic staple device has been placed at the L3-L4 level, new fr om prior. Severe L2-L3 intervertebral disc space narrowing. Moderate to advanced multilevel spondylit ic spurring and facet arthrosis. Streak artifact from the hardware limits evaluation of the central canal and neural foramina. Nonspec ific bilateral perinephric stranding. Distended urinary bladder. Cholecystectomy. IMPRESSION: 1. Postoperative changes of L3-L4 and L4-L5 discectomy with posterior interbody eder and screw fusion hardware at L2-S1. 2. Status post placement of cement material surrounding the bilateral L5 screws. 3. Acute superior endplate compression deformity at L5 demonstrates progressively worsened vertebral body height loss compared to the 05/20/2022 exam. No significant retropulsion. 4. Unchanged anterolisthesis L4 on L5. 5. Chronic peripherally calcified laminectomy bed fluid collection. Sterility cannot be determined by imaging alone. 6. Suboptimal evaluation of the central canal and neural foramina secondary to the artifact associate d with the hardware. ACT 112: Negative or not required by law. The above report was generated using voice recognition software. It may contain grammatical, syntax o r spelling errors. Dictated: 06/17/2022 9:51 AM Transcribed: 06/17/2022 11:17 AM Maggie [id number] [email or web address] Electronically signed by: James Reynoso M.D. 06/17/2022 11:21 AM
--- NOTE | 2022-06-17 15:06 | Pharmacy Report ---
Pharmacy Glycemic Short Note 2 - Date of Service June 17, 2022 - Glycemic Short BSG Results (Last 24 hours): 06/16/22 06/16/22 06/16/22 16:26 16:36 18:22 Glucose 78 POC Glucose 79 106 H 06/16/22 06/17/22 06/17/22 21:03 00:49 08:01 Glucose POC Glucose 95 88 132 H 06/17/22 06/17/22 09:20 12:13 Glucose 149 H POC Glucose 186 H OUTPATIENT ANTIDIABETIC REGIMEN: * Humulin 70/30 - 55 units in the morning and 10-15 units in the evening * HbA1C = 7.3% (03/30/22) ASSESSMENT: * Mr Daley is a 76 y/o M with a PMH of T1DM who presents with severe back pain. * BSGs on admission were 79-95-88 mg/dL. * Fasting today is 132 mg/dL - lunch 186 mg/dL. * As with previous consults, will utilize Lantus while inhouse. Start with Lantus 15 units daily. Previous data indicates 10 units is not sufficient but 18 units may be too aggressive. * Novolog weight-based stress of 2 for now. PLAN FOR INPATIENT GLYCEMIC CONTROL: * Basal insulin * Lantus 15 units SQ daily * Bolus insulin * NovoLog per scale ACHS or Q6hrs while NPO * Goal Range: Low 110 mg/dL - High 140 mg/dL * Correction Factor: 30 mg/dL/unit * Nutritional / Prandial insulin per carb ratio of 1 unit per 10 grams CHO consumed
[2022-06-17] MEDS ORDERED: Nursing to Pharmacy Communication SCH (16:15)
[2022-06-17] MEDS: LOVASTATIN 20 MG TAB PO SCH (20:54)
[2022-06-17] MEDS: CARBIDOPA/LEVODOPA 50/200MG EXT REL TAB PO SCH (20:54)
--- NOTE | 2022-06-18 07:26 | Hospitalist Progress Note ---
Date of Service June 18, 2022 Assessment & Plan (1) Severe back pain: Plan: Radiculopathy History Neurogenic claudication due to lumbar spinal stenosis History lumbar surgery Pain control per ortho spine CT lumbar spine obtained IMPRESSION: 1. Postoperative changes of L3-L4 and L4-L5 discectomy with posterior interbody eder and screw fusion hardware at L2-S1. 2. Status post placement of cement material surrounding the bilateral L5 screws. 3. Acute superior endplate compression deformity at L5 demonstrates progressively worsened vertebral body height loss compared to the 05/20/2022 exam. No significant retropulsion. 4. Unchanged anterolisthesis L4 on L5. 5. Chronic peripherally calcified laminectomy bed fluid collection. Sterility cannot be determined by imaging alone. 6. Suboptimal evaluation of the central canal and neural foramina secondary to the artifact associated with the hardware. Imaging reviewed by Dr. Su, orthopedics, likely will need another surgery in the next day or 2 PT/OT when appropriate Further treatment per ortho spine (2) DM type 1 (diabetes mellitus, type 1): Plan: Follows with endocrine in [place] at [facility] On Humulin 70/30 at home A1c: 7.3 in 03/2022 Hold home Humulin 70/30 Glycemic pharmacist was consulted. Appreciate glycemic management assistance (3) CAD (coronary artery disease): Plan: S/P stent LAD in 1999 On aspirin (4) Parkinsons disease: Plan: Follows with [facility] neurology in [place] Continue carbidopa-levodopa; [id number] (5) Gastroparesis: (6) GERD (gastroesophageal reflux disease): Plan: Continue Protonix (7) HLD (hyperlipidemia): Plan: Continue lovastatin DVT Prophylaxis SCDs per ortho Disposition Follows with Eros CHAUDHRY in [place] for routine care Thank you for this consultation. We will follow the patient with you during their hospital stay. You [facility]/01 via [email or web address] Admission and Anticipated Discharge Date Admission Date: June 16, 2022 Subjective Patient seen in follow-up of leg pain, recent lumbar spine surgery Underwent lumbar spine CT yesterday Currently laying in bed, in no acute distress While he is laying down still, not moving, he does not complain of pain No fevers chills chest pain shortness of breath, no abdominal pain nausea vomit ing Review of Systems Review of Systems: All systems reviewed & are unremarkable except as noted in Subjective Physical Exam Physical Exam: General: no distre ss, WDWN Head: nor mocephalic, atraum atic Eyes: conjunc tiva non-injected, anicteric ENT: no rmal inspection ex ternal ears, nose, mucous membranes moist Neck: supple , trachea midline Lungs: clear, no r espiratory distres s, no wheezing/rho nchi/rales CV: RRR , no murmur, no pr etibial edema Abd: normal BS, soft, non-tender Ext: no cyanosis, no calf tenderness; bilat eral pedal pushes and pulls intact, distal pulses inta ct, sensation to l ight touch intact Neuro: A&O x 3, n ormal affect, + bi lateral hand tremo r Skin: warm, dry Results & Data Results & Data ([facility]) Vital Signs (Past 12 Hours) Vital Signs Temp Pulse Resp BP Pulse Ox O2 Del Method 06/17/22 21:35 36.8 C 77 16 154/70 H 95 Room Air Laboratory Results 06/17/22 06/17/22 06/17/22 Range/Units 20:28 17:01 16:06 WBC (4.8-10.8) K/ul RBC (4.63-6.08) M/uL Hgb (14.0-18.0) g/dl Hct (40.1-51.0) % MCV (80.0-100.0) fL MCH (25.0-34.0) pg MCHC (32.0-36.0) g/dL RDW Std Deviation (36.4-46.3) fL RDW Coeff of Gio (11.5-14.5) % Plt Count (130-400) K/uL MPV (9.4-12.4) fL Sodium (136-145) mmol/L Potassium (3.5-5.1) mmol/L Chloride (98-107) mmol/L Carbon Dioxide (21-32) mmol/L Anion Gap (3-11) BUN (6-23) mg/dl Creatinine (0.6-1.4) mg/dl Est Cr Clr Drug Dosing ml/min Est GFR ( Amer) ml/min Est GFR (Non-Af Amer) ml/min BUN/Creatinine Ratio (10-20) Glucose (70-99(Fasting)) mg/dl POC Glucose 92 94 95 (70-99) mg/dl Calcium (8.5-10.1) mg/dl 06/17/22 06/17/22 06/17/22 Range/Units 12:13 09:20 09:20 WBC 7.64 (4.8-10.8) K/ul RBC 4.01 L (4.63-6.08) M/uL Hgb 11.7 L (14.0-18.0) g/dl Hct 35.0 L (40.1-51.0) % MCV 87.3 (80.0-100.0) fL MCH 29.2 (25.0-34.0) pg MCHC 33.4 (32.0-36.0) g/dL RDW Std Deviation 41.4 (36.4-46.3) fL RDW Coeff of Gio 13.0 (11.5-14.5) % Plt Count 253 (130-400) K/uL MPV 9.1 L (9.4-12.4) fL Sodium 139 (136-145) mmol/L Potassium 4.4 (3.5-5.1) mmol/L Chloride 107 (98-107) mmol/L Carbon Dioxide 28 (21-32) mmol/L Anion Gap 4 (3-11) BUN 13 (6-23) mg/dl Creatinine 0.67 (0.6-1.4) mg/dl Est Cr Clr Drug Dosing 93.8 ml/min Est GFR ( Amer) 106.7 ml/min Est GFR (Non-Af Amer) 92.0 ml/min BUN/Creatinine Ratio 19.4 (10-20) Glucose 149 H (70-99(Fasting)) mg/dl POC Glucose 186 H (70-99) mg/dl Calcium 8.6 (8.5-10.1) mg/dl 06/17/22 Range/Units 08:01 WBC (4.8-10.8) K/ul RBC (4.63-6.08) M/uL Hgb (14.0-18.0) g/dl Hct (40.1-51.0) % MCV (80.0-100.0) fL MCH (25.0-34.0) pg MCHC (32.0-36.0) g/dL RDW Std Deviation (36.4-46.3) fL RDW Coeff of Gio (11.5-14.5) % Plt Count (130-400) K/uL MPV (9.4-12.4) fL Sodium (136-145) mmol/L Potassium (3.5-5.1) mmol/L Chloride (98-107) mmol/L Carbon Dioxide (21-32) mmol/L Anion Gap (3-11) BUN (6-23) mg/dl Creatinine (0.6-1.4) mg/dl Est Cr Clr Drug Dosing ml/min Est GFR ( Amer) ml/min Est GFR (Non-Af Amer) ml/min BUN/Creatinine Ratio (10-20) Glucose (70-99(Fasting)) mg/dl POC Glucose 132 H (70-99) mg/dl Calcium (8.5-10.1) mg/dl Medications Administered Current Inpatient Medications Acetaminophen (Acetaminophen 500 Mg Tab) 1,000 mg PO Q8H PRN PRN Reason: MILD Pain Scale 1,2,3 & Pre PT Stop: 07/16/22 17:25 Aspirin (Aspirin 81 Mg Ectab) 81 mg PO QAM [facility] Stop: 07/17/22 08:59 Last Admin: 06/17/22 08:33 Dose: Not Given Bisacodyl (Bisacodyl 10 Mg Supp) 10 mg [place] DAILY PRN PRN Reason: Constipation Stop: 07/18/22 14:12 Carbidopa/Levodopa (Carbidopa/Levodopa 50/200mg Ext Rel Tab) 1 tab PO HS [facility] Stop: 07/16/22 20:59 Last Admin: 06/17/22 20:54 Dose: 1 tab Carbidopa/Levodopa/Entacapone (Carbidopa/Levodopa/Entacapone) 1 each PO 0730,1130,1630 [facility] Stop: 07/17/22 07:29 Last Admin: 06/17/22 16:11 Dose: 1 each Dextrose (Dextrose 50% 50 Ml Syringe) 25 - 50 ml IV UD PRN; Protocol PRN Reason: Hypoglycemia Protocol Stop: 07/16/22 18:59 Glucagon (Glucagon For Inj 1 Mg Vial) 1 mg IM UD PRN; Protocol PRN Reason: Hypoglycemia Protocol Stop: 07/16/22 18:59 Glucose (Glucose 40% Gel 15 Gm Tube) 15 - 30 gm PO UD PRN; Protocol PRN Reason: Hypoglycemia Protocol Stop: 07/16/22 18:59 Glucose (Glucose 10 Tab/Tube) 4 - 8 tab PO UD PRN; Protocol PRN Reason: Hypoglycemia Protocol Stop: 07/16/22 18:59 Hydromorphone HCl (Hydromorphone Inj 0.5 Mg/0.5 Ml Syr) 0.5 mg IV Q3H PRN PRN Reason: MOD pain (scale 4-6) & Pre PT Stop: 06/30/22 17:25 Last Admin: 06/16/22 18:48 Dose: 0.5 mg Hydromorphone HCl (Hydromorphone Inj 1 Mg/Ml Syringe) 1 mg IV Q3H PRN PRN Reason: severe pain (scale 7-10) Stop: 06/30/22 17:25 Sodium Chloride (Nss 1000ml) 1,000 mls @ 75 mls/hr IV .[id number] [facility] Stop: 07/16/22 17:25 Last Admin: 06/17/22 20:54 Dose: 75 mls/hr Promethazine HCl 12.5 mg/ (Sodium Chloride) 50.5 mls @ 202 mls/hr IV Q6H PRN PRN Reason: Nausea &/or Vomiting Stop: 07/16/22 17:25 Insulin Aspart (Insulin Aspart Per Unit) 0 units SC ACHS [facility] Stop: 07/16/22 18:44 Last Admin: 06/17/22 21:08 Dose: Not Given Insulin Glargine (Lantus Per Unit Charge) 15 units SQ DAILY [facility] Stop: 07/17/22 08:59 Last Admin: 06/17/22 09:56 Dose: 15 units Lovastatin (Lovastatin 20 Mg Tab) 40 mg PO HS [facility] Stop: 07/16/22 20:59 Last Admin: 06/17/22 20:54 Dose: 40 mg Magnesium Hydroxide (Magnesium Hydroxide Susp 30 Ml Udc) 30 ml PO Q24H PRN PRN Reason: Constipation Stop: 07/16/22 17:25 Metoclopramide HCl (Metoclopramide Hcl Inj 5 Mg/Ml 2 Ml Vial) 10 mg IV Q6H PRN PRN Reason: Nausea &/or Vomiting Stop: 07/16/22 17:25 Miscellaneous (Carbohydrates For Hypoglycemia ) 15 - 30 gm PO UD PRN PRN Reason: Hypoglycemia Treatment Stop: 07/16/22 18:59 Miscellaneous Information (Pharmacy Glycemic Mgmt Consult) 1 each N/A UD PRN PRN Reason: Consult Stop: 07/16/22 17:25 Naloxone HCl (Naloxone Hcl 0.4 Mg/1 Ml Vial/Carp) 0.1 mg IV Q5M PRN PRN Reason: Oversedation/respiratory dep Stop: 07/16/22 17:25 Ondansetron HCl (Ondansetron Inj 2 Mg/Ml 2 Ml Vial) 4 mg IV Q6H PRN PRN Reason: Nausea &/or Vomiting Stop: 07/16/22 17:25 Ondansetron HCl (Ondansetron 4 Mg Od Tab) 4 mg PO Q6H PRN PRN Reason: Nausea Stop: 07/16/22 17:25 Oxycodone HCl (Oxycodone Hcl Ir 5 Mg Tab (Immediate Release)) 5 - 10 mg PO Q4H PRN PRN Reason: mod to severe pain Stop: 06/30/22 17:25 Last Admin: 06/17/22 07:35 Dose: 10 mg Pantoprazole Sodium (Pantoprazole 40 Mg Tab) 40 mg PO [id number] [facility] Stop: 07/17/22 16:59 Last Admin: 06/17/22 16:46 Dose: Not Given
[2022-06-18] MEDS: CARBIDOPA/LEVODOPA/ENTACAPONE PO SCH ×3 (07:30→16:11)
[2022-06-18] MEDS: PANTOprazole 40 MG TAB PO SCH ×2 (08:12→16:11)
[2022-06-18] MEDS: ASPIRIN 81 MG ECTAB PO SCH (08:13)
[2022-06-18] MEDS ORDERED: LANTUS PER UNIT CHARGE SQ SCH ×2 (09:00→10:00)
[2022-06-18] MEDS: SODIUM CHLORIDE 0.9% 1000ML 1,000 ML IV SCH ×2 (09:46→23:07)
[2022-06-18] MEDS: INSULIN ASPART PER UNIT SC SCH ×4 (09:47→21:21)
--- NOTE | 2022-06-18 12:11 | Orthopedic Progress Note ---
Date of Service June 18, 2022 Assessment & Plan (1) Lumbar compression fracture: Plan: Assessment L5 compression fracture. Plan I had a lengthy discussion today with the patient and his reviewing his CAT scan findings and potential treatment plan. Looks as though he has had further compression of the L5 vertebral fracture undoubtedly creating additional neural compression with weightbearing. This is also combined with evidence of loosening of the S1 pedicle screws bilaterally. Suspect she will require revision of instrumentation and decompression. Will most likely have to extend the construct to involve iliac bolts and possible cement in the S1 screws. This is reviewed in detail with the patient. We will plan for surgery in the next day or so. Admission and Anticipated Discharge Date Admission Date: June 16, 2022 Subjective Patient is comfortable lying supine. He does have significant left leg pain when trying to rotate in bed or stand. Physical Exam Physical Exam: On exam he does have continued reasonable strength testing lower extremities. He is comfortable supine. Results & Data ([facility]) Vital Signs (Past 12 Hours) Vital Signs Temp Pulse Resp BP Pulse Ox O2 Del Method 06/18/22 07:49 37.1 C 74 16 157/62 H 97 Room Air
[2022-06-18] MEDS ORDERED: bisacodyL 10 MG SUPP PR PRN (14:13)
--- NOTE | 2022-06-18 14:54 | Pharmacy Report ---
Pharmacy Glycemic Short Note 2 - Date of Service June 18, 2022 - Glycemic Short BSG Results (Last 24 hours): 06/17/22 06/17/22 06/17/22 16:06 17:01 20:28 POC Glucose 95 94 92 06/18/22 06/18/22 08:06 12:19 POC Glucose 246 H 274 H OUTPATIENT ANTIDIABETIC REGIMEN: * Humulin 70/30 - 55 units in the morning and 10-15 units in the evening * HbA1C = 7.3% (03/30/22) ASSESSMENT: 06/18/22 * Patient's BSGs yesterday were 132-186-95/94-92 mg/dL. * Patient received 28 units of insulin yesterday (15 units of basal and 13 units of bolus). * Per nursing report, patient felt hypoglycemic around 1500 yesterday (CGM read BSG in the 60s). Patient was symptomatic and treated. * BSGs today are 246-274 mg/dL. * Hesitant to increase insulin at this time. Hyperglycemia today may be due to overcorrect of hypoglycemia yesterday? Overnight checks added to see true 24 hour needs. * Per patient report, his BSGs are brittle at home. * Loosen Novolog to prevent overcorrection. BACKGROUND * Mr Daley is a 76 y/o M with a PMH of T1DM who presents with severe back pain. * BSGs on admission were 79-95-88 mg/dL. * Fasting today is 132 mg/dL - lunch 186 mg/dL. * As with previous consults, will utilize Lantus while inhouse. Start with Lantus 15 units daily. Previous data indicates 10 units is not sufficient but 18 units may be too aggressive. * Novolog weight-based stress of 2 for now. PLAN FOR INPATIENT GLYCEMIC CONTROL: * Basal insulin * Lantus 15 units SQ daily * Bolus insulin * NovoLog per scale ACHS or Q6hrs while NPO * Goal Range: Low 110 mg/dL - High 140 mg/dL * Correction Factor: 45 mg/dL/unit * Nutritional / Prandial insulin per carb ratio of 1 unit per 12 grams CHO consumed
[2022-06-18] MEDS: CARBIDOPA/LEVODOPA 50/200MG EXT REL TAB PO SCH (21:13)
[2022-06-18] MEDS: LOVASTATIN 20 MG TAB PO SCH (21:13)
[2022-06-19] MEDS ORDERED: INSULIN ASPART PER UNIT SC SCH
[2022-06-19] MEDS: INSULIN ASPART PER UNIT SC SCH ×6 (00:14→19:55)
[2022-06-19] MEDS: oxyCODONE HCL IR 5 MG TAB (IMMEDIATE RELEASE) PO PRN (07:25)
[2022-06-19] MEDS: CARBIDOPA/LEVODOPA/ENTACAPONE PO SCH ×3 (07:29→16:23)
[2022-06-19] MEDS: PANTOprazole 40 MG TAB PO SCH ×2 (07:45→16:23)
[2022-06-19] MEDS: ASPIRIN 81 MG ECTAB PO SCH (07:46)
--- NOTE | 2022-06-19 08:04 | Hospitalist Progress Note ---
Date of Service June 19, 2022 Assessment & Plan (1) Severe back pain: Plan: Radiculopathy History Neurogenic claudication due to lumbar spinal stenosis History lumbar surgery Pain control per ortho spine CT lumbar spine obtained IMPRESSION: 1. Postoperative changes of L3-L4 and L4-L5 discectomy with posterior interbody eder and screw fusion hardware at L2-S1. 2. Status post placement of cement material surrounding the bilateral L5 screws. 3. Acute superior endplate compression deformity at L5 demonstrates progressively worsened vertebral body height loss compared to the 05/20/2022 exam. No significant retropulsion. 4. Unchanged anterolisthesis L4 on L5. 5. Chronic peripherally calcified laminectomy bed fluid collection. Sterility cannot be determined by imaging alone. 6. Suboptimal evaluation of the central canal and neural foramina secondary to the artifact associated with the hardware. Imaging reviewed by Dr. Su, orthopedics, plan for revision fusion L4-S1 PT/OT when appropriate Further treatment per ortho spine (2) DM type 1 (diabetes mellitus, type 1): Plan: Follows with endocrine in [place] at [facility] On Humulin 70/30 at home A1c: 7.3 in 03/2022 Hold home Humulin 70/30 Glycemic pharmacist was consulted. Appreciate glycemic management assistance (3) CAD (coronary artery disease): Plan: S/P stent LAD in 1999 On aspirin (4) Parkinsons disease: Plan: Follows with [facility] neurology in [place] Continue carbidopa-levodopa; [id number] (5) Gastroparesis: (6) GERD (gastroesophageal reflux disease): Plan: Continue Protonix (7) HLD (hyperlipidemia): Plan: Continue lovastatin DVT Prophylaxis SCDs per ortho Disposition Follows with Eros CHAUDHRY in [place] for routine care Thank you for this consultation. We will follow the patient with you during their hospital stay. You can reach a member of the [facility] Hospitalist Team 01/01 via [email or web address] Admission and Anticipated Discharge Date Admission Date: June 16, 2022 Subjective Patient seen in follow-up of leg pain, recent lumbar spine surgery Currently laying in bed, in no acute distress While he is laying down still, not moving, he does not complain of pain No fevers chills chest pain shortness of breath, no abdominal pain nausea vomiting Plan for revision fusion L4 S1 Review of Systems Review of Systems: All systems reviewed & are unremarkable except as noted in Subjective Physical Exam Physical Exam: General: no distre ss, WDWN Head: nor mocephalic, atraum atic Eyes: conjunc tiva non-injected, anicteric ENT: no rmal inspection ex ternal ears, nose, mucous membranes moist Neck: supple , trachea midline Lungs: clear, no r espiratory distres s, no wheezing/rho nchi/rales CV: RRR , no murmur, no pr etibial edema Abd: normal BS, soft, non-tender Ext: no cyanosis, no calf tenderness; bilat eral pedal pushes and pulls intact, distal pulses inta ct, sensation to l ight touch intact Neuro: A&O x 3, n ormal affect, + bi lateral hand tremo r Skin: warm, dry Results & Data Results & Data ([facility]) Vital Signs (Past 12 Hours) Vital Signs Temp Pulse Resp BP Pulse Ox O2 Del Method 06/18/22 21:08 36.6 C 73 16 167/68 H 97 Room Air Medications Administered Current Inpatient Medications Acetaminophen (Acetaminophen 500 Mg Tab) 1,000 mg PO Q8H PRN PRN Reason: MILD Pain Scale 1,2,3 & Pre PT Stop: 07/16/22 17:25 Aspirin (Aspirin 81 Mg Ectab) 81 mg PO QAM [facility] Stop: 07/17/22 08:59 Last Admin: 06/19/22 07:46 Dose: Not Given Bisacodyl (Bisacodyl 10 Mg Supp) 10 mg [place] DAILY PRN PRN Reason: Constipation Stop: 07/18/22 14:12 Carbidopa/Levodopa (Carbidopa/Levodopa 50/200mg Ext Rel Tab) 1 tab PO HS [facility] Stop: 07/16/22 20:59 Last Admin: 06/18/22 21:13 Dose: 1 tab Carbidopa/Levodopa/Entacapone (Carbidopa/Levodopa/Entacapone) 1 each PO 0730,1130,1630 [facility] Stop: 07/17/22 07:29 Last Admin: 06/19/22 07:29 Dose: 1 each Dextrose (Dextrose 50% 50 Ml Syringe) 25 - 50 ml IV UD PRN; Protocol PRN Reason: Hypoglycemia Protocol Stop: 07/16/22 18:59 Glucagon (Glucagon For Inj 1 Mg Vial) 1 mg IM UD PRN; Protocol PRN Reason: Hypoglycemia Protocol Stop: 07/16/22 18:59 Glucose (Glucose 40% Gel 15 Gm Tube) 15 - 30 gm PO UD PRN; Protocol PRN Reason: Hypoglycemia Protocol Stop: 07/16/22 18:59 Glucose (Glucose 10 Tab/Tube) 4 - 8 tab PO UD PRN; Protocol PRN Reason: Hypoglycemia Protocol Stop: 07/16/22 18:59 Hydromorphone HCl (Hydromorphone Inj 0.5 Mg/0.5 Ml Syr) 0.5 mg IV Q3H PRN PRN Reason: MOD pain (scale 4-6) & Pre PT Stop: 06/30/22 17:25 Last Admin: 06/16/22 18:48 Dose: 0.5 mg Hydromorphone HCl (Hydromorphone Inj 1 Mg/Ml Syringe) 1 mg IV Q3H PRN PRN Reason: severe pain (scale 7-10) Stop: 06/30/22 17:25 Sodium Chloride (Nss 1000ml) 1,000 mls @ 75 mls/hr IV .[id number] [facility] Stop: 07/16/22 17:25 Last Admin: 06/18/22 23:07 Dose: 75 mls/hr Promethazine HCl 12.5 mg/ (Sodium Chloride) 50.5 mls @ 202 mls/hr IV Q6H PRN PRN Reason: Nausea &/or Vomiting Stop: 07/16/22 17:25 Insulin Aspart (Insulin Aspart Per Unit) 0 units SC Q4 [facility] Stop: 07/19/22 00:14 Last Admin: 06/19/22 04:07 Dose: Not Given Insulin Glargine (Lantus Per Unit Charge) 15 units SQ DAILY [facility] Stop: 07/18/22 09:59 Last Admin: 06/18/22 09:48 Dose: 15 units Lovastatin (Lovastatin 20 Mg Tab) 40 mg PO HS [facility] Stop: 07/16/22 20:59 Last Admin: 06/18/22 21:13 Dose: 40 mg Magnesium Hydroxide (Magnesium Hydroxide Susp 30 Ml Udc) 30 ml PO Q24H PRN PRN Reason: Constipation Stop: 07/16/22 17:25 Metoclopramide HCl (Metoclopramide Hcl Inj 5 Mg/Ml 2 Ml Vial) 10 mg IV Q6H PRN PRN Reason: Nausea &/or Vomiting Stop: 07/16/22 17:25 Miscellaneous (Carbohydrates For Hypoglycemia ) 15 - 30 gm PO UD PRN PRN Reason: Hypoglycemia Treatment Stop: 07/16/22 18:59 Miscellaneous Information (Pharmacy Glycemic Mgmt Consult) 1 each N/A UD PRN PRN Reason: Consult Stop: 07/16/22 17:25 Naloxone HCl (Naloxone Hcl 0.4 Mg/1 Ml Vial/Carp) 0.1 mg IV Q5M PRN PRN Reason: Oversedation/respiratory dep Stop: 07/16/22 17:25 Ondansetron HCl (Ondansetron Inj 2 Mg/Ml 2 Ml Vial) 4 mg IV Q6H PRN PRN Reason: Nausea &/or Vomiting Stop: 07/16/22 17:25 Ondansetron HCl (Ondansetron 4 Mg Od Tab) 4 mg PO Q6H PRN PRN Reason: Nausea Stop: 07/16/22 17:25 Oxycodone HCl (Oxycodone Hcl Ir 5 Mg Tab (Immediate Release)) 5 - 10 mg PO Q4H PRN PRN Reason: mod to severe pain Stop: 06/30/22 17:25 Last Admin: 06/19/22 07:25 Dose: 10 mg Pantoprazole Sodium (Pantoprazole 40 Mg Tab) 40 mg PO [id number] [facility] Stop: 07/17/22 16:59 Last Admin: 06/19/22 07:45 Dose: 40 mg
[2022-06-19] MEDS: SODIUM CHLORIDE 0.9% 1000ML 1,000 ML IV SCH (11:56)
[2022-06-19] MEDS ORDERED: LANTUS PER UNIT CHARGE SQ ONE (12:45)
--- NOTE | 2022-06-19 13:32 | Anesthesiology Consultation ---
Date of Service June 19, 2022 Assessment & Plan (1) Encounter for pre-operative examination: Chart Review Chart Review: Acceptable Risk for Surgery and Patient NOT seen in Pre Admission Testing Consults Requested none History Surgery Operation Date: 06/20/22 08:45 Proposed Procedures p Revision Fusion L4-S1 with Iliac Bolts - Festus Su DO Height/Weight Height: 5 ft 10 in Weight: 78.9 kg Allergies Allergy/AdvReac Type Severity Reaction Status Date / Time No Known Allergies Allergy Verified 06/16/22 15:00 Medications Home Medications Medication Instructions Recorded Confirmed Last Taken baclofen 10 mg tablet 10 mg PO TID PRN Pain 03/27/22 06/16/22 04/14/22 carbidopa 50 mg-levodopa 200 1 tab PO TID 03/27/22 06/16/22 06/16/22 11:30 mg-entacapone 200 mg tablet carbidopa ER 50 mg-levodopa 200 mg 1 tab PO HS 03/27/22 06/16/22 06/15/22 tablet,extended release insulin human U-100 NPH-regulr 10 - 30 unit subcut QPM 03/27/22 06/16/22 06/15/22 70-30 mix 100 unit/mL subcutaneous susp (Humulin 70/30 U-100 Insulin) insulin human U-100 NPH-regulr 55 unit subcut QAM 03/27/22 06/16/22 06/16/22 70-30 mix 100 unit/mL subcutaneous susp (Humulin 70/30 U-100 Insulin) lovastatin 40 mg tablet 40 mg PO HS 03/27/22 06/16/22 06/15/22 pantoprazole 40 mg tablet,delayed 40 mg PO BID 03/27/22 06/16/22 06/16/22 08:00 release (Protonix) oxycodone 5 mg tablet 5 mg PO Q6H PRN pain, severe #30 05/24/22 06/16/22 Unknown tabs tramadol 50 mg tablet 50 mg PO Q6H PRN pain, moderate 05/24/22 06/16/22 Unknown #30 tabs Active Medications Generic Name Dose Route Start Last Admin Trade Name Freq PRN Reason Stop Dose Admin Aspirin 81 mg 06/17/22 09:00 06/19/22 07:46 Aspirin 81 Mg Ectab PO 07/17/22 08:59 Not Given QAM [facility] Carbidopa/Levodopa 1 tab 06/16/22 21:00 06/18/22 21:13 Carbidopa/Levodopa 50/200mg Ext Rel Tab PO 07/16/22 20:59 1 tab HS [facility] Administration Carbidopa/Levodopa/Entacapone 1 each 06/17/22 07:30 06/19/22 11:55 Carbidopa/Levodopa/Entacapone PO 07/17/22 07:29 1 each 0730,1130,1630 [facility] Administration Hydromorphone HCl 0.5 mg 06/16/22 17:26 06/16/22 18:48 Hydromorphone Inj 0.5 Mg/0.5 Ml Syr IV 06/30/22 17:25 0.5 mg Q3H PRN Administration MOD pain (scale 4-6) & Pre PT Sodium Chloride 1,000 mls @ 75 mls/hr 06/16/22 17:26 06/19/22 11:56 Nss 1000ml IV 07/16/22 17:25 75 mls/hr .[id number] [facility] Administration Insulin Aspart 0 units 06/19/22 00:15 06/19/22 12:39 Insulin Aspart Per Unit SC 07/19/22 00:14 3 units Q4 [facility] Administration Insulin Glargine 15 units 06/18/22 10:00 06/18/22 09:48 Lantus Per Unit Charge SQ 07/18/22 09:59 15 units DAILY [facility] Administration Lovastatin 40 mg 06/16/22 21:00 06/18/22 21:13 Lovastatin 20 Mg Tab PO 07/16/22 20:59 40 mg HS [facility] Administration Oxycodone HCl 5 - 10 mg 06/16/22 17:26 06/19/22 07:25 Oxycodone Hcl Ir 5 Mg Tab (Immediate Release) PO 06/30/22 17:25 10 mg Q4H PRN Administration mod to severe pain Pantoprazole Sodium 40 mg 06/17/22 17:00 06/19/22 07:45 Pantoprazole 40 Mg Tab PO 07/17/22 16:59 40 mg [id number] [facility] Administration Past Medical History Medical History Anemia CAD (coronary artery disease) 1 stent, follows with [facility] DDD (degenerative disc disease) DM type 1 (diabetes mellitus, type 1) IDDM Gastroparesis GERD (gastroesophageal reflux disease) History of hypertension h/o orthostatic hypotension, follows with [facility]-pt reports infrequent episodes of lightheadedness without near syncope History of myocardial infarction 1999 HLD (hyperlipidemia) Parkinsons disease Past Family History Family History Other No significant family history Past Surgical History Surgical History History of ankle surgery Lt History of cardiac catheterization mult. 1 stent placed in 1999 with [place]. says most recent "few years ago" [facility]. History of carpal tunnel release of both wrists History of cholecystectomy History of colonoscopy History of esophagogastroduodenoscopy (EGD) History of heart artery stent x 1 (1999) History of tonsillectomy 05/22/22: I and D lumbar spine. GETA. MAC 3, grade 1 view. Social History Smoking Status: Former smoker tobacco type: cigarettes Hx Alcohol Use: No Alcohol type: beer and wine alcohol intake frequency: a few times a month Hx Substance Use: No substance use type: does not use Physical Exam Vital Signs Last Vital Signs Temp 36.5 C 06/19/22 08:09 Pulse 80 06/19/22 08:09 Resp 18 06/19/22 08:09 BP 157/68 H 06/19/22 08:09 Pulse Ox 96 06/19/22 08:09 O2 Del Method 06/19/22 08:09 Testing Laboratory Results 06/17/22 09:20 06/17/22 09:20 06/19/22 06/19/22 06/19/22 12:02 08:17 03:59 POC Glucose 240 H 178 H 112 H Electrocardiogram Electrocardiogram Date: 01/03/22 Findings: + NSR @ (73) Other Testing "unremarkable" echo and carotid duplex as described in cardiology note 02/14/22.
--- NOTE | 2022-06-19 14:08 | Pharmacy Report ---
Pharmacy Glycemic Short Note 2 - Date of Service June 19, 2022 - Glycemic Short BSG Results (Last 24 hours): 06/18/22 06/18/22 06/18/22 17:11 20:41 23:06 POC Glucose 208 H 221 H 101 H 06/19/22 06/19/22 06/19/22 00:01 03:59 08:17 POC Glucose 101 H 112 H 178 H 06/19/22 12:02 POC Glucose 240 H OUTPATIENT ANTIDIABETIC REGIMEN: * Humulin 70/30 - 55 units in the morning and 10-15 units in the evening * HbA1C = 7.3% (03/30/22) ASSESSMENT: 06/19/22 * Yesterday, patient BSG's were 212-855-407-221 mg/dL. Overnight checks rendered values of 101 and 112 mg/dL. * Fasting BSG of 178mg/dL recorded today, at which the patient refused novolog for carb coverage and correction to goal. At lunch, BSG was elevated at 240 mg/dL. * The patient's ordered diet was adjusted to NPO for an anticipated surgery tomorrow, 06/20/22. Monitor for addition of steroids post-op. * Lantus dose to be reduced with additional overnight checks (Q4H bolus dosing) as safety precautions. Reevaluate to be reevaluated Lantus tomorrow. 06/18/22 * Patient's BSGs yesterday were 132-186-95/94-92 mg/dL. * Patient received 28 units of insulin yesterday (15 units of basal and 13 units of bolus). * Per nursing report, patient felt hypoglycemic around 1500 yesterday (CGM read BSG in the 60s). Patient was symptomatic and treated. * BSGs today are 246-274 mg/dL. * Hesitant to increase insulin at this time. Hyperglycemia today may be due to overcorrect of hypoglycemia yesterday? Overnight checks added to see true 24 hour needs. * Per patient report, his BSGs are brittle at home. * Loosen Novolog to prevent overcorrection. BACKGROUND * Mr Daley is a 76 y/o M with a PMH of T1DM who presents with severe back pain. * BSGs on admission were 79-95-88 mg/dL. * Fasting today is 132 mg/dL - lunch 186 mg/dL. * As with previous consults, will utilize Lantus while inhouse. Start with Lantus 15 units daily. Previous data indicates 10 units is not sufficient but 18 units may be too aggressive. * Novolog weight-based stress of 2 for now. PLAN FOR INPATIENT GLYCEMIC CONTROL: * Basal insulin * Lantus 10 units SQ daily * Bolus insulin * NovoLog per scale ACHS or Q6hrs while NPO * Goal Range: Low 110 mg/dL - High 140 mg/dL * Correction Factor: 45 mg/dL/unit * Nutritional / Prandial insulin per carb ratio of 1 unit per 12 grams CHO consumed
--- NOTE | 2022-06-19 14:38 | Orthopedic Progress Note ---
Date of Service June 19, 2022 Assessment & Plan (1) Lumbar compression fracture: Plan: At this time we will make him n.p.o. after midnight and plan for surgery tomorrow. Admission and Anticipated Discharge Date Admission Date: June 16, 2022 Subjective Patient continues to have left leg pain with any standing or weightbearing. He is comfortable supine. Physical Exam Physical Exam: Patient is lying supine in bed. Is excellent strength testing. Results & Data ([facility]) Vital Signs (Past 12 Hours) Vital Signs Temp Pulse Resp BP BP Pulse Ox O2 Del Method 06/19/22 14:08 36.3 C L 70 18 149/70 H 97 Room Air 06/19/22 08:09 36.5 C 80 18 157/68 H 96 Room Air
[2022-06-19] MEDS: LOVASTATIN 20 MG TAB PO SCH (20:26)
[2022-06-19] MEDS: CARBIDOPA/LEVODOPA 50/200MG EXT REL TAB PO SCH (20:27)
[2022-06-20] MEDS: INSULIN ASPART PER UNIT SC SCH ×7 (00:10→20:56)
[2022-06-20] MEDS: SODIUM CHLORIDE 0.9% 1000ML 1,000 ML IV SCH ×3 (01:40→22:48)
[2022-06-20] MEDS: CARBIDOPA/LEVODOPA/ENTACAPONE PO SCH ×3 (06:22→16:11)
[2022-06-20] MEDS: ASPIRIN 81 MG ECTAB PO SCH (07:30)
--- NOTE | 2022-06-20 07:54 | History & Physical Bridge Note ---
Date of Service June 20, 2022 History & Physical Bridge Note I have examined the patient, reviewed the History & Physical and in the interval since the performance of the History & Physical I have noted the following changes of clinical significance: no changes noted Revision fusion L4-L5 with iliac bolts
[2022-06-20] MEDS ORDERED: ceFAZolin 2000MG 2,000 MG/15 ML SYR IV ONE (07:57)
[2022-06-20] MEDS ORDERED: ceFAZolin 2,000 MG/15 ML IV PUSH IV ONE (08:01)
[2022-06-20] MEDS ORDERED: NEOSTIGMINE METHYLSULFATE 1 MG/ML 10ML VIAL ONE (08:18)
[2022-06-20] MEDS ORDERED: PROPOFOL IV EMULSION 10 MG/ML 20 ML VIAL IV ONE (08:18)
[2022-06-20] MEDS ORDERED: fentaNYL citrate 100 MCG/2 ML VIAL ONE (08:18)
[2022-06-20] MEDS ORDERED: GLYCOPYRROLATE 0.2 MG/ML VIAL ONE (08:18)
[2022-06-20] MEDS ORDERED: ONDANSETRON INJ 2 MG/ML 2 ML VIAL ONE (08:18)
[2022-06-20] MEDS ORDERED: DEXAMETHASONE SOD INJ 4 MG/ML VIAL ONE (08:18)
[2022-06-20] MEDS ORDERED: BUPIVACAINE/EPINEPHRINE 0.25% 1:200,000 30 ML VIAL ONE (08:44)
[2022-06-20] MEDS ORDERED: ceFAZolin 330 MG/ML 1 GM VIAL ONE (08:45)
[2022-06-20] MEDS ORDERED: ROCURONIUM BROMIDE 10 MG/ML 5 ML VIAL IV ONE (08:48)
[2022-06-20] MEDS ORDERED: LIDOCAINE 2% MPF LOCAL 5 ML VIAL INFIL ONE (08:48)
[2022-06-20] MEDS ORDERED: FLUMAZENIL 0.1 MG/1 ML 10 ML VIAL IV PRN (09:34)
[2022-06-20] MEDS ORDERED: ePHEDrine sulfate 50 MG/ML AMP IV PRN (09:34)
[2022-06-20] MEDS ORDERED: fentaNYL citrate 100 MCG/2 ML VIAL IV PRN (09:34)
[2022-06-20] MEDS ORDERED: NALOXONE HCL 0.4 MG/1 ML VIAL/CARP IV PRN ×2 (09:34→12:33)
[2022-06-20] MEDS ORDERED: LABETALOL HCL IV 5 MG/ML 20ML IV PRN (09:34)
[2022-06-20] MEDS ORDERED: ATROPINE SULFATE 0.1 MG/ML 10ML SYR IV PRN (09:34)
[2022-06-20] MEDS ORDERED: ONDANSETRON INJ 2 MG/ML 2 ML VIAL IV PRN ×2 (09:34→12:33)
[2022-06-20] MEDS ORDERED: HYDROmorphone INJ 1 MG/ML SYRINGE IV PRN ×2 (09:34→12:33)
[2022-06-20] MEDS ORDERED: PROMETHAZINE HCL 12.5 MG in SODIUM CHLORIDE 0.9% 50 ML IV PRN ×2 (09:34→12:33)
[2022-06-20] MEDS ORDERED: VANCOMYCIN HCL 1000MG/20ML VIAL ONE (09:45)
[2022-06-20] MEDS ORDERED: GENTAMICIN SULFATE 40 MG/ML 2 ML VIAL ONE (09:45)
[2022-06-20] MEDS ORDERED: FLOSEAL HEMOSTATIC MATRIX 10ML TOP ONE (10:22)
[2022-06-20] MEDS ORDERED: ePHEDrine sulfate 50 MG/ML SYR ONE (10:23)
[2022-06-20] MEDS ORDERED: PHENYLEPHRINE HCL 10 MG/ML VIAL ONE (10:23)
--- NOTE | 2022-06-20 11:09 | Operative Report ---
Post Operative Report Pre & Post Diagnosis Operation Date: 06/20/22 08:45 Pre-Op Diagnosis: L5 compression fracture with radiculopathy Post-Op Diagnosis: Same I identified the patient and participated in the time-out.: Yes Procedure Operation Date: 06/20/22 08:45 Actual Procedures #1 removal of posterior instrumentation including rods L5 and S1 pedicle screws. #2 revision decompression L4-L5. #3 placement of bilateral iliac bolts. #4 bilateral open SI joint fusions. #5 kyphoplasty of L5 and S1 vertebral bodies. #6 placement infuse collagen sponge, and master graft in the bilateral SI joints and posterior gutters L4-S1. #7 placement of vancomycin gentamicin impregnated stimulant beads throughout the incision. Surgeon Festus Su, Vertical Contour Band Saw Operator June Fall Estimated Blood Loss 250 Findings Consistent with Post-Op Diagnosis Specimens Cultures epidural space Indications This is a 76-year-old male known to me the presents with marked decline in status over the past several days. He is unable to ambulate secondary to severe radiculopathy. Description of Procedure Patient was met with identified informed consent obtained. Patient was then taken to the operative suite underwent a patient placed in a prone position the [place] table top Jose A frame. All bony prominences well-padded eyes inspected to ensure no external pressure placed upon the. This point the lumbar spine was prepped and draped no sterile fashion. Sharp dissection with assistance of bradycardia from down to and exposing the instrumentation from L2-S1. I then proceeded to remove the end caps and rods. The L5 pedicle screw was loose and able to be removed on the left. The bilateral S1 pedicle screws were clearly loose to be able to removed without difficulty. I then placed a Kyphon balloon within the L5 vertebral body by way of the left pedicle inflated with fluoroscopic visualization subsequently removed and injected approximately 4-1/2 cc of cement into the L5 vertebral body. This was followed by placing a eight 5 x 45 mm screw into the left L5 pedicle. And then placed a balloon in the S1 pedicle on the left inflated subsequently removed and injected another 4-1/2 cc into the left side of the S1 vertebral body followed by an eight 5 x 45 pedicle screw. I also placed a balloon in the right S1 pedicle inflated with fluoroscopic visualization also followed this with another 4-1/2 cc of cement and an 01/13/1947 screw. After the screws were placed I performed a revision decompression L4-L5 to ensure all fragments were removed from the canal. Bilateral iliac bolts were then placed with fluoroscopic assistance. I then burred out the bilateral SI joints. The proper size rods were then contoured and locked in position bilaterally. Then placed infuse collagen sponge by master graft in the bilateral SI joints and posterior lateral gutters from from L4-S1 bilaterally. A cross-link was then locked into position. Then placed approximately 10 cc of stimulant beads impregnated with vancomycin gentamicin throughout the incision. 10 round HELDER drain inserted. The incision was then closed with 1 Vicryl the fascia 2-0 Vicryl subcutaneously and 4 Monocryl for fascial closure. Steri-Strips dressings placed. Patient awakened and taken to PACU in stable condition. Please note June Fall was present at the entire procedure and all the patient positioning complex portions of the surgery and fascial closure. Lastly spinal cord monitoring was utilized at the procedure no changes noted. I attest to the content of the Intraoperative Record and any orders documented therein. Any exceptions are noted below.
--- NOTE | 2022-06-20 11:38 | Fluoroscopy Report ---
FL lumbar spine 2-3V CLINICAL HISTORY: REVISION L4-S1 W/ILIAC BOLTS TECHNIQUE: 4 views were obtained with the C-arm in the OR with the above procedure. Total fluoroscopy time was 57.7 seconds. Radiation dose was 31.72 mGy. Comparison: Comparison is made to CT lumbar spine 06/17/2022 FINDINGS/IMPRESSION: Intraoperative images were obtained of L4-S1 hardware removal and L2-S1 discecto my and fusion. Please correlate with intraoperative fluoroscopy and operative report. ACT 112: Negative or not required by law. Electronically signed by: Yossi Palacios M.D. 06/20/2022 11:37 AM
--- NOTE | 2022-06-20 11:53 | Hospitalist Progress Note ---
Date of Service June 20, 2022 Assessment & Plan (1) Severe back pain: Plan: Radiculopathy History Neurogenic claudication due to lumbar spinal stenosis History lumbar surgery Pain control per ortho spine CT lumbar spine obtained IMPRESSION: 1. Postoperative changes of L3-L4 and L4-L5 discectomy with posterior interbody eder and screw fusion hardware at L2-S1. 2. Status post placement of cement material surrounding the bilateral L5 screws. 3. Acute superior endplate compression deformity at L5 demonstrates progressively worsened vertebral body height loss compared to the 05/20/2022 exam. No significant retropulsion. 4. Unchanged anterolisthesis L4 on L5. 5. Chronic peripherally calcified laminectomy bed fluid collection. Sterility cannot be determined by imaging alone. 6. Suboptimal evaluation of the central canal and neural foramina secondary to the artifact associated with the hardware. Now status post revision of L4 S1 (06/20/22) Further treatment per ortho spine Pain management, DVT ppx per orthopedics PT/OT when appropriate (2) DM type 1 (diabetes mellitus, type 1): Plan: Follows with endocrine in [place] at [facility] On Humulin 70/30 at home A1c: 7.3 in 03/2022 Hold home Humulin 70/30 Glycemic pharmacist was consulted. Appreciate glycemic management assistance (3) CAD (coronary artery disease): Plan: S/P stent LAD in 1999 On aspirin (4) Parkinsons disease: Plan: Follows with [facility] neurology in [place] Continue carbidopa-levodopa; [id number] (5) Gastroparesis: (6) GERD (gastroesophageal reflux disease): Plan: Continue Protonix (7) HLD (hyperlipidemia): Plan: Continue lovastatin DVT Prophylaxis SCDs per ortho Disposition Follows with [facility]AUD[facility] in [place] for routine care Thank you for this consultation. We will follow the patient with you during their hospital stay. You can [facility]/01 via [employer] Admission and Anticipated Discharge Date Admission Date: June 16, 2022 Subjective Patient seen in follow-up of leg pain, recent lumbar spine surgery, now status post L4 S1 revision Currently laying in bed, in no acute distress No fevers chills chest pain shortness of breath, no abdominal pain nausea vomiting Reports back pain after surgery Patient's is at the bedside Review of Systems Review of Systems: All systems reviewed & are unremarkable except as noted in Subjective Physical Exam Physical Exam: General: no distre ss, WDWN Head: nor mocephalic, atraum atic Eyes: conjunc tiva non-injected, anicteric ENT: no rmal inspection ex ternal ears, nose, mucous membranes moist Neck: supple , trachea midline Lungs: clear, no r espiratory distres s, no wheezing/rho nchi/rales CV: RRR , no murmur, no pr etibial edema Abd: normal BS, soft, non-tender Ext: no cyanosis, no calf tenderness; bilat eral pedal pushes and pulls intact, distal pulses inta ct, sensation to l ight touch intact Neuro: A&O x 3, n ormal affect, + bi lateral hand tremo r Skin: warm, dry Results & Data Results & Data ([facility]) Vital Signs (Past 12 Hours) Vital Signs Temp Pulse Pulse Pulse Resp BP Pulse Ox 06/20/22 11:29 36.5 C 89 14 118/41 L 100 06/20/22 07:51 36.7 C 75 75 18 180/63 H 95 06/20/22 07:30 36.6 C 78 18 181/77 H 96 O2 Del Method 06/20/22 11:29 Room Air 06/20/22 07:51 Room Air 06/20/22 07:30 Room Air Medications Administered Current Inpatient Medications Acetaminophen (Acetaminophen 500 Mg Tab) 1,000 mg PO Q8H PRN PRN Reason: MILD Pain Scale 1,2,3 & Pre PT Stop: 07/16/22 17:25 Aspirin (Aspirin 81 Mg Ectab) 81 mg PO QAM EVETTE Stop: 07/17/22 08:59 Last Admin: 06/19/22 07:46 Dose: Not Given Atropine Sulfate (Atropine Sulfate 0.1 Mg/Ml 10ml Syr) 0.5 mg IV Q1M PRN PRN Reason: PACU Use-HR<40 &/or Bradycardi Stop: 06/20/22 17:34 Bisacodyl (Bisacodyl 10 Mg Supp) 10 mg AK DAILY PRN PRN Reason: Constipation Stop: 07/18/22 14:12 Carbidopa/Levodopa (Carbidopa/Levodopa 50/200mg Ext Rel Tab) 1 tab PO HS [facility] Stop: 07/16/22 20:59 Last Admin: 06/19/22 20:27 Dose: 1 tab Carbidopa/Levodopa/Entacapone (Carbidopa/Levodopa/Entacapone) 1 each PO 0730,1130,1630 EVETTE Stop: 07/17/22 07:29 Last Admin: 06/20/22 06:22 Dose: 1 each Dextrose (Dextrose 50% 50 Ml Syringe) 25 - 50 ml IV UD PRN; Protocol PRN Reason: Hypoglycemia Protocol Stop: 07/16/22 18:59 Ephedrine Sulfate (Ephedrine Sulfate 50 Mg/Ml Amp) 5 mg IV Q5M PRN PRN Reason: PACU Use Only-SBP<90 mmHg Stop: 06/20/22 17:34 Fentanyl Citrate (Fentanyl Citrate 100 Mcg/2 Ml Vial) 25 mcg IV Q5M PRN PRN Reason: PACU Use Only-Pain Stop: 06/20/22 17:34 Flumazenil (Flumazenil 0.1 Mg/1 Ml 10 Ml Vial) 0.2 mg IV Q2M PRN PRN Reason: PACU Use Only-Benzo Reversal Stop: 06/20/22 17:34 Glucagon (Glucagon For Inj 1 Mg Vial) 1 mg IM UD PRN; Protocol PRN Reason: Hypoglycemia Protocol Stop: 07/16/22 18:59 Glucose (Glucose 40% Gel 15 Gm Tube) 15 - 30 gm PO UD PRN; Protocol PRN Reason: Hypoglycemia Protocol Stop: 07/16/22 18:59 Glucose (Glucose 10 Tab/Tube) 4 - 8 tab PO UD PRN; Protocol PRN Reason: Hypoglycemia Protocol Stop: 07/16/22 18:59 Hydromorphone HCl (Hydromorphone Inj 0.5 Mg/0.5 Ml Syr) 0.5 mg IV Q3H PRN PRN Reason: MOD pain (scale 4-6) & Pre PT Stop: 06/30/22 17:25 Last Admin: 06/16/22 18:48 Dose: 0.5 mg Hydromorphone HCl (Hydromorphone Inj 1 Mg/Ml Syringe) 1 mg IV Q3H PRN PRN Reason: severe pain (scale 7-10) Stop: 06/30/22 17:25 Hydromorphone HCl (Hydromorphone Inj 1 Mg/Ml Syringe) 0.25 mg IV Q5M PRN PRN Reason: PACU Use Only-Pain Stop: 06/20/22 17:34 Sodium Chloride (Nss 1000ml) 1,000 mls @ 75 mls/hr IV .[id number] EVETTE Stop: 07/16/22 17:25 Last Admin: 06/20/22 01:40 Dose: 75 mls/hr Promethazine HCl 12.5 mg/ (Sodium Chloride) 50.5 mls @ 202 mls/hr IV Q6H PRN PRN Reason: Nausea &/or Vomiting Stop: 07/16/22 17:25 Promethazine HCl 12.5 mg/ (Sodium Chloride) 50.5 mls @ 204 mls/hr IV ONCE PRN PRN Reason: PACU Use Only-Nausea/Vomiting Stop: 06/20/22 17:34 Insulin Aspart (Insulin Aspart Per Unit) 0 units SC Q4 EVETTE Stop: 07/19/22 00:14 Last Admin: 06/20/22 07:30 Dose: Not Given Labetalol HCl (Labetalol Hcl Iv 5 Mg/Ml 20ml) 5 mg IV Q5M PRN PRN Reason: PACU Use-SBP>160 or DBP>100 Stop: 06/20/22 17:34 Lovastatin (Lovastatin 20 Mg Tab) 40 mg PO HS [facility] Stop: 07/16/22 20:59 Last Admin: 06/19/22 20:26 Dose: 40 mg Magnesium Hydroxide (Magnesium Hydroxide Susp 30 Ml Udc) 30 ml PO Q24H PRN PRN Reason: Constipation Stop: 07/16/22 17:25 Metoclopramide HCl (Metoclopramide Hcl Inj 5 Mg/Ml 2 Ml Vial) 10 mg IV Q6H PRN PRN Reason: Nausea &/or Vomiting Stop: 07/16/22 17:25 Miscellaneous (Carbohydrates For Hypoglycemia ) 15 - 30 gm PO UD PRN PRN Reason: Hypoglycemia Treatment Stop: 07/16/22 18:59 Miscellaneous Information (Pharmacy Glycemic Mgmt Consult) 1 each N/A UD PRN PRN Reason: Consult Stop: 07/16/22 17:25 Naloxone HCl (Naloxone Hcl 0.4 Mg/1 Ml Vial/Carp) 0.1 mg IV Q5M PRN PRN Reason: Oversedation/respiratory dep Stop: 07/16/22 17:25 Naloxone HCl (Naloxone Hcl 0.4 Mg/1 Ml Vial/Carp) 0.2 mg IV Q2M PRN PRN Reason: PACU Use Only-Opiate Reversal Stop: 06/20/22 17:34 Ondansetron HCl (Ondansetron Inj 2 Mg/Ml 2 Ml Vial) 4 mg IV Q6H PRN PRN Reason: Nausea &/or Vomiting Stop: 07/16/22 17:25 Ondansetron HCl (Ondansetron 4 Mg Od Tab) 4 mg PO Q6H PRN PRN Reason: Nausea Stop: 07/16/22 17:25 Ondansetron HCl (Ondansetron Inj 2 Mg/Ml 2 Ml Vial) 4 mg IV ONCE PRN PRN Reason: PACU Use Only-Nausea/Vomiting Stop: 06/20/22 17:34 Oxycodone HCl (Oxycodone Hcl Ir 5 Mg Tab (Immediate Release)) 5 - 10 mg PO Q4H PRN PRN Reason: mod to severe pain Stop: 06/30/22 17:25 Last Admin: 06/19/22 07:25 Dose: 10 mg Pantoprazole Sodium (Pantoprazole 40 Mg Tab) 40 mg PO [id number] [facility] Stop: 07/17/22 16:59 Last Admin: 06/19/22 16:23 Dose: 40 mg
--- NOTE | 2022-06-20 12:10 | Anesthesiology Progress Note ---
Date of Service June 20, 2022 Anesthesia Post Procedure Vital Signs Vital Signs: Temp Pulse Pulse Pulse Resp BP BP 06/20/22 11:45 83 12 114/41 L 06/20/22 11:35 83 12 123/46 L 06/20/22 11:29 36.5 C 89 14 118/41 L 06/20/22 07:51 36.7 C 75 75 18 180/63 H 06/20/22 07:30 36.6 C 78 18 181/77 H 06/19/22 21:49 36.8 C 70 16 167/68 H 06/19/22 14:08 36.3 C L 70 18 149/70 H Pulse Ox O2 Del Method 06/20/22 11:45 97 Room Air 06/20/22 11:35 99 Room Air 06/20/22 11:29 100 Room Air 06/20/22 07:51 95 Room Air 06/20/22 07:30 96 Room Air 06/19/22 21:49 96 Room Air 06/19/22 14:08 97 Room Air Transfer of Care Handoff Completed per policy Notes Mental Status: alert / awake / arousable Patient Amnestic to Procedure: Yes Nausea / Vomiting: adequately controlled Pain: adequately controlled Airway Patency, RR, SpO2: stable & adequate BP & HR: stable & adequate Hydration State: stable & adequate Anesthetic Complications: no major complications apparent
[2022-06-20] MEDS ORDERED: PHARMACY GLYCEMIC MGMT CONSULT PRN (12:33)
[2022-06-20] MEDS ORDERED: ALUMINUM/MAGNESIUM SUSP 30 ML UDC PO PRN (12:33)
[2022-06-20] MEDS ORDERED: SOD PHOSPHATE/SOD BIPHOSPHATE ENEMA 132 ML BTL PR PRN (12:33)
[2022-06-20] MEDS ORDERED: MAGNESIUM HYDROXIDE SUSP 30 ML UDC PO PRN (12:33)
[2022-06-20] MEDS ORDERED: ACETAMINOPHEN 500 MG TAB PO PRN (12:33)
[2022-06-20] MEDS ORDERED: ACETAMINOPHEN 1,000 MG/100 ML VIAL IV PRN (12:33)
[2022-06-20] MEDS ORDERED: ONDANSETRON 4 MG OD TAB PO PRN (12:33)
[2022-06-20] MEDS ORDERED: FAMOTIDINE 20 MG TAB PO PRN (12:33)
[2022-06-20] MEDS ORDERED: HYDROmorphone INJ 0.5 MG/0.5 ML SYR IV PRN (12:33)
[2022-06-20] MEDS ORDERED: LORazepam 0.5 MG TAB PO PRN (12:33)
[2022-06-20] MEDS ORDERED: DO NOT ADMINISTER PNEUMOCOCCAL VACCINE PRN (12:33)
[2022-06-20] MEDS ORDERED: diphenhydrAMINE Capsule 25 MG CAP PO PRN (12:33)
[2022-06-20] MEDS ORDERED: LORazepam 2 MG/1 ML VIAL IV PRN (12:33)
[2022-06-20] MEDS ORDERED: METOCLOPRAMIDE HCL INJ 5 MG/ML 2 ML VIAL IV PRN (12:33)
[2022-06-20] MEDS ORDERED: hydrOXYzine HCl 25 MG TAB PO PRN (12:33)
[2022-06-20] MEDS ORDERED: DO NOT ADMINISTER FLU VACCINE PRN (12:33)
[2022-06-20] MEDS ORDERED: bisacodyL 10 MG SUPP PR PRN (12:33)
[2022-06-20] MEDS: PANTOprazole 40 MG TAB PO SCH ×2 (13:11→16:11)
[2022-06-20] MEDS ORDERED: GLUCAGON FOR INJ 1 MG VIAL IM PRN (13:15)
[2022-06-20] MEDS ORDERED: LANTUS PER UNIT CHARGE SQ ONE (13:15)
[2022-06-20] MEDS ORDERED: CARBOHYDRATES FOR HYPOGLYCEMIA PO PRN (13:15)
[2022-06-20] MEDS ORDERED: GLUCOSE 40% GEL 15 GM TUBE PO PRN (13:15)
[2022-06-20] MEDS ORDERED: GLUCOSE 10 TAB/TUBE PO PRN (13:15)
[2022-06-20] MEDS ORDERED: DEXTROSE 50% 50 ML SYRINGE IV PRN (13:15)
[2022-06-20] MEDS ORDERED: NovoLIN-N (NPH) PER UNIT CHARGE SQ ONE (13:45)
--- NOTE | 2022-06-20 14:00 | Pharmacy Report ---
Pharmacy Glycemic Short Note 2 - Date of Service June 20, 2022 - Glycemic Short BSG Results (Last 24 hours): 06/19/22 06/20/22 06/20/22 17:13 00:01 03:59 POC Glucose 249 H 184 H 214 H 06/20/22 06/20/22 06/20/22 07:26 11:31 13:30 POC Glucose 127 H 189 H 217 H OUTPATIENT ANTIDIABETIC REGIMEN: * Humulin 70/30 - 55 units in the morning and 10-15 units in the evening * HbA1C = 7.3% (03/30/22) ASSESSMENT: 06/20/22: * POD #0 s/p revision fusion L4-S1 (original surgery 04/17/22) * Received 4 mg IV dexamethasone in OR, now ordered 6 mg IV daily ongoing * Recent admission last month, patient received NPH + Lantus + aggressive Novolog parameters while on dexamethasone * Will give slightly more conservative initial regimen today and can tighten tomorrow if necessary * Diet ordered postoperatively 06/19/22 * Yesterday, patient BSG's were [phone] mg/dL. Overnight checks rendered values of 101 and 112 mg/dL. * Fasting BSG of 178mg/dL recorded today, at which the patient refused novolog for carb coverage and correction to goal. At lunch, BSG was elevated at 240 mg/dL. * The patient's ordered diet was adjusted to NPO for an anticipated surgery tomorrow, 06/20/22. Monitor for addition of steroids post-op. * Lantus dose to be reduced with additional overnight checks (Q4H bolus dosing) as safety precautions. Reevaluate to be reevaluated Lantus tomorrow. 06/18/22 * Patient's BSGs yesterday were 132-186-95/94-92 mg/dL. * Patient received 28 units of insulin yesterday (15 units of basal and 13 units of bolus). * Per nursing report, patient felt hypoglycemic around 1500 yesterday (CGM read BSG in the 60s). Patient was symptomatic and treated. * BSGs today are 246-274 mg/dL. * Hesitant to increase insulin at this time. Hyperglycemia today may be due to overcorrect of hypoglycemia yesterday? Overnight checks added to see true 24 hour needs. * Per patient report, his BSGs are brittle at home. * Loosen Novolog to prevent overcorrection. BACKGROUND * Mr Edi is a 76 y/o M with a PMH of T1DM who presents with severe back pain. * BSGs on admission were 79-95-88 mg/dL. * Fasting today is 132 mg/dL - lunch 186 mg/dL. * As with previous consults, will utilize Lantus while inhouse. Start with Lantus 15 units daily. Previous data indicates 10 units is not sufficient but 18 units may be too aggressive. * Novolog weight-based stress of 2 for now. PLAN FOR INPATIENT GLYCEMIC CONTROL: * Basal insulin * Lantus 15 units SQ daily * NPH 10 units SC x 1 to cover IV dexamethasone * Reassess in AM * Bolus insulin * NovoLog per scale ACHS or Q6hrs while NPO * Goal Range: Low 110 mg/dL - High 140 mg/dL * Correction Factor: 25 mg/dL/unit * Nutritional / Prandial insulin per carb ratio of 1 unit per 8 grams CHO consumed
[2022-06-20] MEDS: oxyCODONE HCL IR 5 MG TAB (IMMEDIATE RELEASE) PO PRN ×2 (16:07→20:59)
[2022-06-20] MEDS: ceFAZolin 2000MG 2,000 MG/15 ML SYR IV SCH (16:11)
[2022-06-20] MEDS: traMADol HCL 50 MG TABLET PO PRN (19:39)
[2022-06-20] MEDS: DOCUSATE SODIUM/SENNA 50/8.6MG TAB PO SCH (20:00)
[2022-06-20] MEDS: CARBIDOPA/LEVODOPA 50/200MG EXT REL TAB PO SCH (20:00)
[2022-06-20] MEDS: LOVASTATIN 20 MG TAB PO SCH (20:00)
[2022-06-21] MEDS: ceFAZolin 2000MG 2,000 MG/15 ML SYR IV SCH (00:17)
[2022-06-21] MEDS: INSULIN ASPART PER UNIT SC SCH ×6 (00:58→21:39)
[2022-06-21] MEDS: traMADol HCL 50 MG TABLET PO PRN (04:50)
[2022-06-21] MEDS: POLYETHYLENE (MIRALAX) 17 GM PACK PO SCH ×3 (05:44→18:11)
[2022-06-21] MEDS: CARBIDOPA/LEVODOPA/ENTACAPONE PO SCH ×3 (07:33→16:20)
[2022-06-21] MEDS: oxyCODONE HCL IR 5 MG TAB (IMMEDIATE RELEASE) PO PRN ×2 (07:37→22:17)
[2022-06-21] MEDS: PANTOprazole 40 MG TAB PO SCH ×2 (07:38→16:20)
[2022-06-21] MEDS: ASPIRIN 81 MG ECTAB PO SCH (07:38)
[2022-06-21] MEDS: SODIUM CHLORIDE 0.9% 1000ML 1,000 ML IV SCH (07:47)
[2022-06-21 08:08] LABS: Basophils # (auto) 0.03 K/uL (0-0.2); Basophils % (auto) 0.3 %; Eosinophils # (auto) 0.04 K/uL (0-0.50); Eosinophils % (auto) 0.4 %; Hematocrit (blood only) 28.5 % (40.1-51.0); Hemoglobin 9.6 g/dl (14.0-18.0); Immature Granulocytes # (auto) 0.06 K/uL (0.00-0.02); Immature Granulocytes % (auto) 0.5 %; Lymphocytes # (auto) 0.65 K/uL (1.2-3.4); Lymphocytes % (auto) 5.7 %; Mean Corpuscular Hemoglobin 29.2 pg (25.0-34.0); Mean Corpuscular Hgb Conc 33.7 g/dL (32.0-36.0); Mean Corpuscular Volume 86.6 fL (80.0-100.0); Mean Platelet Volume 9.3 fL (9.4-12.4); Monocytes # (auto) 1.01 K/uL (0.24-0.82); Monocytes % (auto) 8.9 %; Neutrophils # (auto) 9.61 K/uL (1.4-6.5); Neutrophils % (auto) 84.2 %; Platelet Count 205 K/uL (130-400); RDW Coefficient of Variation 13.1 % (11.5-14.5); RDW Standard Deviation 41.4 fL (36.4-46.3); Red Blood Count 3.29 M/uL (4.63-6.08)
[2022-06-21 08:36] LABS: BUN Creatinine Ratio 18.4 (10-20); Creatinine Clr Calc Pharmacy 82.7 ml/min; Est GFR (African American) 101.3 ml/min; Est GFR (Non-African American) 87.4 ml/min
[2022-06-21] MEDS ORDERED: LANTUS PER UNIT CHARGE SQ SCH (09:00)
[2022-06-21] MEDS ORDERED: NovoLIN-N (NPH) PER UNIT CHARGE SQ SCH ×2 (09:00→09:15)
[2022-06-21] MEDS: dexAMETHasone 6 MG in SYRINGE 0 ML IV SCH (09:23)
--- NOTE | 2022-06-21 10:20 | Pharmacy Report ---
Pharmacy Glycemic Short Note 2 - Date of Service June 21, 2022 - Glycemic Short BSG Results (Last 24 hours): 06/20/22 06/20/22 06/20/22 11:31 13:30 16:55 Glucose POC Glucose 189 H 217 H 181 H 06/20/22 06/20/22 06/21/22 20:37 23:02 00:07 Glucose POC Glucose 171 H 110 H 90 06/21/22 06/21/22 06/21/22 04:11 07:34 07:51 Glucose POC Glucose 89 120 H 117 H 06/21/22 07:56 Glucose 109 H POC Glucose OUTPATIENT ANTIDIABETIC REGIMEN: * Humulin 70/30 - 55 units in the morning and 10-15 units in the evening * HbA1C = 7.3% (03/30/22) ASSESSMENT: 06/21/22: * POD #1: Patient started on 6 mg IV dexamethasone daily for 3 days, starting today at 0900. * NPH was started yesterday to cover steroids, was well-tolerated by the patient. Will increase dose to coincide with steroid dose increase. * RX instructions to hold NPH if dexamethasone not administered included; Had occurred in previous admission. * Fasting BSG this AM within range, will continue Lantus at 15 units daily. * Diet continued; will maintain same Novolog parameters as yesterday and continue to monitor. 06/20/22: * POD #0 s/p revision fusion L4-S1 (original surgery 04/17/22) * Received 4 mg IV dexamethasone in OR, now ordered 6 mg IV daily ongoing * Recent admission last month, patient received NPH + Lantus + aggressive Novolog parameters while on dexamethasone * Will give slightly more conservative initial regimen today and can tighten tomorrow if necessary * Diet ordered postoperatively 06/19/22 * Yesterday, patient BSG's were [phone] mg/dL. Overnight checks rendered values of 101 and 112 mg/dL. * Fasting BSG of 178mg/dL recorded today, at which the patient refused novolog for carb coverage and correction to goal. At lunch, BSG was elevated at 240 mg/dL. * The patient's ordered diet was adjusted to NPO for an anticipated surgery tomorrow, 06/20/22. Monitor for addition of steroids post-op. * Lantus dose to be reduced with additional overnight checks (Q4H bolus dosing) as safety precautions. Reevaluate to be reevaluated Lantus tomorrow. 06/18/22 * Patient's BSGs yesterday were 132-186-95/94-92 mg/dL. * Patient received 28 units of insulin yesterday (15 units of basal and 13 units of bolus). * Per nursing report, patient felt hypoglycemic around 1500 yesterday (CGM read BSG in the 60s). Patient was symptomatic and treated. * BSGs today are 246-274 mg/dL. * Hesitant to increase insulin at this time. Hyperglycemia today may be due to overcorrect of hypoglycemia yesterday? Overnight checks added to see true 24 hour needs. * Per patient report, his BSGs are brittle at home. * Loosen Novolog to prevent overcorrection. BACKGROUND * Mr Daley is a 76 y/o M with a PMH of T1DM who presents with severe back pain. * BSGs on admission were 79-95-88 mg/dL. * Fasting today is 132 mg/dL - lunch 186 mg/dL. * As with previous consults, will utilize Lantus while inhouse. Start with Lantus 15 units daily. Previous data indicates 10 units is not sufficient but 18 units may be too aggressive. * Novolog weight-based stress of 2 for now. PLAN FOR INPATIENT GLYCEMIC CONTROL: * Basal insulin * Lantus 15 units SQ daily * NPH 12 units SQ daily x3 days to cover IV dexamethasone * Bolus insulin * NovoLog per scale ACHS or Q6hrs while NPO * Goal Range: Low 110 mg/dL - High 140 mg/dL * Correction Factor: 25 mg/dL/unit * Nutritional / Prandial insulin per carb ratio of 1 unit per 8 grams CHO consumed
--- NOTE | 2022-06-21 12:17 | Orthopedic Progress Note ---
Date of Service June 21, 2022 Assessment & Plan (1) Lumbar compression fracture: Plan: At this time we will initiate physical therapy for bed to chair transfers and ambulate in room Admission and Anticipated Discharge Date Admission Date: June 16, 2022 Subjective Back pain controlled denies any leg pain Physical Exam Physical Exam: On exam he is currently in bed. Is good strength testing lower extremities. Results & Data ([facility]) Vital Signs (Past 12 Hours) Vital Signs Temp Pulse Pulse Resp BP BP Pulse Ox 06/21/22 11:15 36.8 C 83 18 128/70 93 06/21/22 07:35 37.1 C 90 18 134/68 94 06/21/22 02:54 36.8 C 79 16 149/62 H 94 O2 Del Method 06/21/22 11:15 Room Air 06/21/22 07:35 Room Air 06/21/22 02:54 Room Air
--- NOTE | 2022-06-21 12:39 | Hospitalist Progress Note ---
Date of Service June 21, 2022 Assessment & Plan (1) Severe back pain: Plan: Radiculopathy History Neurogenic claudication due to lumbar spinal stenosis History lumbar surgery CT lumbar spine obtained IMPRESSION: 1. Postoperative changes of L3-L4 and L4-L5 discectomy with posterior interbody eder and screw fusion hardware at L2-S1. 2. Status post placement of cement material surrounding the bilateral L5 screws. 3. Acute superior endplate compression deformity at L5 demonstrates progressively worsened vertebral body height loss compared to the 05/20/2022 exam. No significant retropulsion. 4. Unchanged anterolisthesis L4 on L5. 5. Chronic peripherally calcified laminectomy bed fluid collection. Sterility cannot be determined by imaging alone. 6. Suboptimal evaluation of the central canal and neural foramina secondary to the artifact associated with the hardware. Now status post revision of L4 S1 (06/20/22) Further treatment per ortho spine Pain management, DVT ppx per orthopedics PT/OT when appropriate Acute on chronic anemia. Baseline hemoglobin around 11, currently 9.6 Hemoglobin back in March 24.6. Patient had 2 surgeries since then. Blood loss expected, versus dilutional No need for blood transfusion Unfortunately iron supplement seems to be interacting with patient's carbidopa levodopa For now, will provide folic acid and vitamin B12 (2) DM type 1 (diabetes mellitus, type 1): Plan: Follows with endocrine in [place] at [facility] On Humulin 70/30 at home A1c: 7.3 in 03/2022 Hold home Humulin 70/30 Glycemic pharmacist was consulted. Appreciate glycemic management assistance (3) CAD (coronary artery disease): Plan: S/P stent LAD in 1999 On aspirin (4) Parkinsons disease: Plan: Follows with [facility] neurology in [place] Continue carbidopa-levodopa; [id number] (5) Gastroparesis: (6) GERD (gastroesophageal reflux disease): Plan: Continue Protonix (7) HLD (hyperlipidemia): Plan: Continue lovastatin DVT Prophylaxis SCDs per ortho Disposition Follows with Eros CHAUDHRY in [place] for routine care Thank you for this consultation. We will follow the patient with you during their hospital stay. You can reach a member of the [facility] Team 01/01 via [facility] Admission and Anticipated Discharge Date Admission Date: June 16, 2022 Subjective Patient seen in follow-up of leg pain, recent lumbar spine surgery, now status post L4 S1 revision Currently laying in bed, in no acute distress No fevers chills chest pain shortness of breath, no abdominal pain nausea vomiting Reports back pain after surgery is now better controlled Patient's is present at the bedside Review of Systems Review of Systems: All systems reviewed & are unremarkable except as noted in Subjective Physical Exam Physical Exam: General: no distre ss, WDWN Head: nor mocephalic, atraum atic Eyes: conjunc tiva non-injected, anicteric ENT: no rmal inspection ex ternal ears, nose, mucous membranes moist Neck: supple , trachea midline Lungs: clear, no r espiratory distres s, no wheezing/rho nchi/rales CV: RRR , no murmur, no pr etibial edema Abd: normal BS, soft, non-tender Ext: bi lateral pedal push es and pulls intac t, distal pulses i ntact, sensation t o light touch inta ct Neuro: A&O x 3, normal affect, + bilateral hand tr emor Skin: warm, d ry Results & Data Results & Data ([facility]) Vital Signs (Past 12 Hours) Vital Signs Temp Pulse Pulse Resp BP BP Pulse Ox 06/21/22 11:15 36.8 C 83 18 128/70 93 06/21/22 07:35 37.1 C 90 18 134/68 94 06/21/22 02:54 36.8 C 79 16 149/62 H 94 O2 Del Method 06/21/22 11:15 Room Air 06/21/22 07:35 Room Air 06/21/22 02:54 Room Air Laboratory Results 06/21/22 06/21/22 06/21/22 Range/Units 11:59 07:56 07:56 WBC 11.40 H (4.8-10.8) K/ul RBC 3.29 L (4.63-6.08) M/uL Hgb 9.6 L (14.0-18.0) g/dl Hct 28.5 L (40.1-51.0) % MCV 86.6 (80.0-100.0) fL MCH 29.2 (25.0-34.0) pg MCHC 33.7 (32.0-36.0) g/dL RDW Std Deviation 41.4 (36.4-46.3) fL RDW Coeff of Gio 13.1 (11.5-14.5) % Plt Count 205 (130-400) K/uL MPV 9.3 L (9.4-12.4) fL Immature Gran % (Auto) 0.5 % Neut % (Auto) 84.2 % Lymph % (Auto) 5.7 % [place] % (Auto) 8.9 % Eos % (Auto) 0.4 % Baso % (Auto) 0.3 % Neut # (Auto) 9.61 H (1.4-6.5) K/uL Lymph # (Auto) 0.65 L (1.2-3.4) K/uL [place] # (Auto) 1.01 H (0.24-0.82) K/uL Eos # (Auto) 0.04 (0-0.50) K/uL Baso # (Auto) 0.03 (0-0.2) K/uL Immature Gran # (Auto) 0.06 H (0.00-0.02) K/uL Sodium 138 (136-145) mmol/L Potassium 4.0 (3.5-5.1) mmol/L Chloride 107 (98-107) mmol/L Carbon Dioxide 28 (21-32) mmol/L Anion Gap 3 (3-11) BUN 14 (6-23) mg/dl Creatinine 0.76 (0.6-1.4) mg/dl Est Cr Clr Drug Dosing 82.7 ml/min Est GFR ( Amer) 101.3 ml/min Est GFR (Non-Af Amer) 87.4 ml/min BUN/Creatinine Ratio 18.4 (10-20) Glucose 109 H (70-99(Fasting)) mg/dl POC Glucose 148 H (70-99) mg/dl Calcium 8.0 L (8.5-10.1) mg/dl 06/21/22 06/21/22 06/21/22 Range/Units 07:51 07:34 04:11 WBC (4.8-10.8) K/ul RBC (4.63-6.08) M/uL Hgb (14.0-18.0) g/dl Hct (40.1-51.0) % MCV (80.0-100.0) fL MCH (25.0-34.0) pg MCHC (32.0-36.0) g/dL RDW Std Deviation (36.4-46.3) fL RDW Coeff of Gio (11.5-14.5) % Plt Count (130-400) K/uL MPV (9.4-12.4) fL Immature Gran % (Auto) % Neut % (Auto) % Lymph % (Auto) % [place] % (Auto) % Eos % (Auto) % Baso % (Auto) % Neut # (Auto) (1.4-6.5) K/uL Lymph # (Auto) (1.2-3.4) K/uL [place] # (Auto) (0.24-0.82) K/uL Eos # (Auto) (0-0.50) K/uL Baso # (Auto) (0-0.2) K/uL Immature Gran # (Auto) (0.00-0.02) K/uL Sodium (136-145) mmol/L Potassium (3.5-5.1) mmol/L Chloride (98-107) mmol/L Carbon Dioxide (21-32) mmol/L Anion Gap (3-11) BUN (6-23) mg/dl Creatinine (0.6-1.4) mg/dl Est Cr Clr Drug Dosing ml/min Est GFR ( Amer) ml/min Est GFR (Non-Af Amer) ml/min BUN/Creatinine Ratio (10-20) Glucose (70-99(Fasting)) mg/dl POC Glucose 117 H 120 H 89 (70-99) mg/dl Calcium (8.5-10.1) mg/dl 06/21/22 06/20/22 06/20/22 Range/Units 00:07 23:02 20:37 WBC (4.8-10.8) K/ul RBC (4.63-6.08) M/uL Hgb (14.0-18.0) g/dl Hct (40.1-51.0) % MCV (80.0-100.0) fL MCH (25.0-34.0) pg MCHC (32.0-36.0) g/dL RDW Std Deviation (36.4-46.3) fL RDW Coeff of Gio (11.5-14.5) % Plt Count (130-400) K/uL MPV (9.4-12.4) fL Immature Gran % (Auto) % Neut % (Auto) % Lymph % (Auto) % [place] % (Auto) % Eos % (Auto) % Baso % (Auto) % Neut # (Auto) (1.4-6.5) K/uL Lymph # (Auto) (1.2-3.4) K/uL [place] # (Auto) (0.24-0.82) K/uL Eos # (Auto) (0-0.50) K/uL Baso # (Auto) (0-0.2) K/uL Immature Gran # (Auto) (0.00-0.02) K/uL Sodium (136-145) mmol/L Potassium (3.5-5.1) mmol/L Chloride (98-107) mmol/L Carbon Dioxide (21-32) mmol/L Anion Gap (3-11) BUN (6-23) mg/dl Creatinine (0.6-1.4) mg/dl Est Cr Clr Drug Dosing ml/min Est GFR ( Amer) ml/min Est GFR (Non-Af Amer) ml/min BUN/Creatinine Ratio (10-20) Glucose (70-99(Fasting)) mg/dl POC Glucose 90 110 H 171 H (70-99) mg/dl Calcium (8.5-10.1) mg/dl 06/20/22 06/20/22 Range/Units 16:55 13:30 WBC (4.8-10.8) K/ul RBC (4.63-6.08) M/uL Hgb (14.0-18.0) g/dl Hct (40.1-51.0) % MCV (80.0-100.0) fL MCH (25.0-34.0) pg MCHC (32.0-36.0) g/dL RDW Std Deviation (36.4-46.3) fL RDW Coeff of Gio (11.5-14.5) % Plt Count (130-400) K/uL MPV (9.4-12.4) fL Immature Gran % (Auto) % Neut % (Auto) % Lymph % (Auto) % [place] % (Auto) % Eos % (Auto) % Baso % (Auto) % Neut # (Auto) (1.4-6.5) K/uL Lymph # (Auto) (1.2-3.4) K/uL [place] # (Auto) (0.24-0.82) K/uL Eos # (Auto) (0-0.50) K/uL Baso # (Auto) (0-0.2) K/uL Immature Gran # (Auto) (0.00-0.02) K/uL Sodium (136-145) mmol/L Potassium (3.5-5.1) mmol/L Chloride (98-107) mmol/L Carbon Dioxide (21-32) mmol/L Anion Gap (3-11) BUN (6-23) mg/dl Creatinine (0.6-1.4) mg/dl Est Cr Clr Drug Dosing ml/min Est GFR ( Amer) ml/min Est GFR (Non-Af Amer) ml/min BUN/Creatinine Ratio (10-20) Glucose (70-99(Fasting)) mg/dl POC Glucose 181 H 217 H (70-99) mg/dl Calcium (8.5-10.1) mg/dl Medications Administered Current Inpatient Medications Acetaminophen (Acetaminophen 500 Mg Tab) 1,000 mg PO Q8H PRN PRN Reason: MILD Pain Scale 1,2,3 & Pre PT Stop: 07/20/22 12:32 Al Hydrox/Mg Hydrox/Simethicone (Aluminum/Magnesium Susp 30 Ml Udc) 30 ml PO Q6H PRN PRN Reason: Dyspepsia Stop: 07/20/22 12:32 Aspirin (Aspirin 81 Mg Ectab) 81 mg PO QAM [facility] Stop: 07/17/22 08:59 Last Admin: 06/21/22 07:38 Dose: Not Given Bisacodyl (Bisacodyl 10 Mg Supp) 10 mg MA DAILY PRN PRN Reason: Constipation Stop: 07/20/22 12:32 Carbidopa/Levodopa (Carbidopa/Levodopa 50/200mg Ext Rel Tab) 1 tab PO HS [facility] Stop: 07/16/22 20:59 Last Admin: 06/20/22 20:00 Dose: 1 tab Carbidopa/Levodopa/Entacapone (Carbidopa/Levodopa/Entacapone) 1 each PO 0730,1130,1630 [facility] Stop: 07/17/22 07:29 Last Admin: 06/21/22 11:35 Dose: 1 each Dextrose (Dextrose 50% 50 Ml Syringe) 25 - 50 ml IV UD PRN; Protocol PRN Reason: Hypoglycemia Protocol Stop: 07/20/22 13:14 Diphenhydramine HCl (Diphenhydramine Capsule 25 Mg Cap) 25 mg PO Q6H PRN PRN Reason: Allergic Rhinitis/Insomnia Stop: 07/20/22 12:32 Famotidine (Famotidine 20 Mg Tab) 20 mg PO Q12H PRN PRN Reason: Dyspepsia Stop: 07/20/22 12:32 Glucagon (Glucagon For Inj 1 Mg Vial) 1 mg IM UD PRN; Protocol PRN Reason: Hypoglycemia Protocol Stop: 07/20/22 13:14 Glucose (Glucose 40% Gel 15 Gm Tube) 15 - 30 gm PO UD PRN; Protocol PRN Reason: Hypoglycemia Protocol Stop: 07/20/22 13:14 Glucose (Glucose 10 Tab/Tube) 4 - 8 tab PO UD PRN; Protocol PRN Reason: Hypoglycemia Protocol Stop: 07/20/22 13:14 Hydromorphone HCl (Hydromorphone Inj 0.5 Mg/0.5 Ml Syr) 0.5 mg IV Q3H PRN PRN Reason: MODERATE Pain (Scale 4,5,6) & Pre PT Stop: 07/04/22 12:32 Hydromorphone HCl (Hydromorphone Inj 1 Mg/Ml Syringe) 1 mg IV Q3H PRN PRN Reason: SEVERE Pain (Scale 7,8,9,10) Stop: 07/04/22 12:32 Last Admin: 06/21/22 00:17 Dose: 1 mg Hydroxyzine HCl (Hydroxyzine Hcl 25 Mg Tab) 25 mg PO Q8H PRN PRN Reason: Anxiety Stop: 07/20/22 12:32 Acetaminophen (Ofirmev) 1,000 mg in 100 mls @ 400 mls/hr IV Q8H PRN PRN Reason: Pain Rating 1-3 & Pre PT Stop: 06/21/22 12:34 Dexamethasone 6 mg/ Syringe 1.5 mls @ 1 mls/min IV DAILY [facility] Stop: 06/23/22 09:02 Last Admin: 06/21/22 09:23 Dose: 1 mls/min Sodium Chloride (Nss 1000ml) 1,000 mls @ 100 mls/hr IV .Q10H [facility] Stop: 07/20/22 12:32 Last Admin: 06/21/22 07:47 Dose: 100 mls/hr Promethazine HCl 12.5 mg/ (Sodium Chloride) 50.5 mls @ 202 mls/hr IV Q6H PRN PRN Reason: Nausea &/or Vomiting Stop: 07/20/22 12:32 Influenza Virus Vaccine Quadrival (Do Not Administer Flu Vaccine) 1 each N/A PRN PRN PRN Reason: Notification Stop: 07/20/22 12:32 Insulin Aspart (Insulin Aspart Per Unit) 0 units SC ACHS [facility] Stop: 07/20/22 13:04 Last Admin: 06/21/22 09:24 Dose: 3 units Insulin Glargine (Lantus Per Unit Charge) 15 units SQ DAILY [facility] Stop: 07/21/22 08:59 Last Admin: 06/21/22 09:24 Dose: 15 units Insulin Human NPH (Novolin-N (Nph) Per Unit Charge) 12 units SQ DAILY [facility] Stop: 06/23/22 09:14 Last Admin: 06/21/22 09:23 Dose: 12 units Lorazepam (Lorazepam 0.5 Mg Tab) 0.5 mg PO Q8H PRN PRN Reason: Sedation/Anxiety Stop: 07/20/22 12:32 Lorazepam (Lorazepam 2 Mg/1 Ml Vial) 0.5 mg IV Q8H PRN PRN Reason: Sedation/Anxiety Stop: 07/20/22 12:32 Lovastatin (Lovastatin 20 Mg Tab) 40 mg PO HS [facility] Stop: 07/16/22 20:59 Last Admin: 06/20/22 20:00 Dose: 40 mg Magnesium Hydroxide (Magnesium Hydroxide Susp 30 Ml Udc) 30 ml PO Q24H PRN PRN Reason: Constipation Stop: 07/20/22 12:32 Metoclopramide HCl (Metoclopramide Hcl Inj 5 Mg/Ml 2 Ml Vial) 10 mg IV Q6H PRN PRN Reason: Nausea &/or Vomiting Stop: 07/20/22 12:32 Miscellaneous (Carbohydrates For Hypoglycemia ) 15 - 30 gm PO UD PRN PRN Reason: Hypoglycemia Treatment Stop: 07/20/22 13:14 Miscellaneous Information (Pharmacy Glycemic Mgmt Consult) 1 each N/A UD PRN PRN Reason: Consult Stop: 07/20/22 12:32 Naloxone HCl (Naloxone Hcl 0.4 Mg/1 Ml Vial/Carp) 0.1 mg IV Q5M PRN PRN Reason: Oversedation/Resp depression Stop: 07/20/22 12:32 Ondansetron HCl (Ondansetron Inj 2 Mg/Ml 2 Ml Vial) 4 mg IV Q6H PRN PRN Reason: Nausea &/or Vomiting Stop: 07/20/22 12:32 Ondansetron HCl (Ondansetron 4 Mg Od Tab) 4 mg PO Q6H PRN PRN Reason: Nausea Stop: 07/20/22 12:32 Oxycodone HCl (Oxycodone Hcl Ir 5 Mg Tab (Immediate Release)) 5 - 10 mg PO Q4H PRN PRN Reason: Pain & Pre PT Stop: 07/04/22 12:32 Last Admin: 06/21/22 07:37 Dose: 10 mg Pantoprazole Sodium (Pantoprazole 40 Mg Tab) 40 mg PO [id number] [facility] Stop: 07/17/22 16:59 Last Admin: 06/21/22 07:38 Dose: 40 mg Pneumococcal Polyvalent Vaccine (Do Not Administer Pneumococcal Vaccine) 1 each N/A PRN PRN PRN Reason: Notification Stop: 07/20/22 12:32 Polyethylene Glycol (Polyethylene (Miralax) 17 Gm Pack) 17 gm PO Q6 [facility] Stop: 07/21/22 05:59 Last Admin: 06/21/22 11:35 Dose: 17 gm Senna/Docusate Sodium (Docusate Sodium/Senna 50/8.6mg Tab) 2 tab PO HS [facility] Stop: 07/20/22 20:59 Last Admin: 06/20/22 20:00 Dose: 2 tab Sodium Biphosphate/Sodium Phosphate (Sod Phosphate/Sod Biphosphate Enema 132 Ml Btl) 132 ml MA ONE PRN PRN Reason: Constipation Stop: 07/20/22 12:32 Tramadol HCl (Tramadol Hcl 50 Mg Tablet) 50 - 100 mg PO Q4H PRN PRN Reason: Moderate-Severe pain & Pre PT Stop: 07/20/22 12:32 Last Admin: 06/21/22 04:50 Dose: 100 mg
[2022-06-21] MEDS: FOLIC ACID 1 MG TAB PO SCH (13:24)
[2022-06-21] MEDS: CYANOCOBALAMIN (B-12) 500 MCG TABLET PO SCH (13:24)
[2022-06-21] MEDS: CARBIDOPA/LEVODOPA 50/200MG EXT REL TAB PO SCH (21:26)
[2022-06-21] MEDS: LOVASTATIN 20 MG TAB PO SCH (21:27)
[2022-06-21] MEDS: DOCUSATE SODIUM/SENNA 50/8.6MG TAB PO SCH (21:27)
[2022-06-22] MEDS: POLYETHYLENE (MIRALAX) 17 GM PACK PO SCH ×2 (00:35→07:32)
[2022-06-22] MEDS: FOLIC ACID 1 MG TAB PO SCH (08:03)
[2022-06-22] MEDS: CYANOCOBALAMIN (B-12) 500 MCG TABLET PO SCH (08:03)
[2022-06-22] MEDS: ASPIRIN 81 MG ECTAB PO SCH (08:04)
[2022-06-22] MEDS: dexAMETHasone 6 MG in SYRINGE 0 ML IV SCH (08:04)
[2022-06-22] MEDS: PANTOprazole 40 MG TAB PO SCH ×2 (08:04→18:01)
[2022-06-22] MEDS: CARBIDOPA/LEVODOPA/ENTACAPONE PO SCH ×3 (08:05→17:16)
[2022-06-22 08:15] LABS: Hematocrit (blood only) 25.8 % (40.1-51.0); Hemoglobin 8.6 g/dl (14.0-18.0); Mean Corpuscular Hemoglobin 29.4 pg (25.0-34.0); Mean Corpuscular Hgb Conc 33.3 g/dL (32.0-36.0); Mean Corpuscular Volume 88.1 fL (80.0-100.0); Mean Platelet Volume 9.9 fL (9.4-12.4); Platelet Count 203 K/uL (130-400); RDW Coefficient of Variation 13.2 % (11.5-14.5); RDW Standard Deviation 42.8 fL (36.4-46.3); Red Blood Count 2.93 M/uL (4.63-6.08)
[2022-06-22] MEDS ORDERED: NovoLIN-N (NPH) PER UNIT CHARGE SQ SCH (09:00)
[2022-06-22 09:04] LABS: BUN Creatinine Ratio 21.3 (10-20); Calcium 8.3 mg/dl (8.5-10.1); Creatinine Clr Calc Pharmacy 78.6 ml/min; Est GFR (African American) 99.2 ml/min; Est GFR (Non-African American) 85.6 ml/min
--- NOTE | 2022-06-22 09:06 | Pharmacy Report ---
Pharmacy Glycemic Short Note 2 - Date of Service June 22, 2022 - Glycemic Short BSG Results (Last 24 hours): 06/21/22 06/21/22 06/21/22 11:59 17:09 20:50 POC Glucose 148 H 174 H 255 H 06/21/22 06/22/22 20:52 08:19 POC Glucose 262 H 292 H OUTPATIENT ANTIDIABETIC REGIMEN: * Humulin 70/30 - 55 units in the morning and 10-15 units in the evening * HbA1C = 7.3% (03/30/22) ASSESSMENT: 06/22/22: * Patient received total of 52 units of insulin yesterday, of which 15 units were basal and 12 units NPH to cover IV dex * BSGs trending up dinner to HS and then this AM - fasting BSG 292 mg/dL therefo re will titrate up basal to 20 units daily (~30% increase). Will increase NPH ~30% as well to help with covering ongoing IV dexamethasone * Plan to tighten CF/CR this AM 06/21/22: * POD #1: Patient started on 6 mg IV dexamethasone daily for 3 days, starting today at 0900. * NPH was started yesterday to cover steroids, was well-tolerated by the patient. Will increase dose to coincide with steroid dose increase. * RX instructions to hold NPH if dexamethasone not administered included; Had occurred in previous admission. * Fasting BSG this AM within range, will continue Lantus at 15 units daily. * Diet continued; will maintain same Novolog parameters as yesterday and continue to monitor. 06/20/22: * POD #0 s/p revision fusion L4-S1 (original surgery 04/17/22) * Received 4 mg IV dexamethasone in OR, now ordered 6 mg IV daily ongoing * Recent admission last month, patient received NPH + Lantus + aggressive Novolog parameters while on dexamethasone * Will give slightly more conservative initial regimen today and can tighten tomorrow if necessary * Diet ordered postoperatively 06/19/22 * Yesterday, patient BSG's were 549-451-210-221 mg/dL. Overnight checks rendered values of 101 and 112 mg/dL. * Fasting BSG of 178mg/dL recorded today, at which the patient refused novolog for carb coverage and correction to goal. At lunch, BSG was elevated at 240 mg/dL. * The patient's ordered diet was adjusted to NPO for an anticipated surgery tomorrow, 06/20/22. Monitor for addition of steroids post-op. * Lantus dose to be reduced with additional overnight checks (Q4H bolus dosi ng) as safety precautions. Reevaluate to be reevaluated Lantus tomorrow. 06/18/22 * Patient's BSGs yesterday were 132-186-95/94-92 mg/dL. * Patient received 28 units of insulin yesterday (15 units of basal and 13 units of bolus). * Per nursing report, patient felt hypoglycemic around 1500 yesterday (CGM read BSG in the 60s). Patient was symptomatic and treated. * BSGs today are 246-274 mg/dL. * Hesitant to increase insulin at this time. Hyperglycemia today may be due to overcorrect of hypoglycemia yesterday? Overnight checks added to see true 24 hour needs. * Per patient report, his BSGs are brittle at home. * Loosen Novolog to prevent overcorrection. BACKGROUND * Mr Daley is a 76 y/o M with a PMH of T1DM who presents with severe back pain. * BSGs on admission were 79-95-88 mg/dL. * Fasting today is 132 mg/dL - lunch 186 mg/dL. * As with previous consults, will utilize Lantus while inhouse. Start with Lantus 15 units daily. Previous data indicates 10 units is not sufficient but 18 units may be too aggressive. * Novolog weight-based stress of 2 for now. PLAN FOR INPATIENT GLYCEMIC CONTROL: * Basal insulin - increase * Lantus 20 units daily * NPH 16 units SQ daily x3 days to cover IV dexamethasone * Bolus insulin * NovoLog per scale ACHS or Q6hrs while NPO * Goal Range: Low 110 mg/dL - High 140 mg/dL * Correction Factor: 20 mg/dL/unit * Nutritional / Prandial insulin per carb ratio of 1 unit per 6 grams CHO consumed
[2022-06-22] MEDS: LANTUS PER UNIT CHARGE SQ SCH (09:13)
[2022-06-22] MEDS: INSULIN ASPART PER UNIT SC SCH ×4 (09:14→21:30)
--- NOTE | 2022-06-22 11:08 | Orthopedic Progress Note ---
Date of Service June 22, 2022 Assessment & Plan (1) Neurogenic claudication due to lumbar spinal stenosis: Plan: At this time continue physical therapy monitor his HELDER output anticipate possible discharge tomorrow. Admission and Anticipated Discharge Date Admission Date: June 16, 2022 Subjective Patient is tolerating ambulation. He has no leg pain. Physical Exam Physical Exam: On exam he is in the chair at bedside. I did have him stand and take a few steps with me today. He has no evidence of pain. Good strength testing. Results & Data ([facility]) Vital Signs (Past 12 Hours) Vital Signs Temp Pulse Resp BP Pulse Ox O2 Del Method 06/22/22 07:45 36.5 C 75 16 145/56 H 94 Room Air
[2022-06-22] MEDS ORDERED: INSULIN ASPART PER UNIT SC SCH (16:30)
[2022-06-22] MEDS: LOVASTATIN 20 MG TAB PO SCH (21:28)
[2022-06-22] MEDS: CARBIDOPA/LEVODOPA 50/200MG EXT REL TAB PO SCH (21:28)
[2022-06-22] MEDS: DOCUSATE SODIUM/SENNA 50/8.6MG TAB PO SCH (21:28)
[2022-06-23] MEDS ORDERED: INSULIN ASPART PER UNIT SC SCH
[2022-06-23] MEDS: CARBIDOPA/LEVODOPA/ENTACAPONE PO SCH ×2 (05:13→11:54)
[2022-06-23 06:28] LABS: Basophils # (auto) 0.03 K/uL (0-0.2); Basophils % (auto) 0.2 %; Eosinophils # (auto) 0.04 K/uL (0-0.50); Eosinophils % (auto) 0.3 %; Hemoglobin 9.8 g/dl (14.0-18.0); Immature Granulocytes % (auto) 0.7 %; Lymphocytes # (auto) 1.59 K/uL (1.2-3.4); Lymphocytes % (auto) 11.1 %; Mean Corpuscular Hemoglobin 29.4 pg (25.0-34.0); Mean Corpuscular Hgb Conc 33.8 g/dL (32.0-36.0); Mean Corpuscular Volume 87.1 fL (80.0-100.0); Monocytes % (auto) 8.4 %; Neutrophils # (auto) 11.33 K/uL (1.4-6.5); Neutrophils % (auto) 79.3 %; Platelet Count 261 K/uL (130-400); RDW Coefficient of Variation 13.2 % (11.5-14.5); RDW Standard Deviation 41.8 fL (36.4-46.3); Red Blood Count 3.33 M/uL (4.63-6.08); White Blood Count 14.29 K/ul (4.8-10.8)
[2022-06-23 06:47] LABS: Calcium 9.1 mg/dl (8.5-10.1); Creatinine Clr Calc Pharmacy 77.6 ml/min; Est GFR (African American) 98.7 ml/min; Est GFR (Non-African American) 85.1 ml/min; Magnesium 1.5 mg/dl (1.7-2.4); Potassium 3.5 mmol/L (3.5-5.1)
[2022-06-23] MEDS ORDERED: NovoLIN-N (NPH) PER UNIT CHARGE SQ SCH (09:00)
[2022-06-23] MEDS: CYANOCOBALAMIN (B-12) 500 MCG TABLET PO SCH (09:08)
[2022-06-23] MEDS: FOLIC ACID 1 MG TAB PO SCH (09:08)
[2022-06-23] MEDS: PANTOprazole 40 MG TAB PO SCH (09:08)
[2022-06-23] MEDS: ASPIRIN 81 MG ECTAB PO SCH (09:08)
[2022-06-23] MEDS: dexAMETHasone 6 MG in SYRINGE 0 ML IV SCH (09:09)
[2022-06-23] MEDS: oxyCODONE HCL IR 5 MG TAB (IMMEDIATE RELEASE) PO PRN (09:12)
[2022-06-23] MEDS: LANTUS PER UNIT CHARGE SQ SCH (09:25)
[2022-06-23] MEDS: INSULIN ASPART PER UNIT SC SCH (09:26)
--- NOTE | 2022-06-23 09:48 | Hospitalist Progress Note ---
Date of Service June 22, 2022 Assessment & Plan (1) Severe back pain: Plan Radiculopathy History Neurogenic claudication due to lumbar spinal stenosis History lumbar surgery CT lumbar: IMPRESSION: 1. Postoperative changes of L3-L4 and L4-L5 discectomy with posterior interbody eder and screw fusion hardware at L2-S1. 2. Status post placement of cement material surrounding the bilateral L5 screws. 3. Acute superior endplate compression deformity at L5 demonstrates progressively worsened vertebral body height loss compared to the 05/20/2022 exam. No significant retropulsion. 4. Unchanged anterolisthesis L4 on L5. 5. Chronic peripherally calcified laminectomy bed fluid collection. Sterility cannot be determined by imaging alone. 6. Suboptimal evaluation of the central canal and neural foramina secondary to the artifact associated with the hardware. Currently status post revision of L4 S1 (06/20/22) management as per ortho Acute on chronic anemia. Baseline hemoglobin around 11, currently 9.6 Unfortunately iron supplement seems to be interacting with patient's carbidopa levodopa For now, will provide folic acid and vitamin B12 follow labs (2) DM type 1 (diabetes mellitus, type 1): Plan: Follows with endocrine in [place] at [facility] On Humulin 70/30 at home A1c: 7.3 in 03/2022 Holding home Humulin 70/30 Glycemic pharmacist was consulted. Appreciate glycemic management assistance (3) CAD (coronary artery disease): Plan: S/P stent LAD in 1999 On aspirin (4) Parkinsons disease: Plan: Follows with [facility] neurology in [place] On carbidopa-levodopa; [id number] (5) Gastroparesis: (6) GERD (gastroesophageal reflux disease): Plan: Continue Protonix (7) HLD (hyperlipidemia): Plan: On lovastatin DVT Prophylaxis SCDs per ortho Disposition As per Ortho Follows with E[facility] CHAUDRHY in [place], [place] for routine care Admission and Anticipated Discharge Date Admission Date: June 16, 2022 Subjective resting comfortably ambulating with walker ok denies pain no chest pain or sob eating ok afberile says possible discharge in am Review of Systems Review of Systems: ROS unremarkable Physical Exam Neck: trachea midline, no thyromegaly Respiratory: normal respiratory effort, lungs clear to auscultation Cardiovascular: RRR, no murmur, no edema Gastrointestinal (Abdomen): normal bowel sounds, soft, nontender, no hepatosplenomegaly Musculoskeletal: s/p back surgery dressing and drain intact Neurologic: alert and oriented no facial droop speech clear obeys commands moves extremities Results & Data Results & Data ([facility]) Vital Signs (Past 12 Hours) Vital Signs Temp Pulse Resp BP Pulse Ox O2 Del Method 06/22/22 14:39 37.1 C 74 16 124/64 96 Room Air
--- NOTE | 2022-06-23 10:31 | Discharge Summary ---
Date of Service June 23, 2022 Admission HPI Per Admitting Provider This is a 76-year-old male well-known to me status post multilevel lumbar decompression fusion. He been doing well postoperatively until yesterday where upon initiating physical therapy at the significant onset of severe left leg pain. Radiates down from his buttock posterior thigh into his foot. Somewhat unable to weight-bear. He is comfortable lying supine in bed. He cannot sit up. The right lower extremity is painful in the buttock but not down the leg. Principal Diagnosis L5 compression fracture with radiculopathy Discharge Data Allergies Allergy/AdvReac Type Severity Reaction Status Date / Time No Known Allergies Allergy Verified 06/16/22 15:00 Consultations 06/16/22 14:23 ED Decision to Admit Stat 06/16/22 17:26 Consult Internal Medicine Routine Procedures Performed Operation Date: 06/20/22 08:45 Actual Procedures p Revision Fusion L4-S1 with Iliac Bolts,Placement of Antibiotic Beads, Spinal Monitoring(Not Applicable) - Festus Su DO Ordered Studies 06/16/22 17:26 CT lumbar spine wo con Routine 06/20/22 08:45 [place] lumbar spine 2-3V Routine Hospital Course (1) Lumbar compression fracture: Patient was admitted with severe back and leg pain. Was diagnosed with an acute L5 compression fracture. He subsequently underwent revision decompression fusion with kyphoplasty. He Targis well was taken to orthopedic for postoperative. Postop day 1 is up with physical therapy breast postop 2. Leg pain and back pain markedly improved. HELDER drain decreased probably. Subsequent discharge home. Discharge orders instructions from the chart for further review. Total Time Total Time Spent Total Time Spent (In Minutes): 20 minutes Discharge Plan Discharge Items Patient Disposition: Home - Self-Care Reason For Visit: LEG PAIN Discharge Diagnosis: L5 compression fracture with radiculopathy Activity: As commented below Non-emergency contact: Primary Care Provider Call non-emergency contact if: you have any medication questions Follow-up/Referrals: Eros Shannon CRNP [Primary Care Provider] - Diet: Regular Addtl Attending Provider Instructions: ACTIVITY RECOMMENDATIONS: SELF CARE INSTRUCTIONS AFTER THORACIC/LUMBAR FUSIONS 1. You may walk to your tolerance. It is good exercise for your legs and back. Expect some back and intermittent leg aches and pains. 2. You may perform "counter-top" level activities (make a sandwich, vicky with a project, etc.). 3. No bending or lifting of more than 10 pounds or back twisting of any nature (roll like a log when turning in bed). 4. You may ride in a car for 20-30 minutes at a time. No driving until after your first visit with your doctor. 5. Frequent changes of position and restricting sitting to 30 minutes at a time will help limit the amount of back spasms and stiffness you may experience. 6. You may discontinue the use of ambulatory aids (cane, crutches, etc.) once your strength and confidence allow. 7. You may spinneret cleaner the shower and let water strike your incision when you arrive home at least once daily. Do not take a tub bath, sit in a hot tub or go into a swimming pool until after your first recheck in the office. SPECIAL CARE INSTRUCTIONS: VERY IMPORTANT TO READ AND REVIEW A. Your surgical incision has been closed with a cosmetic suture under the skin that will dissolve in about 6 weeks. In 14 days, you can use a pair of clean scissors and cut the suture that is left outside of the skin at the ends of your incision. 1. The small skin tapes can be removed 7 days after surgery if they have not fallen off by that point. 2. You may keep the wound open to air as much as possible to promote healing after post-op day number 5 unless told otherwise by your doctor. 3. If you think the wound looks like it is becoming infected (redness or worsening drainage) and/or you are experiencing fever, chill or worsening back pain and muscle spasms, contact the office so that we may evaluate you as soon as possible. B. Complications are uncommon, but please contact us if you have any signs or symptoms of: 1. wound infection (fever higher than 102.5 degrees F, redness, separation of wound, drainage, or increasing pain from the incision) 2. blood clots in legs (pain, swelling, redness and warmth in legs) 3. urinary tract infection (fever higher than 102.5 degrees F, burning upon urination or increased frequency of urination) 4. nerve problems (inability to walk on your toes or heels, numbness, loss of bowel or bladder control) 5. any other symptoms that concern you C. Please call the office at if you have any concerns or questions about your operation or recovery. D. No smoking! Smoking drastically decreases the chance of a solid fusion. E. Do not take any anti-inflammatory medications (Indocin, Advil, Motrin, Aspirin, Naprosyn, etc.) as these may inhibit the chance of a solid fusion. Tylenol is okay to take for pain. MANAGING PAIN AFTER SPINAL SURGERY 1. Narcotic medication is intended for short-term use and will be provided for surgical pain. Surgical pain usually lasts for a period of 4-6 weeks. Narcotic medication includes Percocet, Vicodin, Darvocet, Tylenol #3 or Lortab. 2. Longer-term pain is more appropriately treated with non-narcotic medication such as Tylenol ES. 3. Muscle spasm is not appropriately treated with narcotics. Muscle relaxers such as Soma, Flexeril or Skelaxin can be used along with Tylenol ES. 4. Remember that we all live with some "aches and pains". This is not unusual or uncommon after an injury or as we get older. a. Back pain is expected and may include muscle spasms for 4 to 6 weeks after surgery. The pain should gradually improve. If the pain worsens for no apparent reason, please contact the office. b. Intermittent leg pain may also be experienced and should not be concerned about unless it worsens for no apparent reason. If so, please contact the office. 5. We will provide appropriate medication within the normal guidelines of their prescribed use. We will also be very cautious and aware of potential abuse and extended duration of patients' medication needs. a. Pain medications are for your comfort and to assist with sleep and rest so that the tissue can heal. They are not provided in order to return to normal activity and should not be used through the day. To do so or worsening pain at night can result from ongoing tissue damage and development of tolerance to the prescribed medicine. 6. Please allow 2-3 days to process refills. Prescriptions will not be mailed but must be picked up at the office. FOLLOW UP VISIT: Keep your scheduled follow-up appointment. Any questions, please call the office at . Pending Studies at Discharge: No Stand-Alone Forms: My [employer], Smoking Cessation Medications and DC Order Prescriptions: New tramadol 50 mg tablet 50 mg PO Q6H PRN (Reason: pain, moderate) Qty: 30 0RF oxycodone 5 mg tablet 5 mg PO Q6H PRN (Reason: pain, severe) Qty: 30 0RF Continued lovastatin 40 mg Tablet 40 mg PO HS carbidopa-levodopa 50-200 mg Tablet Extended Release 1 tab PO HS Humulin 70/30 U-100 Insulin 100 unit/mL (70-30) Suspension 55 unit SUBCUT QAM Humulin 70/30 U-100 Insulin 100 unit/mL (70-30) Suspension 10 - 30 unit SUBCUT QPM baclofen 10 mg Tablet 10 mg PO TID PRN (Reason: Pain) pantoprazole [Protonix] 40 mg Tablet,Delayed Release (Dr/Ec) 40 mg PO BID [id number]-cgshowzw-ydzedihrri 50-200-200 mg Tablet 1 tab PO TID tramadol 50 mg tablet 50 mg PO Q6H PRN (Reason: pain, moderate) Qty: 30 0RF oxycodone 5 mg tablet 5 mg PO Q6H PRN (Reason: pain, severe) Qty: 30 0RF Discharge Orders: Discharge Order (Routine); Ordered 06/23/22 Ordered By: Festus Su Admission Data Admit Date/Time: 06/16/22 14:16 Attending Provider: Festus Su Admit Provider: Festus Su Primary Care Provider: Eros Shannon Other Providers: Aaron Leone ; Festus Su ; Therese Lovett ; [facility]
[2022-06-24] MEDS ORDERED: INSULIN ASPART PER UNIT SC SCH (07:30)
[2022-06-24] MEDS ORDERED: LANTUS PER UNIT CHARGE SQ SCH (09:00)
--- NOTE | 2022-07-04 14:03 | Coding Query ---
ANEMIA To promote full compliance with coding requirements relating to patient care, physician participation is requested in all cases of primer and powder canning leader uncertainty. Please assist us with the question(s) below: Coding Question(s): The record reflects the following clinical findings: The 06/21/22 Progress Note documents Acute on Chronic Anemia and down below it documents blood loss expected, versus dilutional. It is not clear if the Acute, and/or Chronic Anemia is possible Acute Blood Loss anemia or possible Chronic Blood Loss Anemia or other. If these findings are indicative of anemia, please specify the known or suspected type by placing an "X" within the parenthesis (x). If other, please document type. Examples are: () Acute blood loss anemia (x) Acute Postoperative blood loss anemia ( ) Acute postoperative anemia due to dilutional fluids ( ) Chronic blood loss anemia ( ) Anemia of chronic disease ( ) Aplastic anemia ( ) Anemia due to renal disease ( ) Anemia in neoplastic disease ( ) Iron deficient anemia ( ) Anemia, unspecified or other ( ) Other: (please specify) ( ) Unable to determine Thank you Zehra Sofia [facility]
--- NOTE | 2022-07-04 14:08 | Coding Query ---
CODING QUERY To promote full compliance with coding requirements relating to patient care, provider participation is requested in all cases of director of research center uncertainty. Please assist us with the question(s) below: Coding Question(s): Please clarify below, in your clinical opinion, regarding the L5 Compression Fracture: ( ) L5 Compression Fracture is due to Trauma ( x) L5 Compression Fracture is Pathological, not due to Trauma and is Not a Postoperative Complication ( ) L5 Compression Fracture is not due to trauma, and is a Postoperative Complication of fracture following insertion of orthopedic implant/hardware ( ) L5 Compression Fracture is due to Other: Please Specify Physician's Response(s): Thank you Zehra Sofia Principal Diagnosis: "that condition established after study, to be chiefly responsible for occasioning the admission of the patient to the hospital for care." Co-Existing Principal Diagnosis: "when two or more diagnoses equally meet the criteria for principal diagnosis as determined by the circumstances of admission, diagnostic work up, and/or therapy provided, and the Alphabetic Index, Tabular List, or another coding guideline does not provide sequencing direction, any one of the diagnoses may be sequenced first." "When the physician has documented what appears to be a current diagnosis in the body of the record, but has not included the diagnosis in the final diagnostic statement, the physician should be asked whether the diagnosis should be added." ([facility] 2 QTR90. p3-4) ZAYNAB
--- NOTE | 2022-07-04 14:13 | Coding Query ---
CODING QUERY To promote full compliance with coding requirements relating to patient care, provider participation is requested in all cases of coating manager uncertainty. Please assist us with the question(s) below: Coding Question(s): Please specify below regarding the Migration of hardware and Loosening of S1 pedicle screws bilaterally: ( x) likely Postoperative Complications ( ) Not Complications and due to Other: Please Specifiy ( ) Not Complication and due to unknown ( ) Other: Please Specify Physician's Response(s): Thank you Zehra Sofia Principal Diagnosis: "that condition established after study, to be chiefly responsible for occasioning the admission of the patient to the hospital for care." Co-Existing Principal Diagnosis: "when two or more diagnoses equally meet the criteria for principal diagnosis as determined by the circumstances of admission, diagnostic work up, and/or therapy provided, and the Alphabetic Index, Tabular List, or another coding guideline does not provide sequencing direction, any one of the diagnoses may be sequenced first." "When the physician has documented what appears to be a current diagnosis in the body of the record, but has not included the diagnosis in the final diagnostic statement, the physician should be asked whether the diagnosis should be added." ([facility] 2 QTR90. p3-4) ZAYNAB
== END 2022-06-23 13:04 | disposition home health service (06) | DRG 457 ==
LOC: ED 12:26 → EDINP 14:16 → 3W 16:21

== ENCOUNTER 2024-08-21 08:36 | Inpatient (IN) ==
[2024-08-21] MEDS: MoRPHine SULFATE 4 MG/ML 1 ML CARP\\VIAL IV STA ×2 (09:07→09:57)
[2024-08-21 09:37] LABS: Basophils # (auto) 0.05 K/uL (0.00-0.20); Basophils % (auto) 0.8 %; Eosinophils # (auto) 0.02 K/uL (0.00-0.50); Eosinophils % (auto) 0.3 %; Hematocrit (blood only) 37.4 % (42.0-52.0); Hemoglobin 12.4 g/dl (14.0-18.0); Immature Granulocytes # (auto) 0.04 K/uL (0.01-0.20); Immature Granulocytes % (auto) 0.6 %; Lymphocytes # (auto) 0.72 K/uL (1.20-3.40); Lymphocytes % (auto) 11.4 %; Mean Corpuscular Hemoglobin 30.5 pg (25.0-34.0); Mean Corpuscular Hgb Conc 33.2 g/dL (32.0-36.0); Mean Corpuscular Volume 92.1 fL (80.0-100.0); Mean Platelet Volume 9.6 fL (9.4-12.4); Monocytes # (auto) 0.39 K/uL (0.11-0.59); Monocytes % (auto) 6.2 %; Neutrophils # (auto) 5.08 K/uL (1.40-6.50); Neutrophils % (auto) 80.7 %; Platelet Count 239 K/uL (130-400); RDW Coefficient of Variation 12.9 % (11.5-14.5); RDW Standard Deviation 43.5 fL (36.4-46.3); Red Blood Count 4.06 M/uL (4.70-6.10)
[2024-08-21 10:00] LABS: INR 1.1 (0.9-1.1); Prothrombin Time 11.8 Seconds (9.0-12.0)
[2024-08-21 10:08] LABS: Alanine Aminotransferase < 3 U/L (7-52); Albumin Globulin Ratio 1.7 (0.9-2); Albumin Level 3.8 gm/dl (3.4-5.0); Alkaline Phosphatase 99 U/L (34-104); Anion Gap 4 (3-11); Aspartate Aminotransferase 13 U/L (13-39); BUN Creatinine Ratio 25.6 (10-20); Bilirubin,Total 0.8 mg/dl (0.2-1.0); Blood Urea Nitrogen 21 mg/dl (6-23); Calcium 9.4 mg/dl (8.6-10.3); Carbon Dioxide 31 mmol/L (21-32); Chloride 99 mmol/L (98-107); Globulin 2.3 gm/dl (2.5-4.0); Glucose 317 mg/dl (70-99(Fasting)); Potassium 4.1 mmol/L (3.5-5.1); Sodium 134 mmol/L (136-145); Total Protein 6.1 gm/dl (6.0-8.3); Troponin I High Sensitivity 10.1 pg/ml (0-20)
--- NOTE | 2024-08-21 11:27 | Emergency Department Note ---
Impression & Plan Back pain, Lumbar compression fracture, Parkinsons disease ED Provider Note Provider: Mikael Mercado MD CHIEF COMPLAINT: Back pain HISTORY OF PRESENT ILLNESS: Patient is a 79-year-old gentleman significant past medical history including CAD, diabetes, GERD presenting here today with . Patient has had longstanding issues with his back. Last 6 months reports he has had worsening. Reports no significant falls in the last several months but in May was admitted to an outside facility. Due to worsening pain went yesterday to [facility]. Had MRI completed and given that he had back surgeries here with Dr. Su or working to see if he come here for further care. As transport was unable to arrange for a bed went home last night and brought here by today. She states that he had been in contact with Dr. Su. No fevers reported. Patient did have hydrocodone's when he was to report significant pain in the low back does radiate to the sides of the bilateral hips. Denies significant new numbness in the lower legs. Does have some tremor related to his Parkinson's disease. Presents with imaging and reports from outside facility yesterday. Did not last month or to see outpatient provider of Dr. Su's and they were working to schedule cardiac clearance for planned outpatient surgery. Pain has worsened and thus there here today. PAST MEDICAL HISTORY: As noted above MEDICATIONS: Reviewed home medications, did have some breakfast this morning SOCIAL HISTORY: PHYSICAL EXAM: GENERAL: alert and oriented appears uncomfortable, at bedside Head: normocephalic and atraumatic EYES: No injection, discharge or icterus. NECK: Trachea midline. ENT: Mucous membranes pink and moist. LUNGS: Airway patent. No retractions or tachypnea HEART: Regular rate and rhythm. Abdomen: Stable pelvis. No significant bilateral flank tenderness. SKIN: Acyanotic, warm, dry, without rashes EXTREMITIES: Without swelling, tenderness or deformity NEUROLOGICAL: No aphasia. Sensation to gross touch normal in the lower extremities. Some resting tremor prickly of the right upper arm noted. EK beats. Normal sinus rhythm. No PVC or PAC. No acute ST segment elevation depression QTc 460. Patient's laboratory studies and imaging reviewed. Differential includes Musculoskeletal, disc herniation, fracture, metastatic disease, cord compression, discitis, sciatica, cauda equina, infection, aortic disease, renal colic, gastrointestinal, as well as other pathologies. IMPRESSION/MEDICAL DECISION MAKING: Reviewed outside blood work and imaging present with the patient. No significant elevated inflammatory markers or leukocytosis. Patient had MRI of the lumbar and thoracic spine yesterday. Impressions concerning for an L1 compression fracture with some fluid at the disc base of L1-L2 causing severe spinal canal stenosis and possible disc rupture not excluding discitis. Questionable thickening at the T12 level possible reactionary fluid versus epidural abscess. Prior laminectomy but also noted a small rim-enhancing fluid collection postoperative seroma versus hematoma versus infection per the outside report. MRI disc uploaded here and reports on the chart. Patient without severe new neurological symptoms. No recent trauma reported. Patient given some morphine for pain. Basic blood work obtained here. Somewhat hyperglycemic but no evidence of DKA. Do not believe this represents hepatitis pancreatitis or dissection. Did contact Dr. Su and his service. They came to the emergency right evaluated the patient we will bring him in for further care here. Patient received several dose of morphine for pain control. DIAGNOSIS: Back pain, lumbar compression fracture DISPOSITION: Evaluated by Dr. Su and admission to the orthopedic spine service. Past Med/Surg History Problem List (Updated 08/21/24 @ 11:27 by Mikael Mercado M.D.) Back pain (Acute) Lumbar compression fracture (Acute) Fracture of pedicle of lumbar vertebra Encounter for pre-operative examination Anemia Severe back pain (Acute) Gastroparesis Parkinsons disease (Acute) HLD (hyperlipidemia) GERD (gastroesophageal reflux disease) DM type 1 (diabetes mellitus, type 1) IDDM CAD (coronary artery disease) 1 stent, follows with [facility] Neurogenic claudication due to lumbar spinal stenosis Encounter for pre-operative examination Medical History Anemia CAD (coronary artery disease) 1 stent, follows with [facility] DDD (degenerative disc disease) DM type 1 (diabetes mellitus, type 1) IDDM Gastroparesis GERD (gastroesophageal reflux disease) History of hypertension h/o orthostatic hypotension, follows with [facility] reports infrequent episodes of lightheadedness without near syncope History of myocardial infarction 1999 HLD (hyperlipidemia) Parkinsons disease Surgical History History of ankle surgery Lt History of cardiac catheterization mult. 1 stent placed in 1999 with [place]. says most recent "few years ago" [facility]. History of carpal tunnel release of both wrists History of cholecystectomy History of colonoscopy History of esophagogastroduodenoscopy (EGD) History of heart artery stent x 1 (1999) History of tonsillectomy Family History Other No significant family history Social History (Updated 06/16/22 @ 20:48 by Laura Neely PA-C) Smoking Status: Former smoker Second Hand Exposure: No; Do You Dip or Chew Tobacco: No; Hx Alcohol Use: No Hx Substance Use: No Preferred Language: Hebrew Communication Ability: Effective Paunch Trimmer Required: No Beliefs That Will Affect Care: None Current Living Situation: Spouse and Family Current Living Situation Comment: lives with - Aileen, sons live in basement Feels Safe at Home: Yes Assistive Devices: Hospital Bed, Walker and Wheelchair Allergies Allergies Allergy/AdvReac Type Severity Reaction Status Date / Time No Known Allergies Allergy Verified 06/16/22 15:00 Home Meds Home Medications Medication Instructions Recorded Confirmed baclofen 10 mg tablet 10 mg PO TID PRN Pain 03/27/22 08/21/24 carbidopa ER 50 mg-levodopa 200 mg 1 tab PO HS 03/27/22 08/21/24 tablet,extended release insulin human U-100 NPH-regulr 30 unit subcut .AFTERNOON 03/27/22 08/21/24 70-30 mix 100 unit/mL subcutaneous susp (Humulin 70/30 U-100 Insulin) insulin human U-100 NPH-regulr 30 unit subcut QAM 03/27/22 08/21/24 70-30 mix 100 unit/mL subcutaneous susp (Humulin 70/30 U-100 Insulin) lovastatin 40 mg tablet 40 mg PO HS 03/27/22 08/21/24 pantoprazole 40 mg tablet,delayed 40 mg PO BID 03/27/22 08/21/24 release (Protonix) aspirin 81 mg tablet,delayed 81 mg PO DAILY 08/21/24 08/21/24 release carbidopa 25 mg-levodopa 100 mg 1.5 tab PO QID 08/21/24 08/21/24 tablet cholecalciferol (vitamin D3) 50 4,000 unit PO DAILY 08/21/24 08/21/24 mcg (2,000 unit) capsule gabapentin 100 mg capsule 100 mg PO UD 08/21/24 08/21/24 hydrocodone 7.5 mg-acetaminophen 1 tab PO Q8H PRN Pain 08/21/24 08/21/24 300 mg tablet Results & Data (ED) Vital Signs Vital Signs - 24 hr 08/21/24 08:42 08/21/24 09:05 08/21/24 09:17 Temperature 36.4 C L Temperature Source Skin Pulse Rate 76 85 Pulse Rate [Right Finger] 83 Respiratory Rate 16 16 Respiratory Effort / Characteristics Non-Labored Spontaneous Respiratory Depth Normal Respiratory Pattern Regular Blood Pressure 117/44 L Blood Pressure [Right Arm] 152/62 H Blood Pressure Mean 68 Blood Pressure Mean [Right Arm] 92 Pulse Oximetry 96 100 Oxygen Delivery Method Room Air Sepsis Recent Fever Within 48 Hours No Sepsis New/Unexplained Change in Mental Status N/A Sepsis Action Taken by Nursing No Action Required 08/21/24 09:58 Temperature Temperature Source Pulse Rate Pulse Rate [Right Finger] 79 Respiratory Rate 18 Respiratory Effort / Characteristics Respiratory Depth Respiratory Pattern Blood Pressure Blood Pressure [Right Arm] 188/77 H Blood Pressure Mean Blood Pressure Mean [Right Arm] 114 Pulse Oximetry 99 Oxygen Delivery Method Room Air Sepsis Recent Fever Within 48 Hours Sepsis New/Unexplained Change in Mental Status Sepsis Action Taken by Nursing Laboratory Data 08/21/24 09:07 08/21/24 09:07 Lab Results 08/21/24 08/21/24 Range/Units 09:07 09:15 WBC 6.30 (4.8-10.8) K/ul RBC 4.06 L (4.70-6.10) M/uL Hgb 12.4 L (14.0-18.0) g/dl Hct 37.4 L (42.0-52.0) % MCV 92.1 (80.0-100.0) fL MCH 30.5 (25.0-34.0) pg MCHC 33.2 (32.0-36.0) g/dL RDW Std Deviation 43.5 (36.4-46.3) fL RDW Coeff of Gio 12.9 (11.5-14.5) % Plt Count 239 (130-400) K/uL MPV 9.6 (9.4-12.4) fL Immature Gran % (Auto) 0.6 % Neut % (Auto) 80.7 % Lymph % (Auto) 11.4 % [place] % (Auto) 6.2 % Eos % (Auto) 0.3 % Baso % (Auto) 0.8 % Neut # (Auto) 5.08 (1.40-6.50) K/uL Lymph # (Auto) 0.72 L (1.20-3.40) K/uL [place] # (Auto) 0.39 (0.11-0.59) K/uL Eos # (Auto) 0.02 (0.00-0.50) K/uL Baso # (Auto) 0.05 (0.00-0.20) K/uL Immature Gran # (Auto) 0.04 (0.01-0.20) K/uL PT 11.8 (9.0-12.0) Seconds INR 1.1 (0.9-1.1) Sodium 134 L (136-145) mmol/L Potassium 4.1 (3.5-5.1) mmol/L Chloride 99 (98-107) mmol/L Carbon Dioxide 31 (21-32) mmol/L Anion Gap 4 (3-11) BUN 21 (6-23) mg/dl Creatinine 0.82 (0.6-1.4) mg/dl Est Cr Clr Drug Dosing 73.0 ml/min eGFR 88.25 BUN/Creatinine Ratio 25.6 H (10-20) Glucose 317 H* (70-99(Fasting)) mg/dl Calcium 9.4 (8.6-10.3) mg/dl Total Bilirubin 0.8 (0.2-1.0) mg/dl AST 13 (13-39) U/L ALT < 3 L (7-52) U/L Alkaline Phosphatase 99 (34-104) U/L Troponin I High Sens 10.1 (0-20) pg/ml Total Protein 6.1 (6.0-8.3) gm/dl Albumin 3.8 (3.4-5.0) gm/dl Globulin 2.3 L (2.5-4.0) gm/dl Albumin/Globulin Ratio 1.7 (0.9-2) SARS-CoV-2, RNA, NAAT NEGATIVE (NEGATIVE) Administered Medications Discontinued Medications Morphine Sulfate (Morphine Sulfate 4 Mg/Ml 1 Ml Carp\\Vial) 4 mg IV NOW STA Stop: 08/21/24 08:59 Last Admin: 08/21/24 09:07 Dose: 4 mg Documented By: Morphine Sulfate (Morphine Sulfate 4 Mg/Ml 1 Ml Carp\\Vial) 4 mg IV NOW STA Stop: 08/21/24 09:52 Last Admin: 08/21/24 09:57 Dose: 4 mg Documented By: MR Discharge Plan Visit Data Chief Complaint: Back Injury/Pain Stated Complaint: BACK PAIN, REF BY DR SU ED Provider: Mikael Mercado Discharge Problem: Back pain, Lumbar compression fracture, Parkinsons disease Patient Disposition: Being Evaluated by Surgeon Forms Stand Alone Forms: My [facility] [place] Prescriptions Prescriptions: No Action lovastatin 40 mg Tablet 40 mg PO HS carbidopa-levodopa 50-200 mg Tablet Extended Release 1 tab PO HS Humulin 70/30 U-100 Insulin 100 unit/mL (70-30) Suspension 30 unit SUBCUT QAM Humulin 70/30 U-100 Insulin 100 unit/mL (70-30) Suspension 30 unit SUBCUT .AFTERNOON baclofen 10 mg Tablet 10 mg PO TID PRN (Reason: Pain) pantoprazole [Protonix] 40 mg Tablet,Delayed Release (Dr/Ec) 40 mg PO BID hydrocodone-acetaminophen 7.5-300 mg tablet 1 tab PO Q8H PRN (Reason: Pain) aspirin [Aspir-81] 81 mg Tablet,Delayed Release (Dr/Ec) 81 mg PO DAILY gabapentin 100 mg capsule 100 mg PO UD Rx Instructions: 200mg po bid, 400 mg po hs carbidopa-levodopa 25-100 mg tablet 1.5 tab PO QID cholecalciferol (vitamin D3) 50 mcg (2,000 unit) capsule 4,000 unit PO DAILY Referrals Referrals: Eros hSannon CRNP [Primary Care Provider] -
[2024-08-21] MEDS ORDERED: METOCLOPRAMIDE HCL INJ 5 MG/ML 2 ML VIAL IV PRN (12:34)
[2024-08-21] MEDS ORDERED: ACETAMINOPHEN 1,000 MG/100 ML VIAL IV PRN (12:34)
[2024-08-21] MEDS ORDERED: ONDANSETRON INJ 2 MG/ML 2 ML VIAL IV PRN (12:34)
[2024-08-21] MEDS ORDERED: ONDANSETRON 4 MG OD TAB PO PRN (12:34)
[2024-08-21] MEDS ORDERED: PROMETHAZINE 12.5 MG/50.5 ML BAG IV PRN (12:34)
[2024-08-21] MEDS ORDERED: ACETAMINOPHEN 500 MG TAB PO PRN (12:34)
[2024-08-21] MEDS ORDERED: traMADol HCL 50 MG TABLET PO PRN (12:34)
[2024-08-21] MEDS ORDERED: NALOXONE HCL 0.4 MG/1 ML VIAL/CARP IV PRN (12:34)
--- NOTE | 2024-08-21 13:11 | History & Physical Report ---
Date of Service August 21, 2024 Assessment & Plan (1) Spinal stenosis, lumbar region with neurogenic claudication: Plan: Assessment #1 lumbar spondylosis with radiculopathy. #2 lumbar spinal stenosis. #3 compression fracture L1. #4 possible to cystitis. Plan at length yesterday with the patient and his reviewing his MRI findings x-rays and clinical course. He has clear severe spinal stenosis spondylosis L1-L2 with evidence of an inferior endplate fracture of L1. This creating significant instability at the junction of his fusion mass L1-L2. I believe the fluid collection within the disc space at L1-L2 is from hypermobility at the junctional level. At this point in light of his severe decline possible infection and clinical presentation I am recommending urgent decompression and fusion L1-L2. He will require stabilization from at least T11-L2. We will use connectors for the previous construct. Respective pros cons alternatives in detail. This point patient will be admitted cleared medically and plan for surgery tomorrow. He made n.p.o. after midnight. Admission and Anticipated Discharge Date Admission Date: August 21, 2024 History of Present Illness Chief Complaint: Severe back and leg pain with inability to ambulate Primary Care Provider: RICHA Massey this is an 79-year-old male well-known to me presents the emergency room room this morning upon my request. He was sent [facility] last evening. He presented to hospital with inability ambulate secondary to back and leg pain. MRI of the thoracic and lumbar spine was obtained at that institution. I spoke with the doctor last evening he was medically stable neurologically intact and he elected to go home and come to our hospital this morning. Again this morning he is unable to stand and ambulate for any distance. He cannot do so unassisted. He has pain in the back and bilateral lower extremities numbness and tingling with breakaway weakness. He is comfortable lying supine in bed. He denies any recent fevers or chills. He denies any recent trauma fall or event. Allergies Allergy/AdvReac Type Severity Reaction Status Date / Time No Known Allergies Allergy Verified 06/16/22 15:00 Home Medications Medication Instructions Recorded Confirmed Type baclofen 10 mg tablet 10 mg PO TID PRN Pain 03/27/22 08/21/24 History carbidopa ER 50 mg-levodopa 200 mg 1 tab PO HS 03/27/22 08/21/24 History tablet,extended release insulin human U-100 NPH-regulr 30 unit subcut .AFTERNOON 03/27/22 08/21/24 History 70-30 mix 100 unit/mL subcutaneous susp (Humulin 70/30 U-100 Insulin) insulin human U-100 NPH-regulr 30 unit subcut QAM 03/27/22 08/21/24 History 70-30 mix 100 unit/mL subcutaneous susp (Humulin 70/30 U-100 Insulin) lovastatin 40 mg tablet 40 mg PO HS 03/27/22 08/21/24 History pantoprazole 40 mg tablet,delayed 40 mg PO BID 03/27/22 08/21/24 History release (Protonix) aspirin 81 mg tablet,delayed 81 mg PO DAILY 08/21/24 08/21/24 History release carbidopa 25 mg-levodopa 100 mg 1.5 tab PO QID 08/21/24 08/21/24 History tablet cholecalciferol (vitamin D3) 50 4,000 unit PO DAILY 08/21/24 08/21/24 History mcg (2,000 unit) capsule gabapentin 100 mg capsule 100 mg PO UD 08/21/24 08/21/24 History hydrocodone 7.5 mg-acetaminophen 1 tab PO Q8H PRN Pain 08/21/24 08/21/24 History 300 mg tablet Past Med/Surg History Problem List (Updated 08/21/24 @ 13:08 by Festus Su DO) Spinal stenosis, lumbar region with neurogenic claudication Back pain (Acute) Lumbar compression fracture (Acute) Fracture of pedicle of lumbar vertebra Encounter for pre-operative examination Anemia Severe back pain (Acute) Gastroparesis Parkinsons disease (Acute) HLD (hyperlipidemia) GERD (gastroesophageal reflux disease) DM type 1 (diabetes mellitus, type 1) IDDM CAD (coronary artery disease) 1 stent, follows with [facility] Neurogenic claudication due to lumbar spinal stenosis Encounter for pre-operative examination Medical History Anemia CAD (coronary artery disease) 1 stent, follows with [facility] DDD (degenerative disc disease) DM type 1 (diabetes mellitus, type 1) IDDM Gastroparesis GERD (gastroesophageal reflux disease) History of hypertension h/o orthostatic hypotension, follows with [facility] reports infrequent episodes of lightheadedness without near syncope History of myocardial infarction 1999 HLD (hyperlipidemia) Parkinsons disease Surgical History History of ankle surgery Lt History of cardiac catheterization mult. 1 stent placed in 1999 with [place]. says most recent "few years ago" [facility]. History of carpal tunnel release of both wrists History of cholecystectomy History of colonoscopy History of esophagogastroduodenoscopy (EGD) History of heart artery stent x 1 (1999) History of tonsillectomy Family History Other No significant family history Social History (Updated 06/16/22 @ 20:48 by Laura Neely PA-C) Smoking Status: Former smoker Second Hand Exposure: No; Do You Dip or Chew Tobacco: No; Hx Alcohol Use: No Hx Substance Use: No Preferred Language: Vietnamese Communication Ability: Effective Veterinary Technician Assistant Required: No Beliefs That Will Affect Care: None Current Living Situation: Spouse and Family Current Living Situation Comment: lives with - Aileen, sons live in basement Feels Safe at Home: Yes Assistive Devices: Hospital Bed, Walker and Wheelchair Physical Exam Physical Exam: On exam he is most comfortable lying supine sitting up is quite uncomfortable for him. He exhibits 4/5 bilateral plantarflexion dorsiflexion quadriceps. Sensory symmetric and intact. D10 reflexes diminished. No clonus. Results & Data Results & Data Vital Signs (Past 12 Hours) Vital Signs Temp Pulse Pulse Resp BP BP Pulse Ox 08/21/24 13:01 36.7 C 107 H 16 190/66 H 97 08/21/24 11:32 73 19 170/69 H 99 08/21/24 11:32 94 08/21/24 09:58 79 18 188/77 H 99 08/21/24 09:17 83 16 152/62 H 100 08/21/24 09:05 85 08/21/24 08:42 36.4 C L 76 16 117/44 L 96 O2 Del Method 08/21/24 13:01 Room Air 08/21/24 11:32 Room Air 08/21/24 11:32 Room Air 08/21/24 09:58 Room Air 08/21/24 09:17 Room Air 08/21/24 09:05 08/21/24 08:42 Code Status & VTE Plan VTE Prophylaxis Plan VTE Prophylaxis will be ordered: Yes
[2024-08-21] MEDS: HYDROmorphone INJ 0.5 MG/0.5 ML SYR IV PRN (13:14)
--- NOTE | 2024-08-21 13:30 | Consultation ---
Date of Consultation August 21, 2024 Assessment & Plan (1) Encounter for pre-operative examination: - -patient has risk factors for procedure, including DM Type 1, CAD -patient is moderate to high risk for a moderate risk procedure, with cardiac risk estimated at about 1.5%, discussed with patient -ECG personally reviewed, sinus rhythm noted, sequelae of stent placement noted -hyperglycemia noted on admission -no chest pain or SOB, noted echo in 2020 with EF of 60% Plan: -check chest xray, monitor glucose preoperatively -preop labs ordered -euvolemic and no chest pain, ECG reassuring, echo ordered for routine follow up but not necessary for operation if not completed before then -patient, once above completed (except echo), is medically optimized for procedure (2) Spinal stenosis, lumbar region with neurogenic claudication: -appreciate ortho intervention on 08/22/2024 Plan: -monitor creatinine, Hgb post op -incentive spirometry ordered (3) Severe back pain: -severe pain to palpation -given neuropathic nature of pain, would likely benefit from pregablin post operatively if still in severe pain Plan: -pain management per ortho -consider pregablin 50 tid post operatively for neuropathic pain (4) Gastroparesis: -2/2 type 1 DM (5) Parkinsons disease: -has noted pill roll tremor and parkinsonian features on face and hands as well -cogwheeling noted Plan: -continue home parkinsons medications (6) GERD (gastroesophageal reflux disease): -continue protonix (7) DM type 1 (diabetes mellitus, type 1): -pharmacy consult given complex regiment (8) CAD (coronary artery disease): -noted 1 stent in past -see above for plan -check lipids, A1c for outpatient Plan Feeding/fluids: regular, NPO after midnight Analgesia: per ortho Sedation: na Thromboprophylaxis: per ortho Head up position: na Ulcer prophylaxis: protonix Glycemic control: per pharmacy Spontaneous breathing trial: na Bowel care: per ortho Indwelling catheter removal: na Deescalation of antibiotics: na I spent a total of 45 minutes in direct patient care, including [id number] time with the patient and/or family, reviewing medical records, ordering and reviewing diagnostic tests, and coordinating care with other healthcare providers. This time includes: history taking, physical examination, medical decision making, counseling, ECG interpretation, imaging interpretation, lab interpretation, orders, and education, excluding time spent in the performance of separately billed services. History of Present Illness Requesting Physician: Festus Su DO Reason for Consultation: -medical optimization, medical comanagement Attending Physician: Festus Su DO History of Present Illness 79 yo male with pmhx DM Type 1, Parkinsons disease, CAD, HLD, spinal stenosis c/b neurogenic claudication/pain who presents for decompression and fusion of L1-L2. Patient has had 3 prior procedures on his lower spine. Patient accompanied by . Patient has been having weakness, neuropathic pain in bilateral LE for past few months, and progressively getting worse. States that he has been walking less and less because it is so painful. Recommended to do urgent decompression and fusion of L1-L2 by ortho. Denies tobacco use, alcohol use is sparingly, no drug use, full code (POLST on file). Allergies Allergy/AdvReac Type Severity Reaction Status Date / Time No Known Allergies Allergy Verified 06/16/22 15:00 Home Medications Medication Instructions Recorded Confirmed Type baclofen 10 mg tablet 10 mg PO TID PRN Pain 03/27/22 08/21/24 History carbidopa ER 50 mg-levodopa 200 mg 1 tab PO HS 03/27/22 08/21/24 History tablet,extended release insulin human U-100 NPH-regulr 30 unit subcut .AFTERNOON 03/27/22 08/21/24 History 70-30 mix 100 unit/mL subcutaneous susp (Humulin 70/30 U-100 Insulin) insulin human U-100 NPH-regulr 30 unit subcut QAM 03/27/22 08/21/24 History 70-30 mix 100 unit/mL subcutaneous susp (Humulin 70/30 U-100 Insulin) lovastatin 40 mg tablet 40 mg PO HS 03/27/22 08/21/24 History pantoprazole 40 mg tablet,delayed 40 mg PO BID 03/27/22 08/21/24 History release (Protonix) aspirin 81 mg tablet,delayed 81 mg PO DAILY 08/21/24 08/21/24 History release carbidopa 25 mg-levodopa 100 mg 1.5 tab PO QID 08/21/24 08/21/24 History tablet cholecalciferol (vitamin D3) 50 4,000 unit PO DAILY 08/21/24 08/21/24 History mcg (2,000 unit) capsule gabapentin 100 mg capsule 100 mg PO UD 08/21/24 08/21/24 History hydrocodone 7.5 mg-acetaminophen 1 tab PO Q8H PRN Pain 08/21/24 08/21/24 History 300 mg tablet Patient History Medical History (Updated 08/21/24 @ 13:53 by Carlos Alberto Munoz MD) DDD (degenerative disc disease) History of hypertension h/o orthostatic hypotension, follows with [facility] reports infrequent episodes of lightheadedness without near syncope History of myocardial infarction 1999 Surgical History History of carpal tunnel release of both wrists History of ankle surgery Lt History of cholecystectomy History of tonsillectomy History of esophagogastroduodenoscopy (EGD) History of colonoscopy History of cardiac catheterization mult. 1 stent placed in 1999 with [place]. says most recent "few years ago" [facility]. History of heart artery stent x 1 (1999) Family History Other No significant family history Social History Smoking Status: Former smoker Second Hand Exposure: No; Do You Dip or Chew Tobacco: No; Hx Alcohol Use: No Hx Substance Use: No Preferred Language: Icelandic Communication Ability: Effective Operating Systems Programmer Required: No Beliefs That Will Affect Care: None Current Living Situation: Spouse and Family Current Living Situation Comment: lives with - Aileen, sons live in basement Feels Safe at Home: Yes Assistive Devices: Hospital Bed, Walker and Wheelchair Review of Systems 2 Review of Systems: CONSTITUTIONAL: Patient denies fevers, chills, sweats and weight changes. EYES: Patient denies any visual symptoms. EARS, NOSE, AND THROAT: No difficulties with hearing. No symptoms of rhinitis or sore throat. CARDIOVASCULAR: Patient denies chest pains, palpitations, orthopnea and paroxysmal nocturnal dyspnea. RESPIRATORY: No dyspnea on exertion, no wheezing or cough. GI: No nausea, vomiting, diarrhea, constipation, abdominal pain, hematochezia or melena. : No urinary hesitancy or dribbling. No nocturia or urinary frequency. No abnormal urethral discharge. MUSCULOSKELETAL: weakness in bilateral LE, tingling/burning sensation NEUROLOGIC: No chronic headaches, no seizures. Patient denies numbness, tingling or weakness. PSYCHIATRIC: Patient denies problems with mood disturbance. No problems with anxiety. ENDOCRINE: No excessive urination or excessive thirst. DERMATOLOGIC: Patient denies any rashes or skin changes. Physical Exam 2 Physical Exam: Gen: A&O 3 NAD HEENT: NCAT, EOMI, not icteric. External ears normal. No rhinorrhea. Moist mucous membranes. Neck: Supple, full range of motion, no observable masses, No meningeal sign. Lungs: No Respiratory distress. CV: RRR, no edema. Abdomen: Soft, nondistended, No rebound tenderness. MSK: 4+/5 strength bilaterally, pain with movement Skin: No rashes, petechiae, lesions. Normal color per patient. Neuro: noted pill roll tremor and parkinsons facial features noted Psych: Appropriate for situation. Results & Data Vital Signs (Past 12 Hours) Vital Signs Temp Pulse Pulse Resp BP BP Pulse Ox 08/21/24 13:01 36.7 C 107 H 16 190/66 H 97 08/21/24 11:32 73 19 170/69 H 99 08/21/24 11:32 94 08/21/24 09:58 79 18 188/77 H 99 08/21/24 09:17 83 16 152/62 H 100 08/21/24 09:05 85 08/21/24 08:42 36.4 C L 76 16 117/44 L 96 O2 Del Method 08/21/24 13:01 Room Air 08/21/24 11:32 Room Air 08/21/24 11:32 Room Air 08/21/24 09:58 Room Air 08/21/24 09:17 Room Air 08/21/24 09:05 08/21/24 08:42 Laboratory Results -personally reviewed, hyperglycemia noted, creatinine at baseline, no leukocytosis noted Medications Administered Hydromorphone HCl (Hydromorphone Inj 0.5 Mg/0.5 Ml Syr) 0.5 mg IV Q3H PRN PRN Reason: MOD pain (scale 4-6) & Pre PT Stop: 09/04/24 12:33 Last Admin: 08/21/24 13:14 Dose: 0.5 mg Documented By: PATY (5) Parkinsons disease Dyskinesia presence: with dyskinesia Fluctuating manifestations: unspecified whether manifestations fluctuate Qualified Code(s): G20.B1 - Parkinson's disease with dyskinesia, without mention of fluctuations (6) GERD (gastroesophageal reflux disease) Esophagitis presence: with esophagitis Esophagitis bleeding: without hemorrhage Qualified Code(s): K21.00 - Gastro-esophageal reflux disease with esophagitis, without bleeding (7) DM type 1 (diabetes mellitus, type 1) Diabetes mellitus complication status: with circulatory complication Diabetes mellitus complication detail: with peripheral angiopathy without gangrene Qualified Code(s): E10.51 - Type 1 diabetes mellitus with diabetic peripheral angiopathy without gangrene (8) CAD (coronary artery disease) Coronary Disease-Associated Artery/Lesion type: citizen [place] artery [place] vs. transplanted heart: [place] heart Associated angina: without angina Qualified Code(s): I25.10 - Atherosclerotic heart disease of [place] coronary artery without angina pectoris
[2024-08-21] MEDS ORDERED: PHARMACY GLYCEMIC MGMT CONSULT PRN (13:51)
--- NOTE | 2024-08-21 14:17 | Anesthesiology Consultation ---
Date of Service August 21, 2024 Assessment & Plan (1) Encounter for pre-operative examination: Chart Review Chart Review: Acceptable Risk for Surgery History Surgery Operation Date: 08/22/24 13:15 Proposed Procedures p T11-L2 Decompresion and Fusion, Spinal Cord Monitoring - Festus Su DO Height/Weight Height: 5 ft 10 in Weight: 77.7 kg Allergies Allergy/AdvReac Type Severity Reaction Status Date / Time No Known Allergies Allergy Verified 06/16/22 15:00 Medications Home Medications Medication Instructions Recorded Confirmed Last Taken baclofen 10 mg tablet 10 mg PO TID PRN Pain 03/27/22 08/21/24 04/14/22 carbidopa ER 50 mg-levodopa 200 mg 1 tab PO HS 03/27/22 08/21/24 06/15/22 tablet,extended release insulin human U-100 NPH-regulr 30 unit subcut .AFTERNOON 03/27/22 08/21/24 06/15/22 70-30 mix 100 unit/mL subcutaneous susp (Humulin 70/30 U-100 Insulin) insulin human U-100 NPH-regulr 30 unit subcut QAM 03/27/22 08/21/24 06/16/22 70-30 mix 100 unit/mL subcutaneous susp (Humulin 70/30 U-100 Insulin) lovastatin 40 mg tablet 40 mg PO HS 03/27/22 08/21/24 06/15/22 pantoprazole 40 mg tablet,delayed 40 mg PO BID 03/27/22 08/21/24 06/16/22 08:00 release (Protonix) aspirin 81 mg tablet,delayed 81 mg PO DAILY 08/21/24 08/21/24 Unknown release carbidopa 25 mg-levodopa 100 mg 1.5 tab PO QID 08/21/24 08/21/24 Unknown tablet cholecalciferol (vitamin D3) 50 4,000 unit PO DAILY 08/21/24 08/21/24 Unknown mcg (2,000 unit) capsule gabapentin 100 mg capsule 100 mg PO UD 08/21/24 08/21/24 Unknown hydrocodone 7.5 mg-acetaminophen 1 tab PO Q8H PRN Pain 08/21/24 08/21/24 Unknown 300 mg tablet Active Medications Generic Name Dose Route Start Last Admin Trade Name Freq PRN Reason Stop Dose Admin Hydromorphone HCl 0.5 mg 08/21/24 12:34 08/21/24 13:14 Hydromorphone Inj 0.5 Mg/0.5 Ml Syr IV 09/04/24 12:33 0.5 mg Q3H PRN Administration MOD pain (scale 4-6) & Pre PT Past Medical History Medical History (Updated 08/21/24 @ 14:21 by Ceferino Tejada MD) Parkinsons disease Spinal stenosis, lumbar region with neurogenic claudication Anemia Gastroparesis CAD (coronary artery disease) LAD stent in 1999, follows with [facility] GERD (gastroesophageal reflux disease) DM type 1 (diabetes mellitus, type 1) IDDM HLD (hyperlipidemia) DDD (degenerative disc disease) History of hypertension h/o orthostatic hypotension, follows with [facility] reports infrequent episodes of lightheadedness without near syncope History of myocardial infarction 1999 Past Family History Family History Other No significant family history Past Surgical History Surgical History History of carpal tunnel release of both wrists History of ankle surgery Lt History of cholecystectomy History of tonsillectomy History of esophagogastroduodenoscopy (EGD) History of colonoscopy History of cardiac catheterization mult. 1 stent placed in 1999 with [place]. says most recent "few years ago" [facility]. History of heart artery stent x 1 (1999) Social History Smoking Status: Former smoker tobacco type: cigarettes Do You Dip or Chew Tobacco: No Hx Alcohol Use: No Alcohol type: beer and wine alcohol intake frequency: a few times a month Hx Substance Use: No substance use type: does not use Physical Exam Vital Signs Last Vital Signs Temp 36.7 C 08/21/24 13:01 Pulse 107 H 08/21/24 13:01 Resp 16 08/21/24 13:01 BP 190/66 H 08/21/24 13:01 Pulse Ox 97 08/21/24 13:01 O2 Del Method Room Air 08/21/24 13:01 Testing Laboratory Results 08/21/24 09:07 08/21/24 09:07 PT 11.8 Seconds (9.0-12.0) 08/21/24 09:07 INR 1.1 (0.9-1.1) 08/21/24 09:07 08/21/24 12:32 POC Glucose 212 H Electrocardiogram Date: 08/21/24 Findings: + NSR @ (85) and + poor R wave progression Echocardiogram Date: 08/17/20 EF: 60% LV Function: normal Valvular Disease: + no significant valvular disease
--- NOTE | 2024-08-21 14:28 | XRay Report ---
XR chest 1V portable CLINICAL HISTORY: preop eval COMPARISON STUDY: 03/30/2022 FINDINGS: Allowing for low lung volumes, there is no acute process identified. There is minimal disco id atelectasis in the left midlung zone. There is no focal airspace opacity or pleural effusion. No p neumothorax. The heart and pulmonary vascularity are unremarkable. IMPRESSION: No acute process ACT 112: Negative or not required by law. Electronically signed by: Mila Begum M.D. 08/21/2024 2:26 PM
[2024-08-21 14:48] LABS: Estimated Average Glucose 203 mg/dl; Hemoglobin A1C 8.7 % (4.5-5.6)
[2024-08-21] MEDS: ENTACAPONE 200 MG TAB PO SCH (15:00)
[2024-08-21] MEDS: oxyCODONE HCL IR 5 MG TAB (IMMEDIATE RELEASE) PO PRN (15:05)
[2024-08-21 15:24] LABS: Chol HDL Ratio 2.7 (0-5)
[2024-08-21 15:28] LABS: INR 1.1 (0.9-1.1); Prothrombin Time 11.5 Seconds (9.0-12.0)
--- NOTE | 2024-08-21 15:33 | Pharmacy Report ---
Pharmacy Glycemic Short Note 2 - Date of Service August 21, 2024 - Glycemic Short BSG Results (Last 24 hours): 08/21/24 08/21/24 09:07 12:32 Glucose 317 H* POC Glucose 212 H OUTPATIENT ANTIDIABETIC REGIMEN: * Humulin 70/30 30 units QAM & 30 units Qafternoon * HbA1c 8.7% 08/21/24 ASSESSMENT: * Cortez is an 79 year old male admitted with spinal stenosis and difficulty with ambulation. He has a history of type 1 diabetes and pharmacy has been consulted for glycemic management while inpatient. * BSGs elevated this AM on admission, RN confirmed that patient took 30 units of his insulin this AM. BSGs did trend down at lunchtime. Pharmacy has previously followed. Will initiate Lantus at this time based on prior data due to procedure tomorrow. Consider transitioning to NPH to better mimic outpatient regimen once stressors stabilize. * Novolog initiated at a weight based stress of 2, higher goal range to prevent hypoglycemia. PLAN FOR INPATIENT GLYCEMIC CONTROL: * Hold outpatient oral diabetes medications * Basal insulin * Lantus 15 units SQ QDD * Bolus insulin * NovoLog per scale ACHS or Q6hrs while NPO * Goal Range: Low 140 mg/dL - High 180 mg/dL * Correction Factor: 25 mg/dL/unit * Nutritional / Prandial insulin per carb ratio of 1 unit per 9 grams CHO consumed
[2024-08-21] MEDS: BACLOFEN 10 MG TAB PO PRN (15:42)
[2024-08-21] MEDS: CARBIDOPA/LEVODOPA 25/100MG TAB PO SCH (16:58)
[2024-08-21] MEDS ORDERED: CARBIDOPA/LEVODOPA 25/100MG EXT REL TAB PO SCH (17:00)
[2024-08-21] MEDS: INSULIN ASPART PER UNIT CHARGE SC SCH (17:48)
[2024-08-21] MEDS: LANTUS PER UNIT CHARGE SC SCH (17:48)
[2024-08-21] MEDS: PANTOprazole 40 MG TAB PO SCH (20:26)
[2024-08-21] MEDS: CARBIDOPA/LEVODOPA 50/200MG EXT REL TAB PO SCH (20:26)
[2024-08-21] MEDS: LOVASTATIN 20 MG TAB PO SCH (20:27)
[2024-08-21] MEDS ORDERED: CARBIDOPA/LEVODOPA 50/200MG EXT REL TAB PO SCH (21:00)
[2024-08-22] MEDS: INSULIN ASPART PER UNIT CHARGE SC SCH (00:21)
[2024-08-22] MEDS: HYDROmorphone INJ 1 MG/ML SYRINGE IV PRN ×2 (00:38→15:49)
--- NOTE | 2024-08-22 05:39 | Electrocardiogram Report ---
Test Reason : Blood Pressure : */* mmHG Vent. Rate : 84 BPM Atrial Rate : 84 BPM P-R Int : 148 ms QRS Dur : 72 ms QT Int : 390 ms P-R-T Axes : 60 14 60 degrees QTcB Int : 460 ms Normal sinus rhythm Septal infarct , age undetermined Abnormal ECG No previous ECGs available Confirmed by Shree Ervin ([id number]) on 08/22/2024 5:39:24 AM Referred By: Confirmed By: Shree Ervin
[2024-08-22 07:19] LABS: Hematocrit (blood only) 38.2 % (42.0-52.0); Hemoglobin 12.6 g/dl (14.0-18.0); Mean Corpuscular Hemoglobin 30.1 pg (25.0-34.0); Mean Corpuscular Volume 91.2 fL (80.0-100.0); Mean Platelet Volume 9.7 fL (9.4-12.4); Platelet Count 250 K/uL (130-400); RDW Coefficient of Variation 12.8 % (11.5-14.5); RDW Standard Deviation 42.8 fL (36.4-46.3); Red Blood Count 4.19 M/uL (4.70-6.10); White Blood Count 8.41 K/ul (4.8-10.8)
[2024-08-22 07:27] LABS: BUN Creatinine Ratio 19.7 (10-20); Calcium 9.1 mg/dl (8.6-10.3); Creatinine Clr Calc Pharmacy 78.7 ml/min; Magnesium 1.6 mg/dl (1.7-2.4); Potassium 4.1 mmol/L (3.5-5.1)
[2024-08-22] MEDS ORDERED: DEXAMETHASONE SOD INJ 4 MG/ML VIAL ONE (08:25)
[2024-08-22] MEDS ORDERED: ONDANSETRON INJ 2 MG/ML 2 ML VIAL ONE (08:25)
[2024-08-22] MEDS ORDERED: LIDOCAINE 2% 2 ML VIAL/AMP(20MG/ML) INFIL ONE (08:25)
[2024-08-22] MEDS ORDERED: PROPOFOL IV EMULSION 10 MG/ML 20 ML VIAL IV ONE (08:25)
[2024-08-22] MEDS ORDERED: PHENYLEPHRINE HCL 10 MG/ML VIAL ONE (08:26)
[2024-08-22] MEDS ORDERED: ROCURONIUM BROMIDE 10 MG/ML 5 ML VIAL IV ONE ×2 (08:29→10:45)
[2024-08-22] MEDS ORDERED: LARYING-O-JET KIT (LTA) ONE (08:29)
[2024-08-22] MEDS ORDERED: HYDROmorphone INJ 2 MG/ML SYR/VIAL ONE (08:30)
--- NOTE | 2024-08-22 09:17 | Hospitalist Progress Note ---
Date of Service August 22, 2024 Assessment & Plan (1) Spinal stenosis, lumbar region with neurogenic claudication: Plan: - S/p #1 decompression with bilateral medial facetectomies and foraminotomies T12-L1 L1-L2. #2 posterior spinal fusion T11-L2. #3 placed posterior instrumentation T11-L1 with connectors at L2-L3. #4 interbody fusion L1-L2. #5 placement Spira 12 x 26 mm at L1-L2. #6 kyphoplasty the vertebral bodies of T12 and L1. #7 placement locally harvested morselized autograft and posterior gutters. #8 placement of infuse collagen sponge, with Koros in the posterior gutters T11-L2. #9 placement of versa wrap over the exposed dura. on 08/22/2024 -pain management per ortho -consider pregablin 50 tid post operatively for neuropathic pain -DVT ppx per ortho -PT/OT per ortho -monitor creatinine, Hgb post op -incentive spirometry ordered (2) Severe back pain: (3) Gastroparesis: Plan: -2/2 type 1 DM (4) Parkinsons disease: Plan: -has noted pill roll tremor and parkinsonian features on face and hands as well -cogwheeling noted Plan: -continue home parkinsons medications (5) GERD (gastroesophageal reflux disease): Plan: -continue protonix (6) DM type 1 (diabetes mellitus, type 1): Plan: -pharmacy consult given complex regiment (7) CAD (coronary artery disease): Plan: -noted 1 stent in past -see above for plan -LDL 48, A1c 8.7% Plan Analgesia: per ortho Sedation: na Thromboprophylaxis: per ortho Ulcer prophylaxis: protonix Glycemic control: per pharmacy Bowel care: per ortho Admission and Anticipated Discharge Date Admission Date: August 21, 2024 Subjective Pt seen in follow up of med consult, pt is s/p spinal surgery currently resting in bed in NAD reports feeling ok, no questions or concerns Review of Systems Review of Systems: All systems reviewed & are unremarkable except as noted in Subjective Physical Exam Physical Exam: Gen: A&O 3 NAD HEENT: NCAT, EOMI. External ears normal Neck: Supple Lungs: No Respiratory distress. CV: RRR, no edema. Abdomen: Soft, nondistended, No tenderness. Skin: warm, dry Extremities: SCDs applied Neuro: drowsy but awakens to voice and answers appropriately, +pill roll tremor and Parkinsons facial features noted Psych: Appropriate for situation. Results & Data Results & Data Vital Signs (Past 12 Hours) Vital Signs Temp Pulse Resp BP Pulse Ox O2 Del Method 08/22/24 07:15 36.4 C L 73 18 131/55 L 92 Room Air Laboratory Results 08/22/24 08/22/24 08/22/24 Range/Units 06:33 03:55 00:07 WBC 8.41 (4.8-10.8) K/ul RBC 4.19 L (4.70-6.10) M/uL Hgb 12.6 L (14.0-18.0) g/dl Hct 38.2 L (42.0-52.0) % MCV 91.2 (80.0-100.0) fL MCH 30.1 (25.0-34.0) pg MCHC 33.0 (32.0-36.0) g/dL RDW Std Deviation 42.8 (36.4-46.3) fL RDW Coeff of Gio 12.8 (11.5-14.5) % Plt Count 250 (130-400) K/uL MPV 9.7 (9.4-12.4) fL Immature Gran % (Auto) % Neut % (Auto) % Lymph % (Auto) % [place] % (Auto) % Eos % (Auto) % Baso % (Auto) % Neut # (Auto) (1.40-6.50) K/uL Lymph # (Auto) (1.20-3.40) K/uL [place] # (Auto) (0.11-0.59) K/uL Eos # (Auto) (0.00-0.50) K/uL Baso # (Auto) (0.00-0.20) K/uL Immature Gran # (Auto) (0.01-0.20) K/uL PT (9.0-12.0) Seconds INR (0.9-1.1) Sodium 138 (136-145) mmol/L Potassium 4.1 (3.5-5.1) mmol/L Chloride 101 (98-107) mmol/L Carbon Dioxide 33 H (21-32) mmol/L Anion Gap 4 (3-11) BUN 15 (6-23) mg/dl Creatinine 0.76 (0.6-1.4) mg/dl Est Cr Clr Drug Dosing 78.7 ml/min eGFR 90.30 BUN/Creatinine Ratio 19.7 (10-20) Glucose 161 H (70-99(Fasting)) mg/dl POC Glucose 110 H 92 (70-99) mg/dl Estimat Average Glucose mg/dl Hemoglobin A1c (4.5-5.6) % Calcium 9.1 (8.6-10.3) mg/dl Magnesium 1.6 L (1.7-2.4) mg/dl Total Bilirubin (0.2-1.0) mg/dl AST (13-39) U/L ALT (7-52) U/L Alkaline Phosphatase (34-104) U/L Troponin I High Sens (0-20) pg/ml Total Protein (6.0-8.3) gm/dl Albumin (3.4-5.0) gm/dl Globulin (2.5-4.0) gm/dl Albumin/Globulin Ratio (0.9-2) Triglycerides (0-150) mg/dl Cholesterol (0-200) mg/dl LDL Cholesterol, Calc mg/dl VLDL Cholesterol, Calc (0-30) mg/dl HDL Cholesterol mg/dl Cholesterol/HDL Ratio (0-5) SARS-CoV-2, RNA, NAAT (NEGATIVE) Blood Type Antibody Screen 08/21/24 08/21/24 08/21/24 Range/Units 20:15 16:48 14:18 WBC (4.8-10.8) K/ul RBC (4.70-6.10) M/uL Hgb (14.0-18.0) g/dl Hct (42.0-52.0) % MCV (80.0-100.0) fL MCH (25.0-34.0) pg MCHC (32.0-36.0) g/dL RDW Std Deviation (36.4-46.3) fL RDW Coeff of Gio (11.5-14.5) % Plt Count (130-400) K/uL MPV (9.4-12.4) fL Immature Gran % (Auto) % Neut % (Auto) % Lymph % (Auto) % [place] % (Auto) % Eos % (Auto) % Baso % (Auto) % Neut # (Auto) (1.40-6.50) K/uL Lymph # (Auto) (1.20-3.40) K/uL [place] # (Auto) (0.11-0.59) K/uL Eos # (Auto) (0.00-0.50) K/uL Baso # (Auto) (0.00-0.20) K/uL Immature Gran # (Auto) (0.01-0.20) K/uL PT 11.5 (9.0-12.0) Seconds INR 1.1 (0.9-1.1) Sodium (136-145) mmol/L Potassium (3.5-5.1) mmol/L Chloride (98-107) mmol/L Carbon Dioxide (21-32) mmol/L Anion Gap (3-11) BUN (6-23) mg/dl Creatinine (0.6-1.4) mg/dl Est Cr Clr Drug Dosing ml/min eGFR BUN/Creatinine Ratio (10-20) Glucose (70-99(Fasting)) mg/dl POC Glucose 242 H 235 H (70-99) mg/dl Estimat Average Glucose 203 mg/dl Hemoglobin A1c 8.7 H (4.5-5.6) % Calcium (8.6-10.3) mg/dl Magnesium (1.7-2.4) mg/dl Total Bilirubin (0.2-1.0) mg/dl AST (13-39) U/L ALT (7-52) U/L Alkaline Phosphatase (34-104) U/L Troponin I High Sens (0-20) pg/ml Total Protein (6.0-8.3) gm/dl Albumin (3.4-5.0) gm/dl Globulin (2.5-4.0) gm/dl Albumin/Globulin Ratio (0.9-2) Triglycerides 103 (0-150) mg/dl Cholesterol 110 (0-200) mg/dl LDL Cholesterol, Calc 48 mg/dl VLDL Cholesterol, Calc 21 (0-30) mg/dl HDL Cholesterol 41 mg/dl Cholesterol/HDL Ratio 2.7 (0-5) SARS-CoV-2, RNA, NAAT (NEGATIVE) Blood Type O Positive Antibody Screen NEGATIVE 03/13/25 03/13/25 03/13/25 Range/Units 12:32 09:15 09:07 WBC 6.30 (4.8-10.8) K/ul RBC 4.06 L (4.70-6.10) M/uL Hgb 12.4 L (14.0-18.0) g/dl Hct 37.4 L (42.0-52.0) % MCV 92.1 (80.0-100.0) fL MCH 30.5 (25.0-34.0) pg MCHC 33.2 (32.0-36.0) g/dL RDW Std Deviation 43.5 (36.4-46.3) fL RDW Coeff of Gio 12.9 (11.5-14.5) % Plt Count 239 (130-400) K/uL MPV 9.6 (9.4-12.4) fL Immature Gran % (Auto) 0.6 % Neut % (Auto) 80.7 % Lymph % (Auto) 11.4 % [place] % (Auto) 6.2 % Eos % (Auto) 0.3 % Baso % (Auto) 0.8 % Neut # (Auto) 5.08 (1.40-6.50) K/uL Lymph # (Auto) 0.72 L (1.20-3.40) K/uL [place] # (Auto) 0.39 (0.11-0.59) K/uL Eos # (Auto) 0.02 (0.00-0.50) K/uL Baso # (Auto) 0.05 (0.00-0.20) K/uL Immature Gran # (Auto) 0.04 (0.01-0.20) K/uL PT 11.8 (9.0-12.0) Seconds INR 1.1 (0.9-1.1) Sodium 134 L (136-145) mmol/L Potassium 4.1 (3.5-5.1) mmol/L Chloride 99 (98-107) mmol/L Carbon Dioxide 31 (21-32) mmol/L Anion Gap 4 (3-11) BUN 21 (6-23) mg/dl Creatinine 0.82 (0.6-1.4) mg/dl Est Cr Clr Drug Dosing 73.0 ml/min eGFR 88.25 BUN/Creatinine Ratio 25.6 H (10-20) Glucose 317 H* (70-99(Fasting)) mg/dl POC Glucose 212 H (70-99) mg/dl Estimat Average Glucose mg/dl Hemoglobin A1c (4.5-5.6) % Calcium 9.4 (8.6-10.3) mg/dl Magnesium (1.7-2.4) mg/dl Total Bilirubin 0.8 (0.2-1.0) mg/dl AST 13 (13-39) U/L ALT < 3 L (7-52) U/L Alkaline Phosphatase 99 (34-104) U/L Troponin I High Sens 10.1 (0-20) pg/ml Total Protein 6.1 (6.0-8.3) gm/dl Albumin 3.8 (3.4-5.0) gm/dl Globulin 2.3 L (2.5-4.0) gm/dl Albumin/Globulin Ratio 1.7 (0.9-2) Triglycerides (0-150) mg/dl Cholesterol (0-200) mg/dl LDL Cholesterol, Calc mg/dl VLDL Cholesterol, Calc (0-30) mg/dl HDL Cholesterol mg/dl Cholesterol/HDL Ratio (0-5) SARS-CoV-2, RNA, NAAT NEGATIVE (NEGATIVE) Blood Type Antibody Screen Medications Administered Current Inpatient Medications Acetaminophen (Acetaminophen 500 Mg Tab) 1,000 mg PO Q8H PRN PRN Reason: MILD Pain Scale 1,2,3 & Pre PT Stop: 09/20/24 12:33 Baclofen (Baclofen 10 Mg Tab) 10 mg PO TID PRN PRN Reason: Pain Stop: 09/20/24 12:33 Last Admin: 08/21/24 15:42 Dose: 10 mg Carbidopa/Levodopa (Carbidopa/Levodopa 50/200mg Ext Rel Tab) 1 tab PO HS EVETTE Stop: 09/20/24 20:59 Last Admin: 08/21/24 20:26 Dose: 1 tab Carbidopa/Levodopa (Carbidopa/Levodopa 25/100mg Tab) 1.5 tab PO QID EVETTE Stop: 09/20/24 16:59 Last Admin: 08/22/24 08:06 Dose: 1.5 tab Hydromorphone HCl (Hydromorphone Inj 0.5 Mg/0.5 Ml Syr) 0.5 mg IV Q3H PRN PRN Reason: MOD pain (scale 4-6) & Pre PT Stop: 09/04/24 12:33 Last Admin: 08/21/24 13:14 Dose: 0.5 mg Hydromorphone HCl (Hydromorphone Inj 1 Mg/Ml Syringe) 1 mg IV Q3H PRN PRN Reason: severe pain (scale 7-10) Stop: 09/04/24 12:33 Last Admin: 08/22/24 05:25 Dose: 1 mg Acetaminophen (Ofirmev) 1,000 mg in 100 mls @ 400 mls/hr IV Q8H PRN PRN Reason: Pain Rating 1-3 & Pre PT Stop: 08/22/24 12:34 Cefazolin Sodium (Ancef 2000mg) 2,000 mg in 15 mls @ 3.75 mls/min IV PREOP EVETTE; Protocol Stop: 08/23/24 05:59 Promethazine HCl (Phenergan) 12.5 mg in 50.5 mls @ 202 mls/hr IV Q6H PRN PRN Reason: Nausea And Vomiting Stop: 09/20/24 12:33 Insulin Aspart (Insulin Aspart Per Unit Charge) 0 units SC ACHS [facility] Stop: 09/20/24 16:29 Last Admin: 08/22/24 08:05 Dose: Not Given Insulin Aspart (Insulin Aspart Per Unit Charge) 0 units SC 0000,0400 [facility] Stop: 09/21/24 00:00 Last Admin: 08/22/24 04:21 Dose: Not Given Insulin Glargine (Lantus Per Unit Charge) 15 units SC QDD [facility] Stop: 09/20/24 16:29 Last Admin: 08/21/24 17:48 Dose: 15 units Lovastatin (Lovastatin 20 Mg Tab) 40 mg PO HS [facility] Stop: 09/20/24 20:59 Last Admin: 08/21/24 20:27 Dose: 40 mg Metoclopramide HCl (Metoclopramide Hcl Inj 5 Mg/Ml 2 Ml Vial) 10 mg IV Q6H PRN PRN Reason: Nausea &/or Vomiting Stop: 09/20/24 12:33 Miscellaneous Information (Pharmacy Glycemic Mgmt Consult) 1 each N/A UD PRN PRN Reason: Consult Stop: 09/20/24 13:50 Naloxone HCl (Naloxone Hcl 0.4 Mg/1 Ml Vial/Carp) 0.1 mg IV Q5M PRN PRN Reason: Oversedation/respiratory dep Stop: 09/20/24 12:33 Ondansetron HCl (Ondansetron Inj 2 Mg/Ml 2 Ml Vial) 4 mg IV Q6H PRN PRN Reason: Nausea &/or Vomiting Stop: 09/20/24 12:33 Ondansetron HCl (Ondansetron 4 Mg Od Tab) 4 mg PO Q6H PRN PRN Reason: Nausea Stop: 09/20/24 12:33 Oxycodone HCl (Oxycodone Hcl Ir 5 Mg Tab (Immediate Release)) 5 - 10 mg PO Q4H PRN PRN Reason: mod to severe pain Stop: 09/04/24 12:33 Last Admin: 08/21/24 20:27 Dose: 10 mg Pantoprazole Sodium (Pantoprazole 40 Mg Tab) 40 mg PO BID [place]ETTE Stop: 09/20/24 20:59 Last Admin: 08/22/24 08:08 Dose: 40 mg (4) Parkinsons disease Dyskinesia presence: with dyskinesia Fluctuating manifestations: unspecified whether manifestations fluctuate Qualified Code(s): G20.B1 - Parkinson's disease with dyskinesia, without mention of fluctuations (5) GERD (gastroesophageal reflux disease) Esophagitis bleeding: without hemorrhage Esophagitis presence: with esophagitis Qualified Code(s): K21.00 - Gastro-esophageal reflux disease with esophagitis, without bleeding (6) DM type 1 (diabetes mellitus, type 1) Diabetes mellitus complication detail: with peripheral angiopathy without gangrene Diabetes mellitus complication status: with circulatory complication Qualified Code(s): E10.51 - Type 1 diabetes mellitus with diabetic peripheral angiopathy without gangrene (7) CAD (coronary artery disease) Associated angina: without angina Coronary Disease-Associated Artery/Lesion type: [place] artery [place] vs. transplanted heart: [place] heart Qualified Code(s): I25.10 - Atherosclerotic heart disease of [place] coronary artery without angina pectoris
--- NOTE | 2024-08-22 09:29 | History & Physical Bridge Note ---
Date of Service August 22, 2024 History & Physical Bridge Note I have examined the patient, reviewed the History & Physical and in the interval since the performance of the History & Physical I have noted the following changes of clinical significance: no changes noted Decompression fusion T11-L2 with kyphoplasty L1
[2024-08-22] MEDS: ceFAZolin 2000MG 2,000 MG/15 ML SYR IV SCH ×2 (10:04→17:57)
[2024-08-22] MEDS ORDERED: fentaNYL citrate PF 100 MCG/2 ML VIAL ONE ×2 (10:08→11:47)
[2024-08-22] MEDS ORDERED: PROPOFOL IV EMULSION 10 MG/ML 100 ML VIAL IV ONE (10:33)
[2024-08-22] MEDS ORDERED: SUGAMMADEX SODIUM 200 MG/2 ML VIAL IV ONE (10:51)
[2024-08-22] MEDS ORDERED: ALBUMIN HUMAN 5% 12.5 GM/250 ML VIAL IV ONE (12:06)
[2024-08-22] MEDS: BUPIVACAINE/EPINEPHRINE 0.25% 1:200,000 30 ML VIAL ONE (13:03)
[2024-08-22] MEDS: ceFAZolin 330 MG/ML 1 GM VIAL ONE (13:04)
[2024-08-22] MEDS: FLOSEAL HEMOSTATIC MATRIX 10ML TOP ONE (13:05)
[2024-08-22] MEDS: MAGNESIUM OXIDE 400 MG TAB PO SCH (13:05)
--- NOTE | 2024-08-22 13:13 | Operative Report ---
Post Operative Report Pre & Post Diagnosis Operation Date: 08/22/24 09:55 Pre-Op Diagnosis: #1 lumbar spondylosis with radiculopathy. #2 compression fracture L1 #3 lumbar disc herniation with radiculopathy Post-Op Diagnosis: Same I identified the patient and participated in the time-out.: Yes Procedure Operation Date: 08/22/24 09:55 Actual Procedures #1 decompression with bilateral medial facetectomies and foraminotomies T12-L1 L1-L2. #2 posterior spinal fusion T11-L2. #3 placed posterior instrumentation T11-L1 with connectors at L2-L3. #4 interbody fusion L1-L2. #5 placement Spira 12 x 26 mm at L1-L2. #6 kyphoplasty the vertebral bodies of T12 and L1. #7 placement locally harvested morselized autograft and posterior gutters. #8 placement of infuse collagen sponge, with Koros in the posterior gutters T11-L2. #9 placement of versa wrap over the exposed dura. Surgeon Festus Su, Digital Traffic Coordinator Ricardo Mccurdy Estimated Blood Loss 400 Findings Consistent with Post-Op Diagnosis Specimens None Indications This is a 79-year-old male who presents the emergency room with marked client status inability to ambulate severe back and bilateral leg pain. Evidence of severe spinal canal and neuroforaminal stenosis disc herniation at L1-L2 with compression fracture of the inferior plate of L1. This is a directly above his previous construct L2-S1 fusion. He is developing severe junctional kyphosis. Description of Procedure Patient was met with identified informed consent obtained. Patient was then taken to the operative suite underwent intubation and placed in a prone position on the [place] table with chest padded bolsters. All bony prominences well-pa dded eyes inspected to ensure no external pressure placed upon them. This point the thoracolumbar spine was prepped and draped in a sterile fashion. Sharp dissection with the assistance of Bovie cautery from down to and exposing the lamina transverse processes of T11-T12 L1 and the instrumentation at from L2-L3. I then performed a complete laminectomy of L1 with bilateral medial facetectomies and foraminotomies addressing severe neural compression as well as addressing large disc herniation on the right. Then formed a laminectomy of T12 with bilateral medial facetectomies to address all subarticular stenosis. Kyphoplasty of the vertebral bodies of T12 and L1 were then performed. Upon removal of the Kyphon balloons the appropriate size pedicle screws were inserted. This was followed by pedicle screws placed in T11. The cross-link between L2 and L3 from the previous construct was removed and [address]. [address] of transforaminal approach on the right a complete discectomy of L1-L2 was performed endplates guarded to subcortical mean bone and a 12 x 26 mm spiral cage filled with os design bone graft tapped in position. Appropriate size rods were then contoured and locked into position bilaterally. Transverse processes from T11-L2 were then burred to subcortical the bone. Infuse collagen sponge bath Koros and local autograft placed in posterior gutters. Versa wrap placed with exposed dura. 15 round HELDER drain inserted. The incision was then closed with 1 Vicryl the fascia 2-0 Vicryl subcutaneously and 4 Monocryl for final skin closure. Steri-Strips sterile dressing placed. Patient waken taken PACU stable condition. Please note spinal cord monitoring was utilized at the procedure no changes noted. Ricardo Villatoro was present at the entire surgery and while the patient positioning complex portion of the surgery and final skin closure. I attest to the content of the Intraoperative Record and any orders documented therein. Any exceptions are noted below.
--- NOTE | 2024-08-22 13:44 | Fluoroscopy Report ---
FL lumbar spine 2-3V CLINICAL HISTORY: T11-L2 DECOMPRESSION AND FUSION WITH INTERBODY COMPARISON STUDY: None pertinent FLUOROSCOPY TIME: 57.7 seconds FLUOROSCOPY IMAGES: 3 EXPOSURE DOSE: 51.72 mGy FINDINGS: Fluoroscopic guidance provided IMPRESSION: Refer to the operative report for evaluation based upon real-time fluoroscopic observatio n ACT 112: Negative or not required by law. Electronically signed by: Mila Begum M.D. 08/22/2024 1:43 PM
--- NOTE | 2024-08-22 13:59 | Pharmacy Report ---
Pharmacy Glycemic Short Note 2 - Date of Service August 22, 2024 - Glycemic Short BSG Results (Last 24 hours): 08/21/24 08/21/24 08/22/24 16:48 20:15 00:07 Glucose POC Glucose 235 H 242 H 92 08/22/24 08/22/24 08/22/24 03:55 06:33 09:22 Glucose 161 H POC Glucose 110 H 180 H OUTPATIENT ANTIDIABETIC REGIMEN: * Humulin 70/30 30 units QAM & 30 units Qafternoon * HbA1c 8.7% 08/21/24 ASSESSMENT: 08/22 * Cortez received 26 units of insulin yesterday (24 were basal) * Fasting BSG this AM acceptable, appears to have received 8mg of IV dexamethasone while in OR today, will stress basal insulin dose by 40% to help cover, reassess in AM * Carbohydrate ratio tightened with steroid administration, no other glycemic stressors at this time, overnight checks added to monitor for hypoglycemia 08/21 * Cortez is an 79 year old male admitted with spinal stenosis and difficulty with ambulation. He has a history of type 1 diabetes and pharmacy has been consulted for glycemic management while inpatient. * BSGs elevated this AM on admission, RN confirmed that patient took 30 units of his insulin this AM. BSGs did trend down at lunchtime. Pharmacy has previously followed. Will initiate Lantus at this time based on prior data due to procedure tomorrow. Consider transitioning to NPH to better mimic outpatient regimen once stressors stabilize. * Novolog initiated at a weight based stress of 2, higher goal range to prevent hypoglycemia. PLAN FOR INPATIENT GLYCEMIC CONTROL: * Hold outpatient oral diabetes medications * Basal insulin * Lantus 25 units SQ x1 * Reassess basal in AM * Bolus insulin * NovoLog per scale ACHS or Q6hrs while NPO * Goal Range: Low 140 mg/dL - High 180 mg/dL * Correction Factor: 35 mg/dL/unit * Nutritional / Prandial insulin per carb ratio of 1 unit per 7 grams CHO consumed
[2024-08-22] MEDS ORDERED: ePHEDrine sulfate 50 MG/ML AMP IV PRN (14:47)
[2024-08-22] MEDS ORDERED: PROMETHAZINE HCL 6.25 MG in SODIUM CHLORIDE 0.9% 50 ML IV PRN (14:47)
[2024-08-22] MEDS ORDERED: ATROPINE SULFATE 0.1 MG/ML 10ML SYR IV PRN (14:47)
[2024-08-22] MEDS ORDERED: NALOXONE HCL 0.4 MG/1 ML VIAL/CARP IV PRN ×2 (14:47→15:31)
[2024-08-22] MEDS ORDERED: FLUMAZENIL 0.1 MG/1 ML 10 ML VIAL IV PRN (14:47)
[2024-08-22] MEDS ORDERED: HYDROmorphone INJ 1 MG/ML SYRINGE IV PRN (14:47)
[2024-08-22] MEDS: fentaNYL citrate PF 100 MCG/2 ML VIAL IV PRN (14:51)
[2024-08-22] MEDS: ONDANSETRON INJ 2 MG/ML 2 ML VIAL IV PRN ×2 (14:51→21:59)
--- NOTE | 2024-08-22 15:08 | Anesthesiology Progress Note ---
Date of Service August 22, 2024 Anesthesia Post Procedure Vital Signs Vital Signs: Temp Pulse Pulse Resp BP BP Pulse Ox 08/22/24 15:00 36.6 C 88 15 105/37 L 99 08/22/24 14:50 93 H 16 101/40 L 98 08/22/24 14:40 100 H 12 121/32 L 98 08/22/24 14:30 98 H 14 123/38 L 98 08/22/24 14:20 94 H 12 113/46 L 97 08/22/24 14:10 36.8 C 92 H 15 152/53 H 100 08/22/24 14:00 90 14 144/59 H 100 08/22/24 13:50 87 15 133/56 L 100 08/22/24 13:44 36.3 C L 86 13 161/68 H 100 08/22/24 09:18 36.7 C 88 18 138/59 L 95 08/22/24 07:15 36.4 C L 73 18 131/55 L 92 08/21/24 19:55 36.8 C 76 16 149/77 H 95 08/21/24 17:26 190/66 H 08/21/24 15:52 36.7 C 92 H 16 206/67 H 95 O2 Del Method O2 Flow Rate 08/22/24 15:00 Nasal Cannula 2 08/22/24 14:50 Nasal Cannula 2 08/22/24 14:40 Nasal Cannula 2 08/22/24 14:30 Nasal Cannula 2 08/22/24 14:20 Nasal Cannula 2 08/22/24 14:10 Oxymask 2 08/22/24 14:00 Oxymask 4 08/22/24 13:50 Oxymask 4 08/22/24 13:44 Oxymask 6 08/22/24 09:18 Room Air 08/22/24 07:15 Room Air 08/21/24 19:55 Room Air 08/21/24 17:26 08/21/24 15:52 Room Air Pain Intensity Lower Back: Pain Intensity: 4 Transfer of Care Handoff Completed per policy Notes Mental Status: alert / awake / arousable Patient Amnestic to Procedure: Yes Nausea / Vomiting: adequately controlled Pain: adequately controlled Airway Patency, RR, SpO2: stable & adequate BP & HR: stable & adequate Hydration State: stable & adequate Anesthetic Complications: no major complications apparent
[2024-08-22] MEDS ORDERED: ACETAMINOPHEN 500 MG TAB PO PRN (15:31)
[2024-08-22] MEDS ORDERED: DO NOT ADMINISTER PNEUMOCOCCAL VACCINE PRN (15:31)
[2024-08-22] MEDS ORDERED: LORazepam 0.5 MG TAB PO PRN (15:31)
[2024-08-22] MEDS ORDERED: MAGNESIUM HYDROXIDE SUSP 30 ML UDC PO PRN (15:31)
[2024-08-22] MEDS ORDERED: DO NOT ADMINISTER FLU VACCINE PRN (15:31)
[2024-08-22] MEDS ORDERED: FAMOTIDINE 20 MG TAB PO PRN (15:31)
[2024-08-22] MEDS ORDERED: bisacodyL 10 MG SUPP PR PRN (15:31)
[2024-08-22] MEDS ORDERED: hydrOXYzine HCl 25 MG TAB PO PRN (15:31)
[2024-08-22] MEDS ORDERED: LORazepam 2 MG/1 ML VIAL IV PRN (15:31)
[2024-08-22] MEDS ORDERED: diphenhydrAMINE Capsule 25 MG CAP PO PRN (15:31)
[2024-08-22] MEDS ORDERED: HYDROmorphone INJ 0.5 MG/0.5 ML SYR IV PRN (15:31)
[2024-08-22] MEDS ORDERED: ALUMINUM/MAGNESIUM SUSP 30 ML UDC PO PRN (15:31)
[2024-08-22] MEDS ORDERED: ACETAMINOPHEN 1,000 MG/100 ML VIAL IV PRN (15:31)
[2024-08-22] MEDS ORDERED: SOD PHOSPHATE/SOD BIPHOSPHATE ENEMA 132 ML BTL PR PRN (15:31)
[2024-08-22] MEDS: LANTUS PER UNIT CHARGE SC ONE (15:54)
[2024-08-22] MEDS ORDERED: LANTUS PER UNIT CHARGE SC SCH ×2 (16:30)
[2024-08-22] MEDS: DOCUSATE SODIUM/SENNA 50/8.6MG TAB PO SCH (20:56)
[2024-08-22] MEDS: SODIUM CHLORIDE 0.9% 500 ML IV ONE (23:07)
[2024-08-22] MEDS: SODIUM CHLORIDE 0.9% 1,000 ML IV SCH (23:42)
[2024-08-22 23:48] LABS: Hemoglobin 9.5 g/dl (14.0-18.0)
[2024-08-23] MEDS: METOCLOPRAMIDE HCL INJ 5 MG/ML 2 ML VIAL IV PRN (00:06)
[2024-08-23] MEDS: PROMETHAZINE 12.5 MG/50.5 ML BAG IV PRN (00:36)
[2024-08-23] MEDS: POLYETHYLENE (MIRALAX) 17 GM PACK PO SCH (05:37)
[2024-08-23 07:26] LABS: Basophils # (auto) 0.02 K/uL (0.00-0.20); Basophils % (auto) 0.1 %; Hematocrit (blood only) 26.5 % (42.0-52.0); Hemoglobin 9.1 g/dl (14.0-18.0); Immature Granulocytes # (auto) 0.07 K/uL (0.01-0.20); Immature Granulocytes % (auto) 0.5 %; Lymphocytes # (auto) 1.03 K/uL (1.20-3.40); Lymphocytes % (auto) 7.5 %; Mean Corpuscular Hemoglobin 31.3 pg (25.0-34.0); Mean Corpuscular Hgb Conc 34.3 g/dL (32.0-36.0); Mean Corpuscular Volume 91.1 fL (80.0-100.0); Mean Platelet Volume 9.9 fL (9.4-12.4); Monocytes # (auto) 1.38 K/uL (0.11-0.59); Neutrophils % (auto) 81.9 %; Platelet Count 219 K/uL (130-400); RDW Coefficient of Variation 12.8 % (11.5-14.5); RDW Standard Deviation 42.5 fL (36.4-46.3); Red Blood Count 2.91 M/uL (4.70-6.10)
[2024-08-23 07:53] LABS: BUN Creatinine Ratio 21.9 (10-20); Calcium 8.5 mg/dl (8.6-10.3); Magnesium 1.5 mg/dl (1.7-2.4); Phosphorus 3.3 mg/dl (2.5-4.9); Potassium 3.9 mmol/L (3.5-5.1)
--- NOTE | 2024-08-23 09:10 | Hospitalist Progress Note ---
Date of Service August 23, 2024 Assessment & Plan (1) Spinal stenosis, lumbar region with neurogenic claudication: Plan: - S/p #1 decompression with bilateral medial facetectomies and foraminotomies T12-L1 L1-L2. #2 posterior spinal fusion T11-L2. #3 placed posterior instrumentation T11-L1 with connectors at L2-L3. #4 interbody fusion L1-L2. #5 placement Spira 12 x 26 mm at L1-L2. #6 kyphoplasty the vertebral bodies of T12 and L1. #7 placement locally harvested morselized autograft and posterior gutters. #8 placement of infuse collagen sponge, with Koros in the posterior gutters T11-L2. #9 placement of versa wrap over the exposed dura. on 08/22/2024 -pain management per ortho -consider pregablin 50 tid post operatively for neuropathic pain -DVT ppx per ortho -PT/OT per ortho -monitor creatinine, Hgb post op -incentive spirometry ordered Acute blood loss anemia - pre-op Hgb 12.6 current Hgb 9.1 - BP on lower side and receiving IVF - cont. to monitor H&H, no need for blood transfusion at this time HORACE - current Cr 1.46 - baseline 0.8 - receiving IVF - cont. to monitor (2) Severe back pain: (3) Gastroparesis: Plan: -2/2 type 1 DM (4) Parkinsons disease: Plan: -has noted pill roll tremor and parkinsonian features on face and hands as well -cogwheeling noted Plan: -continue home parkinsons medications (5) GERD (gastroesophageal reflux disease): Plan: -continue protonix (6) DM type 1 (diabetes mellitus, type 1): Plan: -pharmacy consult given complex regiment (7) CAD (coronary artery disease): Plan: -noted 1 stent in past -see above for plan -LDL 48, A1c 8.7% (8) Fracture of pedicle of lumbar vertebra: Plan Analgesia: per ortho Thromboprophylaxis: per ortho Ulcer prophylaxis: protonix Glycemic control: per pharmacy Bowel care: per ortho Admission and Anticipated Discharge Date Admission Date: August 21, 2024 Subjective Pt seen in follow up of med consult, pt is s/p spinal surgery currently resting in bed in NAD Pt's present at the bedside Pt denies any significant pain Also no fever, chills, chest pain, shortness of breath BP on lower side - received 1l by executive assistant to president, BP still on lower side, will cont. w/ IVF Review of Systems Review of Systems: All systems reviewed & are unremarkable except as noted in Subjective Physical Exam Physical Exam: Gen: A&O 3 NAD HEENT: NCAT, EOMI. External ears normal Neck: Supple Lungs: No Respiratory distress. CV: RRR, no edema. Abdomen: Soft, nondistended, No tenderness. Skin: warm, dry Extremities: SCDs applied Neuro: awake alert, answers appropriately, +pill roll tremor and Parkinsons facial features noted Results & Data Results & Data Vital Signs (Past 12 Hours) Vital Signs Temp Pulse Pulse Resp BP BP Pulse Ox 08/23/24 09:06 96 H 16 93/53 L 96 08/23/24 07:44 36.8 C 100 H 18 112/58 L 95 08/23/24 05:46 88 100/40 L 91/52 L 08/23/24 05:41 67/32 L 08/23/24 03:47 36.9 C 93 H 18 91/55 L 96 08/22/24 23:44 92 H 120/56 L 08/22/24 23:06 87/41 L 08/22/24 22:55 36.3 C L 95 H 18 72/30 L 95 O2 Del Method 08/23/24 09:06 Room Air 08/23/24 07:44 Room Air 08/23/24 05:46 08/23/24 05:41 08/23/24 03:47 Room Air 08/22/24 23:44 08/22/24 23:06 08/22/24 22:55 Room Air Laboratory Results 08/23/24 08/23/24 08/23/24 Range/Units 07:41 06:46 03:45 WBC 13.80 H (4.8-10.8) K/ul RBC 2.91 L (4.70-6.10) M/uL Hgb 9.1 L (14.0-18.0) g/dl Hct 26.5 L (42.0-52.0) % MCV 91.1 (80.0-100.0) fL MCH 31.3 (25.0-34.0) pg MCHC 34.3 (32.0-36.0) g/dL RDW Std Deviation 42.5 (36.4-46.3) fL RDW Coeff of Gio 12.8 (11.5-14.5) % Plt Count 219 (130-400) K/uL MPV 9.9 (9.4-12.4) fL Immature Gran % (Auto) 0.5 % Neut % (Auto) 81.9 % Lymph % (Auto) 7.5 % [place] % (Auto) 10.0 % Eos % (Auto) 0.0 % Baso % (Auto) 0.1 % Neut # (Auto) 11.30 H (1.40-6.50) K/uL Lymph # (Auto) 1.03 L (1.20-3.40) K/uL [place] # (Auto) 1.38 H (0.11-0.59) K/uL Eos # (Auto) 0.00 (0.00-0.50) K/uL Baso # (Auto) 0.02 (0.00-0.20) K/uL Immature Gran # (Auto) 0.07 (0.01-0.20) K/uL Sodium 139 (136-145) mmol/L Potassium 3.9 (3.5-5.1) mmol/L Chloride 105 (98-107) mmol/L Carbon Dioxide 27 (21-32) mmol/L Anion Gap 7 (3-11) BUN 32 H (6-23) mg/dl Creatinine 1.46 H D (0.6-1.4) mg/dl Est Cr Clr Drug Dosing 41.0 ml/min eGFR 48.01 BUN/Creatinine Ratio 21.9 H (10-20) Glucose 163 H (70-99(Fasting)) mg/dl POC Glucose 132 H 251 H (70-99) mg/dl Calcium 8.5 L (8.6-10.3) mg/dl Phosphorus 3.3 (2.5-4.9) mg/dl Magnesium 1.5 L (1.7-2.4) mg/dl 08/22/24 08/22/24 08/22/24 Range/Units 23:49 23:48 23:43 WBC (4.8-10.8) K/ul RBC (4.70-6.10) M/uL Hgb (14.0-18.0) g/dl Hct (42.0-52.0) % MCV (80.0-100.0) fL MCH (25.0-34.0) pg MCHC (32.0-36.0) g/dL RDW Std Deviation (36.4-46.3) fL RDW Coeff of Gio (11.5-14.5) % Plt Count (130-400) K/uL MPV (9.4-12.4) fL Immature Gran % (Auto) % Neut % (Auto) % Lymph % (Auto) % [place] % (Auto) % Eos % (Auto) % Baso % (Auto) % Neut # (Auto) (1.40-6.50) K/uL Lymph # (Auto) (1.20-3.40) K/uL [place] # (Auto) (0.11-0.59) K/uL Eos # (Auto) (0.00-0.50) K/uL Baso # (Auto) (0.00-0.20) K/uL Immature Gran # (Auto) (0.01-0.20) K/uL Sodium (136-145) mmol/L Potassium (3.5-5.1) mmol/L Chloride (98-107) mmol/L Carbon Dioxide (21-32) mmol/L Anion Gap (3-11) BUN (6-23) mg/dl Creatinine (0.6-1.4) mg/dl Est Cr Clr Drug Dosing ml/min eGFR BUN/Creatinine Ratio (10-20) Glucose (70-99(Fasting)) mg/dl POC Glucose 350 H* 391 H* 367 H* (70-99) mg/dl Calcium (8.6-10.3) mg/dl Phosphorus (2.5-4.9) mg/dl Magnesium (1.7-2.4) mg/dl 08/22/24 08/22/24 08/22/24 Range/Units 23:15 20:17 20:17 WBC (4.8-10.8) K/ul RBC (4.70-6.10) M/uL Hgb 9.5 L D (14.0-18.0) g/dl Hct 28.0 L (42.0-52.0) % MCV (80.0-100.0) fL MCH (25.0-34.0) pg MCHC (32.0-36.0) g/dL RDW Std Deviation (36.4-46.3) fL RDW Coeff of Gio (11.5-14.5) % Plt Count (130-400) K/uL MPV (9.4-12.4) fL Immature Gran % (Auto) % Neut % (Auto) % Lymph % (Auto) % [place] % (Auto) % Eos % (Auto) % Baso % (Auto) % Neut # (Auto) (1.40-6.50) K/uL Lymph # (Auto) (1.20-3.40) K/uL [place] # (Auto) (0.11-0.59) K/uL Eos # (Auto) (0.00-0.50) K/uL Baso # (Auto) (0.00-0.20) K/uL Immature Gran # (Auto) (0.01-0.20) K/uL Sodium (136-145) mmol/L Potassium (3.5-5.1) mmol/L Chloride (98-107) mmol/L Carbon Dioxide (21-32) mmol/L Anion Gap (3-11) BUN (6-23) mg/dl Creatinine (0.6-1.4) mg/dl Est Cr Clr Drug Dosing ml/min eGFR BUN/Creatinine Ratio (10-20) Glucose (70-99(Fasting)) mg/dl POC Glucose 417 H* 410 H* (70-99) mg/dl Calcium (8.6-10.3) mg/dl Phosphorus (2.5-4.9) mg/dl Magnesium (1.7-2.4) mg/dl 08/22/24 08/22/24 08/22/24 Range/Units 20:16 16:58 16:57 WBC (4.8-10.8) K/ul RBC (4.70-6.10) M/uL Hgb (14.0-18.0) g/dl Hct (42.0-52.0) % MCV (80.0-100.0) fL MCH (25.0-34.0) pg MCHC (32.0-36.0) g/dL RDW Std Deviation (36.4-46.3) fL RDW Coeff of Gio (11.5-14.5) % Plt Count (130-400) K/uL MPV (9.4-12.4) fL Immature Gran % (Auto) % Neut % (Auto) % Lymph % (Auto) % [place] % (Auto) % Eos % (Auto) % Baso % (Auto) % Neut # (Auto) (1.40-6.50) K/uL Lymph # (Auto) (1.20-3.40) K/uL [place] # (Auto) (0.11-0.59) K/uL Eos # (Auto) (0.00-0.50) K/uL Baso # (Auto) (0.00-0.20) K/uL Immature Gran # (Auto) (0.01-0.20) K/uL Sodium (136-145) mmol/L Potassium (3.5-5.1) mmol/L Chloride (98-107) mmol/L Carbon Dioxide (21-32) mmol/L Anion Gap (3-11) BUN (6-23) mg/dl Creatinine (0.6-1.4) mg/dl Est Cr Clr Drug Dosing ml/min eGFR BUN/Creatinine Ratio (10-20) Glucose (70-99(Fasting)) mg/dl POC Glucose 385 H* 325 H* 309 H* (70-99) mg/dl Calcium (8.6-10.3) mg/dl Phosphorus (2.5-4.9) mg/dl Magnesium (1.7-2.4) mg/dl 08/22/24 08/22/24 Range/Units 14:02 09:22 WBC (4.8-10.8) K/ul RBC (4.70-6.10) M/uL Hgb (14.0-18.0) g/dl Hct (42.0-52.0) % MCV (80.0-100.0) fL MCH (25.0-34.0) pg MCHC (32.0-36.0) g/dL RDW Std Deviation (36.4-46.3) fL RDW Coeff of Gio (11.5-14.5) % Plt Count (130-400) K/uL MPV (9.4-12.4) fL Immature Gran % (Auto) % Neut % (Auto) % Lymph % (Auto) % [place] % (Auto) % Eos % (Auto) % Baso % (Auto) % Neut # (Auto) (1.40-6.50) K/uL Lymph # (Auto) (1.20-3.40) K/uL [place] # (Auto) (0.11-0.59) K/uL Eos # (Auto) (0.00-0.50) K/uL Baso # (Auto) (0.00-0.20) K/uL Immature Gran # (Auto) (0.01-0.20) K/uL Sodium (136-145) mmol/L Potassium (3.5-5.1) mmol/L Chloride (98-107) mmol/L Carbon Dioxide (21-32) mmol/L Anion Gap (3-11) BUN (6-23) mg/dl Creatinine (0.6-1.4) mg/dl Est Cr Clr Drug Dosing ml/min eGFR BUN/Creatinine Ratio (10-20) Glucose (70-99(Fasting)) mg/dl POC Glucose 201 H 180 H (70-99) mg/dl Calcium (8.6-10.3) mg/dl Phosphorus (2.5-4.9) mg/dl Magnesium (1.7-2.4) mg/dl Medications Administered Current Inpatient Medications Acetaminophen (Acetaminophen 500 Mg Tab) 1,000 mg PO Q8H PRN PRN Reason: MILD Pain Scale 1,2,3 & Pre PT Stop: 09/21/24 15:30 Al Hydrox/Mg Hydrox/Simethicone (Aluminum/Magnesium Susp 30 Ml Udc) 30 ml PO Q6H PRN PRN Reason: Dyspepsia Stop: 09/21/24 15:30 Baclofen (Baclofen 10 Mg Tab) 10 mg PO TID PRN PRN Reason: Pain Stop: 09/20/24 12:33 Last Admin: 08/21/24 15:42 Dose: 10 mg Bisacodyl (Bisacodyl 10 Mg Supp) 10 mg IL DAILY PRN PRN Reason: Constipation Stop: 09/21/24 15:30 Carbidopa/Levodopa (Carbidopa/Levodopa 50/200mg Ext Rel Tab) 1 tab PO HS EVETTE Stop: 09/20/24 20:59 Last Admin: 08/22/24 20:36 Dose: 1 tab Carbidopa/Levodopa (Carbidopa/Levodopa 25/100mg Tab) 1.5 tab PO QID EVETTE Stop: 09/20/24 16:59 Last Admin: 08/22/24 20:35 Dose: 1.5 tab Diphenhydramine HCl (Diphenhydramine Capsule 25 Mg Cap) 25 mg PO Q6H PRN PRN Reason: Allergic Rhinitis/Insomnia Stop: 09/21/24 15:30 Famotidine (Famotidine 20 Mg Tab) 20 mg PO Q12H PRN PRN Reason: Dyspepsia Stop: 09/21/24 15:30 Hydromorphone HCl (Hydromorphone Inj 0.5 Mg/0.5 Ml Syr) 0.5 mg IV Q3H PRN PRN Reason: MODERATE Pain (Scale 4,5,6) & Stop: 09/05/24 15:30 Hydromorphone HCl (Hydromorphone Inj 1 Mg/Ml Syringe) 1 mg IV Q3H PRN PRN Reason: SEVERE Pain (Scale 7,8,9,10) Stop: 09/05/24 15:30 Last Admin: 08/22/24 15:49 Dose: 1 mg Hydroxyzine HCl (Hydroxyzine Hcl 25 Mg Tab) 25 mg PO Q8H PRN PRN Reason: Anxiety Stop: 09/21/24 15:30 Acetaminophen (Ofirmev) 1,000 mg in 100 mls @ 400 mls/hr IV Q8H PRN PRN Reason: Pain Rating 1-3 & Pre PT Stop: 08/25/24 15:30 Dexamethasone 6 mg/ Syringe 1.5 mls @ 1 mls/min IV DAILY EVETTE Stop: 08/25/24 09:02 Promethazine HCl (Phenergan) 12.5 mg in 50.5 mls @ 202 mls/hr IV Q6H PRN PRN Reason: Nausea And Vomiting Stop: 09/21/24 15:30 Last Infusion: 08/23/24 00:59 Dose: Infused Sodium Chloride (Nss) 1,000 mls @ 100 mls/hr IV .Q10H EVETTE Stop: 08/23/24 09:14 Last Admin: 08/22/24 23:42 Dose: 100 mls/hr Magnesium Sulfate/Dextrose (Magnesium Sulfate / D5w) 1 gm in 100 mls @ 50 mls/hr IV ONE ONE Stop: 08/23/24 10:29 Sodium Chloride (Nss) 1,000 mls @ 125 mls/hr IV .Q8H ONE Stop: 08/23/24 17:07 Influenza Virus Vaccine Quadrival (Do Not Administer Flu Vaccine) 1 each N/A PRN PRN PRN Reason: Notification Stop: 09/21/24 15:30 Insulin Aspart (Insulin Aspart Per Unit Charge) 0 units SC ACHS [facility] Stop: 09/20/24 16:29 Last Admin: 08/22/24 20:33 Dose: 9 units Insulin Human NPH (Insulin Human Nph) 0 units SC BIDM [facility]; Protocol Stop: 09/22/24 08:29 Lorazepam (Lorazepam 0.5 Mg Tab) 0.5 mg PO Q8H PRN PRN Reason: Sedation/Anxiety Stop: 09/21/24 15:30 Lorazepam (Lorazepam 2 Mg/1 Ml Vial) 0.5 mg IV Q8H PRN PRN Reason: Sedation/Anxiety Stop: 09/21/24 15:30 Lovastatin (Lovastatin 20 Mg Tab) 40 mg PO HS [facility] Stop: 09/20/24 20:59 Last Admin: 08/22/24 20:56 Dose: 40 mg Magnesium Hydroxide (Magnesium Hydroxide Susp 30 Ml Udc) 30 ml PO Q24H PRN PRN Reason: Constipation Stop: 09/21/24 15:30 Magnesium Oxide (Magnesium Oxide 400 Mg Tab) 400 mg PO QAM [facility] Stop: 09/21/24 09:29 Last Admin: 08/22/24 13:05 Dose: Not Given Metoclopramide HCl (Metoclopramide Hcl Inj 5 Mg/Ml 2 Ml Vial) 10 mg IV Q6H PRN PRN Reason: Nausea &/or Vomiting Stop: 09/21/24 15:30 Last Admin: 08/23/24 00:06 Dose: 10 mg Miscellaneous Information (Pharmacy Glycemic Mgmt Consult) 1 each N/A UD PRN PRN Reason: Consult Stop: 09/20/24 13:50 Naloxone HCl (Naloxone Hcl 0.4 Mg/1 Ml Vial/Carp) 0.1 mg IV Q5M PRN PRN Reason: Oversedation/Resp depression Stop: 09/21/24 15:30 Ondansetron HCl (Ondansetron Inj 2 Mg/Ml 2 Ml Vial) 4 mg IV Q6H PRN PRN Reason: Nausea &/or Vomiting Stop: 09/21/24 15:30 Last Admin: 08/22/24 21:59 Dose: 4 mg Ondansetron HCl (Ondansetron 4 Mg Od Tab) 4 mg PO Q6H PRN PRN Reason: Nausea Stop: 09/21/24 15:30 Oxycodone HCl (Oxycodone Hcl Ir 5 Mg Tab (Immediate Release)) 5 - 10 mg PO Q4H PRN PRN Reason: Pain & Pre PT Stop: 09/05/24 15:30 Pantoprazole Sodium (Pantoprazole 40 Mg Tab) 40 mg PO BID EVETTE Stop: 09/20/24 20:59 Last Admin: 08/22/24 20:35 Dose: 40 mg Pneumococcal Polyvalent Vaccine (Do Not Administer Pneumococcal Vaccine) 1 each N/A PRN PRN PRN Reason: Notification Stop: 09/21/24 15:30 Polyethylene Glycol (Polyethylene (Miralax) 17 Gm Pack) 17 gm PO Q6 [facility]TE Stop: 09/22/24 05:59 Last Admin: 08/23/24 05:37 Dose: 17 gm Senna/Docusate Sodium (Docusate Sodium/Senna 50/8.6mg Tab) 2 tab PO HS [place]ETTE Stop: 09/21/24 20:59 Last Admin: 08/22/24 20:56 Dose: 2 tab Sodium Biphosphate/Sodium Phosphate (Sod Phosphate/Sod Biphosphate Enema 132 Ml Btl) 132 ml IL ONE PRN PRN Reason: Constipation Stop: 09/21/24 15:30 Tramadol HCl (Tramadol Hcl 50 Mg Tablet) 50 - 100 mg PO Q4H PRN PRN Reason: Moderate-Severe pain & Pre PT Stop: 09/21/24 15:30 (4) Parkinsons disease Dyskinesia presence: with dyskinesia Fluctuating manifestations: unspecified whether manifestations fluctuate Qualified Code(s): G20.B1 - Parkinson's disease with dyskinesia, without mention of fluctuations (5) GERD (gastroesophageal reflux disease) Esophagitis bleeding: without hemorrhage Esophagitis presence: with esophagitis Qualified Code(s): K21.00 - Gastro-esophageal reflux disease with esophagitis, without bleeding (6) DM type 1 (diabetes mellitus, type 1) Diabetes mellitus complication detail: with peripheral angiopathy without gangrene Diabetes mellitus complication status: with circulatory complication Qualified Code(s): E10.51 - Type 1 diabetes mellitus with diabetic peripheral angiopathy without gangrene (7) CAD (coronary artery disease) Associated angina: without angina Coronary Disease-Associated Artery/Lesion type: [place] artery [place] vs. transplanted heart: [place] heart Qualified Code(s): I25.10 - Atherosclerotic heart disease of [place] coronary artery without angina pectoris
[2024-08-23] MEDS: SODIUM CHLORIDE 0.9% 1,000 ML IV ONE (09:41)
[2024-08-23] MEDS: dexAMETHasone 6 MG in SYRINGE 0 ML IV SCH (09:56)
[2024-08-23] MEDS: oxyCODONE HCL IR 5 MG TAB (IMMEDIATE RELEASE) PO PRN (10:07)
[2024-08-23] MEDS: INSULIN HUMAN NPH SC SCH (10:24)
[2024-08-23] MEDS: MAGNESIUM SULFATE / D5W 1 GM/100 ML BAG IV ONE (10:25)
--- NOTE | 2024-08-23 10:45 | Orthopedic Progress Note ---
Date of Service August 23, 2024 Assessment & Plan (1) Lumbar compression fracture: Plan: At this time initiate physical therapy as tolerated. He was hypotensive at his first attempt to get up this morning. Will progress carefully. He may ultimately be a candidate for rehab pending his progress over the next 2 to 3 days. Admission and Anticipated Discharge Date Admission Date: August 21, 2024 Subjective Back pain is controlled. Patient denies any leg pain. Physical Exam Physical Exam: On exam patient is in bed. Appears comfortable. Specific to testing lower extremities. Results & Data Vital Signs (Past 12 Hours) Vital Signs Temp Pulse Pulse Resp BP BP Pulse Ox 08/23/24 09:06 96 H 16 93/53 L 96 08/23/24 07:44 36.8 C 100 H 18 112/58 L 95 08/23/24 05:46 88 100/40 L 91/52 L 08/23/24 05:41 67/32 L 08/23/24 03:47 36.9 C 93 H 18 91/55 L 96 08/22/24 23:44 92 H 120/56 L 08/22/24 23:06 87/41 L 08/22/24 22:55 36.3 C L 95 H 18 72/30 L 95 O2 Del Method 08/23/24 09:06 Room Air 08/23/24 07:44 Room Air 08/23/24 05:46 08/23/24 05:41 08/23/24 03:47 Room Air 08/22/24 23:44 08/22/24 23:06 08/22/24 22:55 Room Air Queries Orthopedic Spine Acute Posthemorrhagic Anemia: Yes
[2024-08-23] MEDS ORDERED: LANTUS PER UNIT CHARGE SC SCH (16:30)
[2024-08-24] MEDS: CARBOHYDRATES FOR HYPOGLYCEMIA PO PRN (03:40)
[2024-08-24] MEDS ORDERED: GLUCOSE 10 TAB/TUBE PO PRN (03:41)
[2024-08-24] MEDS ORDERED: GLUCOSE 40% GEL 15 GM TUBE PO PRN (03:41)
[2024-08-24] MEDS ORDERED: GLUCAGON FOR INJ 1 MG VIAL SQ PRN (03:41)
[2024-08-24] MEDS ORDERED: DEXTROSE 50% 50 ML SYRINGE IV PRN (03:41)
[2024-08-24 06:48] LABS: Hematocrit (blood only) 24.9 % (42.0-52.0); Hemoglobin 8.5 g/dl (14.0-18.0); Mean Corpuscular Hemoglobin 31.4 pg (25.0-34.0); Mean Corpuscular Hgb Conc 34.1 g/dL (32.0-36.0); Mean Corpuscular Volume 91.9 fL (80.0-100.0); Mean Platelet Volume 10.1 fL (9.4-12.4); Platelet Count 198 K/uL (130-400); RDW Coefficient of Variation 13.1 % (11.5-14.5); RDW Standard Deviation 43.7 fL (36.4-46.3); Red Blood Count 2.71 M/uL (4.70-6.10); White Blood Count 12.49 K/ul (4.8-10.8)
[2024-08-24 07:08] LABS: BUN Creatinine Ratio 28.8 (10-20); Calcium 8.3 mg/dl (8.6-10.3); Creatinine Clr Calc Pharmacy 81.9 ml/min; Magnesium 1.6 mg/dl (1.7-2.4); Phosphorus 3.1 mg/dl (2.5-4.9); Potassium 3.7 mmol/L (3.5-5.1)
[2024-08-24] MEDS: traMADol HCL 50 MG TABLET PO PRN (07:33)
--- NOTE | 2024-08-24 07:44 | Hospitalist Progress Note ---
Date of Service August 24, 2024 Assessment & Plan (1) Spinal stenosis, lumbar region with neurogenic claudication: Plan: - S/p #1 decompression with bilateral medial facetectomies and foraminotomies T12-L1 L1-L2. #2 posterior spinal fusion T11-L2. #3 placed posterior instrumentation T11-L1 with connectors at L2-L3. #4 interbody fusion L1-L2. #5 placement Spira 12 x 26 mm at L1-L2. #6 kyphoplasty the vertebral bodies of T12 and L1. #7 placement locally harvested morselized autograft and posterior gutters. #8 placement of infuse collagen sponge, with Koros in the posterior gutters T11-L2. #9 placement of versa wrap over the exposed dura. on 08/22/2024 -pain management per ortho -consider pregablin 50 tid post operatively for neuropathic pain -DVT ppx per ortho -PT/OT per ortho -monitor creatinine, Hgb post op -incentive spirometry ordered Acute blood loss anemia, component of dilutional anemia - pre-op Hgb 12.6 post-op Hgb 9.1, current Hgb 8.5 - received IVF for lower BP, now BP much improved - cont. to monitor H&H, no need for blood transfusion at this time HORACE - resolved - post-op Cr 1.46 , now 0.73 - baseline 0.8 - receiving IVF - cont. to monitor (2) Severe back pain: (3) Gastroparesis: Plan: -2/2 type 1 DM (4) Parkinsons disease: Plan: -has noted pill roll tremor and parkinsonian features on face and hands as well -cogwheeling noted Plan: -continue home parkinsons medications (5) GERD (gastroesophageal reflux disease): Plan: -continue protonix (6) DM type 1 (diabetes mellitus, type 1): Plan: -pharmacy consult given complex regiment (7) CAD (coronary artery disease): Plan: -noted 1 stent in past -see above for plan -LDL 48, A1c 8.7% (8) Fracture of pedicle of lumbar vertebra: Plan Analgesia: per ortho Thromboprophylaxis: per ortho Ulcer prophylaxis: protonix Glycemic control: per pharmacy Bowel care: per ortho Admission and Anticipated Discharge Date Admission Date: August 21, 2024 Subjective Pt seen in follow up of med consult, pt is s/p spinal surgery currently sitting up in chair in [facility], doing well this AM Pt's present at the bedside Pt denies any significant pain Also no fever, chills, chest pain, shortness of breath Review of Systems Review of Systems: All systems reviewed & are unremarkable except as noted in Subjective Physical Exam Physical Exam: Gen: A&O 3 NAD HEENT: NCAT, EOMI. External ears normal Neck: Supple Lungs: No Respiratory distress. CV: RRR, no edema. Abdomen: Soft, nondistended, No tenderness. Skin: warm, dry Extremities: SCDs applied Neuro: awake alert, answers appropriately, moves extremities Results & Data Results & Data Vital Signs (Past 12 Hours) Vital Signs Temp Pulse Resp BP Pulse Ox O2 Del Method 08/23/24 20:28 37.3 C 90 16 134/65 95 Room Air Laboratory Results 08/24/24 08/24/24 08/24/24 Range/Units 05:52 03:55 03:40 WBC 12.49 H (4.8-10.8) K/ul RBC 2.71 L (4.70-6.10) M/uL Hgb 8.5 L (14.0-18.0) g/dl Hct 24.9 L (42.0-52.0) % MCV 91.9 (80.0-100.0) fL MCH 31.4 (25.0-34.0) pg MCHC 34.1 (32.0-36.0) g/dL RDW Std Deviation 43.7 (36.4-46.3) fL RDW Coeff of Gio 13.1 (11.5-14.5) % Plt Count 198 (130-400) K/uL MPV 10.1 (9.4-12.4) fL Sodium 138 (136-145) mmol/L Potassium 3.7 (3.5-5.1) mmol/L Chloride 104 (98-107) mmol/L Carbon Dioxide 32 (21-32) mmol/L Anion Gap 2 L (3-11) BUN 21 (6-23) mg/dl Creatinine 0.73 D (0.6-1.4) mg/dl Est Cr Clr Drug Dosing 81.9 ml/min eGFR 91.40 BUN/Creatinine Ratio 28.8 H (10-20) Glucose 102 H (70-99(Fasting)) mg/dl POC Glucose 79 64 L* (70-99) mg/dl Calcium 8.3 L (8.6-10.3) mg/dl Phosphorus 3.1 (2.5-4.9) mg/dl Magnesium 1.6 L (1.7-2.4) mg/dl 08/23/24 08/23/24 08/23/24 Range/Units 20:27 16:29 11:25 WBC (4.8-10.8) K/ul RBC (4.70-6.10) M/uL Hgb (14.0-18.0) g/dl Hct (42.0-52.0) % MCV (80.0-100.0) fL MCH (25.0-34.0) pg MCHC (32.0-36.0) g/dL RDW Std Deviation (36.4-46.3) fL RDW Coeff of Gio (11.5-14.5) % Plt Count (130-400) K/uL MPV (9.4-12.4) fL Sodium (136-145) mmol/L Potassium (3.5-5.1) mmol/L Chloride (98-107) mmol/L Carbon Dioxide (21-32) mmol/L Anion Gap (3-11) BUN (6-23) mg/dl Creatinine (0.6-1.4) mg/dl Est Cr Clr Drug Dosing ml/min eGFR BUN/Creatinine Ratio (10-20) Glucose (70-99(Fasting)) mg/dl POC Glucose 170 H 143 H 173 H (70-99) mg/dl Calcium (8.6-10.3) mg/dl Phosphorus (2.5-4.9) mg/dl Magnesium (1.7-2.4) mg/dl 08/23/24 08/23/24 Range/Units 07:41 06:46 WBC (4.8-10.8) K/ul RBC (4.70-6.10) M/uL Hgb (14.0-18.0) g/dl Hct (42.0-52.0) % MCV (80.0-100.0) fL MCH (25.0-34.0) pg MCHC (32.0-36.0) g/dL RDW Std Deviation (36.4-46.3) fL RDW Coeff of Gio (11.5-14.5) % Plt Count (130-400) K/uL MPV (9.4-12.4) fL Sodium 139 (136-145) mmol/L Potassium 3.9 (3.5-5.1) mmol/L Chloride 105 (98-107) mmol/L Carbon Dioxide 27 (21-32) mmol/L Anion Gap 7 (3-11) BUN 32 H (6-23) mg/dl Creatinine 1.46 H D (0.6-1.4) mg/dl Est Cr Clr Drug Dosing 41.0 ml/min eGFR 48.01 BUN/Creatinine Ratio 21.9 H (10-20) Glucose 163 H (70-99(Fasting)) mg/dl POC Glucose 132 H (70-99) mg/dl Calcium 8.5 L (8.6-10.3) mg/dl Phosphorus 3.3 (2.5-4.9) mg/dl Magnesium 1.5 L (1.7-2.4) mg/dl Medications Administered Current Inpatient Medications Acetaminophen (Acetaminophen 500 Mg Tab) 1,000 mg PO Q8H PRN PRN Reason: MILD Pain Scale 1,2,3 & Pre PT Stop: 09/21/24 15:30 Al Hydrox/Mg Hydrox/Simethicone (Aluminum/Magnesium Susp 30 Ml Udc) 30 ml PO Q6H PRN PRN Reason: Dyspepsia Stop: 09/21/24 15:30 Baclofen (Baclofen 10 Mg Tab) 10 mg PO TID PRN PRN Reason: Pain Stop: 09/20/24 12:33 Last Admin: 08/21/24 15:42 Dose: 10 mg Bisacodyl (Bisacodyl 10 Mg Supp) 10 mg HI DAILY PRN PRN Reason: Constipation Stop: 09/21/24 15:30 Carbidopa/Levodopa (Carbidopa/Levodopa 50/200mg Ext Rel Tab) 1 tab PO HS EVETTE Stop: 09/20/24 20:59 Last Admin: 08/23/24 20:36 Dose: 1 tab Carbidopa/Levodopa (Carbidopa/Levodopa 25/100mg Tab) 1.5 tab PO QID [facility]ETTE Stop: 09/20/24 16:59 Last Admin: 08/23/24 20:35 Dose: 1.5 tab Dextrose (Dextrose 50% 50 Ml Syringe) 25 - 50 ml IV UD PRN; Protocol PRN Reason: Hypoglycemia Protocol Stop: 09/23/24 03:40 Diphenhydramine HCl (Diphenhydramine Capsule 25 Mg Cap) 25 mg PO Q6H PRN PRN Reason: Allergic Rhinitis/Insomnia Stop: 09/21/24 15:30 Famotidine (Famotidine 20 Mg Tab) 20 mg PO Q12H PRN PRN Reason: Dyspepsia Stop: 09/21/24 15:30 Glucagon (Glucagon For Inj 1 Mg Vial) 1 mg SQ UD PRN; Protocol PRN Reason: Hypoglycemia Protocol Stop: 09/23/24 03:40 Glucose (Glucose 40% Gel 15 Gm Tube) 15 - 30 gm PO UD PRN; Protocol PRN Reason: Hypoglycemia Protocol Stop: 09/23/24 03:40 Glucose (Glucose 10 Tab/Tube) 4 - 8 tab PO UD PRN; Protocol PRN Reason: Hypoglycemia Protocol Stop: 09/23/24 03:40 Hydromorphone HCl (Hydromorphone Inj 0.5 Mg/0.5 Ml Syr) 0.5 mg IV Q3H PRN PRN Reason: MODERATE Pain (Scale 4,5,6) & Stop: 09/05/24 15:30 Hydromorphone HCl (Hydromorphone Inj 1 Mg/Ml Syringe) 1 mg IV Q3H PRN PRN Reason: SEVERE Pain (Scale 7,8,9,10) Stop: 09/05/24 15:30 Last Admin: 08/22/24 15:49 Dose: 1 mg Hydroxyzine HCl (Hydroxyzine Hcl 25 Mg Tab) 25 mg PO Q8H PRN PRN Reason: Anxiety Stop: 09/21/24 15:30 Acetaminophen (Ofirmev) 1,000 mg in 100 mls @ 400 mls/hr IV Q8H PRN PRN Reason: Pain Rating 1-3 & Pre PT Stop: 08/25/24 15:30 Dexamethasone 6 mg/ Syringe 1.5 mls @ 1 mls/min IV DAILY EVETTE Stop: 08/25/24 09:02 Last Admin: 08/23/24 09:56 Dose: 1 mls/min Promethazine HCl (Phenergan) 12.5 mg in 50.5 mls @ 202 mls/hr IV Q6H PRN PRN Reason: Nausea And Vomiting Stop: 09/21/24 15:30 Last Infusion: 08/23/24 00:59 Dose: Infused Influenza Virus Vaccine Quadrival (Do Not Administer Flu Vaccine) 1 each N/A PRN PRN PRN Reason: Notification Stop: 09/21/24 15:30 Insulin Aspart (Insulin Aspart Per Unit Charge) 0 units SC ACHS [facility] Stop: 09/20/24 16:29 Last Admin: 08/23/24 20:36 Dose: 1 units Insulin Human NPH (Insulin Human Nph) 0 units SC BIDM [facility]; Protocol Stop: 09/22/24 08:29 Last Admin: 08/23/24 17:40 Dose: 15 units Lorazepam (Lorazepam 0.5 Mg Tab) 0.5 mg PO Q8H PRN PRN Reason: Sedation/Anxiety Stop: 09/21/24 15:30 Lorazepam (Lorazepam 2 Mg/1 Ml Vial) 0.5 mg IV Q8H PRN PRN Reason: Sedation/Anxiety Stop: 09/21/24 15:30 Lovastatin (Lovastatin 20 Mg Tab) 40 mg PO HS [facility] Stop: 09/20/24 20:59 Last Admin: 08/23/24 20:35 Dose: 40 mg Magnesium Hydroxide (Magnesium Hydroxide Susp 30 Ml Udc) 30 ml PO Q24H PRN PRN Reason: Constipation Stop: 09/21/24 15:30 Magnesium Oxide (Magnesium Oxide 400 Mg Tab) [facility] Stop: 09/21/24 09:29 Last Admin: 08/23/24 09:57 Dose: 400 mg Metoclopramide HCl (Metoclopramide Hcl Inj 5 Mg/Ml 2 Ml Vial) 10 mg IV Q6H PRN PRN Reason: Nausea &/or Vomiting Stop: 09/21/24 15:30 Last Admin: 08/23/24 00:06 Dose: 10 mg Miscellaneous (Carbohydrates For Hypoglycemia ) 15 - 30 gm PO UD PRN PRN Reason: Hypoglycemia Protocol Stop: 09/23/24 03:40 Last Admin: 08/24/24 03:40 Dose: 15 gm Miscellaneous Information (Pharmacy Glycemic Mgmt Consult) 1 each N/A UD PRN PRN Reason: Consult Stop: 09/20/24 13:50 Naloxone HCl (Naloxone Hcl 0.4 Mg/1 Ml Vial/Carp) 0.1 mg IV Q5M PRN PRN Reason: Oversedation/Resp depression Stop: 09/21/24 15:30 Ondansetron HCl (Ondansetron Inj 2 Mg/Ml 2 Ml Vial) 4 mg IV Q6H PRN PRN Reason: Nausea &/or Vomiting Stop: 09/21/24 15:30 Last Admin: 08/22/24 21:59 Dose: 4 mg Ondansetron HCl (Ondansetron 4 Mg Od Tab) 4 mg PO Q6H PRN PRN Reason: Nausea Stop: 09/21/24 15:30 Oxycodone HCl (Oxycodone Hcl Ir 5 Mg Tab (Immediate Release)) 5 - 10 mg PO Q4H PRN PRN Reason: Pain & Pre PT Stop: 09/05/24 15:30 Last Admin: 08/24/24 04:35 Dose: 10 mg Pantoprazole Sodium (Pantoprazole 40 Mg Tab) 40 mg PO BID [facility]ETTE Stop: 09/20/24 20:59 Last Admin: 08/23/24 20:36 Dose: 40 mg Pneumococcal Polyvalent Vaccine (Do Not Administer Pneumococcal Vaccine) 1 each N/A PRN PRN PRN Reason: Notification Stop: 09/21/24 15:30 Polyethylene Glycol (Polyethylene (Miralax) 17 Gm Pack) 17 gm PO Q6 [facility]ETTE Stop: 09/22/24 05:59 Last Admin: 08/24/24 03:59 Dose: 17 gm Senna/Docusate Sodium (Docusate Sodium/Senna 50/8.6mg Tab) 2 tab PO HS EVETTE Stop: 09/21/24 20:59 Last Admin: 08/23/24 20:35 Dose: 2 tab Sodium Biphosphate/Sodium Phosphate (Sod Phosphate/Sod Biphosphate Enema 132 Ml Btl) 132 ml HI ONE PRN PRN Reason: Constipation Stop: 09/21/24 15:30 Tramadol HCl (Tramadol Hcl 50 Mg Tablet) 50 - 100 mg PO Q4H PRN PRN Reason: Moderate-Severe pain & Pre PT Stop: 09/21/24 15:30 Last Admin: 08/24/24 07:33 Dose: 50 mg (4) Parkinsons disease Dyskinesia presence: with dyskinesia Fluctuating manifestations: unspecified whether manifestations fluctuate Qualified Code(s): G20.B1 - Parkinson's disease with dyskinesia, without mention of fluctuations (5) GERD (gastroesophageal reflux disease) Esophagitis bleeding: without hemorrhage Esophagitis presence: with esop hagitis Qualified Code(s): K21.00 - Gastro-esophageal reflux disease with esophagitis, without bleeding (6) DM type 1 (diabetes mellitus, type 1) Diabetes mellitus complication detail: with peripheral angiopathy without gangrene Diabetes mellitus complication status: with circulatory complication Qualified Code(s): E10.51 - Type 1 diabetes mellitus with diabetic peripheral angiopathy without gangrene (7) CAD (coronary artery disease) Associated angina: without angina Coronary Disease-Associated Artery/Lesion type: [place] artery [place] vs. transplanted heart: [place] heart Qualified Code(s): I25.10 - Atherosclerotic heart disease of [place] coronary artery without angina pectoris
--- NOTE | 2024-08-24 09:14 | Orthopedic Progress Note ---
Date of Service August 24, 2024 Assessment & Plan (1) Lumbar compression fracture: Plan: At this time we will reinitiate physical therapy. Monitor his progress. Anticipate discharge to rehab early next week. Admission and Anticipated Discharge Date Admission Date: August 21, 2024 Subjective Patient's pain is controlled at rest. He is struggling with hypotension when he tries to stand. Physical Exam Physical Exam: On exam he is currently in bed. Is very comfortable. Good strength testing. Results & Data Vital Signs (Past 12 Hours) Vital Signs Temp Pulse Resp BP Pulse Ox O2 Del Method 08/24/24 07:51 37.3 C 87 16 148/64 H 95 Room Air Queries Orthopedic Spine Acute Posthemorrhagic Anemia: Yes
[2024-08-24] MEDS: SODIUM CHLORIDE 0.9% 500 ML IV ONE (14:28)
[2024-08-24 19:54] VITALS: RESP 18
[2024-08-25 06:59] LABS: Hematocrit (blood only) 25.4 % (42.0-52.0); Hemoglobin 8.4 g/dl (14.0-18.0); Mean Corpuscular Hemoglobin 30.4 pg (25.0-34.0); Mean Corpuscular Hgb Conc 33.1 g/dL (32.0-36.0); Mean Platelet Volume 10.2 fL (9.4-12.4); Platelet Count 199 K/uL (130-400); RDW Standard Deviation 43.3 fL (36.4-46.3); Red Blood Count 2.76 M/uL (4.70-6.10); White Blood Count 11.14 K/ul (4.8-10.8)
--- NOTE | 2024-08-25 07:11 | Hospitalist Progress Note ---
Date of Service August 25, 2024 Assessment & Plan (1) Spinal stenosis, lumbar region with neurogenic claudication: Plan: - S/p #1 decompression with bilateral medial facetectomies and foraminotomies T12-L1 L1-L2. #2 posterior spinal fusion T11-L2. #3 placed posterior instrumentation T11-L1 with connectors at L2-L3. #4 interbody fusion L1-L2. #5 placement Spira 12 x 26 mm at L1-L2. #6 kyphoplasty the vertebral bodies of T12 and L1. #7 placement locally harvested morselized autograft and posterior gutters. #8 placement of infuse collagen sponge, with Koros in the posterior gutters T11-L2. #9 placement of versa wrap over the exposed dura. on 08/22/2024 -pain management per ortho -consider pregablin 50 tid post operatively for neuropathic pain -DVT ppx per ortho -PT/OT per ortho -monitor creatinine, Hgb post op -incentive spirometry ordered Acute blood loss anemia, component of dilutional anemia - pre-op Hgb 12.6 post-op Hgb 9.1, current Hgb 8.4 (stable from 8.5 yesterday) - received IVF for lower BP, now BP much improved - cont. to monitor H&H, no need for blood transfusion at this time HORACE - resolved - post-op Cr 1.46 , now 0.70 - baseline 0.8 - receiving IVF - cont. to monitor (2) Severe back pain: (3) Gastroparesis: Plan: -2/2 type 1 DM (4) Parkinsons disease: Plan: -has noted pill roll tremor and parkinsonian features on face and hands as well -cogwheeling noted Plan: -continue home parkinsons medications (5) GERD (gastroesophageal reflux disease): Plan: -continue protonix (6) DM type 1 (diabetes mellitus, type 1): Plan: -pharmacy consult given complex regiment (7) CAD (coronary artery disease): Plan: -noted 1 stent in past -see above for plan -LDL 48, A1c 8.7% (8) Fracture of pedicle of lumbar vertebra: Plan Analgesia: per ortho Thromboprophylaxis: per ortho Ulcer prophylaxis: protonix Glycemic control: per pharmacy Bowel care: per ortho Admission and Anticipated Discharge Date Admission Date: August 21, 2024 Subjective Pt seen in follow up of med consult, pt is s/p spinal surgery currently sitting up in chair in [facility], some nausea Pt's present at the bedside Pt denies any significant pain Also no fever, chills, chest pain, shortness of breath Hgb 8.4 today Review of Systems Review of Systems: All systems reviewed & are unremarkable except as noted in Subjective Physical Exam Physical Exam: Gen: A&O 3 NAD HEENT: NCAT, EOMI. External ears normal Neck: Supple Lungs: No Respiratory distress. CV: RRR, no edema. Abdomen: Soft, nondistended, No tenderness. Skin: warm, dry Extremities: SCDs applied Neuro: awake alert, answers appropriately, moves extremities Results & Data Results & Data Vital Signs (Past 12 Hours) Vital Signs Temp Pulse Resp BP BP Pulse Ox O2 Del Method 08/25/24 07:07 36.6 C 78 18 168/67 H 96 Room Air 08/24/24 19:53 36.9 C 82 18 127/67 96 Room Air Laboratory Results 08/25/24 08/25/24 08/24/24 Range/Units 07:05 06:20 19:52 WBC 11.14 H (4.8-10.8) K/ul RBC 2.76 L (4.70-6.10) M/uL Hgb 8.4 L (14.0-18.0) g/dl Hct 25.4 L (42.0-52.0) % MCV 92.0 (80.0-100.0) fL MCH 30.4 (25.0-34.0) pg MCHC 33.1 (32.0-36.0) g/dL RDW Std Deviation 43.3 (36.4-46.3) fL RDW Coeff of Gio 13.0 (11.5-14.5) % Plt Count 199 (130-400) K/uL MPV 10.2 (9.4-12.4) fL Sodium 139 (136-145) mmol/L Potassium 3.7 (3.5-5.1) mmol/L Chloride 101 (98-107) mmol/L Carbon Dioxide 33 H (21-32) mmol/L Anion Gap 5 (3-11) BUN 14 (6-23) mg/dl Creatinine 0.70 (0.6-1.4) mg/dl Est Cr Clr Drug Dosing 85.5 ml/min eGFR 92.57 BUN/Creatinine Ratio 20.0 (10-20) Glucose 86 (70-99(Fasting)) mg/dl POC Glucose 102 H 269 H (70-99) mg/dl Calcium 8.5 L (8.6-10.3) mg/dl Phosphorus 3.3 (2.5-4.9) mg/dl Magnesium 1.7 (1.7-2.4) mg/dl 08/24/24 08/24/24 Range/Units 16:31 11:40 WBC (4.8-10.8) K/ul RBC (4.70-6.10) M/uL Hgb (14.0-18.0) g/dl Hct (42.0-52.0) % MCV (80.0-100.0) fL MCH (25.0-34.0) pg MCHC (32.0-36.0) g/dL RDW Std Deviation (36.4-46.3) fL RDW Coeff of Gio (11.5-14.5) % Plt Count (130-400) K/uL MPV (9.4-12.4) fL Sodium (136-145) mmol/L Potassium (3.5-5.1) mmol/L Chloride (98-107) mmol/L Carbon Dioxide (21-32) mmol/L Anion Gap (3-11) BUN (6-23) mg/dl Creatinine (0.6-1.4) mg/dl Est Cr Clr Drug Dosing ml/min eGFR BUN/Creatinine Ratio (10-20) Glucose (70-99(Fasting)) mg/dl POC Glucose 222 H 190 H (70-99) mg/dl Calcium (8.6-10.3) mg/dl Phosphorus (2.5-4.9) mg/dl Magnesium (1.7-2.4) mg/dl Medications Administered Current Inpatient Medications Acetaminophen (Acetaminophen 500 Mg Tab) 1,000 mg PO Q8H PRN PRN Reason: MILD Pain Scale 1,2,3 & Pre PT Stop: 09/21/24 15:30 Al Hydrox/Mg Hydrox/Simethicone (Aluminum/Magnesium Susp 30 Ml Udc) 30 ml PO Q6H PRN PRN Reason: Dyspepsia Stop: 09/21/24 15:30 Baclofen (Baclofen 10 Mg Tab) 10 mg PO TID PRN PRN Reason: Pain Stop: 09/20/24 12:33 Last Admin: 08/25/24 04:29 Dose: 10 mg Bisacodyl (Bisacodyl 10 Mg Supp) 10 mg TN DAILY PRN PRN Reason: Constipation Stop: 09/21/24 15:30 Carbidopa/Levodopa (Carbidopa/Levodopa 50/200mg Ext Rel Tab) 1 tab PO HS [facility] Stop: 09/20/24 20:59 Last Admin: 08/24/24 21:00 Dose: 1 tab Carbidopa/Levodopa (Carbidopa/Levodopa 25/100mg Tab) 1.5 tab PO QID [facility] Stop: 09/20/24 16:59 Last Admin: 08/24/24 21:00 Dose: 1.5 tab Dextrose (Dextrose 50% 50 Ml Syringe) 25 - 50 ml IV UD PRN; Protocol PRN Reason: Hypoglycemia Protocol Stop: 09/23/24 03:40 Diphenhydramine HCl (Diphenhydramine Capsule 25 Mg Cap) 25 mg PO Q6H PRN PRN Reason: Allergic Rhinitis/Insomnia Stop: 09/21/24 15:30 Famotidine (Famotidine 20 Mg Tab) 20 mg PO Q12H PRN PRN Reason: Dyspepsia Stop: 09/21/24 15:30 Glucagon (Glucagon For Inj 1 Mg Vial) 1 mg SQ UD PRN; Protocol PRN Reason: Hypoglycemia Protocol Stop: 09/23/24 03:40 Glucose (Glucose 40% Gel 15 Gm Tube) 15 - 30 gm PO UD PRN; Protocol PRN Reason: Hypoglycemia Protocol Stop: 09/23/24 03:40 Glucose (Glucose 10 Tab/Tube) 4 - 8 tab PO UD PRN; Protocol PRN Reason: Hypoglycemia Protocol Stop: 09/23/24 03:40 Hydromorphone HCl (Hydromorphone Inj 0.5 Mg/0.5 Ml Syr) 0.5 mg IV Q3H PRN PRN Reason: MODERATE Pain (Scale 4,5,6) & Stop: 09/05/24 15:30 Hydromorphone HCl (Hydromorphone Inj 1 Mg/Ml Syringe) 1 mg IV Q3H PRN PRN Reason: SEVERE Pain (Scale 7,8,9,10) Stop: 09/05/24 15:30 Last Admin: 08/22/24 15:49 Dose: 1 mg Hydroxyzine HCl (Hydroxyzine Hcl 25 Mg Tab) 25 mg PO Q8H PRN PRN Reason: Anxiety Stop: 09/21/24 15:30 Acetaminophen (Ofirmev) 1,000 mg in 100 mls @ 400 mls/hr IV Q8H PRN PRN Reason: Pain Rating 1-3 & Pre PT Stop: 08/25/24 15:30 Dexamethasone 6 mg/ Syringe 1.5 mls @ 1 mls/min IV DAILY [facility]TE Stop: 08/25/24 09:02 Last Admin: 08/24/24 08:49 Dose: 1 mls/min Promethazine HCl (Phenergan) 12.5 mg in 50.5 mls @ 202 mls/hr IV Q6H PRN PRN Reason: Nausea And Vomiting Stop: 09/21/24 15:30 Last Infusion: 08/23/24 00:59 Dose: Infused Influenza Virus Vaccine Quadrival (Do Not Administer Flu Vaccine) 1 each N/A PRN PRN PRN Reason: Notification Stop: 09/21/24 15:30 Insulin Aspart (Insulin Aspart Per Unit Charge) 0 units SC ACHS [facility] Stop: 09/20/24 16:29 Last Admin: 08/24/24 21:02 Dose: 4 units Insulin Human NPH (Insulin Human Nph) 0 units SC BIDM [facility]; Protocol Stop: 09/22/24 08:29 Last Admin: 08/24/24 17:43 Dose: 15 units Lorazepam (Lorazepam 0.5 Mg Tab) 0.5 mg PO Q8H PRN PRN Reason: Sedation/Anxiety Stop: 09/21/24 15:30 Lorazepam (Lorazepam 2 Mg/1 Ml Vial) 0.5 mg IV Q8H PRN PRN Reason: Sedation/Anxiety Stop: 09/21/24 15:30 Lovastatin (Lovastatin 20 Mg Tab) 40 mg PO HS [facility] Stop: 09/20/24 20:59 Last Admin: 08/24/24 20:59 Dose: 40 mg Magnesium Hydroxide (Magnesium Hydroxide Susp 30 Ml Udc) 30 ml PO Q24H PRN PRN Reason: Constipation Stop: 09/21/24 15:30 Magnesium Oxide (Magnesium Oxide 400 Mg Tab) 400 mg PO QAM [facility] Stop: 09/21/24 09:29 Last Admin: 08/24/24 08:48 Dose: 400 mg Metoclopramide HCl (Metoclopramide Hcl Inj 5 Mg/Ml 2 Ml Vial) 10 mg IV Q6H PRN PRN Reason: Nausea &/or Vomiting Stop: 09/21/24 15:30 Last Admin: 08/23/24 00:06 Dose: 10 mg Miscellaneous (Carbohydrates For Hypoglycemia ) 15 - 30 gm PO UD PRN PRN Reason: Hypoglycemia Protocol Stop: 09/23/24 03:40 Last Admin: 08/24/24 03:40 Dose: 15 gm Miscellaneous Information (Pharmacy Glycemic Mgmt Consult) 1 each N/A UD PRN PRN Reason: Consult Stop: 09/20/24 13:50 Naloxone HCl (Naloxone Hcl 0.4 Mg/1 Ml Vial/Carp) 0.1 mg IV Q5M PRN PRN Reason: Oversedation/Resp depression Stop: 09/21/24 15:30 Ondansetron HCl (Ondansetron Inj 2 Mg/Ml 2 Ml Vial) 4 mg IV Q6H PRN PRN Reason: Nausea &/or Vomiting Stop: 09/21/24 15:30 Last Admin: 08/22/24 21:59 Dose: 4 mg Ondansetron HCl (Ondansetron 4 Mg Od Tab) 4 mg PO Q6H PRN PRN Reason: Nausea Stop: 09/21/24 15:30 Oxycodone HCl (Oxycodone Hcl Ir 5 Mg Tab (Immediate Release)) 5 - 10 mg PO Q4H PRN PRN Reason: Pain & Pre PT Stop: 09/05/24 15:30 Last Admin: 08/25/24 04:29 Dose: 5 mg Pantoprazole Sodium (Pantoprazole 40 Mg Tab) 40 mg PO BID [facility] Stop: 09/20/24 20:59 Last Admin: 08/24/24 21:00 Dose: 40 mg Pneumococcal Polyvalent Vaccine (Do Not Administer Pneumococcal Vaccine) 1 each N/A PRN PRN PRN Reason: Notification Stop: 09/21/24 15:30 Polyethylene Glycol (Polyethylene (Miralax) 17 Gm Pack) 17 gm PO Q6 [facility] Stop: 09/22/24 05:59 Last Admin: 08/25/24 05:50 Dose: 17 gm Senna/Docusate Sodium (Docusate Sodium/Senna 50/8.6mg Tab) 2 tab PO HS [facility] Stop: 09/21/24 20:59 Last Admin: 08/24/24 21:07 Dose: 2 tab Sodium Biphosphate/Sodium Phosphate (Sod Phosphate/Sod Biphosphate Enema 132 Ml Btl) 132 ml TN ONE PRN PRN Reason: Constipation Stop: 09/21/24 15:30 Tramadol HCl (Tramadol Hcl 50 Mg Tablet) 50 - 100 mg PO Q4H PRN PRN Reason: Moderate-Severe pain & Pre PT Stop: 09/21/24 15:30 Last Admin: 08/24/24 07:33 Dose: 50 mg (4) Parkinsons disease Dyskinesia presence: with dyskinesia Fluctuating manifestations: unspecified whether manifestations fluctuate Qualified Code(s): 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, without mention of fluctuations (5) GERD (gastroesophageal reflux disease) Esophagitis bleeding: without hemorrhage Esophagitis presence: with esophagitis Qualified Code(s): K21.00 - Gastro-esophageal reflux disease with esophagitis, without bleeding (6) DM type 1 (diabetes mellitus, type 1) Diabetes mellitus complication detail: with peripheral angiopathy without gangrene Diabetes mellitus complication status: with circulatory complication Qualified Code(s): E10.51 - Type 1 diabetes mellitus with diabetic peripheral angiopathy without gangrene (7) CAD (coronary artery disease) Associated angina: without angina Coronary Disease-Associated Artery/Lesion type: [place] artery [place] vs. transplanted heart: [place] heart Qualified Code(s): I25.10 - Atherosclerotic heart disease of [place] coronary artery without angina pectoris
[2024-08-25 07:42] LABS: Calcium 8.5 mg/dl (8.6-10.3); Creatinine Clr Calc Pharmacy 85.5 ml/min; Magnesium 1.7 mg/dl (1.7-2.4); Phosphorus 3.3 mg/dl (2.5-4.9); Potassium 3.7 mmol/L (3.5-5.1)
--- NOTE | 2024-08-25 08:17 | XRay Report ---
XR lumbar spine 2-3V CLINICAL HISTORY: standing post op films COMPARISON STUDY: 06/20/2022 FINDINGS: Posterior metallic fusion from T11 through the sacrum shows no hardware complication. No fr acture or subluxation seen. IMPRESSION: No acute findings. ACT 112: Negative or not required by law. Electronically signed by: Abelino Barboza M.D. 08/25/2024 8:15 AM
[2024-08-25] MEDS: ONDANSETRON 4 MG OD TAB PO PRN (08:40)
[2024-08-25] MEDS: INSULIN HUMAN NPH SC SCH ×2 (09:20→17:55)
--- NOTE | 2024-08-25 12:28 | Orthopedic Progress Note ---
Date of Service August 25, 2024 Assessment & Plan (1) Lumbar compression fracture: Plan: At this time we will continue physical therapy monitor HELDER output and await placement when bed available. Admission and Anticipated Discharge Date Admission Date: August 21, 2024 Subjective Patient's back pain is improved. He is tolerating physical therapy. Physical Exam Physical Exam: Patient is in the chair at the bedside. Is comfortable. Distracted testing. Results & Data Vital Signs (Past 12 Hours) Vital Signs Temp Pulse Resp BP Pulse Ox O2 Del Method 08/25/24 07:07 36.6 C 78 18 168/67 H 96 Room Air Queries Orthopedic Spine Acute Posthemorrhagic Anemia: Yes
--- NOTE | 2024-08-25 15:01 | Pharmacy Report ---
Pharmacy Glycemic Short Note 2 - Date of Service August 25, 2024 - Glycemic Short BSG Results (Last 24 hours): 08/24/24 08/24/24 08/25/24 16:31 19:52 06:20 Glucose 86 POC Glucose 222 H 269 H 08/25/24 08/25/24 07:05 11:30 Glucose POC Glucose 102 H 238 H OUTPATIENT ANTIDIABETIC REGIMEN: * Humulin 70/30 30 units QAM & 30 units Qafternoon * HbA1c 8.7% 08/21/24 ASSESSMENT: 08/25 * Cortez received 53 units of insulin yesterday (27 were basal) * Fasting BSG this AM acceptable, switched to NPH over the weekend, will continue current basal dosing * No changes to NovoLog at this time, last day of IV dexamethasone 6mg today, likely need to loosen tomorrow 08/22 * Cortez received 26 units of insulin yesterday (24 were basal) * Fasting BSG this AM acceptable, appears to have received 8mg of IV d examethasone while in OR today, will stress basal insulin dose by 40% to help cover, reassess in AM * Carbohydrate ratio tightened with steroid administration, no other glycemic stressors at this time, overnight checks added to monitor for hypoglycemia 08/21 * Cortez is an 79 year old male admitted with spinal stenosis and difficulty with ambulation. He has a history of type 1 diabetes and pharmacy has been consulted for glycemic management while inpatient. * BSGs elevated this AM on admission, RN confirmed that patient took 30 units of his insulin this AM. BSGs did trend down at lunchtime. Pharmacy has previously followed. Will initiate Lantus at this time based on prior data due to procedure tomorrow. Consider transitioning to NPH to better mimic outpatient regimen once stressors stabilize. * Novolog initiated at a weight based stress of 2, higher goal range to prevent hypoglycemia. PLAN FOR INPATIENT GLYCEMIC CONTROL: * Hold outpatient oral diabetes medications * Basal insulin * Insulin NPH 12 units QAM * Insulin NPH 15 units QPM * Reassess basal in AM * Bolus insulin * NovoLog per scale ACHS or Q6hrs while NPO * Goal Range: Low 120 mg/dL - High 160 mg/dL * Correction Factor: 30 mg/dL/unit * Nutritional / Prandial insulin per carb ratio of 1 unit per 7 grams CHO consumed
[2024-08-25] MEDS ORDERED: INSULIN HUMAN NPH SC SCH (16:30)
[2024-08-26 08:05] LABS: BUN Creatinine Ratio 19.1 (10-20); Potassium 3.9 mmol/L (3.5-5.1)
[2024-08-26 08:19] VITALS: PULSE 80; TEMP 97.7
[2024-08-26 08:32] VITALS: O2SAT 100
--- NOTE | 2024-08-26 11:34 | Hospitalist Progress Note ---
Date of Service August 26, 2024 Assessment & Plan (1) Spinal stenosis, lumbar region with neurogenic claudication: Plan: - S/p #1 decompression with bilateral medial facetectomies and foraminotomies T12-L1 L1-L2. #2 posterior spinal fusion T11-L2. #3 placed posterior instrumentation T11-L1 with connectors at L2-L3. #4 interbody fusion L1-L2. #5 placement Spira 12 x 26 mm at L1-L2. #6 kyphoplasty the vertebral bodies of T12 and L1. #7 placement locally harvested morselized autograft and posterior gutters. #8 placement of infuse collagen sponge, with Koros in the posterior gutters T11-L2. #9 placement of versa wrap over the exposed dura. on 08/22/2024 -pain management per ortho -consider pregablin 50 tid post operatively for neuropathic pain -DVT ppx per ortho -PT/OT per ortho -monitor creatinine, Hgb post op -incentive spirometry ordered Acute blood loss anemia, component of dilutional anemia - pre-op Hgb 12.6 post-op Hgb 9.1, follow up Hgb 8.4 (stable from 8.5 day prior) - received IVF for lower BP, now BP much improved - cont. to monitor H&H, no need for blood transfusion at this time HORACE - resolved - post-op Cr 1.46 , now 0.70 - baseline 0.8 - receiving IVF - cont. to monitor (2) Severe back pain: (3) Gastroparesis: Plan: -2/2 type 1 DM (4) Parkinsons disease: Plan: -has noted pill roll tremor and parkinsonian features on face and hands as well -cogwheeling noted Plan: -continue home parkinsons medications (5) GERD (gastroesophageal reflux disease): Plan: -continue protonix (6) DM type 1 (diabetes mellitus, type 1): Plan: -pharmacy consult given complex regiment (7) CAD (coronary artery disease): Plan: -noted 1 stent in past -see above for plan -LDL 48, A1c 8.7% (8) Fracture of pedicle of lumbar vertebra: Plan Analgesia: per ortho Thromboprophylaxis: per ortho Ulcer prophylaxis: protonix Glycemic control: per pharmacy Bowel care: per ortho Admission and Anticipated Discharge Date Admission Date: August 21, 2024 Subjective Pt seen in follow up of med consult, pt is s/p spinal surgery currently sitting up in bed in NAD Pt's present at the bedside Pt denies any significant pain Also no fever, chills, chest pain, shortness of breath Overall pt reports doing well Hgb 8.4 yesterday BP today 124/55 Plan to likely DC today, discussed w/ CM and RN at the bedside Review of Systems Review of Systems: All systems reviewed & are unremarkable except as noted in Subjective Physical Exam Physical Exam: Gen: A&O 3 NAD HEENT: NCAT, EOMI. External ears normal Neck: Supple Lungs: No Respiratory distress. CV: RRR, no edema. Abdomen: Soft, nondistended, No tenderness. Skin: warm, dry Extremities: SCDs applied Neuro: awake alert, answers appropriately, moves extremities Results & Data Results & Data Vital Signs (Past 12 Hours) Vital Signs Temp Pulse Resp BP Pulse Ox O2 Del Method 08/26/24 08:17 36.5 C 80 18 124/55 L 100 Room Air Laboratory Results 08/26/24 08/26/24 08/26/24 Range/Units 07:35 06:56 06:13 Sodium 137 (136-145) mmol/L Potassium 3.9 (3.5-5.1) mmol/L Chloride 98 (98-107) mmol/L Carbon Dioxide 32 (21-32) mmol/L Anion Gap 7 (3-11) BUN 13 (6-23) mg/dl Creatinine 0.68 (0.6-1.4) mg/dl Est Cr Clr Drug Dosing 88.0 ml/min eGFR 93.38 BUN/Creatinine Ratio 19.1 (10-20) Glucose 164 H (70-99(Fasting)) mg/dl POC Glucose 220 H 89 (70-99) mg/dl Calcium 9.0 (8.6-10.3) mg/dl 08/25/24 08/25/24 08/25/24 Range/Units 20:39 16:36 11:30 Sodium (136-145) mmol/L Potassium (3.5-5.1) mmol/L Chloride (98-107) mmol/L Carbon Dioxide (21-32) mmol/L Anion Gap (3-11) BUN (6-23) mg/dl Creatinine (0.6-1.4) mg/dl Est Cr Clr Drug Dosing ml/min eGFR BUN/Creatinine Ratio (10-20) Glucose (70-99(Fasting)) mg/dl POC Glucose 263 H 202 H 238 H (70-99) mg/dl Calcium (8.6-10.3) mg/dl Medications Administered Current Inpatient Medications Acetaminophen (Acetaminophen 500 Mg Tab) 1,000 mg PO Q8H PRN PRN Reason: MILD Pain Scale 1,2,3 & Pre PT Stop: 09/21/24 15:30 Al Hydrox/Mg Hydrox/Simethicone (Aluminum/Magnesium Susp 30 Ml Udc) 30 ml PO Q6H PRN PRN Reason: Dyspepsia Stop: 09/21/24 15:30 Baclofen (Baclofen 10 Mg Tab) 10 mg PO TID PRN PRN Reason: Pain Stop: 09/20/24 12:33 Last Admin: 08/26/24 08:57 Dose: 10 mg Bisacodyl (Bisacodyl 10 Mg Supp) 10 mg [place] DAILY PRN PRN Reason: Constipation Stop: 09/21/24 15:30 Carbidopa/Levodopa (Carbidopa/Levodopa 50/200mg Ext Rel Tab) 1 tab PO HS EVETTE Stop: 09/20/24 20:59 Last Admin: 08/25/24 21:07 Dose: 1 tab Carbidopa/Levodopa (Carbidopa/Levodopa 25/100mg Tab) 1.5 tab PO QID EVETTE Stop: 09/20/24 16:59 Last Admin: 08/26/24 08:50 Dose: 1.5 tab Dextrose (Dextrose 50% 50 Ml Syringe) 25 - 50 ml IV UD PRN; Protocol PRN Reason: Hypoglycemia Protocol Stop: 09/23/24 03:40 Diphenhydramine HCl (Diphenhydramine Capsule 25 Mg Cap) 25 mg PO Q6H PRN PRN Reason: Allergic Rhinitis/Insomnia Stop: 09/21/24 15:30 Famotidine (Famotidine 20 Mg Tab) 20 mg PO Q12H PRN PRN Reason: Dyspepsia Stop: 09/21/24 15:30 Glucagon (Glucagon For Inj 1 Mg Vial) 1 mg SQ UD PRN; Protocol PRN Reason: Hypoglycemia Protocol Stop: 09/23/24 03:40 Glucose (Glucose 40% Gel 15 Gm Tube) 15 - 30 gm PO UD PRN; Protocol PRN Reason: Hypoglycemia Protocol Stop: 09/23/24 03:40 Glucose (Glucose 10 Tab/Tube) 4 - 8 tab PO UD PRN; Protocol PRN Reason: Hypoglycemia Protocol Stop: 09/23/24 03:40 Hydromorphone HCl (Hydromorphone Inj 0.5 Mg/0.5 Ml Syr) 0.5 mg IV Q3H PRN PRN Reason: MODERATE Pain (Scale 4,5,6) & Stop: 09/05/24 15:30 Hydromorphone HCl (Hydromorphone Inj 1 Mg/Ml Syringe) 1 mg IV Q3H PRN PRN Reason: SEVERE Pain (Scale 7,8,9,10) Stop: 09/05/24 15:30 Last Admin: 08/22/24 15:49 Dose: 1 mg Hydroxyzine HCl (Hydroxyzine Hcl 25 Mg Tab) 25 mg PO Q8H PRN PRN Reason: Anxiety Stop: 09/21/24 15:30 Promethazine HCl (Phenergan) 12.5 mg in 50.5 mls @ 202 mls/hr IV Q6H PRN PRN Reason: Nausea And Vomiting Stop: 09/21/24 15:30 Last Infusion: 08/23/24 00:59 Dose: Infused Influenza Virus Vaccine Quadrival (Do Not Administer Flu Vaccine) 1 each N/A PRN PRN PRN Reason: Notification Stop: 09/21/24 15:30 Insulin Aspart (Insulin Aspart Per Unit Charge) 0 units SC ACHS [facility] Stop: 09/20/24 16:29 Last Admin: 08/26/24 08:56 Dose: 10 units Insulin Human NPH (Insulin Human Nph) 15 units SC QDB [facility] Stop: 09/24/24 07:29 Last Admin: 08/26/24 08:51 Dose: 15 units Insulin Human NPH (Insulin Human Nph) 12 units SC QDD [facility] Stop: 09/25/24 16:29 Lorazepam (Lorazepam 0.5 Mg Tab) 0.5 mg PO Q8H PRN PRN Reason: Sedation/Anxiety Stop: 09/21/24 15:30 Lorazepam (Lorazepam 2 Mg/1 Ml Vial) 0.5 mg IV Q8H PRN PRN Reason: Sedation/Anxiety Stop: 09/21/24 15:30 Lovastatin (Lovastatin 20 Mg Tab) 40 mg PO HS EVETTE Stop: 09/20/24 20:59 Last Admin: 08/25/24 21:04 Dose: 40 mg Magnesium Hydroxide (Magnesium Hydroxide Susp 30 Ml Udc) 30 ml PO Q24H PRN PRN Reason: Constipation Stop: 09/21/24 15:30 Magnesium Oxide (Magnesium Oxide 400 Mg Tab) 400 mg PO QAM EVETTE Stop: 09/21/24 09:29 Last Admin: 08/26/24 08:51 Dose: 400 mg Metoclopramide HCl (Metoclopramide Hcl Inj 5 Mg/Ml 2 Ml Vial) 10 mg IV Q6H PRN PRN Reason: Nausea &/or Vomiting Stop: 09/21/24 15:30 Last Admin: 08/23/24 00:06 Dose: 10 mg Miscellaneous (Carbohydrates For Hypoglycemia ) 15 - 30 gm PO UD PRN PRN Reason: Hypoglycemia Protocol Stop: 09/23/24 03:40 Last Admin: 08/24/24 03:40 Dose: 15 gm Miscellaneous Information (Pharmacy Glycemic Mgmt Consult) 1 each N/A UD PRN PRN Reason: Consult Stop: 09/20/24 13:50 Naloxone HCl (Naloxone Hcl 0.4 Mg/1 Ml Vial/Carp) 0.1 mg IV Q5M PRN PRN Reason: Oversedation/Resp depression Stop: 09/21/24 15:30 Ondansetron HCl (Ondansetron Inj 2 Mg/Ml 2 Ml Vial) 4 mg IV Q6H PRN PRN Reason: Nausea &/or Vomiting Stop: 09/21/24 15:30 Last Admin: 08/22/24 21:59 Dose: 4 mg Ondansetron HCl (Ondansetron 4 Mg Od Tab) 4 mg PO Q6H PRN PRN Reason: Nausea Stop: 09/21/24 15:30 Last Admin: 08/25/24 08:40 Dose: 4 mg Oxycodone HCl (Oxycodone Hcl Ir 5 Mg Tab (Immediate Release)) 5 - 10 mg PO Q4H PRN PRN Reason: Pain & Pre PT Stop: 09/05/24 15:30 Last Admin: 08/26/24 08:57 Dose: 5 mg Pantoprazole Sodium (Pantoprazole 40 Mg Tab) 40 mg PO BID EVETTE Stop: 09/20/24 20:59 Last Admin: 08/26/24 08:51 Dose: 40 mg Pneumococcal Polyvalent Vaccine (Do Not Administer Pneumococcal Vaccine) 1 each N/A PRN PRN PRN Reason: Notification Stop: 09/21/24 15:30 Senna/Docusate Sodium (Docusate Sodium/Senna 50/8.6mg Tab) 2 tab PO HS EVETTE Stop: 09/21/24 20:59 Last Admin: 08/25/24 20:58 Dose: Not Given Sodium Biphosphate/Sodium Phosphate (Sod Phosphate/Sod Biphosphate Enema 132 Ml Btl) 132 ml [place] ONE PRN PRN Reason: Constipation Stop: 09/21/24 15:30 Tramadol HCl (Tramadol Hcl 50 Mg Tablet) 50 - 100 mg PO Q4H PRN PRN Reason: Moderate-Severe pain & Pre PT Stop: 09/21/24 15:30 Last Admin: 08/24/24 07:33 Dose: 50 mg (4) Parkinsons disease Dyskinesia presence: with dyskinesia Fluctuating manifestations: unspecified whether manifestations fluctuate Qualified Code(s): G20.B1 - Parkinson's disease with dyskinesia, without mention of fluctuations (5) GERD (gastroesophageal reflux disease) Esophagitis presence: with esophagitis Esophagitis bleeding: without hemorrhage Qualified Code(s): K21.00 - Gastro-esophageal reflux disease with esophagitis, without bleeding (6) DM type 1 (diabetes mellitus, type 1) Diabetes mellitus complication status: with circulatory complication Diabetes mellitus complication detail: with peripheral angiopathy without gangrene Qualified Code(s): E10.51 - Type 1 diabetes mellitus with diabetic peripheral angiopathy without gangrene (7) CAD (coronary artery disease) Coronary Disease-Associated Artery/Lesion type: [place] artery [place] vs. transplanted heart: [place] heart Associated angina: without angina Qualified Code(s): I25.10 - Atherosclerotic heart disease of [place] coronary artery without angina pectoris
--- NOTE | 2024-08-26 12:05 | Discharge Summary ---
Date of Service August 26, 2024 Admission HPI Per Admitting Provider this is an 79-year-old male well-known to me presents the emergency room room this morning upon my request. He was sent [facility] last evening. He presented to hospital with inability ambulate secondary to back and leg pain. MRI of the thoracic and lumbar spine was obtained at that institution. I spoke with the doctor last evening he was medically stable neurologically intact and he elected to go home and come to our hospital this morning. Again this morning he is unable to stand and ambulate for any distance. He cannot do so unassisted. He has pain in the back and bilateral lower extremities numbness and tingling with breakaway weakness. He is comfortable lying supine in bed. He denies any recent fevers or chills. He denies any recent trauma fall or event. 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 Discharge Data Allergies Allergy/AdvReac Type Severity Reaction Status Date / Time No Known Allergies Allergy Verified 08/22/24 09:18 Consultations 08/21/24 09:12 Consult Orthopedic Spine Surgery Routine 08/21/24 12:34 Consult Anesthesiology Routine Consult Internal Medicine Routine Procedures Performed Operation Date: 08/22/24 09:55 Actual Procedures p T11-L2 Decompresion and Fusion, Spinal Cord Monitoring - Festus Su DO s Kyphplasty L1 - Festus Su DO Ordered Studies 08/22/24 13:15 FL lumbar spine 2-3V Routine Hospital Course (1) Fracture of pedicle of lumbar vertebra: Patient presents the hospital with severe spinal stenosis compression fracture and radiculopathy. He underwent urgent thoracolumbar decompression fusion. He tolerated this well was taken to orthopedic for postoperative. Postop he progressed steadily and appropriately throughout his stay. HELDER drain decreasing. Strength improving. Radiculopathy improved. Simply discharged to inpatient rehab. Discharge orders instructions from the chart for further review. 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 You may walk to your tolerance. It is good exercise for your legs and back. Expect some back and intermittent leg aches and pains. 2. You may perform "counter-top" level activities (make a sandwich, vicky with a project, etc.). 3. No bending or lifting of more than 10 pounds or back twisting of any nature (roll like a log when turning in bed). 4. You may ride in a car for 20-30 minutes at a time. No driving until after your first visit with your doctor. 5. Frequent changes of position and restricting sitting to 30 minutes at a time will help limit the amount of back spasms and stiffness you may experience. 6. You may discontinue the use of ambulatory aids (cane, crutches, etc.) once your strength and confidence allow. 7. You may padded products inspector trimmer the shower and let water strike your incision when you arrive home at least once daily. Do not take a tub bath, sit in a hot tub or go into a swimming pool until after your first recheck in the office. 8. You may resume previous diet. SPECIAL CARE INSTRUCTIONS: VERY IMPORTANT TO READ AND REVIEW A. Your surgical incision has been closed with a cosmetic suture under the skin that will dissolve in about 6 weeks. In 14 days, you can use a pair of clean scissors and cut the suture that is left outside of the skin at the ends of your incision. 1. The small skin tapes can be removed 7 days after surgery if they have not fallen off by that point. 2. You may keep the wound open to air as much as possible to promote healing after post-op day number 5 unless told otherwise by your doctor. 3. If you think the wound looks like it is becoming infected (redness or worsening drainage) and/or you are experiencing fever, chill or worsening back pain and muscle spasms, contact the office so that we may evaluate you as soon as possible. B. Complications are uncommon, but please contact us if you have any signs or symptoms of: 1. wound infection (fever higher than 102.5 degrees F, redness, separation of wound, drainage, or increasing pain from the incision) 2. blood clots in legs (pain, swelling, redness and warmth in legs) 3. urinary tract infection (fever higher than 102.5 degrees F, burning upon urination or increased frequency of urination) 4. nerve problems (inability to walk on your toes or heels, numbness, loss of bowel or bladder control) 5. any other symptoms that concern you C. Please call the office at if you have any concerns or questions about your operation or recovery. D. No smoking! Smoking drastically decreases the chance of a solid fusion. E. Do not take any anti-inflammatory medications (Indocin, Advil, Motrin, Aspirin, Naprosyn, etc.) as these may inhibit the chance of a solid fusion. Tylenol is okay to take for pain. MANAGING PAIN AFTER SPINAL SURGERY 1. Narcotic medication is intended for short-term use and will be provided for surgical pain. Surgical pain usually lasts for a period of 4-6 weeks. Narcotic medication includes Percocet, Vicodin, Darvocet, Tylenol #3 or Lortab. 2. Longer-term pain is more appropriately treated with non-narcotic medication such as Tylenol ES. 3. Muscle spasm is not appropriately treated with narcotics. Muscle relaxers such as Soma, Flexeril or Skelaxin can be used along with Tylenol ES. 4. Remember that we all live with some "aches and pains". This is not unusual or uncommon after an injury or as we get older. a. Back pain is expected and may include muscle spasms for 4 to 6 weeks after surgery. The pain should gradually improve. If the pain worsens for no apparent reason, please contact the office. b. Intermittent leg pain may also be experienced and should not be concerned about unless it worsens for no apparent reason. If so, please contact the office. 5. We will provide appropriate medication within the normal guidelines of their prescribed use. We will also be very cautious and aware of potential abuse and extended duration of patients' medication needs. a. Pain medications are for your comfort and to assist with sleep and rest so that the tissue can heal. They are not provided in order to return to normal activity and should not be used through the day. To do so or worsening pain at night can result from ongoing tissue damage and development of tolerance to the prescribed medicine. 6. Please allow 2-3 days to process refills. Prescriptions will not be mailed but must be picked up at the office. FOLLOW UP VISIT: Keep your scheduled follow-up appointment. Any questions, please call the office at . Pending Studies at Discharge: No Stand-Alone Forms: [facility] Skilled Items Patient informed of condition?: Yes DNR: No Discharge Level of Care: Acute rehab Communicable Disease: No Discharge Prognosis: Improving Lines: None Urinary Catheter: No Medications and DC Order Prescriptions: New tramadol 50 mg tablet 50 mg PO Q6H PRN (Reason: pain, moderate) Qty: 30 0RF oxycodone 5 mg tablet 5 mg PO Q6H PRN (Reason: pain) Qty: 30 0RF Continued lovastatin 40 mg Tablet 40 mg PO HS carbidopa-levodopa 50-200 mg Tablet Extended Release 1 tab PO HS Humulin 70/30 U-100 Insulin 100 unit/mL (70-30) Suspension 30 unit SUBCUT QAM Humulin 70/30 U-100 Insulin 100 unit/mL (70-30) Suspension 30 unit SUBCUT .AFTERNOON baclofen 10 mg Tablet 10 mg PO TID PRN (Reason: Pain) pantoprazole [Protonix] 40 mg Tablet,Delayed Release (Dr/Ec) 40 mg PO BID hydrocodone-acetaminophen 7.5-300 mg tablet 1 tab PO Q8H PRN (Reason: Pain) aspirin [Aspir-81] 81 mg Tablet,Delayed Release (Dr/Ec) 81 mg PO DAILY gabapentin 100 mg capsule 100 mg PO UD Rx Instructions: 200mg po bid, 400 mg po hs carbidopa-levodopa 25-100 mg tablet 1.5 tab PO QID cholecalciferol (vitamin D3) 50 mcg (2,000 unit) capsule 4,000 unit PO DAILY Discharge Orders: Discharge Order (Routine); Ordered 08/26/24 Ordered By: Festus Su Admission Data Admit Date/Time: 08/21/24 10:27 Attending Provider: Festus Su Admit Provider: Festus Su Primary Care Provider: Eros Shannon Other Providers: Festus Su; Ceferino Tejada; Therese Lovett.
[2024-08-26 13:31] VITALS: BP 132/73
[2024-08-26] MEDS ORDERED: INSULIN HUMAN NPH SC SCH (16:30)
== END 2024-08-26 14:24 | DRG 426 ==
LOC: ED 08:36 → 3N 10:27

== ENCOUNTER 2024-09-03 18:43 | Inpatient (IN) ==
[2024-09-03] MEDS ORDERED: ALBUMIN HUMAN 5% 12.5 GM/250 ML VIAL IV ONE (18:55)
[2024-09-03] MEDS ORDERED: ACETAMINOPHEN 1000 MG/100 ML IV IV ONE (18:55)
[2024-09-03] MEDS ORDERED: LIDOCAINE 2% 2 ML VIAL/AMP(20MG/ML) INFIL ONE (18:57)
[2024-09-03] MEDS ORDERED: PROPOFOL IV EMULSION 10 MG/ML 20 ML VIAL IV ONE (18:57)
[2024-09-03] MEDS ORDERED: DEXAMETHASONE SOD INJ 4 MG/ML VIAL ONE (18:57)
[2024-09-03] MEDS ORDERED: ONDANSETRON INJ 2 MG/ML 2 ML VIAL ONE (18:57)
[2024-09-03] MEDS ORDERED: fentaNYL citrate PF 100 MCG/2 ML VIAL ONE (18:57)
[2024-09-03] MEDS: SODIUM CHLORIDE 0.9% 250 ML IV ONE (19:08)
--- NOTE | 2024-09-03 19:08 | History & Physical Report ---
Date of Service September 03, 2024 Assessment & Plan (1) Traumatic hematoma of thoracic region: Plan: MRI of the thoracic and lumbar spine performed at [facility] available for review. Performed 09/03/2024. Does demonstrate evidence of fracture of T11. There is posterior fluid collection. There is significant metal artifact however appreciate evidence of edema within the cord. There is concern of migration of the hardware. Plan at this time we will be taken the patient to the OR on an emergent basis for immediate decompression of the thoracic spine possible kyphoplasty of thoracic spine to the T11 region. History of Present Illness Chief Complaint: Numbness and weakness bilateral lower extremities from the waist down. Primary Care Provider: NO PCP This is an 79-year-old male well-known to me the presents to [facility] earlier today. His was assisting him in getting out of bed. He felt a "pop sensation" and had immediate onset of flaccid paralysis into his lower extremities. He was taken to the emergency room underwent imaging. There is concern for a T11 fracture with epidural fluid collection and cord compression. I spoke to the emergency room physician managing the patient and he had the patient flown to [facility] for my evaluation. At this time he denies any back pain states he is getting some very modest sensation to his legs. Continues to describe significant weakness in his lower extremities. Past Med/Surg History Problem List (Updated 09/03/24 @ 19:07 by Festus Su DO) Traumatic hematoma of thoracic region Social History Smoking Status: Former smoker Tobacco Type: Cigarettes Feels Safe at Home: Yes Physical Exam Physical Exam: On exam he is in the bed. He exhibits very modest motion to his toes bilaterally. Sensation is intact to pressure. Cold and light touch are absent. Deep tendon reflexes absent. This involves the entire lower extremity and lower abdomen. Results & Data Results & Data Vital Signs (Past 12 Hours) Vital Signs Temp Pulse Pulse Resp BP Pulse Ox O2 Del Method 09/03/24 18:49 93 H 13 155/78 H 94 Room Air 09/03/24 18:41 36.9 C 97 18 93 Room Air
--- NOTE | 2024-09-03 19:12 | Anesthesiology Consultation ---
Date of Service September 03, 2024 Assessment & Plan Chart Review Chart Review: Acceptable Risk for Surgery Consults Requested none History Surgery Operation Date: 09/03/24 19:00 Proposed Procedures p Lumbar Decompression - Festus Su DO Height/Weight Height: 5 ft 10 in Weight: 77.9 kg Medications Active Medications Generic Name Dose Route Start Last Admin Trade Name Freq PRN Reason Stop Dose Admin Sodium Chloride 250 mls @ 999 mls/hr 09/03/24 19:05 09/03/24 19:08 Nss IV 09/03/24 19:20 999 mls/hr .Q16M ONE Administration Social History Smoking Status: Former smoker Physical Exam Vital Signs Last Vital Signs Temp 36.9 C 09/03/24 18:41 Pulse 93 H 09/03/24 18:49 Resp 13 09/03/24 18:49 BP 155/78 H 09/03/24 18:49 Pulse Ox 94 09/03/24 18:49 O2 Del Method Room Air 09/03/24 18:49
--- NOTE | 2024-09-03 19:27 | Emergency Department Note ---
Impression & Plan Epidural hematoma, Lower extremity paralysis ED Provider Note NAME: DEE FUENTES AGE: 79 SEX: M : 1945 ARRIVES VIA: Ambulance INFORMANT: [Patient][, ] ED PROVIDER(S): [Austyn Suárez MD] CHIEF COMPLAINT: ER to ER transfer HPI: This is a an 79-year-old male presenting for new onset lower back pain. Patient was at a rehab facility when he woke up this morning with process of his lower extremities. Patient also notes that he lost bowel and bladder function earlier today. He was at outside hospital where he had imaging done that revealed new posterior epidural fluid collection seen at the level of T10-T12 measuring 5 mm thickness and 5 1 cm in length with mild enhancement concern for epidural abscess versus hematoma. There is mild compression of the cord at this level. Patient was septic by Dr. Su for operative management upon arrival. ROS: See above HPI for pertinent positives & negatives. A total of [10] systems reviewed and were otherwise negative. PHYSICAL EXAMINATION: General: resting comfortably in no acute distress Head: Normocephalic and atraumatic General: resting comfortably in no acute distress Head: Normocephalic and atraumatic Eyes: Normal inspection, extraocular muscles intact Ear, nose, throat: Normal external exam Neck: Normal range of motion Respiratory: speaking in full sentences, symmetric chest rise, no respiratory distress Cardiovascular: Regular rate/rhythm Extremities: Lower extremity paralysis Neuro: The patient awake and alert, appropriately conversive, symmetric faces, lower extremity paralysis MEDICAL DECISION MAKING: This is a 79-year-old male presenting for new onset lower back pain with with paralysis. Patient has epidural hematoma/abscess. Patient was accepted by Dr. Su and will be referred for surgery immediately. Past Med/Surg History Problem List (Updated 09/03/24 @ 20:13 by Austyn Suárez MD) Lower extremity paralysis (Acute) Epidural hematoma (Acute) Traumatic hematoma of thoracic region Social History Smoking Status: Former smoker Tobacco Type: Cigarettes Feels Safe at Home: Yes Allergies Allergies Allergy/AdvReac Type Severity Reaction Status Date / Time No Known Allergies Allergy Unverified 09/03/24 19:36 Results & Data (ED) Vital Signs Vital Signs - 24 hr 09/03/24 18:41 09/03/24 18:49 Temperature 36.9 C Temperature Source Oral Pulse Rate 97 Pulse Rate [Apical] 93 H Respiratory Rate 18 13 Respiratory Effort / Characteristics Non-Labored Spontaneous Non-Labored Spontaneous Respiratory Depth Normal Normal Respiratory Pattern Regular Regular Blood Pressure [Left Arm] 155/78 H Blood Pressure Mean [Left Arm] 103 Blood Pressure Position [Left Arm] Lying Pulse Oximetry 93 94 Oxygen Delivery Method Room Air Room Air Sepsis Recent Fever Within 48 Hours No Sepsis New/Unexplained Change in Mental Status No Sepsis Action Taken by Nursing No Action Required Administered Medications Discontinued Medications Sodium Chloride (Nss) 250 mls @ 999 mls/hr IV .Q16M ONE Stop: 09/03/24 19:20 Last Admin: 09/03/24 19:08 Dose: 999 mls/hr Documented By: JOHAN Discharge Plan Visit Data Chief Complaint: Back Injury/Pain Stated Complaint: TRANSFER ED Provider: Austyn Suárez Discharge Problem: Epidural hematoma, Lower extremity paralysis Patient Disposition: Admitted As Inpatient Discharge Instructions Interventions: ED Discharge Assessment Last Done: 09/03/24 19:14
[2024-09-03] MEDS ORDERED: SODIUM CHLORIDE 0.9% PF INJ 10 ML VIAL ONE (19:41)
[2024-09-03] MEDS ORDERED: PHENYLEPHRINE 100MCG/ML 5ML SYR ONE ×2 (19:41→19:43)
[2024-09-03] MEDS ORDERED: ceFAZolin 330 MG/ML 1 GM VIAL ONE ×2 (19:41)
[2024-09-03] MEDS ORDERED: PHENYLEPHRINE HCL 10 MG/ML VIAL ONE (19:45)
[2024-09-03] MEDS ORDERED: ePHEDrine sulfate 50 MG/5 ML SYR ONE (20:03)
[2024-09-03] MEDS: BUPIVACAINE/EPINEPHRINE 0.25% 1:200,000 30 ML VIAL ONE (20:28)
[2024-09-03] MEDS: ceFAZolin 330 MG/ML 1 GM VIAL ONE ×2 (20:28→20:29)
[2024-09-03] MEDS: IOPAMIDOL INJ 61% 15 ML VIAL INSTIL ONE (20:29)
[2024-09-03] MEDS ORDERED: SUGAMMADEX SODIUM 200 MG/2 ML VIAL IV ONE (20:29)
--- NOTE | 2024-09-03 20:50 | Operative Report ---
Post Operative Report Pre & Post Diagnosis Operation Date: 09/03/24 19:00 Pre-Op Diagnosis: #1 traumatic hematoma of thoracic region #2 T11 burst fracture with cord compression #3 incomplete bilateral lower extremity paralysis Post-Op Diagnosis: Same I identified the patient and participated in the time-out.: Yes Procedure Operation Date: 09/03/24 19:00 Actual Procedures #1 decompression T10 and T11 with evacuation of epidural hematoma. #2 removal of hardware in the T11 vertebral body. #3 kyphoplasty T11. Surgeon Festus Su, DO Frame Opener None Estimated Blood Loss 100 Findings Consistent with Post-Op Diagnosis Specimens None Indications This is an 79-year-old male that presents today after feeling sudden pop in his spine while his was assisting him getting out of bed. He was taken to an outside emergency room with flaccid lower extremity paralysis. Imaging was obtained. I was contacted and he was [facility] and taken directly to the OR for surgery. Description of Procedure Patient was met with identified informed consent obtained. Patient was then taken to the operative suite underwent intubation placed in a prone position on the Ildefonso table with a chest pad and hip bolsters. All bony prominences well- padded eyes inspected to ensure no external precipice upon the. This point the thoracolumbar spine was prepped and draped normal sterile fashion. I then opened his incision from the surgery 2 weeks ago extending from T10 to L2. Hematoma was immediately identified. I then performed a laminotomy of T11 and T10 for direct decompression of the epidural hematoma. Several liters of's antibiotic saline were then irrigated throughout the incision. I then removed the pedicle screws at T10 bilaterally. They were grossly loose indicative of the fracture noted on MRI. I then placed a 15 mm balloon into the fracture site of T11 inflating the balloon with fluoroscopic visualization. The balloon was removed I then injected approximately 4-1/2 cc of Kyphon cement directly into the fracture site it demonstrated excellent fill along the fracture pattern interdigitating above below the fracture. Incision was irrigated 1 more time. 10 round HELDER drain inserted. The incision was then closed with subcutaneous Vicryl and dorina for final skin closure. Sterile dressing placed. Patient waken taken to recovery in stable condition. I attest to the content of the Intraoperative Record and any orders documented therein. Any exceptions are noted below.
[2024-09-03] MEDS ORDERED: ePHEDrine sulfate 50 MG/ML AMP IV PRN (20:58)
[2024-09-03] MEDS ORDERED: ONDANSETRON INJ 2 MG/ML 2 ML VIAL IV PRN ×2 (20:58→22:24)
[2024-09-03] MEDS ORDERED: HYDROmorphone INJ 2 MG/ML SYR/VIAL IV PRN (20:58)
[2024-09-03] MEDS ORDERED: ATROPINE SULFATE 0.1 MG/ML 10ML SYR IV PRN (20:58)
[2024-09-03] MEDS ORDERED: fentaNYL citrate PF 100 MCG/2 ML VIAL IV PRN (20:58)
[2024-09-03] MEDS ORDERED: PROMETHAZINE HCL 6.25 MG in SODIUM CHLORIDE 0.9% 50 ML IV PRN (20:58)
--- NOTE | 2024-09-03 21:54 | Anesthesiology Progress Note ---
Date of Service September 03, 2024 Anesthesia Post Procedure Vital Signs Vital Signs: Temp Pulse Pulse Resp BP Pulse Ox O2 Del Method 09/03/24 21:45 95 H 12 121/48 L 94 Room Air 09/03/24 21:30 36.4 C L 91 H 12 129/47 L 95 Room Air 09/03/24 21:25 93 H 12 129/47 L 94 Room Air 09/03/24 21:15 91 H 16 119/49 L 95 Room Air 09/03/24 21:05 89 12 141/52 H 95 Room Air 09/03/24 20:57 36.2 C L 87 13 148/59 H 98 Oxymask 09/03/24 18:49 93 H 13 155/78 H 94 Room Air 09/03/24 18:41 36.9 C 97 18 93 Room Air O2 Flow Rate 09/03/24 21:45 0 09/03/24 21:30 0 09/03/24 21:25 0 09/03/24 21:15 0 09/03/24 21:05 0 09/03/24 20:57 8 09/03/24 18:49 09/03/24 18:41 Pain Intensity Back: Pain Intensity: 7 Transfer of Care Handoff Completed per policy Notes Mental Status: alert / awake / arousable and participated in evaluation Patient Amnestic to Procedure: Yes Nausea / Vomiting: adequately controlled Pain: adequately controlled Airway Patency, RR, SpO2: stable & adequate BP & HR: stable & adequate Hydration State: stable & adequate Anesthetic Complications: no major complications apparent
[2024-09-03] MEDS ORDERED: METOCLOPRAMIDE HCL INJ 5 MG/ML 2 ML VIAL IV PRN (22:24)
[2024-09-03] MEDS ORDERED: FAMOTIDINE 20 MG TAB PO PRN (22:24)
[2024-09-03] MEDS ORDERED: traMADol HCL 50 MG TABLET PO PRN (22:24)
[2024-09-03] MEDS ORDERED: MAGNESIUM HYDROXIDE SUSP 30 ML UDC PO PRN (22:24)
[2024-09-03] MEDS ORDERED: ALUMINUM/MAGNESIUM SUSP 30 ML UDC PO PRN (22:24)
[2024-09-03] MEDS ORDERED: ACETAMINOPHEN 1,000 MG/100 ML VIAL IV PRN (22:24)
[2024-09-03] MEDS ORDERED: LORazepam 0.5 MG TAB PO PRN (22:24)
[2024-09-03] MEDS ORDERED: PHARMACY GLYCEMIC MGMT CONSULT PRN (22:24)
[2024-09-03] MEDS ORDERED: SOD PHOSPHATE/SOD BIPHOSPHATE ENEMA 132 ML BTL PR PRN (22:24)
[2024-09-03] MEDS ORDERED: bisacodyL 10 MG SUPP PR PRN (22:24)
[2024-09-03] MEDS ORDERED: ONDANSETRON 4 MG OD TAB PO PRN (22:24)
[2024-09-03] MEDS ORDERED: diphenhydrAMINE Capsule 25 MG CAP PO PRN (22:24)
[2024-09-03] MEDS ORDERED: DO NOT ADMINISTER PNEUMOCOCCAL VACCINE PRN (22:24)
[2024-09-03] MEDS ORDERED: NALOXONE HCL 0.4 MG/1 ML VIAL/CARP IV PRN (22:24)
[2024-09-03] MEDS ORDERED: PROMETHAZINE 12.5 MG/50.5 ML BAG IV PRN (22:24)
[2024-09-03] MEDS ORDERED: LORazepam 2 MG/1 ML VIAL IV PRN (22:24)
[2024-09-03] MEDS ORDERED: DO NOT ADMINISTER FLU VACCINE PRN (22:24)
[2024-09-03] MEDS: DOCUSATE SODIUM/SENNA 50/8.6MG TAB PO SCH (22:52)
[2024-09-03] MEDS ORDERED: GLUCOSE 10 TAB/TUBE PO PRN (23:00)
[2024-09-03] MEDS ORDERED: GLUCOSE 40% GEL 15 GM TUBE PO PRN (23:00)
[2024-09-03] MEDS ORDERED: GLUCAGON FOR INJ 1 MG VIAL SQ PRN (23:00)
[2024-09-03] MEDS ORDERED: CARBOHYDRATES FOR HYPOGLYCEMIA PO PRN (23:00)
[2024-09-03] MEDS ORDERED: DEXTROSE 50% 50 ML SYRINGE IV PRN (23:00)
[2024-09-03] MEDS: OLANZapine 10 MG/2.1 ML SDV IM STA (23:07)
[2024-09-04] MEDS: INSULIN ASPART PER UNIT CHARGE SC SCH (00:22)
[2024-09-04] MEDS ORDERED: INSULIN ASPART PER UNIT CHARGE SC ONE (02:00)
[2024-09-04] MEDS: INSULIN ASPART PER UNIT CHARGE SC ONE (03:04)
[2024-09-04] MEDS: dexAMETHasone 8 MG in SYRINGE 0 ML IV SCH (03:05)
[2024-09-04] MEDS: ceFAZolin 2000MG 2,000 MG/15 ML SYR IV SCH (03:05)
[2024-09-04] MEDS: LANTUS PER UNIT CHARGE SC STA (03:27)
--- NOTE | 2024-09-04 04:56 | Consultation ---
Date of Consultation September 03, 2024 Assessment & Plan (1) Traumatic hematoma of thoracic region: 79-year-old male with past med history significant for CAD status post stent 20 years ago, diabetes, diabetic neuropathy, parkinsonism disease, hyperlipidemia who lives with his found to have a traumatic hematoma thoracic region. Seems patient's was assisting him in getting out of bed when he felt a popping sensation and immediate onset of flaccid paresis in his lower extremities. He was taken to the ER of the of outside hospital and imaging studies showed T11 fracture and epidural fluid collection cord compression. Patient was emergently brought here and status post surgery. Currently patient is very confused. Could tell his name. But answers no to everything. Requiring soft restraints. Also got a dose of IM Zyprexa. As per the before this happened patient was doing okay. He ambulates with a walker because of his multiple back surgeries. No recent fevers. No nausea. No abdominal pain. No complaint of chest pain or shortness of breath. Afebrile. Could not get any history from the patient currently. Traumatic hematoma thoracic region Lower extremity paralysis Status post emergent surgery PT OT when stable Further management as per Ortho History of parkinsonism Continue home medications CAD status post stent On lovastatin Holding aspirin for now Restart aspirin as per Ortho GERD Protonix Diabetes Currently holding home insulin Sliding scale Glycemic pharmacy consulted Will monitor Delirium Postop We will monitor Hyperlipidemia On statin Diabetic neuropathy On gabapentin Constipation On Colace DVT prophylaxis and disposition As per orthospine History of Present Illness Reason for Consultation: Traumatic hematoma of thoracic region status post surgery Attending Physician: Festus Su DO History of Present Illness 79-year-old male with past med history significant for CAD status post stent 20 years ago, diabetes, diabetic neuropathy, parkinsonism disease, hyperlipidemia who lives with his found to have a traumatic hematoma thoracic region. Seems patient's was assisting him in getting out of bed when he felt a popping sensation and immediate onset of flaccid paresis in his lower extremities. He was taken to the ER of the of outside hospital and imaging studies showed T11 fracture and epidural fluid collection cord compression. Patient was emergently brought here and status post surgery. Currently patient is very confused. Could tell his name. But answers no to everything. Requiring soft restraints. Also got a dose of IM Zyprexa. As per the before this happened patient was doing okay. He ambulates with a walker because of his multiple back surgeries. No recent fevers. No nausea. No abdominal pain. No complaint of chest pain or shortness of breath. Afebrile. Could not get any history from the patient currently. Past medical history.. As mentioned above. Past surgical history. Cardiac cath. Tonsillectomy. 5 back surgeries. Cholecystectomy. Ankle surgery. Bilateral carpal tunnel release. Surgeries. Quit smoking 1973. Alcohol occasional. Family history. Significant for cancer in the family. Allergies Allergy/AdvReac Type Severity Reaction Status Date / Time No Known Allergies Allergy Unverified 09/03/24 19:36 Home Medications Medication Instructions Recorded Confirmed Type aspirin 81 mg tablet,delayed 81 mg PO HS 09/03/24 09/03/24 History release carbidopa 25 mg-levodopa 100 mg 1 tab PO QID 09/03/24 09/03/24 History tablet carbidopa ER 50 mg-levodopa 200 mg 1 tab PO HS 09/03/24 09/03/24 History tablet,extended release cholecalciferol (vitamin D3) 50 2,000 unit PO DAILY 09/03/24 09/03/24 History mcg (2,000 unit) capsule docusate sodium 100 mg capsule 100 mg PO BID 09/03/24 09/03/24 History gabapentin 100 mg tablet 200 mg PO UD 09/03/24 09/03/24 History gabapentin 400 mg capsule 400 mg PO HS 09/03/24 09/03/24 History insulin NPH-regular 70-30 U-100 30 unit subcut UD 09/03/24 09/03/24 History insulin 100 unit/mL subcutaneous pen (Humulin 70/30 U-100 KwikPen) lovastatin 40 mg tablet 40 mg PO DAILY 09/03/24 09/03/24 History pantoprazole 40 mg tablet,delayed 40 mg PO BID 09/03/24 09/03/24 History release Patient History Social History Smoking Status: Unknown if ever smoked Tobacco Type: Cigarettes Hx Alcohol Use: No (unknown) Hx Substance Use: No (unknown) Preferred Language: Ivorian Communication Ability: Effective Master At Arms Required: No Beliefs That Will Affect Care: None Current Living Situation: Spouse Feels Safe at Home: Yes Assistive Devices: Walker Review of Systems Review of Systems: Unobtainable due to cognitive status Physical Exam Physical Exam: General- Confused Head- atraumatic Eyes- EOMI Lungs- clear to auscultation , no wheezing or crackles Heart- regular rate and rhythm; no murmur, no gallop. Abdomen- normal bowel sounds, soft, no distension Extremities- no pretibial edema, no erythema seen Neuro- Confused. EOMI; no facial palsy; no dysarthria; moves upper extremities Results & Data Vital Signs (Past 12 Hours) Vital Signs Temp Pulse Pulse Pulse Resp BP Pulse Ox 09/03/24 22:25 111 H 20 97/67 L 99 09/03/24 21:45 95 H 12 121/48 L 94 09/03/24 21:30 36.4 C L 91 H 12 129/47 L 95 09/03/24 21:25 93 H 12 129/47 L 94 09/03/24 21:15 91 H 16 119/49 L 95 09/03/24 21:05 89 12 141/52 H 95 09/03/24 20:57 36.2 C L 87 13 148/59 H 98 09/03/24 18:49 93 H 13 155/78 H 94 09/03/24 18:41 36.9 C 97 18 93 O2 Del Method O2 Flow Rate 09/03/24 22:25 Room Air 09/03/24 21:45 Room Air 0 09/03/24 21:30 Room Air 0 09/03/24 21:25 Room Air 0 09/03/24 21:15 Room Air 0 09/03/24 21:05 Room Air 0 09/03/24 20:57 Oxymask 8 09/03/24 18:49 Room Air 09/03/24 18:41 Room Air Diagnostic Findings Laboratory Results Glucose 378 mg/dl (70-99(Fasting)) H* 09/04/24 02:05 POC Glucose 379 mg/dl (70-99) H* 09/04/24 04:19 Blood Type O Positive 09/03/24 19:36 Antibody Screen NEGATIVE 09/03/24 19:36
[2024-09-04] MEDS: POLYETHYLENE (MIRALAX) 17 GM PACK PO SCH (05:41)
[2024-09-04 06:55] LABS: Hematocrit (blood only) 28.1 % (42.0-52.0); Hemoglobin 9.4 g/dl (14.0-18.0); Mean Corpuscular Hemoglobin 30.1 pg (25.0-34.0); Mean Corpuscular Hgb Conc 33.5 g/dL (32.0-36.0); Mean Corpuscular Volume 90.1 fL (80.0-100.0); Mean Platelet Volume 9.1 fL (9.4-12.4); Platelet Count 427 K/uL (130-400); RDW Standard Deviation 43.1 fL (36.4-46.3); Red Blood Count 3.12 M/uL (4.70-6.10); White Blood Count 7.49 K/ul (4.8-10.8)
[2024-09-04 07:13] LABS: BUN Creatinine Ratio 31.8 (10-20); Calcium 7.9 mg/dl (8.6-10.3); Creatinine Clr Calc Pharmacy 70.4 ml/min; Magnesium 1.9 mg/dl (1.7-2.4); Potassium 4.3 mmol/L (3.5-5.1)
[2024-09-04 07:23] LABS: Basophils # (auto) 0.01 K/uL (0.00-0.20); Basophils % (auto) 0.1 %; Echinocytes 1+; Immature Granulocytes # (auto) 0.06 K/uL (0.01-0.20); Immature Granulocytes % (auto) 0.8 %; Lymphocytes # (auto) 0.31 K/uL (1.20-3.40); Lymphocytes % (auto) 4.1 %; Monocytes # (auto) 0.19 K/uL (0.11-0.59); Monocytes % (auto) 2.5 %; Neutrophils # (auto) 6.92 K/uL (1.40-6.50); Neutrophils % (auto) 92.5 %; Polychromasia 1+; Toxic Granulation 1+
[2024-09-04 07:32] LABS: Estimated Average Glucose 194 mg/dl; Hemoglobin A1C 8.4 % (4.5-5.6)
--- NOTE | 2024-09-04 08:15 | Fluoroscopy Report ---
FL thoracic spine 2V CLINICAL HISTORY: HARWARE REMOVAL, KYPHO COMPARISON STUDY: None FLUOROSCOPY TIME: 100 seconds FLUOROSCOPY IMAGES: 3 EXPOSURE DOSE: 45 mGy FINDINGS: Fluoroscopy was provided for removal of neurostimulator. IMPRESSION: Intraoperative fluoroscopy. ACT 112: Negative or not required by law. Electronically signed by: Abelino Barboza M.D. 09/04/2024 8:13 AM
--- NOTE | 2024-09-04 08:55 | Orthopedic Progress Note ---
Date of Service September 04, 2024 Assessment & Plan (1) Lower extremity paralysis: Plan: [place]ez is postoperative day 1 status post hardware removal of T11, kyphoplasty of T11, T10-11 evacuation of epidural hematoma with lower extremity paralysis. Maintain HELDER drain. He is bedrest but may position bed to comfort. Consult protective services social worker. DVT prophylaxis is in the form teds and SCDs. Continue with bowel regimen. Will most likely need discharge to SNF once stable Admission and Anticipated Discharge Date Admission Date: September 03, 2024 Graciela Faulkner is postoperative day 1 status post hard removal of T11, kyphoplasty of T11, T10-11 evacuation of epidural hematoma. He states his legs feel heavy but no pain. HELDER drain output last shift was 140 cc. H&H are 9.4 and 28.1 respectively this morning. Review of Systems Review of Systems: All systems reviewed & are unremarkable except as noted in HPI & below Physical Exam Physical Exam: Laying in bed eating breakfast Alert and oriented x 3 Dressing is clean dry and intact with functioning HELDER drain He can wiggle his toes bilaterally. He has a 4/5 bilateral EHL. 0/5 quadricep, hamstring, plantarflexion ,dorsiflexion, hip flexors bilaterally Results & Data Vital Signs (Past 12 Hours) Vital Signs Temp Pulse Pulse Resp BP BP Pulse Ox 09/04/24 07:33 36.9 C 90 16 123/62 97 09/04/24 05:32 36.6 C 96 H 16 136/67 95 09/04/24 03:11 36.7 C 95 H 16 148/63 H 97 09/04/24 01:52 36.7 C 101 H 16 124/65 99 09/04/24 00:45 36.6 C 101 H 16 161/65 H 99 09/03/24 23:52 36.6 C 113 H 16 129/70 99 09/03/24 22:25 111 H 20 97/67 L 99 09/03/24 21:45 95 H 12 121/48 L 94 09/03/24 21:30 36.4 C L 91 H 12 129/47 L 95 09/03/24 21:25 93 H 12 129/47 L 94 09/03/24 21:15 91 H 16 119/49 L 95 09/03/24 21:05 89 12 141/52 H 95 09/03/24 20:57 36.2 C L 87 13 148/59 H 98 O2 Del Method O2 Flow Rate 09/04/24 07:33 Room Air 09/04/24 05:32 Room Air 09/04/24 03:11 Room Air 09/04/24 01:52 Room Air 09/04/24 00:45 Room Air 09/03/24 23:52 Room Air 09/03/24 22:25 Room Air 09/03/24 21:45 Room Air 0 09/03/24 21:30 Room Air 0 09/03/24 21:25 Room Air 0 09/03/24 21:15 Room Air 0 09/03/24 21:05 Room Air 0 09/03/24 20:57 Oxymask 8
[2024-09-04] MEDS: CARBIDOPA/LEVODOPA 25/100MG TAB PO SCH (09:17)
[2024-09-04] MEDS: CHOLECALCIFEROL 25 MCG (1000 UNITS) TAB PO SCH (09:18)
[2024-09-04] MEDS: DOCUSATE SODIUM 100 MG CAP PO SCH (09:18)
[2024-09-04] MEDS: GABAPENTIN 100 MG CAP PO SCH (09:18)
[2024-09-04] MEDS: LANTUS PER UNIT CHARGE SC SCH (09:19)
[2024-09-04] MEDS: PANTOprazole 40 MG TAB PO SCH (09:20)
[2024-09-04] MEDS: LOVASTATIN 20 MG TAB PO SCH (09:20)
--- NOTE | 2024-09-04 12:57 | Hospitalist Progress Note ---
Date of Service September 04, 2024 Assessment & Plan (1) Traumatic hematoma of thoracic region: Plan 79-year-old male with past med history significant for CAD status post stent 20 years ago, diabetes, diabetic neuropathy, parkinsonism disease, hyperlipidemia who lives with his found to have a traumatic hematoma thoracic region. Seems patient's was assisting him in getting out of bed when he felt a popping sensation and immediate onset of flaccid paresis in his lower extremities. He was taken to the ER of the of outside hospital and imaging studies showed T11 fracture and epidural fluid collection cord compression. Patient was emergently brought here and underwent surgery. Traumatic hematoma thoracic region Lower extremity paralysis Status post removal of the hardware of T10-T11, hematoma evacuation, kyphoplasty T11 on 09/03/2024 Continue PT OT; possibly discharged to rehab in next few days DVT prophylaxis as per orthopedic Pain control History of parkinsonism Continue home medications CAD status post stent On lovastatin Holding aspirin for now Restart aspirin as per Ortho GERD on Protonix-continue Type 2 Diabetes Currently holding home insulin Sliding scale Glycemic pharmacy consulted Will monitor Delirium Postop Resolved Hyperlipidemia On statin,continue Diabetic neuropathy On gabapentin,continue Constipation On ,Colace, continue DVT prophylaxis and disposition As per orthospine Please note the above document was generated using voice recognition software. It may contain grammatical, syntax or spelling errors. Any formal questions or concerns about the content, text or information contained within the body of thi s dictation should be directly addressed to the provider for clarification Admission and Anticipated Discharge Date Admission Date: September 03, 2024 Subjective Patient seen and examined at bedside. He reports the pain is well-controlled at the surgical site Vital signs are stable and he is saturating well on room air Review of Systems Review of Systems: All systems reviewed & are unremarkable except as noted in Subjective Physical Exam Physical Exam: constitutional: Alert oriented x 3; not in distress. Respiratory: normal respiratory effort, lungs clear to auscultation, no wheeze, rales, rhonchi. Normal insp/exp effort, no accessory muscle use Cardiovascular: RRR, no murmur, no edema Vessels: no JVD or carotid bruit Chest: normal inspection of chest Abdomen: normal bowel sounds, soft, nontender, no hepatosplenomegaly Musculoskeletal: no cyanosis or clubbing, extremities motor strength 5/5 Skin: no rashes, warm and dry normal turgor Neurologic: PERRL, EOMI, accommodation nl, no face palsy. Unable to move lower extremities Psychiatric: A+Ox3, euthymic affect Results & Data Results & Data Vital Signs (Past 12 Hours) Vital Signs Temp Pulse Resp BP Pulse Ox O2 Del Method 09/04/24 11:18 36.4 C L 75 16 144/69 H 98 Room Air 09/04/24 07:33 36.9 C 90 16 123/62 97 Room Air 09/04/24 05:32 36.6 C 96 H 16 136/67 95 Room Air 09/04/24 03:11 36.7 C 95 H 16 148/63 H 97 Room Air 09/04/24 01:52 36.7 C 101 H 16 124/65 99 Room Air
--- NOTE | 2024-09-04 13:11 | Pharmacy Report ---
Pharmacy Glycemic Short Note 2 - Date of Service September 04, 2024 - Glycemic Short BSG Results (Last 24 hours): 09/03/24 09/04/24 09/04/24 21:05 01:45 01:48 Glucose POC Glucose 276 H 318 H* 394 H* 09/04/24 09/04/24 09/04/24 02:05 04:17 04:19 Glucose 378 H* POC Glucose 388 H* 379 H* 09/04/24 09/04/24 09/04/24 05:27 05:29 06:25 Glucose 249 H POC Glucose 312 H* 328 H* 09/04/24 09/04/24 07:49 11:29 Glucose POC Glucose 246 H 263 H OUTPATIENT ANTIDIABETIC REGIMEN: * ASSESSMENT: * Admitted post hematoma evacuation/spinal decompression. On IV dexamethasone 8 mg IV q8 today * BSGs have been elevated with steroid use- somewhat improved although still in the high 200s * Tightened novolog parameters closer to outpatient dose stress of 2 for now- monitor for additional changes * Lantus weight/stress 2 for now PLAN FOR INPATIENT GLYCEMIC CONTROL: * Hold outpatient oral diabetes medications * Basal insulin * Lantus 15 units SQ BID * Bolus insulin * NovoLog per scale ACHS or Q6hrs while NPO * Goal Range: Low 120 mg/dL - High 160 mg/dL * Correction Factor: 15 mg/dL/unit * Nutritional / Prandial insulin per carb ratio of 1 unit per 5 grams CHO consumed
[2024-09-04] MEDS: CARBIDOPA/LEVODOPA 50/200MG EXT REL TAB PO SCH (20:48)
[2024-09-04] MEDS: GABAPENTIN 400 MG CAP PO SCH (20:48)
[2024-09-04] MEDS: hydrOXYzine HCl 25 MG TAB PO PRN (22:56)
[2024-09-05] MEDS: LANTUS PER UNIT CHARGE SC SCH (08:59)
[2024-09-05] MEDS: oxyCODONE HCL IR 5 MG TAB (IMMEDIATE RELEASE) PO PRN (09:01)
[2024-09-05] MEDS: ceFAZolin 2000MG 2,000 MG/15 ML SYR IV SCH (09:33)
--- NOTE | 2024-09-05 11:25 | Orthopedic Progress Note ---
Date of Service September 05, 2024 Assessment & Plan (1) Lower extremity paralysis: Plan: At this time I encouraged the patient to sit up is much as possible to relieve pressure on his lumbar incision. Will maintain bedrest today. Consider transverse to a chair in the next few days. He will ultimately need to be transferred to a rehab facility next week. Admission and Anticipated Discharge Date Admission Date: September 03, 2024 Subjective Patient's back pain is controlled. He feels his sensory is improving to the lower extremities. Physical Exam Physical Exam: On examination is able to sit him up in bed. He is comfortable in this position . He exhibits a 3+/5 plantarflexion dorsiflexion. He has no evidence of motion with quadriceps or hamstrings. Hip flexors are absent. Sensory is intact to lower extremities and abdomen. Results & Data Vital Signs (Past 12 Hours) Vital Signs Temp Pulse Resp BP Pulse Ox O2 Del Method 09/05/24 08:03 36.6 C 77 18 149/65 H 96 Room Air Queries Orthopedic Spine Vertebral Fracture Secondary to Osteoporosis: Yes
--- NOTE | 2024-09-05 11:56 | Pharmacy Report ---
Pharmacy Glycemic Short Note 2 - Date of Service September 05, 2024 - Glycemic Short BSG Results (Last 24 hours): 09/04/24 09/04/24 09/04/24 16:47 18:19 20:41 POC Glucose 158 H 157 H 90 09/05/24 09/05/24 07:47 11:46 POC Glucose 291 H 258 H OUTPATIENT ANTIDIABETIC REGIMEN: * ASSESSMENT: 09/05 * BSGs trended downward yesterday evening with tightened novolog parameters. * Steroids have been discontinued, Fasting remains elevated- will increase * Loosened novolog parameters as steroid has been discontinued and patient seemed to improve throughout the day 09/04 * Admitted post hematoma evacuation/spinal decompression. On IV dexamethasone 8 mg IV q8 today * BSGs have been elevated with steroid use- somewhat improved although still in the high 200s * Tightened novolog parameters closer to outpatient dose stress of 2 for now- monitor for additional changes * Lantus weight/stress 2 for now PLAN FOR INPATIENT GLYCEMIC CONTROL: * Hold outpatient oral diabetes medications * Basal insulin * Lantus 20 units SQ BID * Bolus insulin * NovoLog per scale ACHS or Q6hrs while NPO * Goal Range: Low 120 mg/dL - High 160 mg/dL * Correction Factor: 25 mg/dL/unit * Nutritional / Prandial insulin per carb ratio of 1 unit per 8 grams CHO consumed
--- NOTE | 2024-09-05 15:22 | Hospitalist Progress Note ---
Date of Service September 05, 2024 Assessment & Plan (1) Traumatic hematoma of thoracic region: Plan 79-year-old male with past med history significant for CAD status post stent 20 years ago, diabetes, diabetic neuropathy, parkinsonism disease, hyperlipidemia who lives with his found to have a traumatic hematoma thoracic region. Seems patient's was assisting him in getting out of bed when he felt a popping sensation and immediate onset of flaccid paresis in his lower extremities. He was taken to the ER of the of outside hospital and imaging studies showed T11 fracture and epidural fluid collection cord compression. Patient was emergently brought here and underwent surgery. Traumatic hematoma thoracic region Lower extremity paralysis Status post removal of the hardware of T10-T11, hematoma evacuation, kyphoplasty T11 on 09/03/2024 Continue PT OT; possibly discharged to rehab in next few days DVT prophylaxis as per orthopedic Pain control q2 turns to prevent pressure ulcers History of parkinsonism Continue home medications CAD status post stent On lovastatin Holding aspirin for now Restart aspirin as per Ortho GERD on Protonix-continue Type 2 Diabetes Currently holding home insulin Sliding scale Glycemic pharmacy consulted Will monitor Delirium Postop Resolved Hyperlipidemia On statin,continue Diabetic neuropathy On gabapentin,continue Constipation On ,Colace, continue DVT prophylaxis and disposition As per orthospine Please note the above document was generated using voice recognition software. It may contain grammatical, syntax or spelling errors. Any formal questions or concerns about the content, text or information contained within the body of this dictation should be directly addressed to the provider for clarification Admission and Anticipated Discharge Date Admission Date: September 03, 2024 Subjective Patient seen and examined at bedside He is tearful but motivated Vital signs are stable Review of Systems Review of Systems: All systems reviewed & are unremarkable except as noted in Subjective Physical Exam Physical Exam: constitutional: Alert oriented x 3; not in distress. Respiratory: normal respiratory effort, lungs clear to auscultation, no wheeze, rales, rhonchi. Normal insp/exp effort, no accessory muscle use Cardiovascular: RRR, no murmur, no edema Vessels: no JVD or carotid bruit Chest: normal inspection of chest Abdomen: normal bowel sounds, soft, nontender, no hepatosplenomegaly Musculoskeletal: no cyanosis or clubbing, extremities motor strength 5/5 Skin: no rashes, warm and dry normal turgor Neurologic: PERRL, EOMI, accommodation nl, no face palsy. Unable to move lower extremities Psychiatric: A+Ox3, euthymic affect Results & Data Results & Data Vital Signs (Past 12 Hours) Vital Signs Temp Pulse Resp BP Pulse Ox O2 Del Method 09/05/24 08:03 36.6 C 77 18 149/65 H 96 Room Air
[2024-09-06] MEDS: DEXTROSE 50% 50 ML SYRINGE IV STA (08:47)
--- NOTE | 2024-09-06 10:00 | Hospitalist Progress Note ---
Date of Service September 06, 2024 Assessment & Plan (1) Traumatic hematoma of thoracic region: Plan 79-year-old male with past med history significant for CAD status post stent 20 years ago, diabetes, diabetic neuropathy, parkinsonism disease, hyperlipidemia who lives with his found to have a traumatic hematoma thoracic region. Seems patient's was assisting him in getting out of bed when he felt a popping sensation and immediate onset of flaccid paresis in his lower extremities. He was taken to the ER of the of outside hospital and imaging studies showed T11 fracture and epidural fluid collection cord compression. Patient was emergently brought here and underwent surgery. Traumatic hematoma thoracic region Lower extremity paralysis Status post removal of the hardware of T10-T11, hematoma evacuation, kyphoplasty T11 on 09/03/2024 Continue PT OT; possibly discharged to rehab in next few days DVT prophylaxis as per orthopedic Pain control q2 turns to prevent pressure ulcers History of parkinsonism Continue home medications CAD status post stent On lovastatin Holding aspirin for now Restart aspirin as per Ortho GERD on Protonix-continue Type 2 Diabetes Currently holding home insulin Sliding scale Glycemic pharmacy consulted Will monitor Delirium Postop Resolved Hyperlipidemia On statin,continue Diabetic neuropathy On gabapentin,continue Constipation On ,Colace, continue DVT prophylaxis and disposition As per orthospine Please note the above document was generated using voice recognition software. It may contain grammatical, syntax or spelling errors. Any formal questions or concerns about the content, text or information contained within the body of this dictation should be directly addressed to the provider for clarification Admission and Anticipated Discharge Date Admission Date: September 03, 2024 Subjective Patient seen and examined at bedside. He is comfortable; not in distress No significant events overnight. Review of Systems Review of Systems: All systems reviewed & are unremarkable except as noted in Subjective Physical Exam Physical Exam: constitutional: Alert oriented x 3; not in distress. Respiratory: normal respiratory effort, lungs clear to auscultation, no wheeze, rales, rhonchi. Normal insp/exp effort, no accessory muscle use Cardiovascular: RRR, no murmur, no edema Vessels: no JVD or carotid bruit Chest: normal inspection of chest Abdomen: normal bowel sounds, soft, nontender, no hepatosplenomegaly Musculoskeletal: no cyanosis or clubbing, extremities motor strength 5/5 Skin: no rashes, warm and dry normal turgor Neurologic: PERRL, EOMI, accommodation nl, no face palsy. Unable to move lower extremities Psychiatric: A+Ox3, euthymic affect Results & Data Results & Data Vital Signs (Past 12 Hours) Vital Signs Temp Pulse Resp BP Pulse Ox O2 Del Method 09/06/24 07:33 36.4 C L 68 16 146/53 H 96 Room Air
--- NOTE | 2024-09-06 10:51 | Orthopedic Progress Note ---
Date of Service September 06, 2024 Assessment & Plan (1) Lower extremity paralysis: Plan: Patient is stable at this point. We need to continue with supportive care including nutrition, preservation of skin integrity, DVT and GI prophylaxis. He is going to need acute rehab due to his neurologic deficits. I discussed all this with the patient and his and they agree. We will continue to follow. Admission and Anticipated Discharge Date Admission Date: September 03, 2024 Subjective Patient was seen bedside in room 355 in the presence of his . He is doing okay in terms of pain control today. Has an indwelling catheter. He has a specialty bed with protective inflated booties. He states he is uncomfortable laying on the bulky dressing in the drain. Other than that he is not having pain shooting down the legs. His legs are still numb and paresthetic. He has significant weakness but is able to dorsiflex and plantarflex his foot. He denies any other numbness, tingling, or paresthesias. Physical Exam Physical Exam: On exam he is alert and oriented. His calves are supple and nontender. His abdomen soft and nontender. He is able to dorsiflex and plantarflex his foot to gravity but cannot resist. He is unable to flex his left quadricep he has some fasciculation with attempted motion on the right. He can tell when I am squeezing his feet. His respirations are smooth and nonlabored. Cardiovascular exam reveals no gross abnormalities. Results & Data Vital Signs (Past 12 Hours) Vital Signs Temp Pulse Resp BP Pulse Ox O2 Del Method 09/06/24 07:33 36.4 C L 68 16 146/53 H 96 Room Air
--- NOTE | 2024-09-06 11:35 | Pharmacy Report ---
Pharmacy Glycemic Short Note 2 - Date of Service September 06, 2024 - Glycemic Short BSG Results (Last 24 hours): 09/05/24 09/05/24 09/05/24 11:46 16:50 20:32 POC Glucose 258 H 101 H 134 H 09/06/24 09/06/24 09/06/24 07:46 07:47 08:01 POC Glucose 61 L* 62 L* 65 L* 09/06/24 09/06/24 08:41 11:24 POC Glucose 104 H 227 H OUTPATIENT ANTIDIABETIC REGIMEN: * Humulin 70/30 60 units SQ AM 30 units SQ HS * Humalog * A1c 8.4% 09/04/24 ASSESSMENT: 09/06 * BSGs trended down yesterday, and resulted in hypoglycemia this morning d/t excess basal, as steroids have worn off. * Decrease basal by 50% today and loosen NovoLog parameters to prevent further hypoglycemia. Goal range already at higher goal to prevent hypoglycemia. * Hypoglycemia corrected easily with 15g CHO PO x 2. 09/05 * BSGs trended downward yesterday evening with tightened NovoLog parameters. * Steroids have been discontinued, Fasting remains elevated- will increase * Loosened NovoLog parameters as steroid has been discontinued and patient seemed to improve throughout the day 09/04 * Admitted post hematoma evacuation/spinal decompression. On IV dexamethasone 8 mg IV q8 today * BSGs have been elevated with steroid use- somewhat improved although still in the high 200s * Tightened novolog parameters closer to outpatient dose stress of 2 for now- monitor for additional changes * Lantus weight/stress 2 for now PLAN FOR INPATIENT GLYCEMIC CONTROL: * Hold outpatient oral diabetes medications * Basal insulin * Lantus 20 units SQ Daily * Bolus insulin * NovoLog per scale ACHS or Q6hrs while NPO * Goal Range: Low 120 mg/dL - High 160 mg/dL * Correction Factor: 30 mg/dL/unit * Nutritional / Prandial insulin per carb ratio of 1 unit per 10 grams CHO consumed
[2024-09-06] MEDS: LANTUS PER UNIT CHARGE SC SCH (13:02)
[2024-09-06] MEDS: NITROGLYCERIN SL 0.4 MG/TAB TAB SL STA (14:37)
[2024-09-06] MEDS ORDERED: NITROGLYCERIN SL 0.4 MG/TAB TAB SL PRN (18:34)
[2024-09-06] MEDS: ASPIRIN 81 MG CHEW PO SCH (19:59)
[2024-09-07] MEDS: LANTUS PER UNIT CHARGE SC SCH (09:07)
--- NOTE | 2024-09-07 10:18 | Orthopedic Progress Note ---
Date of Service September 07, 2024 Assessment & Plan (1) Lower extremity paralysis: Plan: At this time encourage patient to continue to sit up as tolerated. He understands in light of his cardiac status is no condition for strain revision surgery. Admission and Anticipated Discharge Date Admission Date: September 03, 2024 Subjective Patient states he no longer is experiencing any chest pain. His back pain is controlled. He sat up yesterday at the side of the bed with assistance. Physical Exam Physical Exam: Patient continues to demonstrate 3+/5 bilateral plantarflexion dorsiflexion. I appreciate no evidence of quadricep function or hip flexor function. Sensory is intact. Results & Data Vital Signs (Past 12 Hours) Vital Signs Temp Pulse Pulse Resp BP BP Pulse Ox 09/07/24 09:38 67 09/07/24 07:50 36.8 C 71 17 144/65 H 98 09/07/24 03:40 36.5 C 70 18 148/69 H 95 09/07/24 00:27 36.4 C L 76 20 178/77 H 97 09/06/24 23:13 76 09/06/24 22:54 O2 Del Method 09/07/24 09:38 09/07/24 07:50 Room Air 09/07/24 03:40 Room Air 09/07/24 00:27 Room Air 09/06/24 23:13 09/06/24 22:54 Room Air Queries Orthopedic Spine Vertebral Fracture Secondary to Osteoporosis: Yes
--- NOTE | 2024-09-07 10:28 | Pharmacy Report ---
Pharmacy Glycemic Short Note 2 - Date of Service September 07, 2024 - Glycemic Short BSG Results (Last 24 hours): 09/06/24 09/06/24 09/06/24 11:24 16:35 21:01 POC Glucose 227 H 153 H 78 09/07/24 09/07/24 08:11 09:46 POC Glucose 82 172 H OUTPATIENT ANTIDIABETIC REGIMEN: * Humulin 70/30 60 units SQ AM 30 units SQ HS * Humalog * A1c 8.4% 09/04/24 ASSESSMENT: 09/07 * BGSs improved, on lower end last night and this morning, reduce basal by 20% to prevent hypoglycemia. * Consider tighter CR at breakfast if patient continues to have hyperglycemia at lunch only. 09/06 * BSGs trended down yesterday, and resulted in hypoglycemia this morning d/t excess basal, as steroids have worn off. * Decrease basal by 50% today and loosen NovoLog parameters to prevent further hypoglycemia. Goal range already at higher goal to prevent hypoglycemia. * Hypoglycemia corrected easily with 15g CHO PO x 2. 09/05 * BSGs trended downward yesterday evening with tightened NovoLog parameters. * Steroids have been discontinued, Fasting remains elevated- will increase * Loosened NovoLog parameters as steroid has been discontinued and patient seemed to improve throughout the day 09/04 * Admitted post hematoma evacuation/spinal decompression. On IV dexamethasone 8 mg IV q8 today * BSGs have been elevated with steroid use- somewhat improved although still in the high 200s * Tightened novolog parameters closer to outpatient dose stress of 2 for now- monitor for additional changes * Lantus weight/stress 2 for now PLAN FOR INPATIENT GLYCEMIC CONTROL: * Hold outpatient oral diabetes medications * Basal insulin * Lantus 16 units SQ Daily * Bolus insulin * NovoLog per scale ACHS or Q6hrs while NPO * Goal Range: Low 120 mg/dL - High 160 mg/dL * Correction Factor: 30 mg/dL/unit * Nutritional / Prandial insulin per carb ratio of 1 unit per 10 grams CHO consumed
--- NOTE | 2024-09-07 14:03 | Hospitalist Progress Note ---
Date of Service September 07, 2024 Assessment & Plan (1) Traumatic hematoma of thoracic region: Plan 79-year-old male with past med history significant for CAD status post stent 20 years ago, diabetes, diabetic neuropathy, parkinsonism disease, hyperlipidemia who lives with his found to have a traumatic hematoma thoracic region. Seems patient's was assisting him in getting out of bed when he felt a popping sensation and immediate onset of flaccid paresis in his lower extremities. He was taken to the ER of the of outside hospital and imaging studies showed T11 fracture and epidural fluid collection cord compression. Patient was emergently brought here and underwent surgery. Traumatic hematoma thoracic region Lower extremity paralysis Status post removal of the hardware of T10-T11, hematoma evacuation, kyphoplasty T11 on 09/03/2024 Continue PT OT; DVT prophylaxis as per orthopedic Pain control q2 turns to prevent pressure ulcers Demand ischemia History of CAD status post stent Patient had an episode of chest pain on 09/06 EKG showed sinus rhythm; no significant ST or T wave changes High sensitive troponin was elevated to 91; up trended to 214 and down trended Aspirin restarted after discussion with orthopedic; call continue on lovastatin Telemetry monitoring Echocardiogram pending History of parkinsonism Continue home medications GERD on Protonix-continue Type 2 Diabetes Currently holding home insulin Sliding scale Glycemic pharmacy consulted Will monitor Delirium Postop Resolved Hyperlipidemia On statin,continue Diabetic neuropathy On gabapentin,continue Constipation On ,Colace, continue DVT prophylaxis and disposition As per orthospine Time spent evaluating patient, direct bedside care, chart review, placing orders, interpretation of diagnostic studies, discussion with consultants, patient, and family members, as well as other required patient management activities is 50 minutes Please note the above document was generated using voice recognition software. It may contain grammatical, syntax or spelling errors. Any formal questions or concerns about the content, text or information contained within the body of this dictation should be directly addressed to the provider for clarification Admission and Anticipated Discharge Date Admission Date: September 03, 2024 Subjective Patient seen and examined at bedside. He is lying in the bed comfortably. He denies any chest pain at this time. No recurrence of pain overnight as well Vital signs look stable Review of Systems Review of Systems: All systems reviewed & are unremarkable except as noted in Subjective Physical Exam Physical Exam: constitutional: Alert oriented x 3; not in distress. Respiratory: normal respiratory effort, lungs clear to auscultation, no wheeze, rales, rhonchi. Normal insp/exp effort, no accessory muscle use Cardiovascular: RRR, no murmur, no edema Vessels: no JVD or carotid bruit Chest: normal inspection of chest Abdomen: normal bowel sounds, soft, nontender, no hepatosplenomegaly Musculoskeletal: no cyanosis or clubbing, extremities motor strength 5/5 Skin: no rashes, warm and dry normal turgor Neurologic: PERRL, EOMI, accommodation nl, no face palsy. Unable to move lower extremities Psychiatric: A+Ox3, euthymic affect Results & Data Results & Data Vital Signs (Past 12 Hours) Vital Signs Temp Pulse Pulse Resp BP BP Pulse Ox 09/07/24 11:19 36.5 C 76 18 149/68 H 96 09/07/24 09:38 67 09/07/24 07:50 36.8 C 71 17 144/65 H 98 09/07/24 03:40 36.5 C 70 18 148/69 H 95 O2 Del Method 09/07/24 11:19 Room Air 09/07/24 09:38 09/07/24 07:50 Room Air 09/07/24 03:40 Room Air
[2024-09-07] MEDS: HYDROmorphone INJ 0.5 MG/0.5 ML SYR IV PRN (15:07)
[2024-09-08] MEDS: ACETAMINOPHEN 500 MG TAB PO PRN (07:46)
--- NOTE | 2024-09-08 08:47 | Electrocardiogram Report ---
Test Reason : Blood Pressure : */* mmHG Vent. Rate : 73 BPM Atrial Rate : 73 BPM P-R Int : 132 ms QRS Dur : 80 ms QT Int : 438 ms P-R-T Axes : 41 23 4 degrees QTcB Int : 482 ms Poor data quality, interpretation may be adversely affected Normal sinus rhythm Nonspecific ST abnormality Anterolateral leads Prolonged QT Abnormal ECG When compared with ECG of 21-Aug-2024 09:14, Criteria for Septal infarct are no longer Present Nonspecific ST abnormality now present Anterolateral leads Confirmed by Charan Lee ([id number]) on 09/08/2024 8:47:36 AM Referred By: REFERRED SELF Confirmed By: Charan Lee
--- NOTE | 2024-09-08 09:18 | CT Scan Report ---
CT OF THE THORACIC SPINE CLINICAL HISTORY: Postoperative evaluation. COMPARISON STUDY: Intraoperative fluoroscopic images September 03, 2024. MRI of the thoracic and lumbar spines September 03, 2024. Lumbar spine CT June 17, 2022. TECHNIQUE: Helical axial images of the thoracic spine were obtained. Sagittal and coronal reconstru ctions were viewed. Automated exposure control was utilized for the study. A dose lowering techniqu e was utilized adhering to the principles of ALARA. FINDINGS: Small bilateral pleural effusions are present. Subpleural opacities represent atelectasis. Postoperative findings within the thoracolumbar spine are partially imaged on this examination. Centr al canal and neural foramen are suboptimally assessed given CT technique and artifact from the hardwa re. Interval T10-T11 decompression, T11 pedicle screw removal and T11 kyphoplasty is noted. A surgica l drain is in place. The visualized hardware is intact. Discectomy with interbody spacer placement an d adjacent sclerosis at the L1-L2 level is noted. The postoperative appearance is unchanged since rashard or MRI. There are no unexpected radiopaque foreign bodies. Laminectomy bed fluid collection at the T1 1 level measures 4.2 x 1.7 cm in AP by transverse dimension. Craniocaudal dimension is difficult to a ssess by CT. Small amount of gas within the operative bed is postsurgical. A 3 column horizontal T11 fracture is noted. There is mild prevertebral stranding. There is no vertebral body height loss. This fracture is acute to subacute. No additional acute to subacute thoracic spine fractures are present. There are old T6 and T7 compression fractures. There are no suspicious osseous lesions. IMPRESSION: 1. Status post interval T10-T11 decompression, T11 pedicle screw removal and T11 kyphoplasty. Visuali zed hardware intact. 2. Three column horizontal T11 vertebral fracture which extends through the posterior cortex suggesti ve of a subacute to acute burst fracture, as shown on previous MRI. 3. Laminectomy bed fluid collection at the T10-T11 level which is expected in the early postoperative setting. Near nondiagnostic evaluation of the central canal due to CT technique and artifact. ACT 112: Negative or not required by law. Electronically signed by: Diaz Swann M.D. 09/08/2024 9:17 AM
[2024-09-08] MEDS: LANTUS PER UNIT CHARGE SC SCH (09:24)
--- NOTE | 2024-09-08 09:25 | Hospitalist Progress Note ---
Date of Service September 08, 2024 Assessment & Plan (1) Traumatic hematoma of thoracic region: Plan 79-year-old male with past med history significant for CAD status post stent 20 years ago, diabetes, diabetic neuropathy, parkinsonism disease, hyperlipidemia who lives with his found to have a traumatic hematoma thoracic region. Seems patient's was assisting him in getting out of bed when he felt a popping sensation and immediate onset of flaccid paresis in his lower extremities. He was taken to the ER of the of outside hospital and imaging studies showed T11 fracture and epidural fluid collection cord compression. Patient was emergently brought here and underwent surgery. Traumatic hematoma thoracic region Lower extremity paralysis Status post removal of the hardware of T10-T11, hematoma evacuation, kyphoplasty T11 on 09/03/2024 Continue PT OT; DVT prophylaxis as per orthopedic Pain control q2 turns to prevent pressure ulcers Demand ischemia History of CAD status post stent Patient had an episode of chest pain on 09/06 EKG showed sinus rhythm; no significant ST or T wave changes High sensitive troponin was elevated to 91; up trended to 114 and down trended Aspirin restarted after discussion with orthopedic; call continue on lovastatin Telemetry monitoring Echocardiogram done; no regional wall motion abnormalities. Patient does not have any recurrence of chest pain History of parkinsonism Continue home medications GERD on Protonix-continue Type 2 Diabetes Currently holding home insulin Sliding scale Glycemic pharmacy consulted Will monitor Delirium Postop Resolved Hyperlipidemia On statin,continue Diabetic neuropathy On gabapentin,continue Constipation On ,Colace, continue DVT prophylaxis and disposition As per orthospine Time spent evaluating patient, direct bedside care, chart review, placing orders, interpretation of diagnostic studies, discussion with consultants, patient, and family members, as well as other required patient management activities is 50 minutes Please note the above document was generated using voice recognition software. It may contain grammatical, syntax or spelling errors. Any formal questions or concerns about the content, text or information contained within the body of this dictation should be directly addressed to the provider for clarification Admission and Anticipated Discharge Date Admission Date: September 03, 2024 Subjective Patient seen and examined at bedside. Comfortable; not in distress. Denies fever, chills, chest pain, shortness of breath, abdominal pain or urinary symptoms. No significant overnight events He doesn't want telemetry. Review of Systems Review of Systems: All systems reviewed & are unremarkable except as noted in Subjective Physical Exam Physical Exam: constitutional: Alert oriented x 3; not in distress. Respiratory: normal respiratory effort, lungs clear to auscultation, no wheeze, rales, rhonchi. Normal insp/exp effort, no accessory muscle use Cardiovascular: RRR, no murmur, no edema Vessels: no JVD or carotid bruit Chest: normal inspection of chest Abdomen: normal bowel sounds, soft, nontender, no hepatosplenomegaly Musculoskeletal: no cyanosis or clubbing, extremities motor strength 5/5 Skin: no rashes, warm and dry normal turgor Neurologic: PERRL, EOMI, accommodation nl, no face palsy. Unable to move lower extremities Psychiatric: A+Ox3, euthymic affect Results & Data Results & Data Vital Signs (Past 12 Hours) Vital Signs Temp Pulse Pulse Resp BP Pulse Ox O2 Del Method 09/08/24 07:57 36.4 C L 72 20 162/66 H 97 Room Air 09/08/24 07:00 69 09/07/24 23:55 36.8 C 78 20 159/76 H 99 Room Air 09/07/24 22:51 Room Air 09/07/24 21:48 78
[2024-09-08 10:28] LABS: Basophils # (auto) 0.03 K/uL (0.00-0.20); Basophils % (auto) 0.3 %; Eosinophils # (auto) 0.08 K/uL (0.00-0.50); Eosinophils % (auto) 0.9 %; Hemoglobin 10.3 g/dl (14.0-18.0); Immature Granulocytes # (auto) 0.19 K/uL (0.01-0.20); Lymphocytes # (auto) 0.85 K/uL (1.20-3.40); Lymphocytes % (auto) 9.1 %; Mean Corpuscular Hemoglobin 30.3 pg (25.0-34.0); Mean Corpuscular Hgb Conc 33.2 g/dL (32.0-36.0); Mean Corpuscular Volume 91.2 fL (80.0-100.0); Mean Platelet Volume 9.4 fL (9.4-12.4); Monocytes # (auto) 0.42 K/uL (0.11-0.59); Monocytes % (auto) 4.5 %; Neutrophils % (auto) 83.2 %; Platelet Count 401 K/uL (130-400); RDW Coefficient of Variation 12.8 % (11.5-14.5); RDW Standard Deviation 42.1 fL (36.4-46.3); White Blood Count 9.37 K/ul (4.8-10.8)
--- NOTE | 2024-09-08 10:38 | Pharmacy Report ---
Pharmacy Glycemic Short Note 2 - Date of Service September 08, 2024 - Glycemic Short BSG Results (Last 24 hours): 09/07/24 09/07/24 09/07/24 12:00 17:04 20:03 POC Glucose 200 H 162 H 152 H 09/08/24 07:51 POC Glucose 268 H OUTPATIENT ANTIDIABETIC REGIMEN: * Humulin 70/30 60 units SQ AM 30 units SQ HS * Humalog * A1c 8.4% 09/04/24 ASSESSMENT: 09/08 * Cortez received 29 units of insulin yesterday (16 were basal) * Fating BSG this AM elevated, potentially lows yesterday ongoing from excess basal?, will increase 20% today * No changes to NovoLog at this time, he continues on Ancef IV 09/07 * BGSs improved, on lower end last night and this morning, reduce basal by 20% to prevent hypoglycemia. * Consider tighter CR at breakfast if patient continues to have hyperglycemia at lunch only. 09/06 * BSGs trended down yesterday, and resulted in hypoglycemia this morning d/t excess basal, as steroids have worn off. * Decrease basal by 50% today and loosen NovoLog parameters to prevent further hypoglycemia. Goal range already at higher goal to prevent hypoglycemia. * Hypoglycemia corrected easily with 15g CHO PO x 2. 09/05 * BSGs trended downward yesterday evening with tightened NovoLog parameters. * Steroids have been discontinued, Fasting remains elevated- will increase * Loosened NovoLog parameters as steroid has been discontinued and patient seemed to improve throughout the day 09/04 * Admitted post hematoma evacuation/spinal decompression. On IV dexamethasone 8 mg IV q8 today * BSGs have been elevated with steroid use- somewhat improved although still in the high 200s * Tightened novolog parameters closer to outpatient dose stress of 2 for now- monitor for additional changes * Lantus weight/stress 2 for now PLAN FOR INPATIENT GLYCEMIC CONTROL: * Hold outpatient oral diabetes medications * Basal insulin * Lantus 20 units SQ Daily * Bolus insulin * NovoLog per scale ACHS or Q6hrs while NPO * Goal Range: Low 120 mg/dL - High 160 mg/dL * Correction Factor: 30 mg/dL/unit * Nutritional / Prandial insulin per carb ratio of 1 unit per 10 grams CHO consumed
[2024-09-08 10:50] LABS: BUN Creatinine Ratio 23.7 (10-20); Calcium 8.2 mg/dl (8.6-10.3); Creatinine Clr Calc Pharmacy 78.7 ml/min
[2024-09-08] MEDS: HYDROmorphone INJ 1 MG/ML SYRINGE IV PRN (10:52)
[2024-09-08] MEDS ORDERED: ENOXAPARIN 1 MG/KG SQ SCH (12:45)
--- NOTE | 2024-09-08 13:11 | Orthopedic Progress Note ---
Date of Service September 08, 2024 Assessment & Plan (1) Lower extremity paralysis: Plan: we will initiate Lovenox for DVT prophylaxis. His drain to remain in place and is still functioning. CT scan was reviewed. His fracture site appears stable. She has the HELDER drain is functioning of not concerned about a reaccumulation of the hematoma. His neurologic function is still variable. Long-term prognosis is guarded. Admission and Anticipated Discharge Date Admission Date: September 03, 2024 Subjective Patient is complaining of intermittent thoracic back pain but is tolerable. He stated was very active with therapy last evening. Physical Exam Physical Exam: This morning his sensation is intact but motion is decreased. Results & Data Vital Signs (Past 12 Hours) Vital Signs Temp Pulse Pulse Resp BP Pulse Ox O2 Del Method 09/08/24 11:00 87 09/08/24 07:57 36.4 C L 72 20 162/66 H 97 Room Air 09/08/24 07:45 Room Air 09/08/24 07:00 69 Queries Orthopedic Spine Vertebral Fracture Secondary to Osteoporosis: Yes
[2024-09-08] MEDS: ENOXAPARIN 80 MG/0.8 ML SYR SQ SCH (13:16)
[2024-09-08] MEDS: LACTATED RINGER'S 500 ML IV ONE (15:51)
[2024-09-09] MEDS: INSULIN ASPART PER UNIT CHARGE SC SCH ×2 (09:33→13:01)
--- NOTE | 2024-09-09 11:04 | Orthopedic Progress Note ---
Date of Service September 09, 2024 Assessment & Plan (1) Lower extremity paralysis: Plan: At this point he is tolerating the enoxaparin. Will discontinue the drain change dressing today. He is stable for rehab from an orthopedic standpoint. Admission and Anticipated Discharge Date Admission Date: September 03, 2024 Subjective Back pain is controlled. He is tolerating physical therapy. Physical Exam Physical Exam: On exam he sitting up in bed. Appears comfortable. Lower extremity motor function is limited today. Sensory is intact. Results & Data Vital Signs (Past 12 Hours) Vital Signs Temp Pulse Resp BP BP Pulse Ox O2 Del Method 09/09/24 07:30 Room Air 09/09/24 07:28 36.6 C 86 16 126/49 L 95 Room Air 09/08/24 23:25 36.8 C 80 18 112/64 94 Room Air Queries Orthopedic Spine Vertebral Fracture Secondary to Osteoporosis: Yes
[2024-09-09 11:16] VITALS: RESP 18; TEMP 97.7; O2SAT 98
[2024-09-09] MEDS: INSULIN HUMAN REGULAR PER UNIT 7 UNITS in SYRINGE 6.93 ML IV ONE (12:38)
[2024-09-09 13:16] VITALS: BP 112/64; PULSE 95
--- NOTE | 2024-09-09 13:42 | Hospitalist Progress Note ---
Date of Service September 09, 2024 Assessment & Plan (1) Traumatic hematoma of thoracic region: Plan 79-year-old male with past med history significant for CAD status post stent 20 years ago, diabetes, diabetic neuropathy, parkinsonism disease, hyperlipidemia who lives with his found to have a traumatic hematoma thoracic region. Seems patient's was assisting him in getting out of bed when he felt a popping sensation and immediate onset of flaccid paresis in his lower extremities. He was taken to the ER of the of outside hospital and imaging studies showed T11 fracture and epidural fluid collection cord compression. Patient was emergently brought here and underwent surgery. Traumatic hematoma thoracic region Lower extremity paralysis Status post removal of the hardware of T10-T11, hematoma evacuation, kyphoplasty T11 on 09/03/2024 Continue PT OT; DVT prophylaxis as per orthopedic Pain control q2 turns to prevent pressure ulcers Demand ischemia History of CAD status post stent Patient had an episode of chest pain on 09/06 EKG showed sinus rhythm; no significant ST or T wave changes High sensitive troponin was elevated to 91; up trended to 114 and down trended Aspirin restarted after discussion with orthopedic; continue on lovastatin Telemetry monitoring Echocardiogram done; no regional wall motion abnormalities. Patient does not have any recurrence of chest pain History of parkinsonism Continue home medications GERD on Protonix-continue Type 2 Diabetes Currently holding home insulin Sliding scale Glycemic pharmacy consulted Will monitor Delirium Postop Resolved Hyperlipidemia On statin,continue Diabetic neuropathy On gabapentin,continue Constipation On ,Colace, continue DVT prophylaxis and disposition lovenox Please note the above document was generated using voice recognition software. It may contain grammatical, syntax or spelling errors. Any formal questions or concerns about the content, text or information contained within the body of this dictation should be directly addressed to the provider for clarification Admission and Anticipated Discharge Date Admission Date: September 03, 2024 Subjective Patient seen and examined at bedside. He is comfortable; not in distress He denies any chest pain. Vital signs are stable and he is saturating well on room air. Review of Systems Review of Systems: All systems reviewed & are unremarkable except as noted in Subjective Physical Exam Physical Exam: constitutional: Alert oriented x 3; not in distress. Respiratory: normal respiratory effort, lungs clear to auscultation, no wheeze, rales, rhonchi. Normal insp/exp effort, no accessory muscle use Cardiovascular: RRR, no murmur, no edema Vessels: no JVD or carotid bruit Chest: normal inspection of chest Abdomen: normal bowel sounds, soft, nontender, no hepatosplenomegaly Musculoskeletal: no cyanosis or clubbing, extremities motor strength 5/5 Skin: no rashes, warm and dry normal turgor Neurologic: PERRL, EOMI, accommodation nl, no face palsy. Unable to move lower extremities Psychiatric: A+Ox3, euthymic affect Results & Data Results & Data Vital Signs (Past 12 Hours) Vital Signs Temp Pulse Pulse Resp BP BP Pulse Ox 09/09/24 13:15 36.5 C 95 H 86 18 112/64 118/61 98 09/09/24 11:15 36.5 C 86 18 118/61 98 09/09/24 07:30 09/09/24 07:28 36.6 C 86 16 126/49 L 95 O2 Del Method 09/09/24 13:15 09/09/24 11:15 Room Air 09/09/24 07:30 Room Air 09/09/24 07:28 Room Air
[2024-09-09] MEDS ORDERED: LANTUS PER UNIT CHARGE SC SCH (21:00)
[2024-09-10] MEDS ORDERED: INSULIN ASPART PER UNIT CHARGE SC SCH (07:30)
== END 2024-09-09 15:25 | DRG 495 ==
LOC: ED 18:43 → OR 19:15 → 3W 19:15 → MERGE 20:58 → 3W 20:58 → 2W 09-06 18:44